=== PATIENT | female | born 1945 | race Caucasian/White ===

== ENCOUNTER → 2018-03-19 10:27 | Outpatient (CLI) | payer MEDICARE, OTHER, SELFPAY ==
[2018-03-19 11:45] LABS: Absolute Lymphocyte Count 1.76 X10^3/ul (0.83-4.51); Absolute Neutrophil Count 4.3 X10^3/uL (2.0-7.7); Basophil# 0.05 X10^3/uL; Basophil% 0.7 % (0-1); Eosinophil# 0.12 X10^3/uL; Eosinophils% 1.8 % (0-5); Hematocrit 46.4 % (37-47); Hemoglobin 14.9 g/dl (12.0-15.0); Lymphocyte # 1.76 X10^3/ul (4.0); Lymphocyte % 26.1 % (19-41); Mean Corp Hgb Conc 32.1 g/gl (32-36); Mean Corpuscular Hgb 29.1 pg (27.0-32.0); Mean Corpuscular Volume 90.6 fL (81-99); Monocyte# 0.52 X10^3/uL; Monocyte% 7.7 % (0-10); Neutrophil # 4.28 X10^3/uL (2.7-7.7); Neutrophil % 63.6 % (47-70); Platelet Count 269 K/mm3 (150-450); RBC Distribution Width CV 13.3 % (11.6-14.6); Red Blood Count 5.12 M/mm3 (4.2-5.4); White Blood Count 6.7 K/mm3 (4.4-11.0)
[2018-03-19 11:46] LABS: POSITIVE COUNT NO; POSITIVE DIFFERENTIAL NO; POSITIVE MORPHOLOGY NO
[2018-03-19 12:50] LABS: ALB/GLOB Ratio 0.9 RATIO (0.9-2.4); AST(SGOT) 24 U/L (15-37); Alanine Aminotransfer ALT/SGPT 26 U/L (13-56); Albumin, Serum 3.7 g/dL (3.2-5.0); Alkaline Phosphatase 68 U/L (45-117); Anion Gap 11 (5-15); BUN 13 mg/dL (7-18); BUN/Creat Ratio 13.7 RATIO (10-20); Calcium,Total 9.2 mg/dL (8.5-10.1); Chloride 103 mmol/L (98-107); Creatinine, Serum 0.95 mg/dL (0.55-1.02); EST Glomerular Filtration Rate 62 mL/min (>60); Est Glom Filt Rate - Afr Amer 75 mL/min (>60); Glucose 98 mg/dL (74-106); Magnesium 1.9 mg/dL (1.6-2.6); Phosphorus 2.4 mg/dL (2.5-4.9); Potassium 3.8 mmol/L (3.5-5.1); Protein, Total 7.7 g/dL (6.4-8.2); Sodium Level 142 mmol/L (136-145); Vitamin B12 1084 pg/mL (211-911); Vitamin D,25 Hydroxy 31.9 ng/mL (29.95-100.01)
== END ==
PROVIDERS: Family Provider Family Medicine; PCP Family Medicine; Referring Provider Nurse Practitioner Acute Care; Visit Provider Nurse Practitioner Acute Care
DX: G25.81 Restless legs syndrome (principal); E55.9 Vitamin D deficiency, unspecified; Z79.899 Other long term (current) drug therapy
CPT/HCPCS: 36415; 80053; 82306; 82607; 83735; 84100; 85025

== ENCOUNTER 2018-06-11 17:41 | Inpatient (IN) | payer MEDICARE, OTHER, SELFPAY ==
[2018-06-11] VITALS (12 sets, daily range): BP systolic 114–146; BP diastolic 57–94; PULSE 86–120; RESP 18–36; TEMP 36.9–38.3; O2SAT 87–94; BMI 51.2; BMI 49.5
--- NOTE | 2018-06-11 18:29 | RAD_ITS ---
STUDY: X-RAY - LEFT KNEE REASON FOR EXAM: Female, 73 years old. Fall. Pain. TECHNIQUE: 4 view(s) of the knee. COMPARISON: None. FINDINGS: Normal visualized distal femur. Normal visualized proximal tibia and fibula. Normal proximal tibiofibular articulation. There is no acute fracture, dislocation or destructive osseous pathology. There is severe degenerative arthrosis of the medial femorotibial compartment with severe joint space narrowing. There is moderate degenerative arthrosis of the lateral femorotibial compartment with moderate joint space narrowing. There is severe degenerative arthrosis of the patellofemoral articulation. There is no demonstrated joint effusion. The soft tissue structures are unremarkable. RAD/Knee 4 or More Views IMPRESSION: Marked degenerative changes of the left knee without fracture or dislocation. Electronically Signed: Con Fletcher DO at 20:11 EST Tel [phone], Service support ,
--- NOTE | 2018-06-11 18:29 | EKG12_ITS ---
Test Reason : SOB Blood Pressure : / mmHG Vent. Rate : 107 BPM Atrial Rate : 107 BPM P-R Int : 186 ms QRS Dur : 106 ms QT Int : 308 ms P-R-T Axes : 041 -40 068 degrees QTc Int : 411 ms Sinus tachycardia Left axis deviation Nonspecific T wave abnormality Abnormal ECG Confirmed by MARCUS MALLORY, ROSENDA ([id number]), editor department DOLORES ARCHIBALD ([id number]) on 06/17/2018 9:55:30 AM Referred By: Pérez Goel Confirmed By:ROSENDA VELAZQUEZ MD
--- NOTE | 2018-06-11 18:29 | RAD_ITS ---
STUDY: X-RAY - LEFT HIP REASON FOR EXAM: Female, 73 years old. Fall. Left hip pain. TECHNIQUE: 3 views of the hip. COMPARISON: None. FINDINGS: There is no fracture or dislocation in the pelvis or left hip. There are mild degenerative changes in the left hip. There are postsurgical changes from a prior right hip arthroplasty with intact hardware in satisfactory alignment. RAD/HIP, UNI W/ Pelvis 2-3 Views IMPRESSION: No fracture or dislocation in the pelvis or left hip. Mild degenerative changes. Electronically Signed: Juan Antonio Denise, at 20:28 EST Tel , Service support ,
[2018-06-11 19:04] LABS: Absolute Lymphocyte Count 0.52 X10^3/ul (0.83-4.51); Absolute Neutrophil Count 13.6 X10^3/uL (2.0-7.7); Differential Indicated SCAN CRITERIA MET; Hematocrit 43.7 % (37-47); Hemoglobin 14.3 g/dl (12.0-15.0); Lymphocyte # 0.52 X10^3/ul (4.0); Lymphocyte % 3.4 % (19-41); Mean Corp Hgb Conc 32.7 g/gl (32-36); Mean Corpuscular Hgb 29.2 pg (27.0-32.0); Mean Corpuscular Volume 89.2 fL (81-99); Mean Platelet Vol. 10.4 fl (6.2-12.0); Monocyte# 1.33 X10^3/uL; Monocyte% 8.6 % (0-10); Neutrophil % 87.8 % (47-70); POSITIVE COUNT NO; POSITIVE DIFFERENTIAL YES; POSITIVE MORPHOLOGY NO; Platelet Count 194 K/mm3 (150-450); RBC Distribution Width CV 13.5 % (11.6-14.6); RBC Distribution Width SD 44.5 fl (35.1-43.9); White Blood Count 15.5 K/mm3 (4.4-11.0)
--- NOTE | 2018-06-11 19:10 | RAD_ITS ---
STUDY: X-RAY CHEST REASON FOR EXAM: Female, 73 years old. Cough. TECHNIQUE: PA and lateral views of the chest. COMPARISON: None. FINDINGS: Telemetry wires overlie the chest. The lungs are hypoexpanded. There is mild elevation of the right hemidiaphragm. There is mild perihilar interstitial prominence. There is no visualized infiltrate or mass. There is no demonstrated pleural abnormality. The heart appears enlarged. Normal mediastinum. There is bilateral hilar prominence. Normal visualized aortic arch and descending thoracic aorta. There are diffuse degenerative changes of the visualized thoracic spine. Normal visualized ribs, clavicles, and shoulders. There is no demonstrated abnormality of the visualized soft tissue structures of the upper abdomen. RAD/Chest PA and Lateral IMPRESSION: Question mild vascular congestion/failure. Electronically Signed: Con Fletcher DO at 20:10 EST Tel [phone], Service support ,
[2018-06-11 19:30] LABS: ALB/GLOB Ratio 0.7 RATIO (0.9-2.4); AST(SGOT) 289 U/L (15-37); Alanine Aminotransfer ALT/SGPT 78 U/L (13-56); Albumin, Serum 3.2 g/dL (3.2-5.0); Alkaline Phosphatase 81 U/L (45-117); Anion Gap 11 (5-15); BUN 41 mg/dL (7-18); Calcium,Total 8.7 mg/dL (8.5-10.1); Chloride 97 mmol/L (98-107); Creatinine, Serum 2.16 mg/dL (0.55-1.02); EST Glomerular Filtration Rate 24 mL/min (>60); Est Glom Filt Rate - Afr Amer 29 mL/min (>60); Estimated Creatinine Clearance 20.33 ml/min; Globulin 4.5 g/dL (2.2-4.2); Glucose 153 mg/dL (74-106); Potassium 3.4 mmol/L (3.5-5.1); Protein, Total 7.7 g/dL (6.4-8.2); Sodium Level 134 mmol/L (136-145)
--- NOTE | 2018-06-11 19:34 | ED.RN ---
and RN aware of elevated troponin.
[2018-06-11 19:38] LABS: Differential Comment SCANNED
--- NOTE | 2018-06-11 19:51 | PCM.HP.STD ---
Problem List (1) Non-STEMI (non-ST elevated myocardial infarction) Status: Acute (2) Severe sepsis Status: Acute (3) Status post total right knee replacement Status: Chronic History of Present Illness Date of Admission: 06/11/18 Chief Complaint: Fall The patient is a 73 year old F with a significant history of hypertension; cardiomegaly; asthma who presented to the emergency department because of a fall. Patient reported that in the morning of of her admission she was sitting on her toilet and she slipped and fell. She reported that the covering of her toilet seat is movable. The covering of her toilet seat moved causing her to fall. She reports mild pain in her left ankle; her left knee and the left hip after the fall. This pain is a sharp pain. It was nonradiating. There was no aggravating or ameliorating factor to this pain. The pain was nonradiating. Also patient reports a 2-day history of nausea vomiting and diarrhea. On the day of admission she was not nauseous and she did not vomit. She reported one episode of loose stools on the morning of admission. She reported that her bowels has been moving once a day but then they are loose. She denies eating out recently. She reported that when she sneezes she has loose bowel movement. At emergency department patient was found to have tachycardia with heart rate as high as 106; tachypnea with respiratory rate as high as 34. She was found to have leukocytosis with a white count of 15.5. Her troponin was 10.10; and her EKG showed unspecified ST abnormalities. Patient denied any chest pain. Nitroglycerin was placed on patient's chest. Cardiology was consulted. Per emergency department doctor Cardiology made a recommendation to start patient on weight-based heparin; metoprolol and Brilinta. Associated with her symptoms is shortness of breath on exertion. Patient reports that since about May 2018 she has moved from a 2 pillow orthopnea to 4 pillow orthopnea. She reports sneezing; and a cough sometimes productive for greenish sputum. At the emergency department chest x-ray showed questionable mild vascular congestion/failure. X-ray of her knee showed marked degenerative changes of the left knee without fracture or dislocation. X-ray of the pelvis and hip showed no fracture or dislocation in the pelvis or left hip. Past Medical History Past Medical History (Chronic Problems): Chronic Problems CAD (coronary artery disease) (Chronic) Asthma (Chronic) Hypertension (Chronic) Osteoarthritis of right knee (Chronic) Restless leg syndrome (Chronic) Hypothyroidism (Chronic) Hyperlipidemia (Chronic) Status post total right knee replacement (Chronic) Allergies codeine Allergy (Verified 06/11/18 17:45) Shortness of breath ITCHING meperidine HCl [From Demerol] Allergy (Verified 06/11/18 17:45) Itching midazolam HCl [From Versed] Allergy (Verified 06/11/18 17:45) Itching Sulfa (Sulfonamide Antibiotics) Allergy (Verified 06/11/18 17:45) Unknown A CHILD Home Medications: Ambulatory Orders Medication Instructions Recorded Albuterol IH (ProAir) [Proair Hfa] 1 - 2 puff INHALATION Q6H PRN PRN 06/23/15 Ascorbic Acid [Vitamin C] 500 mg PO DAILY@0800 06/23/15 Calcium Phosphate Trib/Vit D3 1 tab PO DAILY 06/23/15 [Citracal + D3 Gummies] Cyanocobalamin (Vitamin B-12) 500 mcg SL QHS 06/23/15 [Vitamin B-12] Cyclobenzaprine HCl 5 mg PO TID PRN PRN 06/23/15 Docusate Sodium [Colace] 100 mg PO DAILY PRN PRN 06/23/15 Gabapentin [Neurontin] 1,500 tab PO QHS 06/23/15 Levothyroxine [Synthroid] 50 mcg PO MOWEFRSA 06/23/15 Levothyroxine [Synthroid] 100 mcg PO SUTUTH 06/23/15 Loratadine [Claritin] 10 mg PO DAILY 06/23/15 Losartan Potassium [Cozaar] 50 mg PO DAILY 06/23/15 MSM/Hyd.collagen/Coq10/Bhpu486 1 tab PO DAILY 06/23/15 [Beauty & Skin Therapy Tablet] Meclizine HCl [Antivert] 12.5 mg PO DAILY PRN PRN 06/23/15 Montelukast Sodium [Singulair] 10 mg PO DAILY 06/23/15 Multivit-Min/Iron/Folic/Lutein 1 tab PO DAILY 06/23/15 [Centrum Silver Women Tablet] Potassium Chloride [Klor-Con 10] 10 meq PO DAILY 06/23/15 Sertraline HCl [Zoloft] 50 mg PO DAILY 06/23/15 Aspirin 325 mg PO BID #60 tablet 07/01/15 Hydrocodone Bitart/Apap 5-325 1 - 2 tablet PO Q6H PRN PRN #30 07/19/15 [Como 5/325] tablet Diclofenac Sodium 1 applic TP PRN PRN 06/11/18 Etodolac 400 mg PO DAILY 06/11/18 Ibuprofen/Diphenhydramine Cit 1 tab PO QHS 06/11/18 [Advil Pm Caplet] Mometasone/Formoterol [Dulera 100 2 puff INHALATION BID 06/11/18 Mcg/5 Mcg Inhaler] Nortriptyline HCl 10 mg PO QHS 06/11/18 Gaffney-3 Fatty Acids/Fish Oil [Fish 1 each PO DAILY 06/11/18 Oil 1,000 mg Capsule] Pravastatin Sodium 80 mg PO QHS 06/11/18 Triamterene/Hydrochlorothiazid 1 cap PO DAILY 06/11/18 [Triamterene-Hctz 37.5-25 mg Cp] Vitamin E Acetate [Vitamin E] 400 unit PO DAILY 06/11/18 Surgical History: hysterectomy - 1990, total hip arthroplasty - Right 2007, Dr. Polk., total knee arthroplasty - Right 06/29/2015 Dr. Polk., - - Thyroidectomy 2008 Psychiatric History: No pertinent psych hx APPLICATION ENGINEER History: No pertinent APPLICATION ENGINEER history Lives: With Family Smoking Status: Former smoker - *Family History Maternal History Items: Dementia Paternal History Items: Stroke Review of Systems Constitutional: Denies: Chills, Fever, Weight Change HEENT: Denies: Head Aches, Sinus Congestion, Sinus Drainage Cardiovascular: Reports: Orthopnea. Denies: Chest Pain, Palpitations Respiratory: Reports: Cough, Shortness of breath upon exertion, Sputum production. Denies: Shortness of breath at rest Gastrointestinal: Reports: Diarrhea, Nausea - now resolved, Vomiting - now resolved Genitourinary: Denies: Dysuria Musculoskeletal: Reports: Joint Pain - Left knee, left hip and left ankle.. Denies: Joint Tenderness Skin: Denies: Rash, Wounds Neurological: Denies: Numbness, Tingling, Focal weakness Psychiatric: Denies: Anxiety, Depression, Homicidal Ideations, Suicidal Ideations Hematologic/ Lymphatic: Denies: Easy Bruising, Easy Bleeding VTE Information - Inpt Only VTE Present on Admission: No VTE Mechan Device Prophylaxis: None VTE Pharm Prophylaxis ordered?: No Reason prophylaxis not ordered:: Treatment Not Indicated - Started on a heparin drip for NSTEMI Patient Problems: Active and Suspected Problems Non-STEMI (non-ST elevated myocardial infarction) (Acute) Severe sepsis (Acute) Myocardial infarct (Acute) Renal insufficiency (Acute) Fever (Acute) - Physical Exam General: Alert, Oriented x3, Cooperative HEENT: Atraumatic, PERRLA, EOMI, Normocephalic Neck: Supple, No JVD, Negative Carotid Bruits Lungs: Clear to auscultation, Normal air movement, Tachypneic Cardiovascular: Regular rate, No murmurs, Tachycardic Abdomen: Bowel Sounds Present, Soft, Non Tender Extremities: No edema, Capillary Refill Less than 3 Seconds, Tenderness - Left knee Skin: No rashes, No breakdown Musculoskeletal: No Tenderness to Palpation of Joints or Extremities Neurological: Neuro grossly intact - Except she has slow speech with some forgetfulness. Psych/Mental Status: Anxious Vital Signs Temp Pulse Resp BP Pulse Ox 99.6 F H 106 H 33 H 114/63 94 06/11/18 18:53 06/11/18 18:53 06/11/18 18:53 06/11/18 18:53 06/11/18 18:53 Oxygen Flow Rate (L/min) 2 Oxygen Delivery Method Nasal Cannula Weight: 135.624 kg Body Mass Index (BMI) 51.2 Laboratory Tests Past 24 Hrs 06/11/18 06/11/18 18:43 18:43 WBC 15.5 H RBC 4.90 Hgb 14.3 Hct 43.7 MCV 89.2 MCH 29.2 MCHC 32.7 RDW 13.5 RDW Differential 44.5 H Plt Count 194 MPV 10.4 Immature Gran % (Auto) 0.200 Neut % (Auto) 87.8 H Lymph % (Auto) 3.4 L [place] % (Auto) 8.6 Eos % (Auto) 0.0 Baso % (Auto) 0.0 Absolute Neuts (auto) 13.6 H Absolute Lymphs (auto) 0.52 L Total Counted Not Reportable Differential Comment SCANNED Sodium 134 L Potassium 3.4 L Chloride 97 L Carbon Dioxide 26.0 Anion Gap 11 BUN 41 H Creatinine 2.16 H Estim Creat Clear Calc 20.33 Est GFR (MDRD) Af Amer 29 L Est GFR (MDRD) Non-Af 24 L BUN/Creatinine Ratio 19.0 Glucose 153 H Calcium 8.7 Total Bilirubin 0.90 AST 289 H ALT 78 H Alkaline Phosphatase 81 Troponin I 10.100 H* Total Protein 7.7 Albumin 3.2 Globulin 4.5 H Albumin/Globulin Ratio 0.7 L Assessment/Plan All Active Problems Non-STEMI (non-ST elevated myocardial infarction) (Acute) Severe sepsis (Acute) Myocardial infarct (Acute) Renal insufficiency (Acute) Fever (Acute) The patient is a 73 year old F with a significant history of hypertension; cardiomegaly; asthma who presented to the emergency department because of a fall; and also complains of shortness of breath and found to have severely elevated troponin; FRED; and radiographic evidence of mild vascular congestion; with SIRS criteria as well as abnormal urinalysis.. Non-ST elevation AL Initial troponin was 10.1 Admit to a monitored bed on PCU CXR independently reviewed confirms no acute cardiopulmonary process. EKG independently reviewed confirms left axis deviation with nonspecific T wave abnormalities. Patient received aspirin 324 mg at emergency department. ASA 81 mg p.o. daily Topical nitroglycerin was placed on patient chest at emergency department. We will continue topical nitroglycerin paste. We will check lipid panel. Patient is on home pravastatin 80 mg nightly. Will change pravastatin to Lipitor 80 mg nightly Trend troponin Stat EKG as needed for chest pain Cardiology consult. Probable heart failure Patient with tachypnea and increased work of breathing with use of accessory muscles. BNP ordered retained with a value of 1027.9. Chest x-ray independently reviewed confirms vascular congestion and increase cardiac silhouette. With elevated BNP 40 mg of Lasix IV was given. Continue the plan hydration per severe sepsis protocol was held. We will give another dose of Lasix 40 mg IV. We will replace potassium with 40 mEq now; and continue home daily potassium supplementation. Consider continuing Lasix if clinically indicated. Recommend escalating dose of home potassium supplementation if Lasix is continued. Get influenza and rapid respiratory panel. Probable Acute exacerbation of asthma. With a history of asthma and with shortness of breath and tachycardia and tachypnea, rule out acute exacerbation of asthma at this time DuoNeb scheduled and albuterol as needed ordered. We will start patient on prednisone 40 mg daily. Home inhaled corticosteroid continued Severe Sepsis from UTI Patient with a T-max of 100.9; highest heart rate of 120. Highest respiratory rate of 36. Patient with leukocytosis of white counts of 15.5. Lactic acid is unremarkable. Her urinalysis showed protein of 100; leukocyte esterase of 500; nitrites with -2+ bacteria was seen; and there was no squamous epithelial cells seen. Because of probable heart failure with elevated BNP and pulmonary congestion on chest x-ray IV bolus was not given. Blood cultures ordered Urine cultures are pending. Fall Likely mechanical. Continue home [place] for pain. FRED Her creatinine on admission was 2.16. Review of old records shows that her baseline creatinine is about 0.95. BUN over creatinine is 19. Differential diagnosis includes prerenal from cardiorenal syndrome; or intrinsic renal from sepsis.. Urine osmolality; urine sodium; urine creatinine and urine urea ordered. DVT prophylaxis Receiving IV heparin for non-STEMI. Code Visit Inpatient E&M: 50528 Init Hosp L3
[2018-06-11] MEDS: Aspirin 81 MG TAB.CHEW 324 MG PO (19:52)
[2018-06-11] MEDS: Nitroglycerin Oint 1 INCH PACKET TRANSDERM. ×2 (19:53→23:33)
--- NOTE | 2018-06-11 20:21 | ED.VISSUMM ---
- ER Visit Summary Date of Service: 06/11/18 Chief Complaint: [] History of Present Illness: The patient is a 73 F [] Physical Examination: [] Test Results: [] Emergency Department Course and Treatment: [] Treatment Plan: [] Disposition: [] Impression: [] This note was generated with [employer] dictation software. It may contain incorrect words, spelling, and punctuation that were not noted in review of the chart prior to signing <Pérez Goel - Last Filed: 06/11/18 21:08> - ER Visit Summary Date of Service: 06/11/18 Chief Complaint: Shortness of breath History of Present Illness: The patient is a 73 F who presents with shortness of breath and a fall that occurred today. Patient fell from a seated position and injured her left hip and left knee. Patient states she has been having difficulty breathing since the fall. Patient states her breathing is worse with any exertion. Patient denies any chest pain. Patient denies any fevers or chills. Patient denies any cough. Physical Examination: Vital signs are reviewed. Patient is in no acute distress. Oral mucosa is pink and moist. Neck is supple. Trachea is midline. Heart was regular rate and rhythm. Lungs were diminished bilaterally. There is adequate respiratory effort noted. Abdomen is soft and nontender. Cranial nerves II through XII are intact. There are no focal deficits noted. Musculoskeletal exam reveals tenderness of the left knee and left hip. There is decent range of motion. There is no deformity noted. Cranial nerves II through XII are intact. There are no focal motor or sensory deficits noted. The remaining physical exam is within normal limits. Test Results: EKG showed normal sinus rhythm with nonspecific ST-T wave changes in leads I, aVL, and V3 through V6. Chest x-ray does not show any acute cardiopulmonary process. Troponin was elevated at 10.1. Creatinine was elevated 2.16. These were new compared to previous results. Urinalysis shows evidence of urinary tract infection. Lactate was normal at 1.6. Emergency Department Course and Treatment: Patient was given aspirin and nitroglycerin here. Case was discussed with Dr. Goel. He will admit the patient to his service. He recommended obtaining a lactate for possible sepsis. Case was also discussed with Dr. Shah. He recommended giving the patient Brilinta, metoprolol, and starting the patient on a heparin drip. These were all ordered prior to the patient going to the floor. Disposition: Admit to hospital Impression: 1. Non-STEMI 2. Urinary tract infection This note was generated with [employer] dictation software. It may contain incorrect words, spelling, and punctuation that were not noted in review of the chart prior to signing <Zeus Ritchie - Last Filed: 06/12/18 01:47> ED Disposition <Pérez Goel - Last Filed: 06/11/18 21:08> <Zeus Ritchie - Last Filed: 06/12/18 01:47> - Plan for ED Patient: Disposition: Acute Care Hospital [facility] Chief Complaint: Shortness of Breath Diagnosis: Non-STEMI (non-ST elevated myocardial infarction)
[2018-06-11 20:26] LABS: International Normalized Ratio 1.2; Prothrombin Time (Protime)PT. 15.5 SECONDS (11.7-14.9)
[2018-06-11 20:27] LABS: Partial Thromboplast Time 44.4 Seconds (24.1-36.2)
[2018-06-11] MEDS: TICAGRELOR 90 MG TABLET 180 MG PO (20:56)
[2018-06-11] MEDS: Metoprolol Tartrate 25 MG Tablet PO (20:56)
[2018-06-11] MEDS: Heparin Injection (Vial) 5,000 UNIT/ML VIAL 10500 UNIT IV (20:59)
[2018-06-11] MEDS: HEPARIN/D5w 25,000 UNITS 25,000 UNITS/250 ML IV.SOLN. 17 UNITS IV (21:09)
[2018-06-11 21:14] LABS: Mucous, Urine 0 SEEN /hpf (<or=2+); Red Blood Cells-Urine 0 SEEN /hpf (0-5); Squamous Epithelial Cells - UA 0 SEEN /hpf (5-10)
[2018-06-11 21:20] LABS: Color, Urine Yellow (Yellow); Glucose, Dipstick Normal (Normal); Ketone-Dipstick 5 mg/dl (Negative); Leukocyte Esterase-Dipstick 500 /ul (Negative); Nitrite-Dipstick Negative (Negative); Occult Blood-Urine 250 /ul (Negative); Protein-Dipstick 100 mg/dl (Negative); Specific Gravity, Urine 1.015 (1.002-1.030); Urine Clarity Cloudy (Clear); Urine Urobilinogen 1 mg/dl (Normal)
[2018-06-11 21:24] LABS: Urine Bilirubin Dipstick 3 mg/dL (Negative)
[2018-06-11 21:35] LABS: White Blood Cells 25-50 SEEN /hpf (0-5)
[2018-06-11 21:37] LABS: Bacteria 2+ /hpf (None Seen)
[2018-06-11 21:39] LABS: Fine Granular Cast- Urine 5-10 SEEN /lpf (0-5)
[2018-06-11 21:41] LABS: Lactic Acid 1.6 mmol/L (0.4-2.0)
[2018-06-11 22:02] LABS: BNP,B-Type NATRIURETIC PEPTIDE 1027.9 pg/mL (0-100)
--- NOTE | 2018-06-11 22:23 | PCM.CONS.C ---
Problem List (1) Myocardial infarct Status: Acute Qualifiers: Myocardial infarction type: non-ST elevation myocardial infarction Qualified Code(s): I21.4 - Non-ST elevation (NSTEMI) myocardial infarction (2) CAD (coronary artery disease) Status: Chronic Qualifiers: Coronary Disease-Associated Artery/Lesion type: [place] artery (3) Hyperlipidemia Status: Chronic (4) Hypertension Status: Chronic (5) Renal insufficiency Status: Acute (6) Fever Status: Acute Reason for Consult Date of Consultation: 06/11/18 History of Present Illness: The patient is a 73 year old white female who states she has a past medical history of hyperlipidemia, hypertension, and CAD previously diagnosed by the CC who has been followed from a cardiovascular standpoint by Dr. Elijah coon who presents now for evaluation of a fall but with also concerns of underlying nausea, emesis, diarrhea, shortness of breath, and subsequent findings on laboratory studies of an abnormal troponin I level and an abnormal ECG concerning for acute coronary syndrome as well as an elevated creatinine level. The patient denies having ongoing chest discomfort. She states her main concern over the last approximate 2 days have been nausea, vomiting, diarrhea, and shortness of breath/dyspnea. She is always had a component of lower extremity peripheral pitting edema according to her son who is with her at this time. She denies any chest discomfort and denies any near syncope or syncope. She states her fall, off the commode, was accidental. She had discomfort of her lower extremities which in the emergency department was subsequently evaluated radiologically and found to have no obvious fractures. Based upon the aforementioned neovascular concerns she was started on additional cardiovascular medical management. This is included agents such as aspirin, antiplatelet therapy with Brilinta, anticoagulant therapy, nitrates, and beta blockers. Also because of concern of fever and her associated symptoms and her radiologic findings on chest x-ray suggesting possible increased pulmonary vascularity/CHF although infiltrates cannot be excluded, she was also placed on antibiotic therapy. At the present time she denies ongoing chest discomfort. She does drive symptoms compatible with orthopnea. He has had no report of syncope. Past Medical History Allergies/Adverse Reactions: Allergies codeine Allergy (Verified 06/11/18 17:45) Shortness of breath ITCHING meperidine HCl [From Demerol] Allergy (Verified 06/11/18 17:45) Itching midazolam HCl [From Versed] Allergy (Verified 06/11/18 17:45) Itching Sulfa (Sulfonamide Antibiotics) Allergy (Verified 06/11/18 17:45) Unknown A CHILD Home Medications: Ambulatory Orders Medication Instructions Recorded Albuterol IH (ProAir) [Proair Hfa] 1 - 2 puff INHALATION Q6H PRN PRN 06/23/15 Ascorbic Acid [Vitamin C] 500 mg PO DAILY@0800 06/23/15 Calcium Phosphate Trib/Vit D3 1 tab PO DAILY 06/23/15 [Citracal + D3 Gummies] Cyanocobalamin (Vitamin B-12) 500 mcg SL QHS 06/23/15 [Vitamin B-12] Cyclobenzaprine HCl 5 mg PO TID PRN PRN 06/23/15 Docusate Sodium [Colace] 100 mg PO DAILY PRN PRN 06/23/15 Gabapentin [Neurontin] 1,500 tab PO QHS 06/23/15 Levothyroxine [Synthroid] 50 mcg PO MOWEFRSA 06/23/15 Levothyroxine [Synthroid] 100 mcg PO SUTUTH 06/23/15 Loratadine [Claritin] 10 mg PO DAILY 06/23/15 Losartan Potassium [Cozaar] 50 mg PO DAILY 06/23/15 MSM/Hyd.collagen/Coq10/[id number] 1 tab PO DAILY 06/23/15 [Beauty & Skin Therapy Tablet] Meclizine HCl [Antivert] 12.5 mg PO DAILY PRN PRN 06/23/15 Montelukast Sodium [Singulair] 10 mg PO DAILY 06/23/15 Multivit-Min/Iron/Folic/Lutein 1 tab PO DAILY 06/23/15 [Centrum Silver Women Tablet] Potassium Chloride [Klor-Con 10] 10 meq PO DAILY 06/23/15 Sertraline HCl [Zoloft] 50 mg PO DAILY 06/23/15 Aspirin 325 mg PO BID #60 tablet 07/01/15 Hydrocodone Bitart/Apap 5-325 1 - 2 tablet PO Q6H PRN PRN #30 07/19/15 [[place] 5/325] tablet Diclofenac Sodium 1 applic TP PRN PRN 06/11/18 Etodolac 400 mg PO DAILY 06/11/18 Ibuprofen/Diphenhydramine Cit 1 tab PO QHS 06/11/18 [Advil Pm Caplet] Mometasone/Formoterol [Dulera 100 2 puff INHALATION BID 06/11/18 Mcg/5 Mcg Inhaler] Nortriptyline HCl 10 mg PO QHS 06/11/18 [place]-3 Fatty Acids/Fish Oil [Fish 1 each PO DAILY 06/11/18 Oil 1,000 mg Capsule] Pravastatin Sodium 80 mg PO QHS 06/11/18 Triamterene/Hydrochlorothiazid 1 cap PO DAILY 06/11/18 [Triamterene-Hctz 37.5-25 mg Cp] Vitamin E Acetate [Vitamin E] 400 unit PO DAILY 06/11/18 Past Medical History (Chronic Problems): Chronic Problems CAD (coronary artery disease) (Chronic) Asthma (Chronic) Hypertension (Chronic) Osteoarthritis of right knee (Chronic) Restless leg syndrome (Chronic) Hypothyroidism (Chronic) Hyperlipidemia (Chronic) Surgical History: hysterectomy - 1990, total hip arthroplasty - Right 2007, Dr. Polk., total knee arthroplasty - Right 06/29/2015 Dr. Polk., - - Thyroidectomy 2008 Psychiatric History: No pertinent psych hx [employer] History: No pertinent [employer] history - *Family History Maternal History Items: Dementia Paternal History Items: Stroke Lives: With Family Smoking Status: Former smoker Review of Systems - Review of Systems General: Reports: Fever. Denies: Fatigue, Night Sweats Cardiovascular: Reports: Shortness of Breath, Orthopnea, Peripheral Edema. Denies: Chest Discomfort, PND, Palpitations, Lightheadedness, Dizziness, Near Syncope, Syncope Respiratory: Reports: Shortness of Breath. Denies: Cough, Sputum Production, Hemoptysis Gastrointestinal: Reports: Nausea, Emesis, Diarrhea. Denies: Hematemesis, Hematochezia, Melena Genitourinary: Denies: Dysuria, Hematuria Skin: Denies: Rash Subjectve: Is a 73-year-old obese white female who appears to be resting reasonably comfortably at the moment in no acute distress. Objective: Vital Signs Temp Pulse Resp BP Pulse Ox 100.9 F H 103 H 32 H 117/57 L 93 06/11/18 21:18 06/11/18 21:18 06/11/18 21:18 06/11/18 21:18 06/11/18 21:18 Oxygen Flow Rate (L/min) 2 Oxygen Delivery Method Nasal Cannula Weight: 299 lb Body Mass Index (BMI) 51.2 General: Awake, Alert, Oriented x 3, Cooperative, No Acute Distress HEENT: Atraumatic, Normocephalic, PERRL, EOMI, Sclera Non Icteric Neck: No JVD Lungs: Diminished Pavel Bases Cardiovascular: Regular Rhythm, Normal S1, Normal S2 Vascular: No Carotid Bruits Abdomen: Bowel Sounds Present, Soft, Non Tender Extremities: Mild RLE Edema, Mild LLE Edema Psych/Mental Status: Appropriate 06/11/18 18:43: WBC 15.5 H, RBC 4.90, Hgb 14.3, Hct 43.7, MCV 89.2, MCH 29.2, MCHC 32.7, RDW 13.5, RDW Differential 44.5 H, Plt Count 194, MPV 10.4, Immature Gran % (Auto) 0.200, Neut % (Auto) 87.8 H, Lymph % (Auto) 3.4 L, Sac % (Auto) 8.6, Eos % (Auto) 0.0, Baso % (Auto) 0.0, Absolute Neuts (auto) 13.6 H, Total Counted Not Reportable 06/11/18 18:43: Sodium 134 L, Potassium 3.4 L, Chloride 97 L, Carbon Dioxide 26.0, Anion Gap 11, BUN 41 H, Creatinine 2.16 H, Est GFR (MDRD) Af Amer 29 L, Est GFR (MDRD) Non-Af 24 L, BUN/Creatinine Ratio 19.0, Glucose 153 H, Calcium 8.7, Total Bilirubin 0.90, Troponin I 10.100 H* 06/11/18 18:43: PT 15.5 H, INR 1.2, APTT 44.4 H 06/11/18 18:43: B-Natriuretic Peptide 1027.9 H 06/11/18 20:55: Lactic Acid 1.6 06/11/18 21:06: Urine Color Yellow, Urine Clarity Cloudy, Urine pH 5.0, Ur Specific [place] 1.015, Urine Protein 100 H, Urine Glucose (UA) Normal, Urine Ketones 5 H, Urine Occult Blood 250 H, Urine Nitrite Negative, Urine Bilirubin 3 H, Urine Urobilinogen 1 H, Ur Leukocyte Esterase 500 H, Urine RBC 0 SEEN, Urine WBC 25-50 SEEN Rhythm: Sinus rhythm EKG: Sinus rhythm; left axis deviation; low voltage QRS in the limb leads; poor R wave progression; nonspecific T wave abnormality; subtle (less than 1 mm) ST segment elevation in leads I and aVL. Assessment/Plan 1. Acute coronary syndrome/acute non-ST segment elevation [place] The patient has been felt based upon a combination of her symptoms, abnormal cardiac enzymes, and her abnormal ECG to have evidence of an acute non-ST segment elevation TN. The patient's case/ECG was also reviewed by Dr. Bess of interventional cardiology of [facility]. He noted as the patient had less than [address] segment elevation in leads I and aVL that the patient would be recommended for continued medical management at this time with continued cardiovascular follow-up and not/emergent evaluation in the cardiac catheterization laboratory. Thus she was placed in the PCU for further evaluation and care. She has been started on medical management as described above. Ideally she will need further evaluation and care with a transthoracic echocardiogram to evaluate her left ventricular wall motion and systolic function as well as a diagnostic cardiac catheterization to reassess her coronary anatomy. Of note, there is some concern with respect to proceeding with diagnostic cardiac catheterization at this time based on the patient's elevated creatinine level for concerns of further IV contrast related nephropathy. 2. CAD The patient describes a history of underlying CAD based on previous cardiac catheterization performed at the [facility]. An attempt will be made to localize those records for continuity of care purposes. In the interim she will continue to be followed. She will be monitored. She will initiate medical management as noted above. 3. Congestive heart failure There is concern based on the patient's history as well as her objective findings of an element of CHF. It is unclear at this time whether this may be systolic or diastolic. However the patient will need to continue to be followed. She is going to receive IV diuretic therapy. Her clinical course as well as objective findings including her renal function will need to be monitored. 4. Hyper lipidemia The patient will continue lipid-lowering therapy. 5. Hypertension Patient's blood pressure will be followed. Her medications can be adjusted as deemed appropriate taking into consideration her renal function. 6. Acute renal insufficiency The patient does have acute renal insufficiency. Is unclear whether this is related to her cardiovascular status and diminished cardiac output/poor perfusion or whether this may be related to an element of decreased intravascular volume secondary to her nausea, emesis, diarrhea leading to dehydration. Based upon her symptoms and her radiologic findings there would be concern of possible CHF/pulmonary edema. This could be from her cardiovascular status and could lead to renal insufficiency. She is going to be treated for cardiovascular condition. Her renal function will need to be followed. 7. Fever He does have a fever. It is unclear whether this is related to a viral or bacterial event based upon her symptoms. She is being evaluated by internal medicine. She is being treated with antibiotic therapy. The patient's case was discussed with the patient, her son, and as noted above reviewed by Dr. Bess of interventional cardiology. This note was generated with [employer] dictation software. It may contain incorrect words, spelling, and punctuation that were not noted in checking the note before signing.
--- NOTE | 2018-06-11 22:27 | CON.PCM_ITS ---
Problem List (1) Myocardial infarct Status: Acute Qualifiers: Myocardial infarction type: non-ST elevation myocardial infarction Qualified Code(s): I21.4 - Non-ST elevation (NSTEMI) myocardial infarction (2) CAD (coronary artery disease) Status: Chronic Qualifiers: Coronary Disease-Associated Artery/Lesion type: [place] artery (3) Hyperlipidemia Status: Chronic (4) Hypertension Status: Chronic (5) Renal insufficiency Status: Acute (6) Fever Status: Acute Reason for Consult Date of Consultation: 06/11/18 History of Present Illness: The patient is a 73 year old white female who states she has a past medical history of hyperlipidemia, hypertension, and CAD previously diagnosed by the CC who has been followed from a cardiovascular standpoint by Dr. Elijah coon who presents now for evaluation of a fall but with also concerns of underlying nausea, emesis, diarrhea, shortness of breath, and subsequent findings on laboratory studies of an abnormal troponin I level and an abnormal ECG concerning for acute coronary syndrome as well as an elevated creatinine level. The patient denies having ongoing chest discomfort. She states her main concern over the last approximate 2 days have been nausea, vomiting, diarrhea, and shortness of breath/dyspnea. She is always had a component of lower extremity peripheral pitting edema according to her son who is with her at this time. She denies any chest discomfort and denies any near syncope or syncope. She states her fall, off the commode, was accidental. She had discomfort of her lower extremities which in the emergency department was subsequently evaluated radiologically and found to have no obvious fractures. Based upon the aforementioned neovascular concerns she was started on additional cardiovascular medical management. This is included agents such as aspirin, antiplatelet therapy with Brilinta, anticoagulant therapy, nitrates, and beta blockers. Also because of concern of fever and her associated symptoms and her radiologic findings on chest x-ray suggesting possible increased pulmonary vascularity/CHF although infiltrates cannot be excluded, she was also placed on antibiotic therapy. At the present time she denies ongoing chest discomfort. She does drive symptoms compatible with orthopnea. He has had no report of syncope. Past Medical History Allergies/Adverse Reactions: Allergies codeine Allergy (Verified 06/11/18 17:45) Shortness of breath ITCHING meperidine HCl [From Demerol] Allergy (Verified 06/11/18 17:45) Itching midazolam HCl [From Versed] Allergy (Verified 06/11/18 17:45) Itching Sulfa (Sulfonamide Antibiotics) Allergy (Verified 06/11/18 17:45) Unknown A CHILD Home Medications: Ambulatory Orders Medication Instructions Recorded Albuterol IH (ProAir) [Proair Hfa] 1 - 2 puff INHALATION Q6H PRN PRN 06/23/15 Ascorbic Acid [Vitamin C] 500 mg PO DAILY@0800 06/23/15 Calcium Phosphate Trib/Vit D3 1 tab PO DAILY 06/23/15 [Citracal + D3 Gummies] Cyanocobalamin (Vitamin B-12) 500 mcg SL QHS 06/23/15 [Vitamin B-12] Cyclobenzaprine HCl 5 mg PO TID PRN PRN 06/23/15 Docusate Sodium [Colace] 100 mg PO DAILY PRN PRN 06/23/15 Gabapentin [Neurontin] 1,500 tab PO QHS 06/23/15 Levothyroxine [Synthroid] 50 mcg PO MOWEFRSA 06/23/15 Levothyroxine [Synthroid] 100 mcg PO SUTUTH 06/23/15 Loratadine [Claritin] 10 mg PO DAILY 06/23/15 Losartan Potassium [Cozaar] 50 mg PO DAILY 06/23/15 MSM/Hyd.collagen/Coq10/Ufbq443 1 tab PO DAILY 06/23/15 [Beauty & Skin Therapy Tablet] Meclizine HCl [Antivert] 12.5 mg PO DAILY PRN PRN 06/23/15 Montelukast Sodium [Singulair] 10 mg PO DAILY 06/23/15 Multivit-Min/Iron/Folic/Lutein 1 tab PO DAILY 06/23/15 [Centrum Silver Women Tablet] Potassium Chloride [Klor-Con 10] 10 meq PO DAILY 06/23/15 Sertraline HCl [Zoloft] 50 mg PO DAILY 06/23/15 Aspirin 325 mg PO BID #60 tablet 07/01/15 Hydrocodone Bitart/Apap 5-325 1 - 2 tablet PO Q6H PRN PRN #30 07/19/15 [[place] 5/325] tablet Diclofenac Sodium 1 applic TP PRN PRN 06/11/18 Etodolac 400 mg PO DAILY 06/11/18 Ibuprofen/Diphenhydramine Cit 1 tab PO QHS 06/11/18 [Advil Pm Caplet] Mometasone/Formoterol [Dulera 100 2 puff INHALATION BID 06/11/18 Mcg/5 Mcg Inhaler] Nortriptyline HCl 10 mg PO QHS 06/11/18 [place]-3 Fatty Acids/Fish Oil [Fish 1 each PO DAILY 06/11/18 Oil 1,000 mg Capsule] Pravastatin Sodium 80 mg PO QHS 06/11/18 Triamterene/Hydrochlorothiazid 1 cap PO DAILY 06/11/18 [Triamterene-Hctz 37.5-25 mg Cp] Vitamin E Acetate [Vitamin E] 400 unit PO DAILY 06/11/18 Past Medical History (Chronic Problems): Chronic Problems CAD (coronary artery disease) (Chronic) Asthma (Chronic) Hypertension (Chronic) Osteoarthritis of right knee (Chronic) Restless leg syndrome (Chronic) Hypothyroidism (Chronic) Hyperlipidemia (Chronic) Surgical History: hysterectomy - 1990, total hip arthroplasty - Right 2007, Dr. Polk., total knee arthroplasty - Right 06/29/2015 Dr. 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 Denies: Fatigue, Night Sweats Cardiovascular: Reports: Shortness of Breath, Orthopnea, Peripheral Edema. Denies: Chest Discomfort, PND, Palpitations, Lightheadedness, Dizziness, Near Syncope, Syncope Respiratory: Reports: Shortness of Breath. Denies: Cough, Sputum Production, Hemoptysis Gastrointestinal: Reports: Nausea, Emesis, Diarrhea. Denies: Hematemesis, Hematochezia, Melena Genitourinary: Denies: Dysuria, Hematuria Skin: Denies: Rash Subjectve: Is a 73-year-old obese white female who appears to be resting reasonably comfortably at the moment in no acute distress. Objective: Vital Signs Temp Pulse Resp BP Pulse Ox 100.9 F H 103 H 32 H 117/57 L 93 06/11/18 21:18 06/11/18 21:18 06/11/18 21:18 06/11/18 21:18 06/11/18 21:18 Oxygen Flow Rate (L/min) 2 Oxygen Delivery Method Nasal Cannula Weight: 299 lb Body Mass Index (BMI) 51.2 General: Awake, Alert, Oriented x 3, Cooperative, No Acute Distress HEENT: Atraumatic, Normocephalic, PERRL, EOMI, Sclera Non Icteric Neck: No JVD Lungs: Diminished Pavel Bases Cardiovascular: Regular Rhythm, Normal S1, Normal S2 Vascular: No Carotid Bruits Abdomen: Bowel Sounds Present, Soft, Non Tender Extremities: Mild RLE Edema, Mild LLE Edema Psych/Mental Status: Appropriate 06/11/18 18:43: WBC 15.5 H, RBC 4.90, Hgb 14.3, Hct 43.7, MCV 89.2, MCH 29.2, MCHC 32.7, RDW 13.5, RDW Differential 44.5 H, Plt Count 194, MPV 10.4, Immature Gran % (Auto) 0.200, Neut % (Auto) 87.8 H, Lymph % (Auto) 3.4 L, [place] % (Auto) 8.6, Eos % (Auto) 0.0, Baso % (Auto) 0.0, Absolute Neuts (auto) 13.6 H, Total Counted Not Reportable 06/11/18 18:43: Sodium 134 L, Potassium 3.4 L, Chloride 97 L, Carbon Dioxide 26.0, Anion Gap 11, BUN 41 H, Creatinine 2.16 H, Est GFR (MDRD) Af Amer 29 L, Est GFR (MDRD) Non-Af 24 L, BUN/Creatinine Ratio 19.0, Glucose 153 H, Calcium 8.7, Total Bilirubin 0.90, Troponin I 10.100 H* 06/11/18 18:43: PT 15.5 H, INR 1.2, APTT 44.4 H 06/11/18 18:43: B-Natriuretic Peptide 1027.9 H 06/11/18 20:55: Lactic Acid 1.6 06/11/18 21:06: Urine Color Yellow, Urine Clarity Cloudy, Urine pH 5.0, Ur Specific [place] 1.015, Urine Protein 100 H, Urine Glucose (UA) Normal, Urine Ketones 5 H, Urine Occult Blood 250 H, Urine Nitrite Negative, Urine Bilirubin 3 H, Urine Urobilinogen 1 H, Ur Leukocyte Esterase 500 H, Urine RBC 0 SEEN, Urine WBC 25-50 SEEN Rhythm: Sinus rhythm EKG: Sinus rhythm; left axis deviation; low voltage QRS in the limb leads; poor R wave progression; nonspecific T wave abnormality; subtle (less than 1 mm) ST segment elevation in leads I and aVL. Assessment/Plan 1. Acute coronary syndrome/acute non-ST segment elevation [place] The patient has been felt based upon a combination of her symptoms, abnormal cardiac enzymes, and her abnormal ECG to have evidence of an acute non-ST segment elevation [place]. The patient's case/ECG was also reviewed by Dr. Bess of interventional cardiology of [facility]. He noted as the patient had less than [address] segment elevation in leads I and aVL that the patient would be recommended for continued medical management at this time with continued cardiovascular follow-up and not/emergent evaluation in the cardiac catheterization laboratory. Thus she was placed in the PCU for further evaluation and care. She has been started on medical management as described above. Ideally she will need further evaluation and care with a transthoracic echocardiogram to evaluate her left ventricular wall motion and systolic function as well as a diagnostic cardiac catheterization to reassess her coronary anatomy. Of note, there is some concern with respect to proceeding with diagnostic cardiac catheterization at this time based on the patient's elevated creatinine level for concerns of further IV contrast related nephropathy. 2. CAD The patient describes a history of underlying CAD based on previous cardiac catheterization performed at the [facility]. An attempt will be made to localize those records for continuity of care purposes. In the interim she will continue to be followed. She will be monitored. She will initiate medical management as noted above. 3. Congestive heart failure There is concern based on the patient's history as well as her objective findings of an element of CHF. It is unclear at this time whether this may be systolic or diastolic. However the patient will need to continue to be followed. She is going to receive IV diuretic therapy. Her clinical course as well as objective findings including her renal function will need to be monitored. 4. Hyper lipidemia The patient will continue lipid-lowering therapy. 5. Hypertension Patient's blood pressure will be followed. Her medications can be adjusted as deemed appropriate taking into consideration her renal function. 6. Acute renal insufficiency The patient does have acute renal insufficiency. Is unclear whether this is related to her cardiovascular status and diminished cardiac output/poor perfusion or whether this may be related to an element of decreased intravascular volume secondary to her nausea, emesis, diarrhea leading to dehydration. Based upon her symptoms and her radiologic findings there would be concern of possible CHF/pulmonary edema. This could be from her cardiovascular status and could lead to renal insufficiency. She is going to be treated for cardiovascular condition. Her renal function will need to be followed. 7. Fever He does have a fever. It is unclear whether this is related to a viral or bacterial event based upon her symptoms. She is being evaluated by internal medicine. She is being treated with antibiotic therapy. The patient's case was discussed with the patient, her son, and as noted above reviewed by Dr. Bess of interventional cardiology. This note was generated with [employer] dictation software. It may contain incorrect words, spelling, and punctuation that were not noted in checking the note before signing.
--- NOTE | 2018-06-11 22:42 | EKG12_ITS ---
Test Reason : ADMIT EKG Blood Pressure : / mmHG Vent. Rate : 085 BPM Atrial Rate : 085 BPM P-R Int : 194 ms QRS Dur : 106 ms QT Int : 398 ms P-R-T Axes : 051 -32 022 degrees QTc Int : 473 ms Normal sinus rhythm Left axis deviation Nonspecific T wave abnormality Prolonged QT Abnormal ECG When compared with ECG of 11-JUN-2018 18:39, MANUAL COMPARISON REQUIRED, DATA IS UNCONFIRMED Confirmed by MARCUS MALLORY, ROSENDA ([id number]), industrial editor DOLORES ARCHIBALD ([id number] on 06/17/2018 10:24:47 AM Referred By: Pérez Goel Confirmed By:ROSENDA VELAZQUEZ MD
[2018-06-11] MEDS: Furosemide 40 MG/4 ML Vial IV (23:08)
[2018-06-11] MEDS: HYDROcodone Bitartrate/Apap 5/325 Tablet PO (23:34)
[2018-06-11] MEDS: predniSONE 20 MG Tablet 40 MG PO (23:35)
[2018-06-11] MEDS: Nortriptyline 10 MG Capsule PO (23:35)
[2018-06-11] MEDS: Ceftriaxone 1 GM/50 ML BAG IV (23:35)
[2018-06-11] MEDS: Cyanocobalamin 500 MCG Tablet PO (23:35)
[2018-06-11] MEDS: Atorvastatin Calcium 80 MG Tablet PO (23:35)
[2018-06-12] VITALS (26 sets, daily range): BP systolic 96–123; BP diastolic 59–79; PULSE 73–138; RESP 18–22; TEMP 36.5–37.7; O2SAT 92–95
[2018-06-12 03:45] LABS: Hematocrit 42.3 % (37-47); Mean Corp Hgb Conc 33.1 g/gl (32-36); Mean Corpuscular Hgb 29.2 pg (27.0-32.0); Mean Corpuscular Volume 88.3 fL (81-99); Mean Platelet Vol. 10.8 fl (6.2-12.0); Platelet Count 180 K/mm3 (150-450); RBC Distribution Width CV 13.5 % (11.6-14.6); RBC Distribution Width SD 43.7 fl (35.1-43.9); Red Blood Count 4.79 M/mm3 (4.2-5.4); White Blood Count 15.6 K/mm3 (4.4-11.0)
[2018-06-12 03:46] LABS: Scan Indicated on CBC? Y/N NO
[2018-06-12 03:56] LABS: Anion Gap 14 (5-15); BUN 45 mg/dL (7-18); BUN/Creat Ratio 20.7 RATIO (10-20); Calcium,Total 8.7 mg/dL (8.5-10.1); Chloride 98 mmol/L (98-107); Cholesterol 72 mg/dL (200); Creatinine, Serum 2.17 mg/dL (0.55-1.02); EST Glomerular Filtration Rate 24 mL/min (>60); Est Glom Filt Rate - Afr Amer 29 mL/min (>60); Estimated Creatinine Clearance 20.24 ml/min; Glucose 180 mg/dL (74-106); High Density Lipoprotein 18 mg/dL; Potassium 3.4 mmol/L (3.5-5.1); Sodium Level 135 mmol/L (136-145); Triglycerides 148 mg/dL; Very Low Density Lipoprotein 30 mg/dL (5-40)
[2018-06-12 03:57] LABS: Partial Thromboplast Time 186.7 Seconds (24.1-36.2)
[2018-06-12 04:00] LABS: International Normalized Ratio 1.4
--- NOTE | 2018-06-12 05:55 | EKG12_ITS ---
Test Reason : AM EKG Blood Pressure : / mmHG Vent. Rate : 076 BPM Atrial Rate : 076 BPM P-R Int : 216 ms QRS Dur : 108 ms QT Int : 460 ms P-R-T Axes : 050 -38 037 degrees QTc Int : 517 ms Sinus rhythm with 1st degree A-V block Left axis deviation T wave abnormality, consider anterolateral ischemia Prolonged QT Abnormal ECG When compared with ECG of 11-JUN-2018 22:53, MANUAL COMPARISON REQUIRED, DATA IS UNCONFIRMED Confirmed by MARCUS MALLORY, ROSENDA ([id number]), magazine editor DOLORES ARCHIBALD ([id number]) on 06/17/2018 10:25:35 AM Referred By: Pérez Goel Confirmed By:ROSENDA VELAZQUEZ MD
--- NOTE | 2018-06-12 05:55 | ECHOCS_ITS ---
Reason For Study: CAD Procedure This was a 2D Doppler, Color Flow transthoracic echocardiogram. The study was technically difficult. Contrast injection was performed. Exam performed portable in patient room. Left Ventricle Normal LV size. Moderate segmental systolic dysfunction (see wall motion). The estimated ejection fraction is 35 %. Diastolic function is indeterminate. Mid-Anterior : Hypokinetic. Mid-Lateral : Hypokinetic. Mid-Inferior: Akinetic. Mid-inferoseptal : Hypokinetic. Mid-anteroseptal : Akinetic. Gratz : Akinetic. Right Ventricle Normal RV size. Normal systolic function. Atria The left atrium is mildly enlarged. Normal right atrium. No doppler evidence for ASD. Mitral Valve There is mild mitral annular calcification. Normal mitral valve. Trivial mitral valve insufficiency. Tricuspid Valve Normal tricuspid valve. Trivial tricuspid valve insufficiency. Unable to estimate RV systolic pressure/pulmonary artery pressure due to technically difficult study. Aortic Valve Trisinus/trileaflet aortic valve. Normal aortic valve. Pulmonic Valve The pulmonic valve is not well visualized. Great Vessels Normal sized aortic root. Pericardium/Pleural No pericardial effusion. Medication Diluted definity 4ml given slow IV push to enhance endocardial definition. MMode/2D Measurements & Calculations LVIDd: 4.7 cm IVSd: 1.3 cm Ao root diam: 3.6 cm LVIDs: 2.8 cm LVPWd: 1.1 cm RVDd: 2.6 cm FS: 38.9 % LAV(MOD-bp): 43.1 ml LA A4 area: 17.7 cm2 LA dimension(2D): 3.0 cm LAV(MOD-bp) Indexed: 18.9 ml/m2 LAV(MOD-sp2): 45.6 ml LAV(MOD-sp4): 41.8 ml RA A4 area: 10.6 cm2 Doppler Measurements & Calculations MV E max rock: 66.6 cm/sec Lat Peak E' Rock: 5.6 cm/sec Med Peak E' Rock: 3.4 cm/sec MV A max rock: 106.9 cm/sec E/E' lat: 12.0 E/E' med: 19.8 MV E/A: 0.62 Ao V2 max: 133.8 cm/sec LV V1 max: 101.8 cm/sec PA V2 max: 110.3 cm/sec Ao max P.2 mmHg LV V1 max P.1 mmHg Interpretation Summary The study was technically difficult. Contrast injection was performed. Moderate segmental systolic dysfunction (see wall motion). The estimated ejection fraction is 35 %. The left atrium is mildly enlarged. There is mild mitral annular calcification. Trivial mitral valve insufficiency. Trivial tricuspid valve insufficiency. Unable to estimate RV systolic pressure/pulmonary artery pressure due to technically difficult study. Diastolic function is indeterminate. Ordering Physician: Jalen Shah Referring Physician: Pérez Goel Performed By: Lashanda Walsh RDCS
[2018-06-12] MEDS: Levothyroxine 50 MCG Tablet PO (06:22)
[2018-06-12] MEDS: Furosemide 40 MG/4 ML Vial IV (06:23)
[2018-06-12 06:27] LABS: Lactic Acid 1.2 mmol/L (0.4-2.0)
[2018-06-12] MEDS: 0.9% NaCl Peripheral Flush Adult/Peds IV ×2 (06:28→13:49)
[2018-06-12] MEDS: Nitroglycerin Oint 1 INCH PACKET TRANSDERM. ×2 (06:40→13:47)
[2018-06-12] MEDS: Ipratropium/Albuterol Sulfate 3 ML AMPUL.NEB INHALATION ×4 (07:00→20:06)
[2018-06-12] MEDS: Budesonide Respules 0.5 MG/2 ML AMPUL.NEB. INHALATION ×2 (07:01→20:06)
[2018-06-12 07:15] LABS: Urine Sodium 68 mmol/L (Not Establ.)
[2018-06-12 07:27] LABS: Osmolality, Urine 319 mOsm/KG; Urea Nitrogen, Urine 256 mg/dL (NO RANGE EST.)
[2018-06-12] MEDS: Aspirin E.C. 81 MG Tablet PO (09:51)
[2018-06-12] MEDS: TICAGRELOR 90 MG TABLET PO ×2 (09:52→21:00)
[2018-06-12] MEDS: Multivitamins,Ther W-Minerals Tablet 1 TABLET PO (09:52)
[2018-06-12] MEDS: Ascorbic Acid 500 MG Tablet PO (09:52)
[2018-06-12] MEDS: Calcium Carb/Vitamin D 1 TABLET Tablet PO (09:52)
[2018-06-12] MEDS: predniSONE 20 MG Tablet 40 MG PO (09:52)
[2018-06-12] MEDS: Sertraline 50 MG Tablet PO (09:53)
[2018-06-12] MEDS: Vitamin E 400 UNITS Capsule PO (09:53)
[2018-06-12] MEDS: Loratadine 10 MG Tablet PO (09:53)
[2018-06-12] MEDS: Montelukast 10 MG Tablet PO (09:53)
[2018-06-12] MEDS: Metoprolol Tartrate 25 MG Tablet PO ×2 (09:53→21:00)
[2018-06-12] MEDS: Nystatin Powder 15gm Bottle 1 APPLIC TOPICAL ×2 (09:58→21:01)
--- NOTE | 2018-06-12 09:58 | PCM.PN.HOSP ---
Patient Problems: Active and Suspected Problems Non-STEMI (non-ST elevated myocardial infarction) (Acute) Severe sepsis (Acute) Myocardial infarct (Acute) Renal insufficiency (Acute) Fever (Acute) Subjective: Patient admitted with a complaint of a fall. She slipped and fell off the toilet. Prior to that, she had complained of feeling sick with fever and nausea and vomiting and diarrhea about 3 days prior to admission. She was admitted to a monitored bed and is being managed for sepsis and NSTEMI as her troponin was 10 on admission. Patient seen and examined this morning. Fever, nausea vomiting and diarrhea have resolved. She denies any chest pain or palpitations or shortness of breath even though she is in about 4 L of oxygen. She denies any abdominal pain, diarrhea vomiting. Cardiology is on board. She was started on heparin, metoprolol and Brilinta for non-STEMI. She is also on IV antibiotics for sepsis. Vitals/I&O's: Vital Signs Temp Pulse Resp BP Pulse Ox 98.0 F 89 21 H 121/60 H 94 06/12/18 09:00 06/12/18 09:00 06/12/18 09:00 06/12/18 09:00 06/12/18 09:44 Oxygen Flow Rate (L/min) 1.5 Oxygen Delivery Method Nasal Cannula Weight: 288 lb 2.307 oz Body Mass Index (BMI) 49.5 Intake and Output for Last 24 Hours 06/10/18 06/11/18 06/12/18 23:59 23:59 23:59 Intake Total 240 / 240 Output Total 1000 / 1000 Balance -760 / -760 General: Alert, Oriented x3, Cooperative, Lethargic HEENT: Atraumatic, PERRLA, EOMI, Normocephalic Oral: Moist Mucosa Neck: Supple, No JVD, Negative Carotid Bruits Lungs: - - decreased breath sounds bibasally; no wheezing or crackles. on 4L of oxygen Cardiovascular: Regular rate, Regular Rhythm, Normal S1, Normal S2, No murmurs Abdomen: Bowel Sounds Present, Soft, Non Tender, Non-Distended, No Hepato-splenomegaly, Obese Extremities: No clubbing, No cyanosis, Capillary Refill Less than 3 Seconds, - - mild bipedal pitting edema Skin: No rashes, No breakdown Musculoskeletal: No Tenderness to Palpation of Joints or Extremities Lymphatic: No Cervical, Supraclavicular, or Inguinal Adenopathy Neurological: Cranial nerves II-XII grossly intact Psych/Mental Status: Normal Affect, Appropriate, Alert and oriented to time, place, person, mood and affect Microbiology Past 72 Hours 06/11/18 22:25 Blood Culture (Wb) - Anticubital Left Blood Culture - Preliminary 06/11/18 22:10 Mucosa - Nasopharyngeal Influenza Types A,B Direct FA (KENZIE) - Final Laboratory Results 06/11/18 18:43: WBC 15.5 H, RBC 4.90, Hgb 14.3, Hct 43.7, MCV 89.2, MCH 29.2, MCHC 32.7, RDW 13.5, RDW Differential 44.5 H, Plt Count 194, MPV 10.4, Immature Gran % (Auto) 0.200, Neut % (Auto) 87.8 H, Lymph % (Auto) 3.4 L, [place] % (Auto) 8.6, Eos % (Auto) 0.0, Baso % (Auto) 0.0, Absolute Neuts (auto) 13.6 H, Absolute Lymphs (auto) 0.52 L, Total Counted Not Reportable, Differential Comment SCANNED 06/11/18 18:43: Sodium 134 L, Potassium 3.4 L, Chloride 97 L, Carbon Dioxide 26.0, Anion Gap 11, BUN 41 H, Creatinine 2.16 H, Estim Creat Clear Calc 20.33, Est GFR (MDRD) Af Amer 29 L, Est GFR (MDRD) Non-Af 24 L, BUN/Creatinine Ratio 19.0, Glucose 153 H, Calcium 8.7, Total Bilirubin 0.90, AST 289 H, ALT 78 H, Alkaline Phosphatase 81, Troponin I 10.100 H*, Total Protein 7.7, Albumin 3.2, Globulin 4.5 H, Albumin/Globulin Ratio 0.7 L 06/11/18 18:43: PT 15.5 H, INR 1.2, APTT 44.4 H 06/11/18 18:43: B-Natriuretic Peptide 1027.9 H 06/11/18 20:55: Lactic Acid 1.6 06/11/18 21:06: Urine Color Yellow, Urine Clarity Cloudy, Urine pH 5.0, Ur Specific [place] 1.015, Urine Protein 100 H, Urine Glucose (UA) Normal, Urine Ketones 5 H, Urine Occult Blood 250 H, Urine Nitrite Negative, Urine Bilirubin 3 H, Urine Urobilinogen 1 H, Ur Leukocyte Esterase 500 H, Urine RBC 0 SEEN, Urine WBC 25-50 SEEN, Ur Squamous Epith Cells 0 SEEN, Urine Bacteria 2+, Fine Granular Casts 5-10 SEEN, Urine Mucus 0 SEEN 06/11/18 22:17: Troponin I 9.840 H* 06/12/18 00:57: Troponin I 8.760 H* 06/12/18 03:30: WBC 15.6 H, RBC 4.79, Hgb 14.0, Hct 42.3, MCV 88.3, MCH 29.2, MCHC 33.1, RDW 13.5, RDW Differential 43.7, Plt Count 180, MPV 10.8 06/12/18 03:30: Sodium 135 L, Potassium 3.4 L, Chloride 98, Carbon Dioxide 23.0, Anion Gap 14, BUN 45 H, Creatinine 2.17 H, Estim Creat Clear Calc 20.24, Est GFR (MDRD) Af Amer 29 L, Est GFR (MDRD) Non-Af 24 L, BUN/Creatinine Ratio 20.7 H, Glucose 180 H, Calcium 8.7, Triglycerides 148, Cholesterol 72, LDL Cholesterol 24, VLDL Cholesterol 30, HDL Cholesterol 18 L 06/12/18 03:30: PT 17.0 H, INR 1.4 06/12/18 03:30: APTT 186.7 H* 06/12/18 05:25: Lactic Acid 1.2 06/12/18 06:00: Urine Osmolality 319 06/12/18 06:00: Urine Creatinine 74.80 06/12/18 06:00: Urine Urea Nitrogen 256 06/12/18 06:00: Ur Random Sodium 68 Diagnostic Data Hip/Pelvis X-Ray 06/11/18 18:29 IMPRESSION: No fracture or dislocation in the pelvis or left hip. Mild degenerative changes. Electronically Signed: Juan Antonio Denise, at 20:28 EST Tel , Service support , Knee X-Ray 06/11/18 18:29 IMPRESSION: Marked degenerative changes of the left knee without fracture or dislocation. Electronically Signed: Con Fletcher DO at 20:11 EST Tel [phone], Service support , Chest X-Ray 06/11/18 19:10 IMPRESSION: Question mild vascular congestion/failure. Electronically Signed: Con Fletcher at 20:10 EST Tel [phone], Service support , Current Medications Acetaminophen (Tylenol) 650 mg PO Q6H PRN PRN PRN Reason: temp >100.4 Hydrocodone Bitart/Acetaminophen ([place] 5mg-325mg) 1 - 2 tablet PO Q6H PRN PRN PRN Reason: Mild-Mod Pain (1-510) Last Admin: 06/11/18 23:34 Dose: 1 tablet Albuterol Sulfate (Ventolin Aerosols) 2.5 mg INHALATION Q2H PRN PRN PRN Reason: sob/wheezing Albuterol/Ipratropium (Duoneb) 3 ml INHALATION Q4HWA.RT [facility] Last Admin: 06/12/18 07:00 Dose: 3 ml Ascorbic Acid (Vitamin C) 500 mg PO DAILY@0800 [facility]) [facility] Atorvastatin Calcium (Lipitor) 80 mg PO QHS [facility] Last Admin: 06/11/18 23:35 Dose: 80 mg Budesonide (Pulmicort Aerosol) 0.5 mg INHALATION Q12H.RT [facility] Last Admin: 06/12/18 07:01 Dose: 0.5 mg Calcium/Vitamin D (Os-Esau 500mg + D) [facility] Cyanocobalamin (Vitamin B12) 500 mcg PO QHS [facility] Last Admin: 06/11/18 23:35 Dose: 500 mcg Cyclobenzaprine HCl (Cyclobenzaprine Hcl) 5 mg PO TID PRN PRN PRN Reason: SPASMS Heparin Sodium/Dextrose () 25,000 units in 250 mls @ 17 mls/hr IV .[id number] [facility]; Protocol Last Admin: 06/11/18 21:09 Dose: 17 mls/hr Ceftriaxone Sodium (Rocephin) 1 gm in 50 mls @ 100 mls/hr IV Q24H [facility] Last Admin: 06/11/18 23:35 Dose: 100 mls/hr Levothyroxine Sodium (Synthroid) 50 mcg PO MoWeFrSa@0600 [facility] Last Admin: 06/12/18 06:22 Dose: 50 mcg Levothyroxine Sodium (Synthroid) 100 mcg PO SuTuTh@0600 [facility] Loratadine (Claritin) 10 mg PO DAILY [facility] Meclizine HCl (Antivert) 12.5 mg PO DAILY PRN PRN PRN Reason: DIZZINESS Metoprolol Tartrate (Lopressor (Beta Edvin)) 25 mg PO BID [facility] Montelukast Sodium (Singulair) 10 mg PO DAILY [facility] Multivitamins/Minerals (Multivitamin With Minerals) 1 tablet PO DAILY@0800 [facility] Nitroglycerin (Nitrobid) 1 inch TRANSDERM. Q6 [facility] Last Admin: 06/12/18 06:40 Dose: 1 inch Nortriptyline HCl (Pamelor) 10 mg PO QHS [facility] Last Admin: 06/11/18 23:35 Dose: 10 mg Nystatin (Mycostatin Powder) 1 applic TOPICAL BID [facility]; Protocol Potassium Chloride (K-Dur) 10 meq PO DAILY [facility] Prednisone () 40 mg PO DAILYCM [facility] Last Admin: 06/11/18 23:35 Dose: 40 mg Sertraline HCl (Zoloft) 50 mg PO DAILY [facility] Sodium Chloride () 5 - 15 ml IV UD PRN PRN Reason: SALINE FLUSH Last Admin: 06/12/18 06:28 Dose: 10 ml Ticagrelor (Brilinta) 90 mg PO BID [facility] Vitamin E (Vitamin E) 400 units PO DAILY [facility] Medical Necessity - Tobacco Use Smoking Status: Former smoker Assessment/Plan All Active Problems Non-STEMI (non-ST elevated myocardial infarction) (Acute) Severe sepsis (Acute) Myocardial infarct (Acute) Renal insufficiency (Acute) Fever (Acute) 1. NSTEMI had no chest pain on admission; EKG showed no acute ST changes initial troponin was 10.1->9.840->8.760 on aspirin 81mg daily, high intensity statin, brilinita and metoprolol cardiology on board 2D echo pending 2. Sepsis due to UTI fever has settled, but shes still tachypneic. wbc is 15.6 UA showed 2+ bacteria, 500 LE urine culture pending blood culture showed gram negative rods- on IV ceftriaxone; will continue 3. A cute hypoxic respiratory failure due to Acute heart failure, EF unknown BNP was 1027 on admission CXR showed vascular congestion on IV lasix 40mg bid cardiology on board 2D panel pending on 4L of oxygen; not on oxygen at home on breathing treatments; titrate oxygen to maintain sats>92% 4. FRED: Cr was 2.16 on admisison, is 2.17 today. baseline is <1 couldnt be hydrated o/a of hert failure continue monitoring CR 5. Acute asthma exacerbation Likely shortness of breath was rather due to acute heart failure not acute asthma exacerbation. On breathing treatments and steroids. 6. Mechanical fall: fall precautions. On [place] for pain DVT prophylaxis: on IV heparin drip for NSTEMI Code Visit Inpatient E&M: [id number] [facility] Hosp L3
--- NOTE | 2018-06-12 10:18 | PN_ITS ---
Patient Problems: Active and Suspected Problems Non-STEMI (non-ST elevated myocardial infarction) (Acute) Severe sepsis (Acute) Myocardial infarct (Acute) Renal insufficiency (Acute) Fever (Acute) Subjective: Patient admitted with a complaint of a fall. She slipped and fell off the toilet. Prior to that, she had complained of feeling sick with fever and nausea and vomiting and diarrhea about 3 days prior to admission. She was admitted to a monitored bed and is being managed for sepsis and NSTEMI as her troponin was 10 on admission. Patient seen and examined this morning. Fever, nausea vomiting and diarrhea have resolved. She denies any chest pain or palpitations or shortness of breath even though she is in about 4 L of oxygen. She denies any abdominal pain, diarrhea vomiting. Cardiology is on board. She was started on heparin, metoprolol and Brilinta for non-STEMI. She is also on IV antibiotics for sepsis. Vitals/I&O's: Vital Signs Temp Pulse Resp BP Pulse Ox 98.0 F 89 21 H 121/60 H 94 06/12/18 09:00 06/12/18 09:00 06/12/18 09:00 06/12/18 09:00 06/12/18 09:44 Oxygen Flow Rate (L/min) 1.5 Oxygen Delivery Method Nasal Cannula Weight: 288 lb 2.307 oz Body Mass Index (BMI) 49.5 Intake and Output for Last 24 Hours 06/10/18 06/11/18 06/12/18 23:59 23:59 23:59 Intake Total 240 / 240 Output Total 1000 / 1000 Balance -760 / -760 General: Alert, Oriented x3, Cooperative, Lethargic HEENT: Atraumatic, PERRLA, EOMI, Normocephalic Oral: Moist Mucosa Neck: Supple, No JVD, Negative Carotid Bruits Lungs: - - decreased breath sounds bibasally; no wheezing or crackles. on 4L of oxygen Cardiovascular: Regular rate, Regular Rhythm, Normal S1, Normal S2, No murmurs Abdomen: Bowel Sounds Present, Soft, Non Tender, Non-Distended, No Hepato- splenomegaly, Obese Extremities: No clubbing, No cyanosis, Capillary Refill Less than 3 Seconds, - - mild bipedal pitting edema Skin: No rashes, No breakdown Musculoskeletal: No Tenderness to Palpation of Joints or Extremities Lymphatic: No Cervical, Supraclavicular, or Inguinal Adenopathy Neurological: Cranial nerves II-XII grossly intact Psych/Mental Status: Normal Affect, Appropriate, Alert and oriented to time, place, person, mood and affect Microbiology Past 72 Hours 06/11/18 22:25 Blood Culture (Wb) - Anticubital Left Blood Culture - Preliminary 06/11/18 22:10 Mucosa - Nasopharyngeal Influenza Types A,B Direct FA (KENZIE) - Final Laboratory Results 06/11/18 18:43: WBC 15.5 H, RBC 4.90, Hgb 14.3, Hct 43.7, MCV 89.2, MCH 29.2, MCHC 32.7, RDW 13.5, RDW Differential 44.5 H, Plt Count 194, MPV 10.4, Immature Gran % (Auto) 0.200, Neut % (Auto) 87.8 H, Lymph % (Auto) 3.4 L, [place] % (Auto) 8.6, Eos % (Auto) 0.0, Baso % (Auto) 0.0, Absolute Neuts (auto) 13.6 H, Absolute Lymphs (auto) 0.52 L, Total Counted Not Reportable, Differential Comment SCANNED 06/11/18 18:43: Sodium 134 L, Potassium 3.4 L, Chloride 97 L, Carbon Dioxide 26.0, Anion Gap 11, BUN 41 H, Creatinine 2.16 H, Estim Creat Clear Calc 20.33, Est GFR (MDRD) Af Amer 29 L, Est GFR (MDRD) Non-Af 24 L, BUN/Creatinine Ratio 19.0, Glucose 153 H, Calcium 8.7, Total Bilirubin 0.90, AST 289 H, ALT 78 H, Alkaline Phosphatase 81, Troponin I 10.100 H*, Total Protein 7.7, Albumin 3.2, Globulin 4.5 H, Albumin/Globulin Ratio 0.7 L 06/11/18 18:43: PT 15.5 H, INR 1.2, APTT 44.4 H 06/11/18 18:43: B-Natriuretic Peptide 1027.9 H 06/11/18 20:55: Lactic Acid 1.6 06/11/18 21:06: Urine Color Yellow, Urine Clarity Cloudy, Urine pH 5.0, Ur Specific [place] 1.015, Urine Protein 100 H, Urine Glucose (UA) Normal, Urine Ketones 5 H, Urine Occult Blood 250 H, Urine Nitrite Negative, Urine Bilirubin 3 H, Urine Urobilinogen 1 H, Ur Leukocyte Esterase 500 H, Urine RBC 0 SEEN, Urine WBC 25-50 SEEN, Ur Squamous Epith Cells 0 SEEN, Urine Bacteria 2+, Fine Granular Casts 5-10 SEEN, Urine Mucus 0 SEEN 06/11/18 22:17: Troponin I 9.840 H* 06/12/18 00:57: Troponin I 8.760 H* 06/12/18 03:30: WBC 15.6 H, RBC 4.79, Hgb 14.0, Hct 42.3, MCV 88.3, MCH 29.2, MCHC 33.1, RDW 13.5, RDW Differential 43.7, Plt Count 180, MPV 10.8 06/12/18 03:30: Sodium 135 L, Potassium 3.4 L, Chloride 98, Carbon Dioxide 23.0, Anion Gap 14, BUN 45 H, Creatinine 2.17 H, Estim Creat Clear Calc 20.24, Est GFR (MDRD) Af Amer 29 L, Est GFR (MDRD) Non-Af 24 L, BUN/Creatinine Ratio 20.7 H, Glucose 180 H, Calcium 8.7, Triglycerides 148, Cholesterol 72, LDL Cholesterol 24, VLDL Cholesterol 30, HDL Cholesterol 18 L 06/12/18 03:30: PT 17.0 H, INR 1.4 06/12/18 03:30: APTT 186.7 H* 06/12/18 05:25: Lactic Acid 1.2 06/12/18 06:00: Urine Osmolality 319 06/12/18 06:00: Urine Creatinine 74.80 06/12/18 06:00: Urine Urea Nitrogen 256 06/12/18 06:00: Ur Random Sodium 68 Diagnostic Data Hip/Pelvis X-Ray 06/11/18 18:29 IMPRESSION: No fracture or dislocation in the pelvis or left hip. Mild degenerative changes. Electronically Signed: Juan Antonio Denise, at 20:28 EST Tel , Service support , Knee X-Ray 06/11/18 18:29 IMPRESSION: Marked degenerative changes of the left knee without fracture or dislocation. Electronically Signed: Con Fletcher DO at 20:11 EST Tel [phone], Service support , Chest X-Ray 06/11/18 19:10 IMPRESSION: Question mild vascular congestion/failure. Electronically Signed: Con Fletcher at 20:10 EST Tel [phone], Service support , Current Medications Acetaminophen (Tylenol) 650 mg PO Q6H PRN PRN PRN Reason: temp >100.4 Hydrocodone Bitart/Acetaminophen ([place] 5mg-325mg) 1 - 2 tablet PO Q6H PRN PRN PRN Reason: Mild-Mod Pain (1-510) Last Admin: 06/11/18 23:34 Dose: 1 tablet Albuterol Sulfate (Ventolin Aerosols) 2.5 mg INHALATION Q2H PRN PRN PRN Reason: sob/wheezing Albuterol/Ipratropium (Duoneb) 3 ml INHALATION Q4HWA.RT [facility] Last Admin: 06/12/18 07:00 Dose: 3 ml Ascorbic Acid (Vitamin C) 500 mg PO DAILY@0800 [facility] ([facility]rin) [facility] Atorvastatin Calcium (Lipitor) 80 mg PO QHS [facility] Last Admin: 06/11/18 23:35 Dose: 80 mg Budesonide (Pulmicort Aerosol) 0.5 mg INHALATION Q12H.RT [facility] Last Admin: 06/12/18 07:01 Dose: 0.5 mg Calcium/Vitamin D (Os-Esau 500mg + D) [facility] tablet [facility] Cyanocobalamin (Vitamin B12) 500 mcg PO QHS [facility] Last Admin: 06/11/18 23:35 Dose: 500 mcg Cyclobenzaprine HCl (Cyclobenzaprine Hcl) 5 mg PO TID PRN PRN PRN Reason: SPASMS Heparin Sodium/Dextrose () 25,000 units in 250 mls @ 17 mls/hr IV .[id number] [facility]; Protocol Last Admin: 06/11/18 21:09 Dose: 17 mls/hr Ceftriaxone Sodium (Rocephin) 1 gm in 50 mls @ 100 mls/hr IV Q24H [facility] Last Admin: 06/11/18 23:35 Dose: 100 mls/hr Levothyroxine Sodium (Synthroid) 50 mcg PO MoWeFrSa@0600 [facility] Last Admin: 06/12/18 06:22 Dose: 50 mcg Levothyroxine Sodium (Synthroid) 100 mcg PO SuTuTh@0600 [facility] Loratadine (Claritin) 10 mg PO DAILY [facility] Meclizine HCl (Antivert) 12.5 mg PO DAILY PRN PRN PRN Reason: DIZZINESS Metoprolol Tartrate (Lopressor (Beta Edvin)) 25 mg PO BID [facility] Montelukast Sodium (Singulair) 10 mg PO DAILY [facility] Multivitamins/Minerals (Multivitamin With Minerals) 1 tablet PO DAILY@0800 [facility] Nitroglycerin (Nitrobid) 1 inch TRANSDERM. Q6 [facility] Last Admin: 06/12/18 06:40 Dose: 1 inch Nortriptyline HCl (Pamelor) 10 mg PO QHS [facility] Last Admin: 06/11/18 23:35 Dose: 10 mg Nystatin (Mycostatin Powder) 1 applic TOPICAL BID [facility]; Protocol Potassium Chloride (K-Dur) 10 meq PO DAILY [facility] Prednisone () 40 mg PO DAILYCM [facility] Last Admin: 06/11/18 23:35 Dose: 40 mg Sertraline HCl (Zoloft) 50 mg PO DAILY [facility] Sodium Chloride () 5 - 15 ml IV UD PRN PRN Reason: SALINE FLUSH Last Admin: 06/12/18 06:28 Dose: 10 ml Ticagrelor (Brilinta) 90 mg PO BID [facility] Vitamin E (Vitamin E) 400 units PO DAILY [facility] Medical Necessity - Tobacco Use Smoking Status: Former smoker Assessment/Plan All Active Problems Non-STEMI (non-ST elevated myocardial infarction) (Acute) Severe sepsis (Acute) Myocardial infarct (Acute) Renal insufficiency (Acute) Fever (Acute) 1. NSTEMI * had no chest pain on admission; EKG showed no acute ST changes * initial troponin was 10.1->9.840->8.760 * on aspirin 81mg daily, high intensity statin, brilinita and metoprolol * cardiology on board * 2D echo pending * 2. Sepsis due to UTI * fever has settled, but shes still tachypneic. wbc is 15.6 * UA showed 2+ bacteria, 500 LE * urine culture pending * blood culture showed gram negative rods- * on IV ceftriaxone; will continue * 3. A cute hypoxic respiratory failure due to Acute heart failure, EF unknown * BNP was 1027 on admission * CXR showed vascular congestion * on IV lasix 40mg bid * cardiology on board * 2D panel pending * on 4L of oxygen; not on oxygen at home * on breathing treatments; titrate oxygen to maintain sats>92% * 4. FRED: * Cr was 2.16 on admisison, is 2.17 today. baseline is <1 * couldnt be hydrated o/a of hert failure * continue monitoring CR * 5. Acute asthma exacerbation * Likely shortness of breath was rather due to acute heart failure not acute asthma exacerbation. * On breathing treatments and steroids. * 6. Mechanical fall: fall precautions. On [place] for pain DVT prophylaxis: on IV heparin drip for NSTEMI Code Visit Inpatient E&M: [id number] [facility] Hosp L3
[2018-06-12 10:33] LABS: Partial Thromboplast Time 64.9 Seconds (24.1-36.2)
--- NOTE | 2018-06-12 11:36 | CASEMGMT ---
YURI GREEN assessment: Face to Face with patient for initial transition planning/care coordination assessment. YURI GREEN introduced self and role at [facility], pt voices understanding and consents to assessment at this time. Pt is sitting up in bed in no distress at this time. Pt is A/Ox4 at this time and answers all questions appropriately at this time. Pt's son is at bedside during assessment. Care providers, pharmacy, and demographics verified at this time. PCP: [facility] Specialists: Ildefonso, cardio; Bethany Balderrama, neuro [employer] Preferred Pharmacy: [facility] Insurance: MCR A/B, MMO Prescription Benefit: Levasy Living Will/HPOA: Pt states does not have LW/HPOA and declines info at this time. LNOK: Rodriguez Castellanos, son Living Arrangements: Pt states her son lives with her in a 2 story townhouse and states no concerns at home at this time. Pt states is independent with ADL's. Transportation: Pt states drives self and states no transportation concerns at this time. DME/HHC: Pt states has a shower chair and a walker but does not use the walker. Pt states no need for any further DME at this time. Pt states hx of HHC in the past but she has been to [place]. Pt states no concerns with going home at time of discharge. Pt states is retired. Pt states does not smoke or drink ETOH. Pt states no further questions/concerns/needs at this time. CM to follow PT/OT evals and for any further discharge planning/needs. Advised pt to ask for CM if any further questions/concerns/needs arise, voices understanding. Plan[place] YURI GREEN
[2018-06-12 13:35] LABS: Anion Gap 12 (5-15); BUN 49 mg/dL (7-18); BUN/Creat Ratio 22.4 RATIO (10-20); Calcium,Total 8.6 mg/dL (8.5-10.1); Chloride 98 mmol/L (98-107); Creatinine, Serum 2.19 mg/dL (0.55-1.02); EST Glomerular Filtration Rate 23 mL/min (>60); Est Glom Filt Rate - Afr Amer 28 mL/min (>60); Estimated Creatinine Clearance 20.05 ml/min; Glucose 248 mg/dL (74-106); Potassium 3.6 mmol/L (3.5-5.1); Sodium Level 134 mmol/L (136-145)
[2018-06-12] MEDS: HEPARIN/D5w 25,000 UNITS 25,000 UNITS/250 ML IV.SOLN. 17 UNITS IV (15:36)
--- NOTE | 2018-06-12 15:42 | NURSING ---
Nitropaste removed from chest
[2018-06-12 16:51] LABS: Partial Thromboplast Time 62.1 Seconds (24.1-36.2)
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
[2018-06-12] MEDS: Acetaminophen 325 MG Tablet 650 MG PO (20:48)
[2018-06-12] MEDS: predniSONE 20 MG Tablet 60 MG PO (21:00)
[2018-06-12] MEDS: Nortriptyline 10 MG Capsule PO (21:00)
[2018-06-12] MEDS: Atorvastatin Calcium 80 MG Tablet PO (21:01)
[2018-06-12] MEDS: Cyanocobalamin 500 MCG Tablet PO (21:01)
[2018-06-12] MEDS: DiphenhydrAMINE 25 MG Capsule 50 MG PO (21:14)
[2018-06-12] MEDS: CYCLOBENZAPRINE HCL 5 MG TABLET PO (21:14)
[2018-06-12] MEDS: Famotidine 20 MG Tablet PO (21:14)
[2018-06-12] MEDS: Ceftriaxone 1 GM/50 ML BAG IV (21:14)
[2018-06-12] MEDS: Heparin Injection (Vial) 5,000 UNIT/ML VIAL IV (23:05)
[2018-06-13] VITALS (35 sets, daily range): BP systolic 101–152; BP diastolic 56–93; PULSE 66–81; RESP 15–27; TEMP 36.3–36.8; O2SAT 91–96; BMI 48.6
[2018-06-13 05:36] LABS: BUN 55 mg/dL (7-18); BUN/Creat Ratio 28.1 RATIO (10-20); Creatinine, Serum 1.96 mg/dL (0.55-1.02); EST Glomerular Filtration Rate 27 mL/min (>60); Est Glom Filt Rate - Afr Amer 32 mL/min (>60); Glucose 198 mg/dL (74-106); International Normalized Ratio 1.2; Prothrombin Time (Protime)PT. 14.7 SECONDS (11.7-14.9)
[2018-06-13 05:37] LABS: Anion Gap 13 (5-15); Chloride 100 mmol/L (98-107); Partial Thromboplast Time 29.7 Seconds (24.1-36.2); Potassium 3.5 mmol/L (3.5-5.1); Sodium Level 137 mmol/L (136-145)
[2018-06-13 05:43] LABS: Absolute Lymphocyte Count 0.49 X10^3/ul (0.83-4.51); Absolute Neutrophil Count 13.9 X10^3/uL (2.0-7.7); Basophil# 0.01 X10^3/uL; Basophil% 0.1 % (0-1); Hematocrit 41.8 % (37-47); Hemoglobin 13.7 g/dl (12.0-15.0); Lymphocyte # 0.49 X10^3/ul (4.0); Lymphocyte % 3.2 % (19-41); Mean Corp Hgb Conc 32.8 g/gl (32-36); Mean Corpuscular Volume 88.4 fL (81-99); Monocyte# 0.88 X10^3/uL; Monocyte% 5.7 % (0-10); Neutrophil # 13.94 X10^3/uL (2.7-7.7); Neutrophil % 90.5 % (47-70); Platelet Count 190 K/mm3 (150-450); RBC Distribution Width CV 13.6 % (11.6-14.6); RBC Distribution Width SD 44.3 fl (35.1-43.9); Red Blood Count 4.73 M/mm3 (4.2-5.4); White Blood Count 15.4 K/mm3 (4.4-11.0)
[2018-06-13 05:54] LABS: Differential Indicated SCAN CRITERIA MET; POSITIVE COUNT NO; POSITIVE DIFFERENTIAL YES; POSITIVE MORPHOLOGY NO
--- NOTE | 2018-06-13 05:55 | RAD_ITS ---
STUDY: X-RAY CHEST REASON FOR EXAM: Female, 73 years old. Shortness of breath/dyspnea. TECHNIQUE: Single AP portable view of the chest. COMPARISON: Comparison is made with prior study dated June 11, 2018. FINDINGS: EKG electrodes are seen. Stable elevation of the right hemidiaphragm. Stable mild increased markings in the right infrahilar region most likely secondary to the diaphragmatic elevation. There is no demonstrated pleural abnormality. There is mild cardiac enlargement. Normal mediastinum and juan luis. Normal visualized pulmonary arteries. There is atherosclerotic tortuosity of the aortic arch and descending thoracic aorta. Normal visualized thoracic spine. Normal visualized ribs, clavicles, and shoulders. There is no demonstrated abnormality of the visualized soft tissue structures of the upper abdomen. RAD/Chest 1 View (Portable) IMPRESSION: Stable elevation of the right hemidiaphragm. Findings suggest mild right basilar atelectasis. There has been essentially no change. Electronically Signed: René Sanchez MD at 8:19 EST Tel [phone], Service support ,
--- NOTE | 2018-06-13 05:55 | EKG12_ITS ---
Test Reason : AM EKG Blood Pressure : / mmHG Vent. Rate : 077 BPM Atrial Rate : 077 BPM P-R Int : 210 ms QRS Dur : 110 ms QT Int : 424 ms P-R-T Axes : 052 -29 073 degrees QTc Int : 479 ms Sinus rhythm with 1st degree A-V block Low voltage QRS Cannot rule out Anterior infarct , age undetermined Abnormal ECG When compared with ECG of 12-JUN-2018 04:57, MANUAL COMPARISON REQUIRED, DATA IS UNCONFIRMED Confirmed by MARCUS MALLORY, ROSENDA ([id number]), electronic news gathering editor DOLORES ARCHIBALD ([id number]) on 06/17/2018 10:21:41 AM Referred By: Pérez Goel Confirmed By:ROSENDA VELAZQUEZ MD
[2018-06-13] MEDS: DiphenhydrAMINE 25 MG Capsule 50 MG PO (06:29)
[2018-06-13] MEDS: Famotidine 20 MG Tablet PO (06:29)
[2018-06-13] MEDS: predniSONE 20 MG Tablet 60 MG PO (06:29)
[2018-06-13] MEDS: Levothyroxine 100 MCG Tablet PO (06:30)
[2018-06-13] MEDS: TICAGRELOR 90 MG TABLET PO ×2 (06:30→21:14)
[2018-06-13] MEDS: 0.9% Normal Saline 1,000 ML 15 ML IV (06:30)
[2018-06-13] MEDS: Metoprolol Tartrate 25 MG Tablet PO ×2 (06:30→21:14)
[2018-06-13] MEDS: Aspirin E.C. 81 MG Tablet PO (06:31)
--- NOTE | 2018-06-13 09:31 | CL.I_ITS ---
Patient Name: DON JONES Study Date: 06/13/2018 Performing: Jamison Parada MD Ht: 64.17 inches 163 cm : 1945 Wt: 284.4 lbs 129 kg Age: 73 Gender: female BSA: 2.28 PROCEDURE(S) PERFORMED [id number] W OR WO PTCA, SINGLE CORONARY ARTERY CLINICAL PROFILE AND CO-MORBIDITIES Patient presents with NSTEMI for urgent cardiac cath Indications: Suspected CAD, LV Dysfunction, Suspected CAD, LV Dysfunction Heart Failure: NYHA Class: 3, Newly Diagnosed: Yes, Heart Failure Type: Systolic, NYHA Class: 1, Newly Diagnosed: Yes, Heart Failure Type: Systolic Stress/Imaging Stress/Image Study Performed: No Stress/Image Study Performed: No Angina Classification Anginal Classification w/in 2 Weeks: No symptoms CAD Presentations: Non-STEMI. Non-STEMI. Symptom onset Date/Time: 06/11/2018 Time Not Available Comorbidities/Risk Factors: Hypertension Dyslipidemia CONCLUSIONS Successful PTCA/CRUZ of mid LAD with a 2.5 x 16 Promus Synergy, post dilated throughout with a 2.75 x 8 NC Balloon; 75%-->0%, no dissection. Successful Mynx closure of RFA. RECOMMENDATIONS Highly recommend quitting all tobacco products Follow up with primary knapsack sprayer Risk factor modification ASA Indefinitley Plavix for at least 12 months Routine post interventional care Refer for Outpatient Cardiac Rehab Manual sheath removal per protocol Follow up with Dr. Shah DESCRIPTION OF PROCEDURE The patient arrived to the procedure lab. The risks and benefits of the procedure as well as a full d escription of our services here and current unavailability of surgical backup were fully explained to the patient and/or their significant other prior to the catheterization. The Timeout was completed, verifying the correct patient and procedure. The patient's procedural site was prepped and draped in the usual fashion. Local anesthetic was given subcutaneously to right radial region with Lidocaine 2% . Local anesthetic was given subcutaneously to right groin region with Lidocaine 2% Using a modified Seldinger technique,arterial access was obtained via the right radial artery, a 6Fr sheath was insert ed., arterial access was obtained via the right femoral artery, a 6Fr sheath was inserted. Left Coron malik Artery selective angiography was performed in multiple views using a 5 Fr. 4.0 [place] catheter. [facility] Coronary Artery selective angiography was then performed in multiple views using a 5 Fr. 4.0 [place] catheter. LV to AO pullback pressures were then recorded.The images were reviewed and o ptions discussed. A decision was then made to proceed with an Intervention, IVUS or other adjunct pro cedure. EBU 3.75 Guide catheter was inserted and engaged into the LCA. BMW Guide wire was advanced to the LAD. Emerge 2.00x12 Balloon catheter was inserted. PTCA balloon inflated at 8 atms for 12 secs. syne rgy 2.50x16 Drug Eluting stent was inserted. Angiogram performed post stent deployment. NC Emerge 2.7 5x8 Balloon catheter was inserted. PTCA balloon inflated at 15 atms for 10 secs. PTCA balloon inflate d at 15 atms for 8 secs. PTCA balloon inflated at 16 atms for 13 secs. Angiogram performed post ballo on dilatation. Contrast was injected through the sheath and the Right Iliac and Femoral artery were a ssessed for possible closure device. The arterial sheath was pulled and a Mynx closure device was de ployed for hemostasis. The arterial sheath was pulled and a TR Band was applied for hemostasis w15ml air INTERVENTION INFORMATION LESION SITE: LAD (Mid) Lesion Complexity: Non-High/Non-C, lesion at bifurcation: No, thrombus present: No, lesion length: 16 mm, culprit lesion: Yes Pre Stenosis: 75 % Pre intervention JAS flow: 3 PROCEDURE: Drug Eluting Stent with pre and post dilatation Post Stenosis: 0 % Post intervention JAS flow: 3 COMPLICATIONS No Complications PROCEDURE MEDICATIONS Fentanyl 50 mcg IV Oxygen: 2 L/min via nasal cannula Heparin diluted in 23cc Heparinized saline. Patient given 10cc IA of this solution. 06/13/2018 08:27: 57 Heparin 6000 unit(s) IV 06/13/2018 08:55:29 Nitro 200 mcg IC 06/13/2018 08:57:16 Nitro 200 mcg IC 06/13/2018 08:57:16 Nitro 200 mcg IC 06/13/2018 09:01:43 Solu-medrol 125 mg IV 06/13/2018 08:08:32 Verapamil 2.5mg, Ntg 100mcgs, 2000 units of Heparin diluted in 23cc Heparinized saline. Patient give n 10cc IA of this solution. 06/13/2018 08:27:57 IV Bolus: .9 NaCl 200ml total 06/13/2018 08:55:47 SUMMARY OF HEMODYNAMIC DATA Time AIR REST ECG 08:10:14 AO 108/68 (85) SA 08:32:52 LV 110/9, 27 08:41:44 LV 107/10, 28 08:41:52 LVp 109/6, 28 08:41:58 AOp 114/58 (81) 08:42:04 Signed By Jamison Parada MD On 06/13/2018 09:31:00 Jamison Parada MD
--- NOTE | 2018-06-13 09:51 | EKG12_ITS ---
Test Reason : POST PCI Blood Pressure : / mmHG Vent. Rate : 074 BPM Atrial Rate : 074 BPM P-R Int : 212 ms QRS Dur : 104 ms QT Int : 426 ms P-R-T Axes : 049 -29 062 degrees QTc Int : 472 ms Sinus rhythm with 1st degree A-V block ST & T wave abnormality, consider anterior ischemia Abnormal ECG When compared with ECG of 13-JUN-2018 05:36, MANUAL COMPARISON REQUIRED, DATA IS UNCONFIRMED Confirmed by MARCUS MALLORY, ROSENDA ([id number]), business editor DOLORES ARCHIBALD ([id number]) on 06/18/2018 5:41:46 PM Referred By: Pérez Goel Confirmed By:ROSENDA VELAZQUEZ MD
--- NOTE | 2018-06-13 10:00 | PN.CARD_ITS ---
Subjectve: The patient is status post diagnostic cardiac catheterization and subsequent LAD PCI. She has no new acute complaints or obvious adverse events. Objective: Vital Signs Temp Pulse Resp BP Pulse Ox 98 F 66 20 H 140/76 H 95 06/13/18 06:27 06/13/18 07:07 06/13/18 06:27 06/13/18 06:30 06/13/18 06:27 Oxygen Flow Rate (L/min) 2 Oxygen Delivery Method Nasal Cannula Weight: 283 lb 4.704 oz Body Mass Index (BMI) 49.5 Intake and Output for Last 24 Hours 06/11/18 06/12/18 06/13/18 23:59 23:59 23:59 Intake Total 1586.0 / 1586.0 Output Total 2990 / 2990 725 / 725 Balance -1404.0 / -1404.0 -725 / -725 General: Awake, Alert, Oriented x 3, Cooperative, No Acute Distress, Obese HEENT: Atraumatic, Normocephalic, PERRL, EOMI, Sclera Non Icteric Oral: Moist Mucosa Neck: Supple, Good ROM, No JVD Lungs: Diminished Pavel Bases Cardiovascular: Regular Rhythm, Normal S1, Normal S2 Vascular: Normal Femoral Pulses, Normal Radial Pulses Abdomen: Bowel Sounds Present, Soft, Non Tender Extremities: Trace RLE Edema, Trace LLE Edema Neurological: No Focal Motor or Sensory Deficit Psych/Mental Status: Appropriate 06/12/18 10:10: APTT 64.9 H 06/12/18 12:55: Sodium 134 L, Potassium 3.6, Chloride 98, Carbon Dioxide 24.0, Anion Gap 12, BUN 49 H, Creatinine 2.19 H, Est GFR (MDRD) Af Amer 28 L, Est GFR (MDRD) Non-Af 23 L, BUN/Creatinine Ratio 22.4 H, Glucose 248 H, Calcium 8.6 06/12/18 15:52: APTT 62.1 H 06/12/18 22:03: APTT 52.0 H 06/13/18 05:00: WBC 15.4 H, RBC 4.73, Hgb 13.7, Hct 41.8, MCV 88.4, MCH 29.0, MCHC 32.8, RDW 13.6, RDW Differential 44.3 H, Plt Count 190, MPV 11.0, Immature Gran % (Auto) 0.500, Neut % (Auto) 90.5 H, Lymph % (Auto) 3.2 L, [place] % (Auto) 5.7, Eos % (Auto) 0.0, Baso % (Auto) 0.1, Absolute Neuts (auto) 13.9 H, Total Counted Not Reportable 06/13/18 05:00: Sodium 137, Potassium 3.5, Chloride 100, Carbon Dioxide 24.0, Anion Gap 13, BUN 55 H, Creatinine 1.96 H, Est GFR (MDRD) Af Amer 32 L, Est GFR (MDRD) Non-Af 27 L, BUN/Creatinine Ratio 28.1 H, Glucose 198 H, Calcium 9.0 06/13/18 05:00: PT 14.7, INR 1.2, APTT 29.7 Rhythm: Sinus rhythm; PVCs Cardiac Cath: Please see official report PCI: Please see official report Medical Necessity - Tobacco Use Smoking Status: Former smoker Assessment/Plan 1. Acute coronary syndrome/acute non-ST segment elevation [place] The patient has now undergone evaluation with diagnostic cardiac catheterization. She was found to have an LAD mid lesion. She underwent subsequent LAD PCI. She will need to continue to be monitored. She will need to continue medical management and follow-up. 2. CAD Previous cardiac catheterization from 2007 was reviewed. At that time she had no angiographically significant appearing CAD and overall preserved LV systolic function. Today her cardiac catheterization demonstrates the aforementioned LAD mid lesion. Her echocardiogram has demonstrated diminished LV wall motion and systolic function and diminished LVEF. Thus she underwent LAD PCI. She will need to continue medical management and follow-up. 3. Congestive heart failure The patient has had increased diuresis status post IV diuretics. Her renal function will be followed. Her chest x-ray on preliminary evaluation appears somewhat improved. She will need to continue medical therapy. 4. Hyperlipidemia The patient will continue lipid-lowering therapy. 5. Hypertension The patient's blood pressure will be followed. Her medications can be adjusted as deemed appropriate taking into consideration her renal function. 6. Acute renal insufficiency Her creatinine level was somewhat improved today. This will need to be followed status post a cardiac catheterization. 7. Fever He does have a fever. It is unclear whether this is related to a viral or bacterial event based upon her symptoms. She is being evaluated by internal medicine. She is being treated with antibiotic therapy. Comment: The patient's case was discussed and reviewed with the patient and her son. This note was generated with [employer] dictation software. It may contain incorrect words, spelling, and punctuation that were not noted in checking the note before signing.
[2018-06-13] MEDS: 0.9% Normal Saline 1,000 ML 150 ML IV (10:18)
[2018-06-13 10:31] LABS: ACT Activated Clotting Time 235 sec (74-137)
--- NOTE | 2018-06-13 11:00 | CRPHASE1 ---
Patient Data/Charges Marketing Program Coordinator:: Jamison Parada Refer Phase II:: Yes Phase II Referral:: [facility] Start Phase II:: After follow up visit with Cardiology Phase I Charge:: Level I - Education Risk Factors/Lifestyle Smoking Status: Former smoker Hx Hypertension: Yes Hx Diabetes Mellitus Type 1: No Hx Diabetes Mellitus Type 2: No Hx Metabolic Disorders: Yes - Thyroid Hx Dyslipidemia: Yes Hx Obesity: Yes Height: 5 ft 4 in Weight:: 283 lb 6.4 oz BMI: 48.6 Post-Menopausal: Yes Risk Factor for Sedentary Lifestyle: Highest Risk Family History: Heart Disease, Stroke Laboratory Values: Cardiac Rehab Phase I Labs Triglycerides 148 mg/dL (-199) 06/12/18 03:30 Cholesterol 72 mg/dL (200) 06/12/18 03:30 LDL Cholesterol 24 mg/dL (0-130) 06/12/18 03:30 HDL Cholesterol 18 mg/dL (40-) L 06/12/18 03:30 Issues Affecting Care:: None Knowledge of Condition:: Yes Learning Preferences: Verbal, Written, Audio/Visual, Demonstration Medical/Surgical History SC:: Yes - NSTEMI Angina:: Yes CAD:: Yes Hypertension:: Yes Dyslipidemia:: Yes Renal:: Yes
[2018-06-13] MEDS: Ipratropium/Albuterol Sulfate 3 ML AMPUL.NEB INHALATION ×2 (11:02→15:02)
--- NOTE | 2018-06-13 11:05 | CRPHASE1_ITS ---
Patient Data/Charges Stage Setting Painter Apprentice:: Jamison Parada Refer Phase II:: Yes Phase II Referral:: [facility] Start Phase II:: After follow up visit with Cardiology Phase I Charge:: Level I - Education Risk Factors/Lifestyle Smoking Status: Former smoker Hx Hypertension: Yes Hx Diabetes Mellitus Type 1: No Hx Diabetes Mellitus Type 2: No Hx Metabolic Disorders: Yes - Thyroid Hx Dyslipidemia: Yes Hx Obesity: Yes Height: 5 ft 4 in Weight:: 283 lb 6.4 oz BMI: 48.6 Post-Menopausal: Yes Risk Factor for Sedentary Lifestyle: Highest Risk Family History: Heart Disease, Stroke Laboratory Values: Cardiac Rehab Phase I Labs Triglycerides 148 mg/dL (-199) 06/12/18 03:30 Cholesterol 72 mg/dL (200) 06/12/18 03:30 LDL Cholesterol 24 mg/dL (0-130) 06/12/18 03:30 HDL Cholesterol 18 mg/dL (40-) L 06/12/18 03:30 Issues Affecting Care:: None Knowledge of Condition:: Yes Learning Preferences: Verbal, Written, Audio/Visual, Demonstration Medical/Surgical History [place]:: Yes - NSTEMI Angina:: Yes CAD:: Yes Hypertension:: Yes Dyslipidemia:: Yes Renal:: Yes
--- NOTE | 2018-06-13 11:07 | CRPH1.INSTRU ---
General Education CAD and cardiac anatomy and function:: Patient communicates acknowledgment, Needs reinforcement Explanation of diagnoses and procedures:: Patient communicates acknowledgment, Needs reinforcement Sign/Symptoms of ID:: Patient communicates acknowledgment, Needs reinforcement Antiplatelet therapy: Patient communicates acknowledgment, Needs reinforcement Proper use of NTG-SL: Patient communicates acknowledgment, Needs reinforcement Emergency procedures and activation of EMS: Patient communicates acknowledgment, Needs reinforcement Compliance of all prescribed medications: Patient communicates acknowledgment, Needs reinforcement Smoking Patient Nicotine/Smoking Risk Factors Are:: Non-smoker Recommendations Include:: Previous smoker; encourage continued cessation Nicotine/Smoking Response Code:: Patient communicates acknowledgment Dyslipidemia Patient Dyslipidemia Risk Factors Are:: Total Cholesterol, Triglycerides, HDL, LDL Recommendations Include:: Lipid profile provided, Reviewed NCEP/ATP guidelines, Therapeutic Lifestyle Change dietary guidelines Dyslipidemia Response Code:: Patient communicates acknowledgment, Needs reinforcement Overweight/Obesity Patient Overweight/Obesity Risk Factors Are:: Obesity - > or = 30 Recommendations Include:: Weight loss of 5-10%, Exercise 5-7 times/week Overweight/Obesity:: Patient communicates acknowledgment, Needs reinforcement Hypertension Recommendations Include:: Maintain BP <130/85, DASH dietary guidelines, Decrease/maintain normal body weight, Moderation of ETOH Hypertension:: Patient communicates acknowledgment, Needs reinforcement Heart Disease Patient Heart Disease Risk Factors Are:: Family history of heart disease < 65 years old Recommendations Include:: Educated family members of their risk, Educated family members of importance of prevention of heart disease Heart Disease Response Code:: Patient communicates acknowledgment, Family communicates acknowledgment, Needs reinforcement Diabetes Patient Diabetes Risk Factors Are:: No documented hx of diabetes Recommendations Include:: Decrease/maintain body weight Diabetes:: Patient communicates acknowledgment, Family communicates acknowledgment - \ Metabolic Syndrome Patient Metabolic Syndrome Risk Factors Are [3 of 5]:: Waist circumference > 35 [female] or 40 [male], Hypertension, Low HDL <40 [male] or < 50 [female] Recommendations Include:: Reinforce compliance to risk factor modifications, Encouraged follow-up with Primary Care Physician Metabolic Syndrome Response Code:: Patient communicates acknowledgment, Family communicates acknowledgment, Needs reinforcement Sedentary Patient Sedentary Risk Factors Are:: Lack of regular exercise Recommendations Include:: Aerobic exercise 5-7 times/week for 20-30 minutes continuously, Benefits of regular exercise, Discussed home walking program, Monitored Outpatient Cardiac Rehab Sedentary Response Code:: Patient communicates acknowledgment, Needs reinforcement Stress Patient Stress Risk Factors Are:: Patient denies stress as a risk factor Stress Response Code:: Needs reinforcement
--- NOTE | 2018-06-13 11:12 | CRPH1.INST_ITS ---
General Education CAD and cardiac anatomy and function:: Patient communicates acknowledgment, Needs reinforcement Explanation of diagnoses and procedures:: Patient communicates acknowledgment, Needs reinforcement Sign/Symptoms of MD:: Patient communicates acknowledgment, Needs reinforcement Antiplatelet therapy: Patient communicates acknowledgment, Needs reinforcement Proper use of NTG-SL: Patient communicates acknowledgment, Needs reinforcement Emergency procedures and activation of EMS: Patient communicates acknowledgment, Needs reinforcement Compliance of all prescribed medications: Patient communicates acknowledgment, Needs reinforcement Smoking Patient Nicotine/Smoking Risk Factors Are:: Non-smoker Recommendations Include:: Previous smoker; encourage continued cessation Nicotine/Smoking Response Code:: Patient communicates acknowledgment Dyslipidemia Patient Dyslipidemia Risk Factors Are:: Total Cholesterol, Triglycerides, HDL, LDL Recommendations Include:: Lipid profile provided, Reviewed NCEP/ATP guidelines, Therapeutic Lifestyle Change dietary guidelines Dyslipidemia Response Code:: Patient communicates acknowledgment, Needs reinforcement Overweight/Obesity Patient Overweight/Obesity Risk Factors Are:: Obesity - > or = 30 Recommendations Include:: Weight loss of 5-10%, Exercise 5-7 times/week Overweight/Obesity:: Patient communicates acknowledgment, Needs reinforcement Hypertension Recommendations Include:: Maintain BP <130/85, DASH dietary guidelines, De crease/maintain normal body weight, Moderation of ETOH Hypertension:: Patient communicates acknowledgment, Needs reinforcement Heart Disease Patient Heart Disease Risk Factors Are:: Family history of heart disease < 65 years old Recommendations Include:: Educated family members of their risk, Educated family members of importance of prevention of heart disease Heart Disease Response Code:: Patient communicates acknowledgment, Family communicates acknowledgment, Needs reinforcement Diabetes Patient Diabetes Risk Factors Are:: No documented hx of diabetes Recommendations Include:: Decrease/maintain body weight Diabetes:: Patient communicates acknowledgment, Family communicates acknowledgment - \ Metabolic Syndrome Patient Metabolic Syndrome Risk Factors Are [3 of 5]:: Waist circumference > 35 [female] or 40 [male], Hypertension, Low HDL <40 [male] or < 50 [female] Recommendations Include:: Reinforce compliance to risk factor modifications, Encouraged follow-up with Primary Care Physician Metabolic Syndrome Response Code:: Patient communicates acknowledgment, Family communicates acknowledgment, Needs reinforcement Sedentary Patient Sedentary Risk Factors Are:: Lack of regular exercise Recommendations Include:: Aerobic exercise 5-7 times/week for 20-30 minutes continuously, Benefits of regular exercise, Discussed home walking program, Monitored Outpatient Cardiac Rehab Sedentary Response Code:: Patient communicates acknowledgment, Needs reinforcement Stress Patient Stress Risk Factors Are:: Patient denies stress as a risk factor Stress Response Code:: Needs reinforcement
[2018-06-13] MEDS: Multivitamins,Ther W-Minerals Tablet 1 TABLET PO (11:34)
[2018-06-13] MEDS: Sertraline 50 MG Tablet PO (11:34)
[2018-06-13] MEDS: Vitamin E 400 UNITS Capsule PO (11:34)
[2018-06-13] MEDS: Calcium Carb/Vitamin D 1 TABLET Tablet PO (11:35)
[2018-06-13] MEDS: Montelukast 10 MG Tablet PO (11:36)
[2018-06-13] MEDS: Ascorbic Acid 500 MG Tablet PO (11:37)
[2018-06-13] MEDS: Loratadine 10 MG Tablet PO (11:37)
[2018-06-13] MEDS: Nystatin Powder 15gm Bottle 1 APPLIC TOPICAL ×2 (11:39→21:15)
[2018-06-13] MEDS: predniSONE 20 MG Tablet 40 MG PO (11:42)
--- NOTE | 2018-06-13 11:49 | PCM.PN.HOSP ---
Patient Problems: Active and Suspected Problems Non-STEMI (non-ST elevated myocardial infarction) (Acute) Severe sepsis (Acute) Myocardial infarct (Acute) Renal insufficiency (Acute) Fever (Acute) Subjective: Patient seen and examined. She had a cardiac cath with drug-eluting stent placement to the mid LAD this morning. She was transferred to the ICU for closer monitoring of the calf. She has no complaints and tolerated the procedure well. She denies any fever or chills any cough or chest pain, any palpitations or dizziness, any shortness of breath, abdominal pain, any diarrhea vomiting. Review of systems otherwise negative. Labs and vitals reviewed. Vitals/I&O's: Vital Signs Temp Pulse Resp BP Pulse Ox 98 F 72 20 H 140/76 H 93 06/13/18 06:27 06/13/18 11:02 06/13/18 11:02 06/13/18 06:30 06/13/18 11:02 Oxygen Flow Rate (L/min) 1 Oxygen Delivery Method Nasal Cannula Weight: 283 lb 6.4 oz Body Mass Index (BMI) 49.5 Intake and Output for Last 24 Hours 06/11/18 06/12/18 06/13/18 23:59 23:59 23:59 Intake Total 1586.0 / 1586.0 Output Total 2990 / 2990 725 / 725 Balance -1404.0 / -1404.0 -725 / -725 General: Alert, Oriented x3, Cooperative, No apparent distress HEENT: Atraumatic, PERRLA, EOMI, Normocephalic Oral: Moist Mucosa Neck: Supple, No JVD, Negative Carotid Bruits Lungs: Clear to auscultation, Normal air movement, No rhonchi, No wheeze, No rales Cardiovascular: Regular rate, Regular Rhythm, Normal S1, Normal S2, No murmurs Abdomen: Bowel Sounds Present, Soft, Non Tender, Non-Distended, No Hepato-splenomegaly Extremities: No clubbing, No cyanosis, No edema, Capillary Refill Less than 3 Seconds, - - site of cath at right wrist has tight dressing in place. Skin: No rashes, No breakdown Musculoskeletal: No Tenderness to Palpation of Joints or Extremities Lymphatic: No Cervical, Supraclavicular, or Inguinal Adenopathy Neurological: Cranial nerves II-XII grossly intact, Neuro grossly intact Psych/Mental Status: Normal Affect, Appropriate, Alert and oriented to time, place, person, mood and affect Microbiology Past 72 Hours 06/11/18 22:25 Blood Culture (Wb) - Anticubital Left Blood Culture - Preliminary GNR lactose electronic communications technician 06/11/18 22:17 Blood Culture (Wb) - Right Hand Blood Culture - Preliminary GNR lactose electronic communications technician 06/11/18 22:10 Mucosa - Nasopharyngeal Respiratory Panel (PCR) - Final 06/11/18 22:10 Mucosa - Nasopharyngeal Influenza Types A,B Direct FA (KENZIE) - Final Laboratory Results 06/12/18 12:55: Sodium 134 L, Potassium 3.6, Chloride 98, Carbon Dioxide 24.0, Anion Gap 12, BUN 49 H, Creatinine 2.19 H, Estim Creat Clear Calc 20.05, Est GFR (MDRD) Af Amer 28 L, Est GFR (MDRD) Non-Af 23 L, BUN/Creatinine Ratio 22.4 H, Glucose 248 H, Calcium 8.6 06/12/18 15:52: APTT 62.1 H 06/12/18 22:03: APTT 52.0 H 06/13/18 05:00: WBC 15.4 H, RBC 4.73, Hgb 13.7, Hct 41.8, MCV 88.4, MCH 29.0, MCHC 32.8, RDW 13.6, RDW Differential 44.3 H, Plt Count 190, MPV 11.0, Immature Gran % (Auto) 0.500, Neut % (Auto) 90.5 H, Lymph % (Auto) 3.2 L, [place] % (Auto) 5.7, Eos % (Auto) 0.0, Baso % (Auto) 0.1, Absolute Neuts (auto) 13.9 H, Absolute Lymphs (auto) 0.49 L, Total Counted Not Reportable, Differential Comment 06/13/18 05:00: Sodium 137, Potassium 3.5, Chloride 100, Carbon Dioxide 24.0, Anion Gap 13, BUN 55 H, Creatinine 1.96 H, Estim Creat Clear Calc 22.40, Est GFR (MDRD) Af Amer 32 L, Est GFR (MDRD) Non-Af 27 L, BUN/Creatinine Ratio 28.1 H, Glucose 198 H, Calcium 9.0 06/13/18 05:00: PT 14.7, INR 1.2, APTT 29.7 06/13/18 09:13: Activated Clotting Time 235 H Current Medications Acetaminophen (Tylenol) 650 mg PO Q6H PRN PRN PRN Reason: temp >100.4 Last Admin: 06/12/18 20:48 Dose: 650 mg Hydrocodone Bitart/Acetaminophen ([place] 5mg-325mg) 1 - 2 tablet PO Q6H PRN PRN PRN Reason: Mild-Mod Pain (-10/11) Last Admin: 06/11/18 23:34 Dose: 1 tablet Albuterol Sulfate (Ventolin Aerosols) 2.5 mg INHALATION Q2H PRN PRN PRN Reason: sob/wheezing Albuterol/Ipratropium (Duoneb) 3 ml INHALATION Q4HWA.RT [facility] Last Admin: 06/13/18 11:02 Dose: 3 ml Ascorbic Acid (Vitamin C) 500 mg PO DAILY@0800 [facility] Last Admin: 06/13/18 11:37 Dose: 500 mg [facility]) [facility] Last Admin: 06/13/18 06:31 Dose: 81 mg Atorvastatin Calcium (Lipitor) 80 mg PO QHS [facility] Last Admin: 06/12/18 21:01 Dose: 80 mg Atropine Sulfate () 0.5 mg IV UD PRN PRN Reason: HR <50 bpm Calcium/Vitamin D (Os-[place] 500mg + D) [facility] Last Admin: 06/13/18 11:35 Dose: 1 tablet Cyanocobalamin (Vitamin B12) 500 mcg PO QHS [facility] Last Admin: 06/12/18 21:01 Dose: 500 mcg Cyclobenzaprine HCl (Cyclobenzaprine Hcl) 5 mg PO TID PRN PRN PRN Reason: SPASMS Last Admin: 06/12/18 21:14 Dose: 5 mg Ceftriaxone Sodium (Rocephin) 1 gm in 50 mls @ 100 mls/hr IV Q24H [facility] Last Admin: 06/12/18 21:14 Dose: 100 mls/hr Sodium Chloride () 1,000 mls @ 15 mls/hr IV .Q48H [facility] Last Admin: 06/13/18 06:30 Dose: 15 mls/hr Sodium Chloride () 250 mls @ 15 mls/hr IV .[id number] PRN PRN Reason: SALINE FLUSH Sodium Chloride () 250 mls @ 15 mls/hr IV .[id number] PRN PRN Reason: SALINE FLUSH Sodium Chloride () 1,000 mls @ 150 mls/hr IV .Q6H40M [facility] Stop: 06/13/18 16:30 Last Admin: 06/13/18 10:18 Dose: 150 mls/hr Labetalol HCl (Trandate) 5 mg IV X1 PRN PRN Reason: SBP > 160 when pulling sheath Levothyroxine Sodium (Synthroid) 50 mcg PO MoWeFrSa@0600 [facility] Last Admin: 06/12/18 06:22 Dose: 50 mcg Levothyroxine Sodium (Synthroid) 100 mcg PO SuTuTh@0600 [facility] Last Admin: 06/13/18 06:30 Dose: 100 mcg Loratadine (Claritin) 10 mg PO DAILY [facility] Last Admin: 06/13/18 11:37 Dose: 10 mg Meclizine HCl (Antivert) 12.5 mg PO DAILY PRN PRN PRN Reason: DIZZINESS Metoclopramide HCl (Reglan) 5 mg IV Q6 PRN PRN Reason: NAUSEA/VOMITING Metoprolol Tartrate (Lopressor (Beta Edvin)) 25 mg PO BID [facility] Last Admin: 06/13/18 06:30 Dose: 25 mg Montelukast Sodium (Singulair) 10 mg PO DAILY [facility] Last Admin: 06/13/18 11:36 Dose: 10 mg Multivitamins/Minerals (Multivitamin With Minerals) 1 tablet PO DAILY@0800 [facility] Last Admin: 06/13/18 11:34 Dose: 1 tablet Nortriptyline HCl (Pamelor) 10 mg PO QHS [facility] Last Admin: 06/12/18 21:00 Dose: 10 mg Nystatin (Mycostatin Powder) 1 applic TOPICAL BID [facility]; Protocol Last Admin: 06/13/18 11:39 Dose: 1 applicatio Potassium Chloride (K-Dur) 10 meq PO DAILY [facility] Last Admin: 06/13/18 11:35 Dose: 10 meq Prednisone () [facility] Last Admin: 06/13/18 11:42 Dose: 40 mg Sertraline HCl (Zoloft) 50 mg PO DAILY [facility] Last Admin: 06/13/18 11:34 Dose: 50 mg Sodium Chloride () 5 - 15 ml IV UD PRN PRN Reason: SALINE FLUSH Last Admin: 06/12/18 13:49 Dose: 10 ml Sodium Chloride () 500 ml IV BOLUS PRN PRN Reason: VASO-VAGAL PROTOCOL Ticagrelor (Brilinta) 90 mg PO BID [facility] Last Admin: 06/13/18 06:30 Dose: 90 mg Vitamin E (Vitamin E) 400 units PO DAILY [facility] Last Admin: 06/13/18 11:34 Dose: 400 units Medical Necessity - Tobacco Use Smoking Status: Former smoker Assessment/Plan All Active Problems Non-STEMI (non-ST elevated myocardial infarction) (Acute) Severe sepsis (Acute) Myocardial infarct (Acute) Renal insufficiency (Acute) Fever (Acute) 1. NSTEMI had no chest pain on admission; EKG showed no acute ST changes initial troponin was 10.1->9.840->8.760 on aspirin 81mg daily, high intensity statin, brilinita and metoprolol cardiology on board 2D echo:EF of 35%, with mildly enlarged LA, and diastolic function indeterminate. RVSP unable to estimate. cardiac cath: had 75% blockage of mid LAD and had successful placement of drug eluting stent. to continue on aspirin indefinitely, plavix for 12 months 2. Sepsis due to UTI fever has settled, but shes still tachypneic. 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 A cute hypoxic respiratory failure due to Acute systolic heart failure BNP was 1027 on admission CXR showed vascular congestion on IV lasix 40mg bid; in cumulative negative balance by 2.19L cardiology on board 2D echoa s above now on 1L of xoygen on breathing treatments on 4L of oxygen; not on oxygen at home on breathing treatments; titrate oxygen to maintain sats>92% 4. FRED: Cr was 2.16 on admisison, is 1.96 today. baseline is <1 couldnt be hydrated o/a of hert failure continue monitoring CR 5. Acute asthma exacerbation Likely shortness of breath was rather due to acute heart failure not acute asthma exacerbation. On breathing treatments and steroids. will dc steroids 6. Mechanical fall: fall precautions. On [place] for pain DVT prophylaxis: will start heparin tomorrow. Now off heparin drip after cardiac cath. Code Visit Inpatient E&M: 15231 Subs Hosp L3
--- NOTE | 2018-06-13 11:58 | PN_ITS ---
Patient Problems: Active and Suspected Problems Non-STEMI (non-ST elevated myocardial infarction) (Acute) Severe sepsis (Acute) Myocardial infarct (Acute) Renal insufficiency (Acute) Fever (Acute) Subjective: Patient seen and examined. She had a cardiac cath with drug-eluting stent placement to the mid LAD this morning. She was transferred to the ICU for closer monitoring of the calf. She has no complaints and tolerated the procedure well. She denies any fever or chills any cough or chest pain, any palpitations or dizziness, any shortness of breath, abdominal pain, any diarrhea vomiting. Review of systems otherwise negative. Labs and vitals reviewed. Vitals/I&O's: Vital Signs Temp Pulse Resp BP Pulse Ox 98 F 72 20 H 140/76 H 93 06/13/18 06:27 06/13/18 11:02 06/13/18 11:02 06/13/18 06:30 06/13/18 11:02 Oxygen Flow Rate (L/min) 1 Oxygen Delivery Method Nasal Cannula Weight: 283 lb 6.4 oz Body Mass Index (BMI) 49.5 Intake and Output for Last 24 Hours 06/11/18 06/12/18 06/13/18 23:59 23:59 23:59 Intake Total 1586.0 / 1586.0 Output Total 2990 / 2990 725 / 725 Balance -1404.0 / -1404.0 -725 / -725 General: Alert, Oriented x3, Cooperative, No apparent distress HEENT: Atraumatic, PERRLA, EOMI, Normocephalic Oral: Moist Mucosa Neck: Supple, No JVD, Negative Carotid Bruits Lungs: Clear to auscultation, Normal air movement, No rhonchi, No wheeze, No rales Cardiovascular: Regular rate, Regular Rhythm, Normal S1, Normal S2, No murmurs Abdomen: Bowel Sounds Present, Soft, Non Tender, Non-Distended, No Hepato- splenomegaly Extremities: No clubbing, No cyanosis, No edema, Capillary Refill Less than 3 Seconds, - - site of cath at right wrist has tight dressing in place. Skin: No rashes, No breakdown Musculoskeletal: No Tenderness to Palpation of Joints or Extremities Lymphatic: No Cervical, Supraclavicular, or Inguinal Adenopathy Neurological: Cranial nerves II-XII grossly intact, Neuro grossly intact Psych/Mental Status: Normal Affect, Appropriate, Alert and oriented to time, place, person, mood and affect Microbiology Past 72 Hours 06/11/18 22:25 Blood Culture (Wb) - Anticubital Left Blood Culture - Preliminary GNR lactose cycle manager 06/11/18 22:17 Blood Culture (Wb) - Right Hand Blood Culture - Preliminary GNR lactose cycle manager 06/11/18 22:10 Mucosa - Nasopharyngeal Respiratory Panel (PCR) - Final 06/11/18 22:10 Mucosa - Nasopharyngeal Influenza Types A,B Direct FA (KENZIE) - Final Laboratory Results 06/12/18 12:55: Sodium 134 L, Potassium 3.6, Chloride 98, Carbon Dioxide 24.0, Anion Gap 12, BUN 49 H, Creatinine 2.19 H, Estim Creat Clear Calc 20.05, Est GFR (MDRD) Af Amer 28 L, Est GFR (MDRD) Non-Af 23 L, BUN/Creatinine Ratio 22.4 H, Glucose 248 H, Calcium 8.6 06/12/18 15:52: APTT 62.1 H 06/12/18 22:03: APTT 52.0 H 06/13/18 05:00: WBC 15.4 H, RBC 4.73, Hgb 13.7, Hct 41.8, MCV 88.4, MCH 29.0, MCHC 32.8, RDW 13.6, RDW Differential 44.3 H, Plt Count 190, MPV 11.0, Immature Gran % (Auto) 0.500, Neut % (Auto) 90.5 H, Lymph % (Auto) 3.2 L, [place] % (Auto) 5.7, Eos % (Auto) 0.0, Baso % (Auto) 0.1, Absolute Neuts (auto) 13.9 H, Absolute Lymphs (auto) 0.49 L, Total Counted Not Reportable, Differential Comment 06/13/18 05:00: Sodium 137, Potassium 3.5, Chloride 100, Carbon Dioxide 24.0, Anion Gap 13, BUN 55 H, Creatinine 1.96 H, Estim Creat Clear Calc 22.40, Est GFR (MDRD) Af Amer 32 L, Est GFR (MDRD) Non-Af 27 L, BUN/Creatinine Ratio 28.1 H, Glucose 198 H, Calcium 9.0 06/13/18 05:00: PT 14.7, INR 1.2, APTT 29.7 06/13/18 09:13: Activated Clotting Time 235 H Current Medications Acetaminophen (Tylenol) 650 mg PO Q6H PRN PRN PRN Reason: temp >100.4 Last Admin: 06/12/18 20:48 Dose: 650 mg Hydrocodone Bitart/Acetaminophen ([place] 5mg-325mg) 1 - 2 tablet PO Q6H PRN PRN PRN Reason: Mild-Mod Pain (-10/11) Last Admin: 06/11/18 23:34 Dose: 1 tablet Albuterol Sulfate (Ventolin Aerosols) 2.5 mg INHALATION Q2H PRN PRN PRN Reason: sob/wheezing Albuterol/Ipratropium (Duoneb) 3 ml INHALATION Q4HWA.RT [facility] Last Admin: 06/13/18 11:02 Dose: 3 ml Ascorbic Acid (Vitamin C) 500 mg PO DAILY@0800 [facility] Last Admin: 06/13/18 11:37 Dose: 500 [facility] Last Admin: 06/13/18 06:31 Dose: 81 mg Atorvastatin Calcium (Lipitor) 80 mg PO QHS [facility] Last Admin: 06/12/18 21:01 Dose: 80 mg Atropine Sulfate () 0.5 mg IV UD PRN PRN Reason: HR <50 bpm Calcium/Vitamin D (Os-[place] 500mg + D) [facility] Last Admin: 06/13/18 11:35 Dose: 1 tablet Cyanocobalamin (Vitamin B12) 500 mcg PO QHS [facility] Last Admin: 06/12/18 21:01 Dose: 500 mcg Cyclobenzaprine HCl (Cyclobenzaprine Hcl) 5 mg PO TID PRN PRN PRN Reason: SPASMS Last Admin: 06/12/18 21:14 Dose: 5 mg Ceftriaxone Sodium (Rocephin) 1 gm in 50 mls @ 100 mls/hr IV Q24H [facility] Last Admin: 06/12/18 21:14 Dose: 100 mls/hr Sodium Chloride () 1,000 mls @ 15 mls/hr IV .Q48H [facility] Last Admin: 06/13/18 06:30 Dose: 15 mls/hr Sodium Chloride () 250 mls @ 15 mls/hr IV .[id number] PRN PRN Reason: SALINE FLUSH Sodium Chloride () 250 mls @ 15 mls/hr IV .[id number] PRN PRN Reason: SALINE FLUSH Sodium Chloride () 1,000 mls @ 150 mls/hr IV .Q6H40M [facility] Stop: 06/13/18 16:30 Last Admin: 06/13/18 10:18 Dose: 150 mls/hr Labetalol HCl (Trandate) 5 mg IV X1 PRN PRN Reason: SBP > 160 when pulling sheath Levothyroxine Sodium (Synthroid) 50 mcg PO MoWeFrSa@0600 [facility] Last Admin: 06/12/18 06:22 Dose: 50 mcg Levothyroxine Sodium (Synthroid) 100 mcg PO SuTuTh@0600 [facility] Last Admin: 06/13/18 06:30 Dose: 100 mcg Loratadine (Claritin) 10 mg PO DAILY [facility] Last Admin: 06/13/18 11:37 Dose: 10 mg Meclizine HCl (Antivert) 12.5 mg PO DAILY PRN PRN PRN Reason: DIZZINESS Metoclopramide HCl (Reglan) 5 mg IV Q6 PRN PRN Reason: NAUSEA/VOMITING Metoprolol Tartrate (Lopressor (Beta Edvin)) 25 mg PO BID [facility] Last Admin: 06/13/18 06:30 Dose: 25 mg Montelukast Sodium (Singulair) 10 mg PO DAILY [facility] Last Admin: 06/13/18 11:36 Dose: 10 mg Multivitamins/Minerals (Multivitamin With Minerals) 1 tablet PO DAILY@0800 [facility] Last Admin: 06/13/18 11:34 Dose: 1 tablet Nortriptyline HCl (Pamelor) 10 mg PO QHS [facility] Last Admin: 06/12/18 21:00 Dose: 10 mg Nystatin (Mycostatin Powder) 1 applic TOPICAL BID [facility]; Protocol Last Admin: 06/13/18 11:39 Dose: 1 applicatio Potassium Chloride (K-Dur) 10 meq PO DAILY [facility] Last Admin: 06/13/18 11:35 Dose: 10 meq Prednisone () [facility] Last Admin: 06/13/18 11:42 Dose: 40 mg Sertraline HCl (Zoloft) 50 mg PO DAILY [facility] Last Admin: 06/13/18 11:34 Dose: 50 mg Sodium Chloride () 5 - 15 ml IV UD PRN PRN Reason: SALINE FLUSH Last Admin: 06/12/18 13:49 Dose: 10 ml Sodium Chloride () 500 ml IV BOLUS PRN PRN Reason: VASO-VAGAL PROTOCOL Ticagrelor (Brilinta) 90 mg PO BID [facility] Last Admin: 06/13/18 06:30 Dose: 90 mg Vitamin E (Vitamin E) 400 units PO DAILY [facility] Last Admin: 06/13/18 11:34 Dose: 400 units Medical Necessity - Tobacco Use Smoking Status: Former smoker Assessment/Plan All Active Problems Non-STEMI (non-ST elevated myocardial infarction) (Acute) Severe sepsis (Acute) Myocardial infarct (Acute) Renal insufficiency (Acute) Fever (Acute) 1. NSTEMI * had no chest pain on admission; EKG showed no acute ST changes * initial troponin was 10.1->9.840->8.760 * on aspirin 81mg daily, high intensity statin, brilinita and metoprolol * cardiology on board * 2D echo:EF of 35%, with mildly enlarged LA, and diastolic function indeterminate. RVSP unable to estimate. * cardiac cath: had 75% blockage of mid LAD and had successful placement of drug eluting stent. * to continue on aspirin indefinitely, plavix for 12 months * * 2. Sepsis due to UTI * fever has settled, but shes still tachypneic. 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 A cute hypoxic respiratory failure due to Acute systolic heart failure * BNP was 1027 on admission * CXR showed vascular congestion * on IV lasix 40mg bid; in cumulative negative balance by 2.19L * cardiology on board * 2D echoa s above * now on 1L of xoygen * on breathing treatments * on 4L of oxygen; not on oxygen at home * on breathing treatments; titrate oxygen to maintain sats>92% * 4. FRED: * Cr was 2.16 on admisison, is 1.96 today. baseline is <1 * couldnt be hydrated o/a of hert failure * continue monitoring CR * 5. Acute asthma exacerbation * Likely shortness of breath was rather due to acute heart failure not acute asthma exacerbation. * On breathing treatments and steroids. * will dc steroids * 6. Mechanical fall: fall precautions. On [place] for pain DVT prophylaxis: will start heparin tomorrow. Now off heparin drip after cardiac cath. Code Visit Inpatient E&M: 31472 Subs Hosp L3
--- NOTE | 2018-06-13 18:59 | CL.D_ITS ---
Patient Name: DON JONES Study Date: 06/13/2018 Performing: Jalen Shah MD Ht: 64 inches 163 cm : 1945 Wt: 284.8 lbs 129 kg Age: 73 Gender: female BSA: 2.28 PROCEDURE(S) PERFORMED [id number] W OR WO PTCA, SINGLE CORONARY ARTERY CLINICAL PROFILE AND INDICATIONS Patient presents with NSTEMI for urgent cardiac cath Indications: Suspected CAD, LV Dysfunction, Suspected CAD, LV Dysfunction Heart Failure: NYHA Class: 3, Newly Diagnosed: Yes, Heart Failure Type: Systolic, NYHA Class: 1, Newly Diagnosed: Yes, Heart Failure Type: Systolic Stress/Imaging Stress/Image Study Performed: No Stress/Image Study Performed: No Angina Classification Anginal Classification w/in 2 Weeks: No symptoms CAD Presentations: Non-STEMI. Non-STEMI. 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 The risks and benefits of the procedure as well as a full d escription of our services here and current unavailability of surgical backup were fully explained to the patient and/or their significant other prior to the catheterization. The Timeout was completed, verifying the correct patient and procedure. The patient's procedural site was prepped and draped in the usual fashion. Local anesthetic was given subcutaneously to right radial region with Lidocaine 2% . Local anesthetic was given subcutaneously to right groin region with Lidocaine 2%. Using a modified Seldinger technique, arterial access was obtained via the right radial artery, a 6Fr sheath was inse rted., arterial access was obtained via the right femoral artery, a 6Fr sheath was inserted. Left Co ronary Artery selective angiography was performed in multiple views using a 5 Fr. 4.0 [place] catheter. Right Coronary Artery selective angiography was then performed in multiple views using a 5 Fr. 4.0 [place] catheter. LV to AO pullback pressures were then recorded.Contrast was injected throug h the sheath and the Right Iliac and Femoral artery were assessed for possible closure device.The art erial sheath was pulled and a Mynx closure device was deployed for hemostasis. The arterial sheath wa s pulled and a TR Band was applied for hemostasis w15ml air CORONARY ANGIOGRAPHY DOMINANCE: Right Dominant LEFT HEART ASSESSMENT Left Ventricular Ejection Fraction: Not assessed Elevated Left Ventricular End Diastolic Pressure LVEDP: 28 mmHg LEFT MAIN: Angiographically normal LEFT ANTERIOR DECENDING ARTERY: MID LAD: 75 % Stenosis CIRCUMFLEX ARTERY: Angiographically normal RIGHT CORONARY ARTERY: Mild luminal irregularities COMPLICATIONS No Complications PROCEDURE MEDICATIONS Fentanyl 50 mcg IV Oxygen: 2 L/min via nasal cannula Heparin diluted in 23cc Heparinized saline. Patient given 10cc IA of this solution. 06/13/2018 08:27: 57 Heparin 6000 unit(s) IV 06/13/2018 08:55:29 Nitro 200 mcg IC 06/13/2018 08:57:16 Nitro 200 mcg IC 06/13/2018 08:57:16 Nitro 200 mcg IC 06/13/2018 09:01:43 Solu-medrol 125 mg IV 06/13/2018 08:08:32 Verapamil 2.5mg, Ntg 100mcgs, 2000 units of Heparin diluted in 23cc Heparinized saline. Patient give n 10cc IA of this solution. 06/13/2018 08:27:57 IV Bolus: .9 NaCl 200ml total 06/13/2018 08:55:47 SUMMARY OF HEMODYNAMIC DATA Time AIR REST ECG 08:10:14 AO 108/68 (85) SA 08:32:52 LV 110/9, 27 08:41:44 LV 107/10, 28 08:41:52 LVp 109/6, 28 08:41:58 AOp 114/58 (81) 08:42:04 Signed By Jalen Shah MD On 06/13/2018 18:58:20 Jalen Shah MD
[2018-06-13] MEDS: Acetaminophen 325 MG Tablet 650 MG PO (20:20)
[2018-06-13] MEDS: Ceftriaxone 1 GM/50 ML BAG IV (21:13)
[2018-06-13] MEDS: Atorvastatin Calcium 80 MG Tablet PO (21:14)
[2018-06-13] MEDS: Nortriptyline 10 MG Capsule PO (21:14)
[2018-06-13] MEDS: Cyanocobalamin 500 MCG Tablet PO (21:16)
[2018-06-13] MEDS: Albuterol 2.5 MG/3 ML VIAL.NEB. INHALATION (21:21)
[2018-06-14] VITALS (27 sets, daily range): BP systolic 126–168; BP diastolic 56–105; PULSE 71–99; RESP 15–26; TEMP 36.4–36.9; O2SAT 92–96
[2018-06-14] MEDS: CYCLOBENZAPRINE HCL 5 MG TABLET PO (04:21)
[2018-06-14] MEDS: 0.9% NaCl Peripheral Flush Adult/Peds IV (04:22)
[2018-06-14 04:30] LABS: Absolute Lymphocyte Count 2.09 X10^3/ul (0.83-4.51); Absolute Neutrophil Count 20.3 X10^3/uL (2.0-7.7); Basophil# 0.02 X10^3/uL; Basophil% 0.1 % (0-1); Hematocrit 43.8 % (37-47); Hemoglobin 14.5 g/dl (12.0-15.0); Lymphocyte # 2.09 X10^3/ul (4.0); Mean Corp Hgb Conc 33.1 g/gl (32-36); Mean Corpuscular Hgb 29.5 pg (27.0-32.0); Mean Platelet Vol. 11.5 fl (6.2-12.0); Monocyte# 0.61 X10^3/uL; Monocyte% 2.6 % (0-10); Neutrophil # 20.25 X10^3/uL (2.7-7.7); Neutrophil % 87.4 % (47-70); Platelet Count 256 K/mm3 (150-450); RBC Distribution Width CV 13.8 % (11.6-14.6); RBC Distribution Width SD 45.1 fl (35.1-43.9); Red Blood Count 4.92 M/mm3 (4.2-5.4); White Blood Count 23.2 K/mm3 (4.4-11.0)
[2018-06-14 04:34] LABS: Differential Indicated SCAN CRITERIA MET; POSITIVE COUNT NO; POSITIVE DIFFERENTIAL YES; POSITIVE MORPHOLOGY YES
[2018-06-14 05:11] LABS: Anion Gap 11 (5-15); BUN 53 mg/dL (7-18); BUN/Creat Ratio 28.6 RATIO (10-20); Calcium,Total 9.4 mg/dL (8.5-10.1); Chloride 102 mmol/L (98-107); Creatinine, Serum 1.85 mg/dL (0.55-1.02); EST Glomerular Filtration Rate 29 mL/min (>60); Est Glom Filt Rate - Afr Amer 34 mL/min (>60); Estimated Creatinine Clearance 23.74 ml/min; Glucose 143 mg/dL (74-106); Potassium 3.5 mmol/L (3.5-5.1); Sodium Level 141 mmol/L (136-145)
[2018-06-14] MEDS: Levothyroxine 50 MCG Tablet PO (06:48)
[2018-06-14] MEDS: Ipratropium/Albuterol Sulfate 3 ML AMPUL.NEB INHALATION ×3 (07:15→15:11)
[2018-06-14] MEDS: Ascorbic Acid 500 MG Tablet PO (08:11)
[2018-06-14] MEDS: Aspirin E.C. 81 MG Tablet PO (08:11)
[2018-06-14] MEDS: Multivitamins,Ther W-Minerals Tablet 1 TABLET PO (08:12)
[2018-06-14] MEDS: Calcium Carb/Vitamin D 1 TABLET Tablet PO (08:12)
[2018-06-14 08:14] LABS: Magnesium 2.5 mg/dL (1.6-2.6)
[2018-06-14] MEDS: Metoprolol Tartrate 50 MG Tablet PO ×2 (08:15→22:45)
[2018-06-14] MEDS: predniSONE 20 MG Tablet 40 MG PO (08:15)
--- NOTE | 2018-06-14 09:15 | PCM.PN.HOSP ---
Patient Problems: Active and Suspected Problems Non-STEMI (non-ST elevated myocardial infarction) (Acute) Severe sepsis (Acute) Myocardial infarct (Acute) Renal insufficiency (Acute) Fever (Acute) Subjective: Patient seen and examined. She complains of fever and chills overnight. She denies any chest pain still has a cough productive of scanty greenish sputum. She denies any abdominal pain, diarrhea vomiting. Urine in urine bag and catheter noted to be blood-tinged. She admits to burning with catheter insertion. Labs and vitals reviewed. Vitals/I&O's: Vital Signs Temp Pulse Resp BP Pulse Ox 98.0 F 89 24 H 157/70 H 94 06/14/18 08:00 06/14/18 08:15 06/14/18 08:00 06/14/18 08:00 06/14/18 08:00 Oxygen Flow Rate (L/min) 2 Oxygen Delivery Method Nasal Cannula Weight: 284 lb 9.868 oz Body Mass Index (BMI) 49.5 Intake and Output for Last 24 Hours 06/12/18 06/13/18 06/14/18 23:59 23:59 23:59 Intake Total 1586.0 / 1586.0 2094.3 / 2094.3 240 / 240 Output Total 2990 / 2990 1875 / 1875 400 / 400 Balance -1404.0 / -1404.0 219.3 / 219.3 -160 / -160 General: Alert, Oriented x3, Cooperative, No apparent distress HEENT: Atraumatic, PERRLA, EOMI, Normocephalic Oral: Moist Mucosa Neck: Supple, No JVD, Negative Carotid Bruits Lungs: - - has mildly decreased breath sounds, no wheezing or crackles Cardiovascular: Regular rate, Regular Rhythm, Normal S1, Normal S2, No murmurs Abdomen: Bowel Sounds Present, Soft, Non Tender, Non-Distended, No Hepato-splenomegaly Extremities: No clubbing, No cyanosis, No edema, Capillary Refill Less than 3 Seconds Skin: No rashes, No breakdown Musculoskeletal: No Tenderness to Palpation of Joints or Extremities Lymphatic: No Cervical, Supraclavicular, or Inguinal Adenopathy Neurological: Cranial nerves II-XII grossly intact, Neuro grossly intact, Motor Exam 5/5 strength throughout Psych/Mental Status: Normal Affect, Appropriate, Alert and oriented to time, place, person, mood and affect Microbiology Past 72 Hours 06/11/18 22:25 Blood Culture (Wb) - Anticubital Left Blood Culture - Final GNR lactose endband sizer 06/11/18 22:17 Blood Culture (Wb) - Right Hand Blood Culture - Final Escherichia coli 06/12/18 06:00 Urine, Clean Catch Urine Culture - Preliminary Mixed Gram Pos & Gram Neg Org 06/11/18 22:10 Mucosa - Nasopharyngeal Respiratory Panel (PCR) - Final 06/11/18 22:10 Mucosa - Nasopharyngeal Influenza Types A,B Direct FA (KENZIE) - Final Laboratory Results 06/13/18 09:13: Activated Clotting Time 235 H 06/14/18 04:05: WBC 23.2 H, RBC 4.92, Hgb 14.5, Hct 43.8, MCV 89.0, MCH 29.5, MCHC 33.1, RDW 13.8, RDW Differential 45.1 H, Plt Count 256, MPV 11.5, Immature Gran % (Auto) 0.900, Neut % (Auto) 87.4 H, Lymph % (Auto) 9.0 L, [place] % (Auto) 2.6, Eos % (Auto) 0.0, Baso % (Auto) 0.1, Absolute Neuts (auto) 20.3 H, Absolute Lymphs (auto) 2.09, Total Counted Not Reportable 06/14/18 04:05: Sodium 141, Potassium 3.5, Chloride 102, Carbon Dioxide 28.0, Anion Gap 11, BUN 53 H, Creatinine 1.85 H, Estim Creat Clear Calc 23.74, Est GFR (MDRD) Af Amer 34 L, Est GFR (MDRD) Non-Af 29 L, BUN/Creatinine Ratio 28.6 H, Glucose 143 H, Calcium 9.4 06/14/18 04:05: Magnesium 2.5 Diagnostic Data Hip/Pelvis X-Ray 06/11/18 18:29 IMPRESSION: No fracture or dislocation in the pelvis or left hip. Mild degenerative changes. Electronically Signed: Juan Antonio Denise, at 20:28 EST Tel , Service support , Knee X-Ray 06/11/18 18:29 IMPRESSION: Marked degenerative changes of the left knee without fracture or dislocation. Electronically Signed: Con Fletcher DO at 20:11 EST Tel [phone], Service support , Chest X-Ray 06/13/18 05:55 IMPRESSION: Stable elevation of the right hemidiaphragm. Findings suggest mild right basilar atelectasis. There has been essentially no change. Electronically Signed: René Sanchez MD at 8:19 EST Tel [phone], Service support , Current Medications Acetaminophen (Tylenol) 650 mg PO Q6H PRN PRN PRN Reason: temp >100.4 Last Admin: 06/13/18 20:20 Dose: 650 mg Hydrocodone Bitart/Acetaminophen ([place] 5mg-325mg) 1 - 2 tablet PO Q6H PRN PRN PRN Reason: Mild-Mod Pain (-10/11) Last Admin: 06/11/18 23:34 Dose: 1 tablet Albuterol Sulfate (Ventolin Aerosols) 2.5 mg INHALATION Q2H PRN PRN PRN Reason: sob/wheezing Last Admin: 06/13/18 21:21 Dose: 2.5 mg Albuterol/Ipratropium (Duoneb) 3 ml INHALATION Q4HWA.RT [facility] Last Admin: 06/14/18 07:15 Dose: 3 ml Ascorbic Acid (Vitamin C) 500 mg PO DAILY@0800 [facility] Last Admin: 06/14/18 08:11 Dose: 500 mg [facility] Last Admin: 06/14/18 08:11 Dose: 81 mg Atorvastatin Calcium (Lipitor) 80 mg PO QHS [facility] Last Admin: 06/13/18 21:14 Dose: 80 mg Atropine Sulfate () 0.5 mg IV UD PRN PRN Reason: HR <50 bpm Calcium/Vitamin D (Os-[place] 500mg + D) [facility] Last Admin: 06/14/18 08:12 Dose: 1 tablet Cyanocobalamin (Vitamin B12) 500 mcg PO QHS [facility] Last Admin: 06/13/18 21:16 Dose: 500 mcg Cyclobenzaprine HCl (Cyclobenzaprine Hcl) 5 mg PO TID PRN PRN PRN Reason: SPASMS Last Admin: 06/14/18 04:21 Dose: 5 mg Hydralazine HCl (Apresoline) 25 mg PO TID [facility] Ceftriaxone Sodium (Rocephin) 1 gm in 50 mls @ 100 mls/hr IV Q24H [facility] Last Admin: 06/13/18 21:13 Dose: 100 mls/hr Sodium Chloride () 1,000 mls @ 15 mls/hr IV .Q48H [facility] Last Admin: 06/13/18 06:30 Dose: 15 mls/hr Sodium Chloride () 250 mls @ 15 mls/hr IV .[id number] PRN PRN Reason: SALINE FLUSH Sodium Chloride () 250 mls @ 15 mls/hr IV .[id number] PRN PRN Reason: SALINE FLUSH Isosorbide Mononitrate (Imdur) 30 mg PO DAILY [facility] Labetalol HCl (Trandate) 5 mg IV X1 PRN PRN Reason: SBP > 160 when pulling sheath Levothyroxine Sodium (Synthroid) 50 mcg PO MoWeFrSa@0600 [facility] Last Admin: 06/14/18 06:48 Dose: 50 mcg Levothyroxine Sodium (Synthroid) 100 mcg PO SuTuTh@0600 [facility] Last Admin: 06/13/18 06:30 Dose: 100 mcg Loratadine (Claritin) 10 mg PO DAILY [facility] Last Admin: 06/13/18 11:37 Dose: 10 mg Meclizine HCl (Antivert) 12.5 mg PO DAILY PRN PRN PRN Reason: DIZZINESS Metoclopramide HCl (Reglan) 5 mg IV Q6 PRN PRN Reason: NAUSEA/VOMITING Metoprolol Tartrate (Lopressor (Beta Edvin)) 50 mg PO BID [facility] Last Admin: 06/14/18 08:15 Dose: 50 mg Montelukast Sodium (Singulair) 10 mg PO DAILY [facility] Last Admin: 06/13/18 11:36 Dose: 10 mg Multivitamins/Minerals (Multivitamin With Minerals) 1 tablet PO DAILY@0800 [facility] Last Admin: 06/14/18 08:12 Dose: 1 tablet Nortriptyline HCl (Pamelor) 10 mg PO QHS [facility] Last Admin: 06/13/18 21:14 Dose: 10 mg Nystatin (Mycostatin Powder) 1 applic TOPICAL BID [facility]; Protocol Last Admin: 06/13/18 21:15 Dose: 1 applicatio Potassium Chloride (K-Dur) 10 meq PO DAILY [facility] Last Admin: 06/13/18 11:35 Dose: 10 meq Prednisone () 40 mg PO DAILYCM [facility] Last Admin: 06/14/18 08:15 Dose: 40 mg Sertraline HCl (Zoloft) 50 mg PO DAILY [facility] Last Admin: 06/13/18 11:34 Dose: 50 mg Sodium Chloride () 5 - 15 ml IV UD PRN PRN Reason: SALINE FLUSH Last Admin: 06/14/18 04:22 Dose: 10 ml Sodium Chloride () 500 ml IV BOLUS PRN PRN Reason: VASO-VAGAL PROTOCOL Ticagrelor (Brilinta) 90 mg PO BID [facility] Last Admin: 06/13/18 21:14 Dose: 90 mg Vitamin E (Vitamin E) 400 units PO DAILY [facility] Last Admin: 06/13/18 11:34 Dose: 400 units Medical Necessity - Tobacco Use Smoking Status: Former smoker Assessment/Plan All Active Problems Non-STEMI (non-ST elevated myocardial infarction) (Acute) Severe sepsis (Acute) Myocardial infarct (Acute) Renal insufficiency (Acute) Fever (Acute) 1. NSTEMI s/p cardiac cath with stent placement. on aspirin 81mg daily, high intensity statin, brilinita and metoprolol cardiology on board 2D echo:EF of 35%, with mildly enlarged LA, and diastolic function indeterminate. RVSP unable to estimate. cardiac cath: had 75% blockage of mid LAD and had successful placement of drug eluting stent. to continue on aspirin indefinitely, plavix for 12 months 2. Sepsis due to UTI fever has settled, white cell count up to 24, due to steroids UA showed 2+ bacteria, 500 LE urine culture grew mixed gram positve and gram negative organisms blood cultured E. coli on IV ceftriaxone 3. A cute hypoxic respiratory failure due to Acute systolic heart failure BNP was 1027 on admission CXR showed vascular congestion on IV lasix 40mg bid; in cumulative negative balance by 1.34L cardiology on board 2D echo as above now on21L of xoygen on breathing treatments 4. hematuria: urine in mcbride and urine bag is slightly blood tinged. On aspirin and plavix. platelets are 256. Hb has remained stable at 14.5 unsure if this is traumatic, from patient tugging on catheter. will irrigate catheter and monitor. 5. FRED: improving Cr was 2.16 on admisison, is 1.85 today. baseline is <1 couldnt be hydrated o/a of hert failure continue monitoring Cr 6. Asthma Likely shortness of breath was rather due to acute heart failure not acute asthma exacerbation. On breathing treatments; IV steroids transitioned to PO steroids. 7. Mechanical fall: fall precautions. On [place] for pain DVT prophylaxis: will start heparin today if hematuria clears up. SCDs. Code Visit Inpatient E&M: 65538 Subs Hosp L3
--- NOTE | 2018-06-14 09:16 | PN.CARD_ITS ---
Subjectve: The appears to be awake and alert. She denies any acute chest discomfort or acute shortness of breath/dyspnea. She states she has chronic shortness of breath. She states she does feel like she has been both hot and cold throughout the night. Objective: Vital Signs Temp Pulse Resp BP Pulse Ox 98.0 F 89 24 H 157/70 H 94 06/14/18 08:00 06/14/18 08:15 06/14/18 08:00 06/14/18 08:00 06/14/18 08:00 Oxygen Flow Rate (L/min) 2 Oxygen Delivery Method Nasal Cannula Weight: 284 lb 9.868 oz Body Mass Index (BMI) 49.5 Intake and Output for Last 24 Hours 06/12/18 06/13/18 06/14/18 23:59 23:59 23:59 Intake Total 1586.0 / 1586.0 2094.3 / 2094.3 240 / 240 Output Total 2990 / 2990 1875 / 1875 400 / 400 Balance -1404.0 / -1404.0 219.3 / 219.3 -160 / -160 General: Awake, Alert, Oriented x 3, Cooperative, No Acute Distress, Obese HEENT: Atraumatic, Normocephalic, PERRL, EOMI, Sclera Non Icteric Oral: Moist Mucosa Neck: Supple, Good ROM, No JVD Lungs: - - Diffusely diminished breath sounds Cardiovascular: Regular Rhythm, Premature Ectopic Beats, Normal S1, Normal S2 Vascular: Normal Femoral Pulses, Normal Radial Pulses Abdomen: Bowel Sounds Present, Soft, Non Tender Extremities: Trace RLE Edema, Trace LLE Edema Neurological: No Focal Motor or Sensory Deficit Psych/Mental Status: Appropriate 06/14/18 04:05: WBC 23.2 H, RBC 4.92, Hgb 14.5, Hct 43.8, MCV 89.0, MCH 29.5, MCHC 33.1, RDW 13.8, RDW Differential 45.1 H, Plt Count 256, MPV 11.5, Immature Gran % (Auto) 0.900, Neut % (Auto) 87.4 H, Lymph % (Auto) 9.0 L, [place] % (Auto) 2.6, Eos % (Auto) 0.0, Baso % (Auto) 0.1, Absolute Neuts (auto) 20.3 H, Total Counted Not Reportable 06/14/18 04:05: Sodium 141, Potassium 3.5, Chloride 102, Carbon Dioxide 28.0, Anion Gap 11, BUN 53 H, Creatinine 1.85 H, Est GFR (MDRD) Af Amer 34 L, Est GFR (MDRD) Non-Af 29 L, BUN/Creatinine Ratio 28.6 H, Glucose 143 H, Calcium 9.4 06/14/18 04:05: Magnesium 2.5 Rhythm: Sinus rhythm; PVCs EKG: Sinus rhythm; PVCs; nonspecific T wave abnormality Medical Necessity - Tobacco Use Smoking Status: Former smoker Assessment/Plan 1. Acute coronary syndrome/acute non-ST segment elevation MT The patient has now undergone evaluation with diagnostic cardiac catheterization. She was found to have an LAD mid lesion. She underwent subsequent LAD PCI. She will need to continue to be monitored. She will need to continue medical management and follow-up. 2. CAD Previous cardiac catheterization from 2007 was reviewed. At that time she had no angiographically significant appearing CAD and overall preserved LV systolic function. Her cardiac catheterization yesterday demonstrated the aforementioned LAD mid lesion. Her echocardiogram has demonstrated diminished LV wall motion and systolic function and diminished LVEF. Thus she underwent LAD PCI. She will need to continue medical management and follow-up. 3. Congestive heart failure The patient has had increased diuresis status post IV diuretics. Her renal function will be followed. Her chest x-ray on preliminary evaluation appears somewhat improved. She will need to continue medical therapy. This will include diuretic therapy which may need to be adjusted depending upon her clinical course, renal function, etc. 4. Hyperlipidemia The patient will continue lipid-lowering therapy. 5. Hypertension The patient's blood pressure will be followed. Her medications can be adjusted as deemed appropriate taking into consideration her renal function. 6. Acute renal insufficiency Her creatinine level was somewhat improved today. Her creatinine level has decreased somewhat. 7. Fever He does have a fever. Her urine culture is abnormal. She is on IV antibiotic therapy at this time. Comment: The patient's case was discussed and reviewed with the patient. This note was generated with [employer] software. It may contain incorrect words, spelling, and punctuation that were not noted in checking the note before signing.
--- NOTE | 2018-06-14 09:30 | PN_ITS ---
Patient Problems: Active and Suspected Problems Non-STEMI (non-ST elevated myocardial infarction) (Acute) Severe sepsis (Acute) Myocardial infarct (Acute) Renal insufficiency (Acute) Fever (Acute) Subjective: Patient seen and examined. She complains of fever and chills overnight. She denies any chest pain still has a cough productive of scanty greenish sputum. She denies any abdominal pain, diarrhea vomiting. Urine in urine bag and catheter noted to be blood-tinged. She admits to burning with catheter insertion. Labs and vitals reviewed. Vitals/I&O's: Vital Signs Temp Pulse Resp BP Pulse Ox 98.0 F 89 24 H 157/70 H 94 06/14/18 08:00 06/14/18 08:15 06/14/18 08:00 06/14/18 08:00 06/14/18 08:00 Oxygen Flow Rate (L/min) 2 Oxygen Delivery Method Nasal Cannula Weight: 284 lb 9.868 oz Body Mass Index (BMI) 49.5 Intake and Output for Last 24 Hours 06/12/18 06/13/18 06/14/18 23:59 23:59 23:59 Intake Total 1586.0 / 1586.0 2094.3 / 2094.3 240 / 240 Output Total 2990 / 2990 1875 / 1875 400 / 400 Balance -1404.0 / -1404.0 219.3 / 219.3 -160 / -160 General: Alert, Oriented x3, Cooperative, No apparent distress HEENT: Atraumatic, PERRLA, EOMI, Normocephalic Oral: Moist Mucosa Neck: Supple, No JVD, Negative Carotid Bruits Lungs: - - has mildly decreased breath sounds, no wheezing or crackles Cardiovascular: Regular rate, Regular Rhythm, Normal S1, Normal S2, No murmurs Abdomen: Bowel Sounds Present, Soft, Non Tender, Non-Distended, No Hepato- splenomegaly Extremities: No clubbing, No cyanosis, No edema, Capillary Refill Less than 3 Seconds Skin: No rashes, No breakdown Musculoskeletal: No Tenderness to Palpation of Joints or Extremities Lymphatic: No Cervical, Supraclavicular, or Inguinal Adenopathy Neurological: Cranial nerves II-XII grossly intact, Neuro grossly intact, Motor Exam 5/5 strength throughout Psych/Mental Status: Normal Affect, Appropriate, Alert and oriented to time, place, person, mood and affect Microbiology Past 72 Hours 06/11/18 22:25 Blood Culture (Wb) - Anticubital Left Blood Culture - Final GNR lactose motor electrician 06/11/18 22:17 Blood Culture (Wb) - Right Hand Blood Culture - Final Escherichia coli 06/12/18 06:00 Urine, Clean Catch Urine Culture - Preliminary Mixed Gram Pos & Gram Neg Org 06/11/18 22:10 Mucosa - Nasopharyngeal Respiratory Panel (PCR) - Final 06/11/18 22:10 Mucosa - Nasopharyngeal Influenza Types A,B Direct FA (KENZIE) - Final Laboratory Results 06/13/18 09:13: Activated Clotting Time 235 H 06/14/18 04:05: WBC 23.2 H, RBC 4.92, Hgb 14.5, Hct 43.8, MCV 89.0, MCH 29.5, MCHC 33.1, RDW 13.8, RDW Differential 45.1 H, Plt Count 256, MPV 11.5, Immature Gran % (Auto) 0.900, Neut % (Auto) 87.4 H, Lymph % (Auto) 9.0 L, Dare % (Auto) 2.6, Eos % (Auto) 0.0, Baso % (Auto) 0.1, Absolute Neuts (auto) 20.3 H, Absolute Lymphs (auto) 2.09, Total Counted Not Reportable 06/14/18 04:05: Sodium 141, Potassium 3.5, Chloride 102, Carbon Dioxide 28.0, Anion Gap 11, BUN 53 H, Creatinine 1.85 H, Estim Creat Clear Calc 23.74, Est GFR (MDRD) Af Amer 34 L, Est GFR (MDRD) Non-Af 29 L, BUN/Creatinine Ratio 28.6 H, Glucose 143 H, Calcium 9.4 06/14/18 04:05: Magnesium 2.5 Diagnostic Data Hip/Pelvis X-Ray 06/11/18 18:29 IMPRESSION: No fracture or dislocation in the pelvis or left hip. Mild degenerative changes. Electronically Signed: Juan Antonio Denise, at 20:28 EST Tel , Service support , Knee X-Ray 06/11/18 18:29 IMPRESSION: Marked degenerative changes of the left knee without fracture or dislocation. Electronically Signed: Con Fletcher DO at 20:11 EST Tel [phone], Service support , Chest X-Ray 06/13/18 05:55 IMPRESSION: Stable elevation of the right hemidiaphragm. Findings suggest mild right basilar atelectasis. There has been essentially no change. Electronically Signed: René Sanchez MD at 8:19 EST Tel [phone], Service support , Current Medications Acetaminophen (Tylenol) 650 mg PO Q6H PRN PRN PRN Reason: temp >100.4 Last Admin: 06/13/18 20:20 Dose: 650 mg Hydrocodone Bitart/Acetaminophen ([place] 5mg-325mg) 1 - 2 tablet PO Q6H PRN PRN PRN Reason: Mild-Mod Pain (-10/11) Last Admin: 06/11/18 23:34 Dose: 1 tablet Albuterol Sulfate (Ventolin Aerosols) 2.5 mg INHALATION Q2H PRN PRN PRN Reason: sob/wheezing Last Admin: 06/13/18 21:21 Dose: 2.5 mg Albuterol/Ipratropium (Duoneb) 3 ml INHALATION Q4HWA.RT [facility] Last Admin: 06/14/18 07:15 Dose: 3 ml Ascorbic Acid (Vitamin C) 500 mg PO DAILY@0800 [facility] Last Admin: 06/14/18 08:11 Dose: 500 mg [facility] ([facility]) [facility] Last Admin: 06/14/18 08:11 Dose: 81 mg Atorvastatin Calcium (Lipitor) 80 mg PO QHS [facility] Last Admin: 06/13/18 21:14 Dose: 80 mg Atropine Sulfate () 0.5 mg IV UD PRN PRN Reason: HR <50 bpm Calcium/Vitamin D (Os-[place] 500mg + D) [facility] Last Admin: 06/14/18 08:12 Dose: 1 tablet Cyanocobalamin (Vitamin B12) 500 mcg PO QHS [facility] Last Admin: 06/13/18 21:16 Dose: 500 mcg Cyclobenzaprine HCl (Cyclobenzaprine Hcl) 5 mg PO TID PRN PRN PRN Reason: SPASMS Last Admin: 06/14/18 04:21 Dose: 5 mg Hydralazine HCl (Apresoline) 25 mg PO TID [facility] Ceftriaxone Sodium (Rocephin) 1 gm in 50 mls @ 100 mls/hr IV Q24H [facility] Last Admin: 06/13/18 21:13 Dose: 100 mls/hr Sodium Chloride () 1,000 mls @ 15 mls/hr IV .Q48H [facility] Last Admin: 06/13/18 06:30 Dose: 15 mls/hr Sodium Chloride () 250 mls @ 15 mls/hr IV .[id number] PRN PRN Reason: SALINE FLUSH Sodium Chloride () 250 mls @ 15 mls/hr IV .[id number] PRN PRN Reason: SALINE FLUSH Isosorbide Mononitrate (Imdur) 30 mg PO DAILY [facility] Labetalol HCl (Trandate) 5 mg IV X1 PRN PRN Reason: SBP > 160 when pulling sheath Levothyroxine Sodium (Synthroid) 50 mcg PO MoWeFrSa@0600 [facility] Last Admin: 06/14/18 06:48 Dose: 50 mcg Levothyroxine Sodium (Synthroid) 100 mcg PO SuTuTh@0600 [facility] Last Admin: 06/13/18 06:30 Dose: 100 mcg Loratadine (Claritin) 10 mg PO DAILY [facility] Last Admin: 06/13/18 11:37 Dose: 10 mg Meclizine HCl (Antivert) 12.5 mg PO DAILY PRN PRN PRN Reason: DIZZINESS Metoclopramide HCl (Reglan) 5 mg IV Q6 PRN PRN Reason: NAUSEA/VOMITING Metoprolol Tartrate (Lopressor (Beta Edvin)) 50 mg PO BID [facility] Last Admin: 06/14/18 08:15 Dose: 50 mg Montelukast Sodium (Singulair) 10 mg PO DAILY [facility] Last Admin: 06/13/18 11:36 Dose: 10 mg Multivitamins/Minerals (Multivitamin With Minerals) 1 tablet PO DAILY@0800 [facility] Last Admin: 06/14/18 08:12 Dose: 1 tablet Nortriptyline HCl (Pamelor) 10 mg PO QHS [facility] Last Admin: 06/13/18 21:14 Dose: 10 mg Nystatin (Mycostatin Powder) 1 applic TOPICAL BID [facility]; Protocol Last Admin: 06/13/18 21:15 Dose: 1 applicatio Potassium Chloride (K-Dur) 10 meq PO DAILY [facility] Last Admin: 06/13/18 11:35 Dose: 10 meq Prednisone () 40 mg PO DAILYCM [facility] Last Admin: 06/14/18 08:15 Dose: 40 mg Sertraline HCl (Zoloft) 50 mg PO DAILY [facility] Last Admin: 06/13/18 11:34 Dose: 50 mg Sodium Chloride () 5 - 15 ml IV UD PRN PRN Reason: SALINE FLUSH Last Admin: 06/14/18 04:22 Dose: 10 ml Sodium Chloride () 500 ml IV BOLUS PRN PRN Reason: VASO-VAGAL PROTOCOL Ticagrelor (Brilinta) 90 mg PO BID [facility] Last Admin: 06/13/18 21:14 Dose: 90 mg Vitamin E (Vitamin E) 400 units PO DAILY [facility] Last Admin: 06/13/18 11:34 Dose: 400 units Medical Necessity - Tobacco Use Smoking Status: Former smoker Assessment/Plan All Active Problems Non-STEMI (non-ST elevated myocardial infarction) (Acute) Severe sepsis (Acute) Myocardial infarct (Acute) Renal insufficiency (Acute) Fever (Acute) 1. NSTEMI * s/p cardiac cath with stent placement. * on aspirin 81mg daily, high intensity statin, brilinita and metoprolol * cardiology on board * 2D echo:EF of 35%, with mildly enlarged LA, and diastolic function indeterminate. RVSP unable to estimate. * cardiac cath: had 75% blockage of mid LAD and had successful placement of drug eluting stent. * to continue on aspirin indefinitely, plavix for 12 months * * 2. Sepsis due to UTI * fever has settled, * white cell count up to 24, due to steroids * UA showed 2+ bacteria, 500 LE * urine culture grew mixed gram positve and gram negative organisms * blood cultured E. coli * on IV ceftriaxone * * 3. A cute hypoxic respiratory failure due to Acute systolic heart failure * BNP was 1027 on admission * CXR showed vascular congestion * on IV lasix 40mg bid; in cumulative negative balance by 1.34L * cardiology on board * 2D echo as above * now on21L of xoygen * on breathing treatments * 4. hematuria: * urine in mcbride and urine bag is slightly blood tinged. On aspirin and plavix. * platelets are 256. Hb has remained stable at 14.5 * unsure if this is traumatic, from patient tugging on catheter. * will irrigate catheter and monitor. * 5. FRED: * improving * Cr was 2.16 on admisison, is 1.85 today. baseline is <1 * couldnt be hydrated o/a of hert failure * continue monitoring Cr * 6. Asthma * Likely shortness of breath was rather due to acute heart failure not acute asthma exacerbation. * On breathing treatments; IV steroids transitioned to PO steroids. * 7. Mechanical fall: fall precautions. On [place] for pain DVT prophylaxis: will start heparin today if hematuria clears up. SCDs. Code Visit Inpatient E&M: 20745 Subs Hosp L3
[2018-06-14] MEDS: Nystatin Powder 15gm Bottle 1 APPLIC TOPICAL ×2 (09:49→22:46)
[2018-06-14] MEDS: Montelukast 10 MG Tablet PO (09:50)
[2018-06-14] MEDS: Loratadine 10 MG Tablet PO (09:50)
[2018-06-14] MEDS: TICAGRELOR 90 MG TABLET PO ×2 (09:50→22:45)
[2018-06-14] MEDS: Vitamin E 400 UNITS Capsule PO (09:51)
[2018-06-14] MEDS: Sertraline 50 MG Tablet PO (09:51)
[2018-06-14] MEDS: Isosorbide Mononitrate 30 MG Tablet PO (09:54)
--- NOTE | 2018-06-14 10:00 | EKG12_ITS ---
Test Reason : AM EKG Blood Pressure : / mmHG Vent. Rate : 080 BPM Atrial Rate : 080 BPM P-R Int : 160 ms QRS Dur : 110 ms QT Int : 348 ms P-R-T Axes : 057 -25 120 degrees QTc Int : 401 ms Sinus rhythm with occasional and consecutive Premature ventricular complexes Low voltage QRS Abnormal ECG When compared with ECG of 13-JUN-2018 09:47, MANUAL COMPARISON REQUIRED, DATA IS UNCONFIRMED Confirmed by MARCUS MALLORY, ROSENDA ([id number]), publications editor DOLORES ARCHIBALD ([id number]) on 06/18/2018 5:41:09 PM Referred By: Pérez Goel Confirmed By:ROSENDA VELAZQUEZ MD
[2018-06-14] MEDS: Furosemide 40 MG Tablet PO ×2 (10:11→17:23)
--- NOTE | 2018-06-14 11:23 | CASEMGMT ---
RN PETER Note. RN PETER spoke with pt re: dc plan. Pt plans to return home on discharge but states I need to be a lot better. PT/OT to work with pt today, awaiting notes. Pt states she was able to get OOB with nursing, sat in chair. -Brillinta card explained to pt. Medicare Part D Coverage Determination Request Form on front of chart for physician to complete to request tier exception for copay cost. Will fax once completed. Kuldip SANDERSN RN ACM
[2018-06-14] MEDS: hydrALAZINE 25 MG Tablet PO ×2 (12:59→22:45)
[2018-06-14] MEDS: Acetaminophen 325 MG Tablet 650 MG PO ×2 (13:35→22:55)
[2018-06-14] MEDS: Cyanocobalamin 500 MCG Tablet PO (22:44)
[2018-06-14] MEDS: Nortriptyline 10 MG Capsule PO (22:44)
[2018-06-14] MEDS: Ceftriaxone 1 GM/50 ML BAG IV (22:44)
[2018-06-14] MEDS: Heparin Injection (Vial) 5,000 UNIT/ML VIAL 5000 UNIT SC (22:45)
[2018-06-14] MEDS: Atorvastatin Calcium 80 MG Tablet PO (22:45)
--- NOTE | 2018-06-14 23:50 | NURSING ---
PT FOUND CONFUSED AND AMBULATING IN [facility] JUST OUTSIDE HER ROOM. PT'S IV HAD BEEN REMOVED. SHE WAS RETURNED TO HER ROOM, BATHED AND REORIENTED. PT STATES SHE WAS DREAMING AND WHEN SHE WOKE UP SHE DIDN'T RECALL WHERE SHE WAS. PT RETURNED TO BED. DENIES OTHER NEEDS. BED EXIT ON.
[2018-06-15] VITALS (20 sets, daily range): BP systolic 118–151; BP diastolic 53–78; PULSE 60–89; RESP 16–18; TEMP 36.5–37.2; O2SAT 91–96
[2018-06-15] MEDS: hydrALAZINE 25 MG Tablet PO ×3 (05:38→21:06)
[2018-06-15] MEDS: Levothyroxine 50 MCG Tablet PO (05:38)
[2018-06-15 07:18] LABS: Anion Gap 12 (5-15); BUN 48 mg/dL (7-18); BUN/Creat Ratio 31.8 RATIO (10-20); Calcium,Total 8.8 mg/dL (8.5-10.1); Chloride 105 mmol/L (98-107); Creatinine, Serum 1.51 mg/dL (0.55-1.02); EST Glomerular Filtration Rate 36 mL/min (>60); Est Glom Filt Rate - Afr Amer 44 mL/min (>60); Estimated Creatinine Clearance 29.08 ml/min; Glucose 116 mg/dL (74-106); Potassium 3.2 mmol/L (3.5-5.1); Sodium Level 142 mmol/L (136-145)
[2018-06-15 07:20] LABS: Absolute Lymphocyte Count 1.09 X10^3/ul (0.83-4.51); Absolute Neutrophil Count 9.5 X10^3/uL (2.0-7.7); Basophil# 0.06 X10^3/uL; Basophil% 0.5 % (0-1); Eosinophil# 0.04 X10^3/uL; Eosinophils% 0.3 % (0-5); Hematocrit 42.9 % (37-47); Hemoglobin 13.8 g/dl (12.0-15.0); Lymphocyte # 1.09 X10^3/ul (4.0); Lymphocyte % 8.7 % (19-41); Mean Corp Hgb Conc 32.2 g/gl (32-36); Mean Corpuscular Hgb 28.8 pg (27.0-32.0); Mean Corpuscular Volume 89.6 fL (81-99); Mean Platelet Vol. 11.4 fl (6.2-12.0); Monocyte# 1.55 X10^3/uL; Monocyte% 12.4 % (0-10); Neutrophil # 9.51 X10^3/uL (2.7-7.7); Neutrophil % 76.2 % (47-70); Platelet Count 208 K/mm3 (150-450); RBC Distribution Width CV 13.9 % (11.6-14.6); RBC Distribution Width SD 45.7 fl (35.1-43.9); Red Blood Count 4.79 M/mm3 (4.2-5.4); White Blood Count 12.5 K/mm3 (4.4-11.0)
[2018-06-15 07:21] LABS: Differential Indicated SCAN CRITERIA MET; POSITIVE COUNT NO; POSITIVE DIFFERENTIAL YES; POSITIVE MORPHOLOGY NO
[2018-06-15] MEDS: Aspirin E.C. 81 MG Tablet PO (08:12)
[2018-06-15] MEDS: Multivitamins,Ther W-Minerals Tablet 1 TABLET PO (08:12)
[2018-06-15] MEDS: Calcium Carb/Vitamin D 1 TABLET Tablet PO (08:12)
[2018-06-15] MEDS: Ascorbic Acid 500 MG Tablet PO (08:12)
[2018-06-15] MEDS: predniSONE 20 MG Tablet 40 MG PO (08:13)
[2018-06-15] MEDS: Heparin Injection (Vial) 5,000 UNIT/ML VIAL 5000 UNIT SC ×3 (08:44→21:07)
--- NOTE | 2018-06-15 10:00 | EKG12_ITS ---
Test Reason : AM EKG Blood Pressure : / mmHG Vent. Rate : 071 BPM Atrial Rate : 071 BPM P-R Int : 206 ms QRS Dur : 108 ms QT Int : 352 ms P-R-T Axes : 067 -14 121 degrees QTc Int : 382 ms Sinus rhythm with occasional Premature ventricular complexes Low voltage QRS Cannot rule out Anterior infarct , age undetermined Abnormal ECG When compared with ECG of 14-JUN-2018 05:14, MANUAL COMPARISON REQUIRED, DATA IS UNCONFIRMED Confirmed by MARCUS MALLORY, ROSENDA ([id number]), food editor DOLORES ARCHIBALD ([id number]) on 06/18/2018 5:34:46 PM Referred By: Pérez Goel Confirmed By:ROSENDA VELAZQUEZ MD
[2018-06-15] MEDS: Nystatin Powder 15gm Bottle 1 APPLIC TOPICAL ×2 (10:13→21:06)
[2018-06-15] MEDS: Sertraline 50 MG Tablet PO (10:14)
[2018-06-15] MEDS: Vitamin E 400 UNITS Capsule PO (10:14)
[2018-06-15] MEDS: Metoprolol Tartrate 50 MG Tablet PO ×2 (10:14→21:06)
[2018-06-15] MEDS: Isosorbide Mononitrate 30 MG Tablet PO (10:15)
[2018-06-15] MEDS: Loratadine 10 MG Tablet PO (10:15)
[2018-06-15] MEDS: TICAGRELOR 90 MG TABLET PO ×2 (10:15→21:06)
[2018-06-15] MEDS: Furosemide 40 MG Tablet PO ×2 (10:15→18:24)
[2018-06-15] MEDS: Montelukast 10 MG Tablet PO (10:15)
[2018-06-15] MEDS: Ipratropium/Albuterol Sulfate 3 ML AMPUL.NEB INHALATION ×3 (10:42→19:50)
--- NOTE | 2018-06-15 11:43 | PCM.PN.HOSP ---
Patient Problems: Active and Suspected Problems Non-STEMI (non-ST elevated myocardial infarction) (Acute) Severe sepsis (Acute) Myocardial infarct (Acute) Renal insufficiency (Acute) Fever (Acute) Subjective: Pateint seen and examined. She has no complaints and feels well. She does feel a bit weak. She denies any fever, chills, cough or chest pain, SOB, abdominal pain, diarrhea or vomiting. Hematuria has resolved. Review of systems otherwise negative. Labs and vitals reviewed. Vitals/I&O's: Vital Signs Temp Pulse Resp BP Pulse Ox 97.7 F L 70 18 138/78 H 95 06/15/18 08:40 06/15/18 11:00 06/15/18 10:42 06/15/18 08:40 06/15/18 10:42 Oxygen Flow Rate (L/min) 2 Oxygen Delivery Method Room Air Weight: 282 lb 6.594 oz Body Mass Index (BMI) 49.5 Intake and Output for Last 24 Hours 06/13/18 06/14/18 06/15/18 23:59 23:59 23:59 Intake Total 2094.3 / 2094.3 690 / 690 91 / 91 Output Total 1875 / 1875 1200 / 1200 1150 / 1150 Balance 219.3 / 219.3 -510 / -510 -1059 / -1059 General: Alert, Oriented x3, Cooperative, No apparent distress HEENT: Atraumatic, PERRLA, EOMI, Normocephalic Oral: Moist Mucosa Neck: Supple, No JVD, Negative Carotid Bruits Lungs: - -lungs clear to auscultation. No wheezing or crackles. Cardiovascular: Regular rate, Regular Rhythm, Normal S1, Normal S2, No murmurs Abdomen: Bowel Sounds Present, Soft, Non Tender, Non-Distended, No Hepato-splenomegaly Extremities: No clubbing, No cyanosis, No edema, Capillary Refill Less than 3 Seconds Skin: No rashes, No breakdown Musculoskeletal: No Tenderness to Palpation of Joints or Extremities Lymphatic: No Cervical, Supraclavicular, or Inguinal Adenopathy Neurological: Cranial nerves II-XII grossly intact, Neuro grossly intact, Motor Exam 5/5 strength throughout Psych/Mental Status: Normal Affect, Appropriate, Alert and oriented to time, place, person, mood and affect Microbiology Past 72 Hours 06/12/18 06:00 Urine, Clean Catch Urine Culture - Final Mixed Gram Pos & Gram Neg Org 06/11/18 22:25 Blood Culture (Wb) - Anticubital Left Blood Culture - 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 06/11/18 22:17 Blood Culture (Wb) - Right Hand Blood Culture - Final Escherichia coli 06/11/18 22:10 Mucosa - Nasopharyngeal Respiratory Panel (PCR) - Final Laboratory Results 06/15/18 06:18: WBC 12.5 H, RBC 4.79, Hgb 13.8, Hct 42.9, MCV 89.6, MCH 28.8, MCHC 32.2, RDW 13.9, RDW Differential 45.7 H, Plt Count 208, MPV 11.4, Immature Gran % (Auto) 1.900 H, Neut % (Auto) 76.2 H, Lymph % (Auto) 8.7 L, [place] % (Auto) 12.4 H, Eos % (Auto) 0.3, Baso % (Auto) 0.5, Absolute Neuts (auto) 9.5 H, Absolute Lymphs (auto) 1.09, Total Counted Not Reportable 06/15/18 06:18: Sodium 142, Potassium 3.2 L, Chloride 105, Carbon Dioxide 25.0, Anion Gap 12, BUN 48 H, Creatinine 1.51 H, Estim Creat Clear Calc 29.08, Est GFR (MDRD) Af Amer 44 L, Est GFR (MDRD) Non-Af 36 L, BUN/Creatinine Ratio 31.8 H, Glucose 116 H, Calcium 8.8 Current Medications Acetaminophen (Tylenol) 650 mg PO Q6H PRN PRN PRN Reason: temp >100.4 Last Admin: 06/14/18 22:55 Dose: 650 mg Hydrocodone Bitart/Acetaminophen ([place] 5mg-325mg) 1 - 2 tablet PO Q6H PRN PRN PRN Reason: Mild-Mod Pain (1-5/10) Last Admin: 06/11/18 23:34 Dose: 1 tablet Albuterol Sulfate (Ventolin Aerosols) 2.5 mg INHALATION Q2H PRN PRN PRN Reason: sob/wheezing Last Admin: 06/13/18 21:21 Dose: 2.5 mg Albuterol/Ipratropium (Duoneb) 3 ml INHALATION Q4HWA.RT [facility] Last Admin: 06/15/18 10:42 Dose: 3 ml Ascorbic Acid (Vitamin C) 500 mg PO DAILY@0800 [facility] Last Admin: 06/15/18 08:12 Dose: 500 mg [facility] ([facility]) [facility] Last Admin: 06/15/18 08:12 Dose: 81 mg Atorvastatin Calcium (Lipitor) 80 mg PO QHS [facility] Last Admin: 06/14/18 22:45 Dose: 80 mg Atropine Sulfate () 0.5 mg IV UD PRN PRN Reason: HR <50 bpm Calcium/Vitamin D (Os-[place] 500mg + D) 1 tablet PO DAILYCM [facility] Last Admin: 06/15/18 08:12 Dose: 1 tablet Cyanocobalamin (Vitamin B12) 500 mcg PO QHS [facility] Last Admin: 06/14/18 22:44 Dose: 500 mcg Cyclobenzaprine HCl (Cyclobenzaprine Hcl) 5 mg PO TID PRN PRN PRN Reason: SPASMS Last Admin: 06/14/18 04:21 Dose: 5 mg Furosemide (Lasix) 40 mg PO BID@1000,1800 [facility] Last Admin: 06/15/18 10:15 Dose: 40 mg Heparin Sodium (Porcine) (Heparin Na) 5,000 unit SC Q8 [facility] Last Admin: 06/15/18 08:44 Dose: 5,000 unit Hydralazine HCl (Apresoline) 25 mg PO TID [facility] Last Admin: 06/15/18 05:38 Dose: 25 mg Ceftriaxone Sodium (Rocephin) 1 gm in 50 mls @ 100 mls/hr IV Q24H [facility] Last Admin: 06/14/18 22:44 Dose: 100 mls/hr Sodium Chloride () 250 mls @ 15 mls/hr IV .[id number] PRN PRN Reason: SALINE FLUSH Sodium Chloride () 250 mls @ 15 mls/hr IV .[id number] PRN PRN Reason: SALINE FLUSH Isosorbide Mononitrate (Imdur) 30 mg PO DAILY [facility] Last Admin: 06/15/18 10:15 Dose: 30 mg Labetalol HCl (Trandate) 5 mg IV X1 PRN PRN Reason: SBP > 160 when pulling sheath Levothyroxine Sodium (Synthroid) 50 mcg PO MoWeFrSa@0600 [facility] Last Admin: 06/15/18 05:38 Dose: 50 mcg Levothyroxine Sodium (Synthroid) 100 mcg PO SuTuTh@0600 [facility] Last Admin: 06/13/18 06:30 Dose: 100 mcg Loratadine (Claritin) 10 mg PO DAILY [facility] Last Admin: 06/15/18 10:15 Dose: 10 mg Meclizine HCl (Antivert) 12.5 mg PO DAILY PRN PRN PRN Reason: DIZZINESS Metoclopramide HCl (Reglan) 5 mg IV Q6 PRN PRN Reason: NAUSEA/VOMITING Metoprolol Tartrate (Lopressor (Beta Edvin)) 50 mg PO BID [facility] Last Admin: 06/15/18 10:14 Dose: 50 mg Montelukast Sodium (Singulair) 10 mg PO DAILY [facility] Last Admin: 06/15/18 10:15 Dose: 10 mg Multivitamins/Minerals (Multivitamin With Minerals) 1 tablet PO DAILY@0800 [facility] Last Admin: 06/15/18 08:12 Dose: 1 tablet Nortriptyline HCl (Pamelor) 10 mg PO QHS [facility] Last Admin: 06/14/18 22:44 Dose: 10 mg Nystatin (Mycostatin Powder) 1 applic TOPICAL BID [facility]; Protocol Last Admin: 06/15/18 10:13 Dose: 1 applicatio Potassium Chloride (K-Dur) 10 meq PO DAILY [facility] Last Admin: 06/15/18 10:15 Dose: 10 meq [facility] () [facility] Admin: 06/15/18 08:13 Dose: 40 mg Sertraline HCl (Zoloft) 50 mg PO DAILY [facility] Last Admin: 06/15/18 10:14 Dose: 50 mg Sodium Chloride () 5 - 15 ml IV UD PRN PRN Reason: SALINE FLUSH Last Admin: 06/14/18 04:22 Dose: 10 ml Sodium Chloride () 500 ml IV BOLUS PRN PRN Reason: VASO-VAGAL PROTOCOL Ticagrelor (Brilinta) 90 mg PO BID [facility] Last Admin: 06/15/18 10:15 Dose: 90 mg Vitamin E (Vitamin E) 400 units PO DAILY [facility] Last Admin: 06/15/18 10:14 Dose: 400 units Medical Necessity - Tobacco Use Smoking Status: Former smoker Assessment/Plan All Active Problems Non-STEMI (non-ST elevated myocardial infarction) (Acute) Severe sepsis (Acute) Myocardial infarct (Acute) Renal insufficiency (Acute) Fever (Acute) 1. NSTEMI s/p cardiac cath with stent placement. on aspirin 81mg daily, high intensity statin, brilinita and metoprolol cardiology on board 2D echo:EF of 35%, with mildly enlarged LA, and diastolic function indeterminate. RVSP unable to estimate. cardiac cath: had 75% blockage of mid LAD and had successful placement of drug eluting stent. to continue on aspirin indefinitely, plavix for 12 months 2. Sepsis due to UTI resolving wbc down to 12.5 today UA showed 2+ bacteria, 500 LE urine culture grew mixed gram positive and gram negative organisms blood cultured E. coli on IV ceftriaxone will switch to PO augmentin tomorrow 3. A cute hypoxic respiratory failure due to Acute systolic heart failure resolving. Now off oxygen. BNP was 1027 on admission CXR showed vascular congestion on PO lasix 40mg bid; in cumulative negative balance by 2.73L cardiology on board 2D echo as above on breathing treatments 4. hematuria: resolved. Will monitor 5. FRED: improving Cr down to 1.85 will monitor; no IV hydration o/a of heart failure 6. Asthma stable. 7. Mechanical fall: fall precautions. On [place] for pain DVT prophylaxis: heparin sc q8 Disposition: patient doesnt think she can take care of herself at home. Wants to go to a rehab facility. case management on board Code Visit Inpatient E&M: 85512 Subs Hosp L3
--- NOTE | 2018-06-15 11:50 | PN_ITS ---
Patient Problems: Active and Suspected Problems Non-STEMI (non-ST elevated myocardial infarction) (Acute) Severe sepsis (Acute) Myocardial infarct (Acute) Renal insufficiency (Acute) Fever (Acute) Subjective: Pateint seen and examined. She has no complaints and feels well. She does feel a bit weak. She denies any fever, chills, cough or chest pain, SOB, abdominal pain, diarrhea or vomiting. Hematuria has resolved. Review of systems otherwise negative. Labs and vitals reviewed. Vitals/I&O's: Vital Signs Temp Pulse Resp BP Pulse Ox 97.7 F L 70 18 138/78 H 95 06/15/18 08:40 06/15/18 11:00 06/15/18 10:42 06/15/18 08:40 06/15/18 10:42 Oxygen Flow Rate (L/min) 2 Oxygen Delivery Method Room Air Weight: 282 lb 6.594 oz Body Mass Index (BMI) 49.5 Intake and Output for Last 24 Hours 06/13/18 06/14/18 06/15/18 23:59 23:59 23:59 Intake Total 2094.3 / 2094.3 690 / 690 91 / 91 Output Total 1875 / 1875 1200 / 1200 1150 / 1150 Balance 219.3 / 219.3 -510 / -510 -1059 / -1059 General: Alert, Oriented x3, Cooperative, No apparent distress HEENT: Atraumatic, PERRLA, EOMI, Normocephalic Oral: Moist Mucosa Neck: Supple, No JVD, Negative Carotid Bruits Lungs: - -lungs clear to auscultation. No wheezing or crackles. Cardiovascular: Regular rate, Regular Rhythm, Normal S1, Normal S2, No murmurs Abdomen: Bowel Sounds Present, Soft, Non Tender, Non-Distended, No Hepato- splenomegaly Extremities: No clubbing, No cyanosis, No edema, Capillary Refill Less than 3 Seconds Skin: No rashes, No breakdown Musculoskeletal: No Tenderness to Palpation of Joints or Extremities Lymphatic: No Cervical, Supraclavicular, or Inguinal Adenopathy Neurological: Cranial nerves II-XII grossly intact, Neuro grossly intact, Motor Exam 5/5 strength throughout Psych/Mental Status: Normal Affect, Appropriate, Alert and oriented to time, place, person, mood and affect Microbiology Past 72 Hours 06/12/18 06:00 Urine, Clean Catch Urine Culture - Final Mixed Gram Pos & Gram Neg Org 06/11/18 22:25 Blood Culture (Wb) - Anticubital Left 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 06/11/18 22:17 Blood Culture (Wb) - Right Hand Blood Culture - Final Escherichia coli 06/11/18 22:10 Mucosa - Nasopharyngeal Respiratory Panel (PCR) - Final Laboratory Results 06/15/18 06:18: WBC 12.5 H, RBC 4.79, Hgb 13.8, Hct 42.9, MCV 89.6, MCH 28.8, MCHC 32.2, RDW 13.9, RDW Differential 45.7 H, Plt Count 208, MPV 11.4, Immature Gran % (Auto) 1.900 H, Neut % (Auto) 76.2 H, Lymph % (Auto) 8.7 L, [place] % (Auto) 12.4 H, Eos % (Auto) 0.3, Baso % (Auto) 0.5, Absolute Neuts (auto) 9.5 H, Absolute Lymphs (auto) 1.09, Total Counted Not Reportable 06/15/18 06:18: Sodium 142, Potassium 3.2 L, Chloride 105, Carbon Dioxide 25.0, Anion Gap 12, BUN 48 H, Creatinine 1.51 H, Estim Creat Clear Calc 29.08, Est GFR (MDRD) Af Amer 44 L, Est GFR (MDRD) Non-Af 36 L, BUN/Creatinine Ratio 31.8 H, Glucose 116 H, Calcium 8.8 Current Medications Acetaminophen (Tylenol) 650 mg PO Q6H PRN PRN PRN Reason: temp >100.4 Last Admin: 06/14/18 22:55 Dose: 650 mg Hydrocodone Bitart/Acetaminophen ([place] 5mg-325mg) 1 - 2 tablet PO Q6H PRN PRN PRN Reason: Mild-Mod Pain (1-5/10) Last Admin: 06/11/18 23:34 Dose: 1 tablet Albuterol Sulfate (Ventolin Aerosols) 2.5 mg INHALATION Q2H PRN PRN PRN Reason: sob/wheezing Last Admin: 06/13/18 21:21 Dose: 2.5 mg Albuterol/Ipratropium (Duoneb) 3 ml INHALATION Q4HWA.RT [place] Last Admin: 06/15/18 10:42 Dose: 3 ml Ascorbic Acid (Vitamin C) 500 mg PO DAILY@0800 [facility] Last Admin: 06/15/18 08:12 Dose: 500 mg [facility]) [facility] Last Admin: 06/15/18 08:12 Dose: 81 mg Atorvastatin Calcium (Lipitor) 80 mg PO QHS [facility] Last Admin: 06/14/18 22:45 Dose: 80 mg Atropine Sulfate () 0.5 mg IV UD PRN PRN Reason: HR <50 bpm Calcium/Vitamin D (Os-Esau 500mg + D) 1 tablet PO DAILYCM [facility] Last Admin: 06/15/18 08:12 Dose: 1 tablet Cyanocobalamin (Vitamin B12) 500 mcg PO QHS [facility] Last Admin: 06/14/18 22:44 Dose: 500 mcg Cyclobenzaprine HCl (Cyclobenzaprine Hcl) 5 mg PO TID PRN PRN PRN Reason: SPASMS Last Admin: 06/14/18 04:21 Dose: 5 mg Furosemide (Lasix) 40 mg PO BID@1000,1800 [facility] Last Admin: 06/15/18 10:15 Dose: 40 mg Heparin Sodium (Porcine) (Heparin Na) 5,000 unit SC Q8 [facility] Last Admin: 06/15/18 08:44 Dose: 5,000 unit Hydralazine HCl (Apresoline) 25 mg PO TID [facility] Last Admin: 06/15/18 05:38 Dose: 25 mg Ceftriaxone Sodium (Rocephin) 1 gm in 50 mls @ 100 mls/hr IV Q24H [facility] Last Admin: 06/14/18 22:44 Dose: 100 mls/hr Sodium Chloride () 250 mls @ 15 mls/hr IV .[id number] PRN PRN Reason: SALINE FLUSH Sodium Chloride () 250 mls @ 15 mls/hr IV .[id number] PRN PRN Reason: SALINE FLUSH Isosorbide Mononitrate (Imdur) 30 mg PO DAILY [facility] Last Admin: 06/15/18 10:15 Dose: 30 mg Labetalol HCl (Trandate) 5 mg IV X1 PRN PRN Reason: SBP > 160 when pulling sheath Levothyroxine Sodium (Synthroid) 50 mcg PO MoWeFrSa@0600 [facility] Last Admin: 06/15/18 05:38 Dose: 50 mcg Levothyroxine Sodium (Synthroid) 100 mcg PO SuTuTh@0600 [facility] Last Admin: 06/13/18 06:30 Dose: 100 mcg Loratadine (Claritin) 10 mg PO DAILY [facility] Last Admin: 06/15/18 10:15 Dose: 10 mg Meclizine HCl (Antivert) 12.5 mg PO DAILY PRN PRN PRN Reason: DIZZINESS Metoclopramide HCl (Reglan) 5 mg IV Q6 PRN PRN Reason: NAUSEA/VOMITING Metoprolol Tartrate (Lopressor (Beta Edvin)) 50 mg PO BID [facility] Last Admin: 06/15/18 10:14 Dose: 50 mg Montelukast Sodium (Singulair) 10 mg PO DAILY [facility] Last Admin: 06/15/18 10:15 Dose: 10 mg Multivitamins/Minerals (Multivitamin With Minerals) 1 tablet PO DAILY@0800 [facility] Last Admin: 06/15/18 08:12 Dose: 1 tablet Nortriptyline HCl (Pamelor) 10 mg PO QHS [facility] Last Admin: 06/14/18 22:44 Dose: 10 mg Nystatin (Mycostatin Powder) 1 applic TOPICAL BID [facility]; Protocol Last Admin: 06/15/18 10:13 Dose: 1 applicatio Potassium Chloride (K-Dur) 10 meq PO DAILY [facility] Last Admin: 06/15/18 10:15 Dose: 10 meq [facility] () [facility] Last Admin: 06/15/18 08:13 Dose: 40 mg Sertraline HCl (Zoloft) 50 mg PO DAILY [facility] Last Admin: 06/15/18 10:14 Dose: 50 mg Sodium Chloride () 5 - 15 ml IV UD PRN PRN Reason: SALINE FLUSH Last Admin: 06/14/18 04:22 Dose: 10 ml Sodium Chloride () 500 ml IV BOLUS PRN PRN Reason: VASO-VAGAL PROTOCOL Ticagrelor (Brilinta) 90 mg PO BID [facility] Last Admin: 06/15/18 10:15 Dose: 90 mg Vitamin E (Vitamin E) 400 units PO DAILY [facility] Last Admin: 06/15/18 10:14 Dose: 400 units Medical Necessity - Tobacco Use Smoking Status: Former smoker Assessment/Plan All Active Problems Non-STEMI (non-ST elevated myocardial infarction) (Acute) Severe sepsis (Acute) Myocardial infarct (Acute) Renal insufficiency (Acute) Fever (Acute) 1. NSTEMI * s/p cardiac cath with stent placement. * on aspirin 81mg daily, high intensity statin, brilinita and metoprolol * cardiology on board * 2D echo:EF of 35%, with mildly enlarged LA, and diastolic function indeterminate. RVSP unable to estimate. * cardiac cath: had 75% blockage of mid LAD and had successful placement of drug eluting stent. * to continue on aspirin indefinitely, plavix for 12 months * * 2. Sepsis due to UTI * resolving * wbc down to 12.5 today * UA showed 2+ bacteria, 500 LE * urine culture grew mixed gram positive and gram negative organisms * blood cultured E. coli * on IV ceftriaxone * will switch to PO augmentin tomorrow * * 3. A cute hypoxic respiratory failure due to Acute systolic heart failure * resolving. Now off oxygen. * BNP was 1027 on admission * CXR showed vascular congestion * on PO lasix 40mg bid; in cumulative negative balance by 2.73L * cardiology on board * 2D echo as above * on breathing treatments * 4. hematuria: * resolved. Will monitor * 5. FRED: * improving * Cr down to 1.85 * will monitor; no IV hydration o/a of heart failure * 6. Asthma * stable. * 7. Mechanical fall: fall precautions. On [place] for pain DVT prophylaxis: heparin sc q8 Disposition: patient doesnt think she can take care of herself at home. Wants to go to a rehab facility. case management on board Code Visit Inpatient E&M: [id number] [facility] Hosp L3
--- NOTE | 2018-06-15 14:30 | PN.CARD_ITS ---
Subjectve: The patient appears be resting comfortably with no acute complaints. Objective: Vital Signs Temp Pulse Resp BP Pulse Ox 97.7 F L 70 18 138/78 H 95 06/15/18 08:40 06/15/18 11:00 06/15/18 10:42 06/15/18 08:40 06/15/18 10:42 Oxygen Flow Rate (L/min) 2 Oxygen Delivery Method Room Air Weight: 282 lb 6.594 oz Body Mass Index (BMI) 49.5 Intake and Output for Last 24 Hours 06/13/18 06/14/18 06/15/18 23:59 23:59 23:59 Intake Total 2094.3 / 2094.3 690 / 690 571 / 571 Output Total 1875 / 1875 1200 / 1200 2100 / 2100 Balance 219.3 / 219.3 -510 / -510 -1529 / -1529 General: No Acute Distress, Obese HEENT: Atraumatic, Normocephalic Oral: Moist Mucosa Neck: No JVD Lungs: - - Somewhat diminished inspiratory effort and breath sounds Cardiovascular: Regular Rhythm, Normal S1, Normal S2 Abdomen: Bowel Sounds Present, Soft, Non Tender Extremities: Trace RLE Edema, Trace LLE Edema Psych/Mental Status: Appropriate 06/15/18 06:18: WBC 12.5 H, RBC 4.79, Hgb 13.8, Hct 42.9, MCV 89.6, MCH 28.8, MCHC 32.2, RDW 13.9, RDW Differential 45.7 H, Plt Count 208, MPV 11.4, Immature Gran % (Auto) 1.900 H, Neut % (Auto) 76.2 H, Lymph % (Auto) 8.7 L, [place] % (Auto) 12.4 H, Eos % (Auto) 0.3, Baso % (Auto) 0.5, Absolute Neuts (auto) 9.5 H, Total Counted Not Reportable 06/15/18 06:18: Sodium 142, Potassium 3.2 L, Chloride 105, Carbon Dioxide 25.0, Anion Gap 12, BUN 48 H, Creatinine 1.51 H, Est GFR (MDRD) Af Amer 44 L, Est GFR (MDRD) Non-Af 36 L, BUN/Creatinine Ratio 31.8 H, Glucose 116 H, Calcium 8.8 Rhythm:Sinus rhythm Medical Necessity - Tobacco Use Smoking Status: Former smoker Assessment/Plan 1. Acute coronary syndrome/acute non-ST segment elevation [place] The patient has now undergone evaluation with diagnostic cardiac catheterization. She was found to have an LAD mid lesion. She underwent subsequent LAD PCI. She will need to continue to be monitored. She will need to continue medical management and follow-up. 2. CAD She will need to continue medical management and follow-up. 3. Congestive heart failure She will need to continue medical therapy. This will include diuretic therapy which may need to be adjusted depending upon her clinical course, renal function, etc. 4. Hyperlipidemia The patient will continue lipid-lowering therapy. 5. Hypertension The patient's blood pressure will be followed. Her medications can be adjusted as deemed appropriate taking into consideration her renal function. 6. Acute renal insufficiency Her creatinine level appears to have decreased. She will continue medical management. 7. Fever She is on antibiotic therapy at this time. This note was generated with [employer] dictation software. It may contain incorrect words, spelling, and punctuation that were not noted in checking the note before signing.
[2018-06-15] MEDS: HYDROcodone Bitartrate/Apap 5/325 Tablet PO (20:11)
[2018-06-15] MEDS: Cyanocobalamin 500 MCG Tablet PO (21:05)
[2018-06-15] MEDS: Atorvastatin Calcium 80 MG Tablet PO (21:06)
[2018-06-15] MEDS: Ceftriaxone 1 GM/50 ML BAG IV (21:06)
[2018-06-15] MEDS: Nortriptyline 10 MG Capsule PO (21:06)
[2018-06-15] MEDS: 0.9% NaCl Peripheral Flush Adult/Peds IV (21:07)
[2018-06-16] VITALS (16 sets, daily range): BP systolic 114–143; BP diastolic 68–89; PULSE 69–90; RESP 16–18; TEMP 36.3–36.6; O2SAT 92–95
[2018-06-16] MEDS: Heparin Injection (Vial) 5,000 UNIT/ML VIAL 5000 UNIT SC ×3 (05:19→22:05)
[2018-06-16] MEDS: Levothyroxine 100 MCG Tablet PO (05:19)
[2018-06-16] MEDS: hydrALAZINE 25 MG Tablet PO ×3 (05:19→22:05)
[2018-06-16 07:22] LABS: Anion Gap 13 (5-15); BUN 43 mg/dL (7-18); BUN/Creat Ratio 31.9 RATIO (10-20); Calcium,Total 9.1 mg/dL (8.5-10.1); Chloride 104 mmol/L (98-107); Creatinine, Serum 1.35 mg/dL (0.55-1.02); EST Glomerular Filtration Rate 41 mL/min (>60); Est Glom Filt Rate - Afr Amer 50 mL/min (>60); Estimated Creatinine Clearance 32.53 ml/min; Glucose 116 mg/dL (74-106); Potassium 3.4 mmol/L (3.5-5.1); Sodium Level 141 mmol/L (136-145)
[2018-06-16 07:47] LABS: Hematocrit 45.7 % (37-47); Hemoglobin 14.5 g/dl (12.0-15.0); Mean Corp Hgb Conc 31.7 g/gl (32-36); Mean Corpuscular Hgb 28.8 pg (27.0-32.0); Mean Corpuscular Volume 90.7 fL (81-99); Mean Platelet Vol. 11.3 fl (6.2-12.0); Platelet Count 272 K/mm3 (150-450); RBC Distribution Width CV 14.1 % (11.6-14.6); RBC Distribution Width SD 46.3 fl (35.1-43.9); Red Blood Count 5.04 M/mm3 (4.2-5.4); White Blood Count 16.3 K/mm3 (4.4-11.0)
[2018-06-16 07:51] LABS: Differential Indicated MANUAL DIFF; POSITIVE COUNT YES; POSITIVE DIFFERENTIAL YES; POSITIVE MORPHOLOGY YES
[2018-06-16 07:55] LABS: Lymphocyte 9 % (19-41); Metamyelocyte 2 % (0-1); Monocyte 9 % (0-10); Myelocyte 1 (0-0); Neutrophil-Segmented 76 % (47-70); Plasma Cell 1 %; Promyelocyte 2 (0-0); Total Cells Counted 100 (MANUAL DIFF)
[2018-06-16 07:56] LABS: Platelet Estimate ADEQUATE (ADEQ); Red Cell Morphology NORM C+C NORMAL (NORM C&C)
[2018-06-16 08:00] LABS: Absolute Lymphocyte Count 1.46 X10^3/ul (0.83-4.51); Absolute Neutrophil Count 12.4 X10^3/uL (2.0-7.7)
[2018-06-16] MEDS: Aspirin E.C. 81 MG Tablet PO (08:15)
[2018-06-16] MEDS: Calcium Carb/Vitamin D 1 TABLET Tablet PO (08:15)
[2018-06-16] MEDS: predniSONE 20 MG Tablet 40 MG PO (08:15)
[2018-06-16] MEDS: Multivitamins,Ther W-Minerals Tablet 1 TABLET PO (08:16)
[2018-06-16] MEDS: Ascorbic Acid 500 MG Tablet PO (08:17)
[2018-06-16] MEDS: Montelukast 10 MG Tablet PO (10:10)
[2018-06-16] MEDS: TICAGRELOR 90 MG TABLET PO ×2 (10:10→22:05)
[2018-06-16] MEDS: Isosorbide Mononitrate 30 MG Tablet PO (10:10)
[2018-06-16] MEDS: Metoprolol Tartrate 50 MG Tablet PO ×2 (10:11→22:05)
[2018-06-16] MEDS: Furosemide 40 MG Tablet PO ×2 (10:11→18:04)
[2018-06-16] MEDS: Vitamin E 400 UNITS Capsule PO (10:11)
[2018-06-16] MEDS: Loratadine 10 MG Tablet PO (10:12)
[2018-06-16] MEDS: Sertraline 50 MG Tablet PO (10:12)
[2018-06-16] MEDS: Nystatin Powder 15gm Bottle 1 APPLIC TOPICAL ×2 (10:13→22:05)
[2018-06-16] MEDS: Ipratropium/Albuterol Sulfate 3 ML AMPUL.NEB INHALATION ×2 (10:38→19:31)
[2018-06-16 11:45] LABS: Magnesium 1.8 mg/dL (1.6-2.6)
--- NOTE | 2018-06-16 11:55 | PCM.PN.HOSP ---
Patient Problems: Active and Suspected Problems Non-STEMI (non-ST elevated myocardial infarction) (Acute) Severe sepsis (Acute) Myocardial infarct (Acute) Renal insufficiency (Acute) Fever (Acute) Subjective: Patient seen and examined. She had an uneventful night and has no complaints. She denies any fever, any chills, any palpitations or dizziness, any chest pain, any abdominal pain, any diarrhea vomiting. 12 point review of systems otherwise negative. Labs and vitals reviewed. Vitals/I&O's: Vital Signs Temp Pulse Resp BP Pulse Ox 97.8 F 90 18 128/79 H 95 06/16/18 09:15 06/16/18 10:11 06/16/18 09:15 06/16/18 09:15 06/16/18 09:15 Oxygen Flow Rate (L/min) 2 Oxygen Delivery Method Room Air Weight: 279 lb 15.793 oz Body Mass Index (BMI) 49.5 Intake and Output for Last 24 Hours 06/14/18 06/15/18 06/16/18 23:59 23:59 23:59 Intake Total 690 / 690 1691 / 1691 Output Total 1200 / 1200 3900 / 3900 800 / 800 Balance -510 / -510 -2209 / -2209 -800 / -800 General: Alert, Oriented x3, Cooperative, No apparent distress HEENT: Atraumatic, PERRLA, EOMI, Normocephalic Oral: Moist Mucosa Neck: Supple, No JVD, Negative Carotid Bruits Lungs: - -lungs clear to auscultation. No wheezing or crackles. Cardiovascular: Regular rate, Regular Rhythm, Normal S1, Normal S2, No murmurs Abdomen: Bowel Sounds Present, Soft, Non Tender, Non-Distended, No Hepato-splenomegaly Extremities: No clubbing, No cyanosis, No edema, Capillary Refill Less than 3 Seconds Skin: No rashes, No breakdown Musculoskeletal: No Tenderness to Palpation of Joints or Extremities Lymphatic: No Cervical, Supraclavicular, or Inguinal Adenopathy Neurological: Cranial nerves II-XII grossly intact, Neuro grossly intact, Motor Exam 5/5 strength throughout Psych/Mental Status: Normal Affect, Appropriate, Alert and oriented to time, place, person, mood and affect Microbiology Past 72 Hours 06/12/18 06:00 Urine, Clean Catch Urine Culture - Final Mixed Gram Pos & Gram Neg Org 06/11/18 22:25 Blood Culture (Wb) - Anticubital Left 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 06/11/18 22:17 Blood Culture (Wb) - Right Hand Blood Culture - Final Escherichia coli Laboratory Results 06/16/18 06:26: Sodium 141, Potassium 3.4 L, Chloride 104, Carbon Dioxide 24.0, Anion Gap 13, BUN 43 H, Creatinine 1.35 H, Estim Creat Clear Calc 32.53, Est GFR (MDRD) Af Amer 50 L, Est GFR (MDRD) Non-Af 41 L, BUN/Creatinine Ratio 31.9 H, Glucose 116 H, Calcium 9.1 06/16/18 06:26: WBC 16.3 H, RBC 5.04, Hgb 14.5, Hct 45.7, MCV 90.7, MCH 28.8, MCHC 31.7 L, RDW 14.1, RDW Differential 46.3 H, Plt Count 272, MPV 11.3, Neut % (Auto) Not Reportable, Absolute Neuts (auto) 12.4 H, Absolute Lymphs (auto) 1.46, Total Counted 100, Neutrophils % (Manual) 76 H, Lymphocytes % (Manual) 9 L, Monocytes % (Manual) 9, Metamyelocytes % 2 H, Myelocytes % 1 H, Promyelocytes % 2 H, Plasma Cell % (Manual) 1, Diff Path Review October, Platelet Estimate ADEQUATE, RBC Morphology NORM C+C 06/16/18 06:26: Magnesium 1.8 Current Medications Acetaminophen (Tylenol) 650 mg PO Q6H PRN PRN PRN Reason: temp >100.4 Last Admin: 06/14/18 22:55 Dose: 650 mg Hydrocodone Bitart/Acetaminophen ([place] 5mg-325mg) 1 - 2 tablet PO Q6H PRN PRN PRN Reason: Mild-Mod Pain (1-5/10) Last Admin: 06/15/18 20:11 Dose: 2 tablet Albuterol Sulfate (Ventolin Aerosols) 2.5 mg INHALATION Q2H PRN PRN PRN Reason: sob/wheezing Last Admin: 06/13/18 21:21 Dose: 2.5 mg Albuterol/Ipratropium (Duoneb) 3 ml INHALATION Q4HWA.RT [place] Last Admin: 06/16/18 10:38 Dose: 3 ml Ascorbic Acid (Vitamin C) 500 mg PO DAILY@0800 [facility] Last Admin: 06/16/18 08:17 Dose: 500 mg [facility] ([facility]) [facility] Last Admin: 06/16/18 08:15 Dose: 81 mg Atorvastatin Calcium (Lipitor) 80 mg PO QHS [facility] Last Admin: 06/15/18 21:06 Dose: 80 mg Atropine Sulfate () 0.5 mg IV UD PRN PRN Reason: HR <50 bpm Calcium/Vitamin D (Os-Esau 500mg + D) [facility] Last Admin: 06/16/18 08:15 Dose: 1 tablet Cyanocobalamin (Vitamin B12) 500 mcg PO QHS [facility] Last Admin: 06/15/18 21:05 Dose: 500 mcg Cyclobenzaprine HCl (Cyclobenzaprine Hcl) 5 mg PO TID PRN PRN PRN Reason: SPASMS Last Admin: 06/14/18 04:21 Dose: 5 mg Furosemide (Lasix) 40 mg PO BID@1000,1800 [facility] Last Admin: 06/16/18 10:11 Dose: 40 mg Heparin Sodium (Porcine) (Heparin Na) 5,000 unit SC Q8 [facility] Last Admin: 06/16/18 05:19 Dose: 5,000 unit Hydralazine HCl (Apresoline) 25 mg PO TID [facility] Last Admin: 06/16/18 05:19 Dose: 25 mg Ceftriaxone Sodium (Rocephin) 1 gm in 50 mls @ 100 mls/hr IV Q24H [facility] Last Admin: 06/15/18 21:06 Dose: 100 mls/hr Sodium Chloride () 250 mls @ 15 mls/hr IV .[id number] PRN PRN Reason: SALINE FLUSH Sodium Chloride () 250 mls @ 15 mls/hr IV .[id number] PRN PRN Reason: SALINE FLUSH Isosorbide Mononitrate (Imdur) 30 mg PO DAILY [facility] Last Admin: 06/16/18 10:10 Dose: 30 mg Labetalol HCl (Trandate) 5 mg IV X1 PRN PRN Reason: SBP > 160 when pulling sheath Levothyroxine Sodium (Synthroid) 50 mcg PO MoWeFrSa@0600 [facility] Last Admin: 06/15/18 05:38 Dose: 50 mcg Levothyroxine Sodium (Synthroid) 100 mcg PO SuTuTh@0600 [facility] Last Admin: 06/16/18 05:19 Dose: 100 mcg Loratadine (Claritin) 10 mg PO DAILY [facility] Last Admin: 06/16/18 10:12 Dose: 10 mg Meclizine HCl (Antivert) 12.5 mg PO DAILY PRN PRN PRN Reason: DIZZINESS Metoclopramide HCl (Reglan) 5 mg IV Q6 PRN PRN Reason: NAUSEA/VOMITING Metoprolol Tartrate (Lopressor (Beta Edvin)) 50 mg PO BID [facility] Last Admin: 06/16/18 10:11 Dose: 50 mg Montelukast Sodium (Singulair) 10 mg PO DAILY [facility] Last Admin: 06/16/18 10:10 Dose: 10 mg Multivitamins/Minerals (Multivitamin With Minerals) 1 tablet PO DAILY@0800 [facility] Last Admin: 06/16/18 08:16 Dose: 1 tablet Nortriptyline HCl (Pamelor) 10 mg PO QHS [facility] Last Admin: 06/15/18 21:06 Dose: 10 mg Nystatin (Mycostatin Powder) 1 applic TOPICAL BID [facility]; Protocol Last Admin: 06/16/18 10:13 Dose: 1 applicatio Potassium Chloride (K-Dur) 10 meq PO DAILY [facility] Last Admin: 06/16/18 10:11 Dose: 10 meq Prednisone () [facility] Last Admin: 06/16/18 08:15 Dose: 40 mg Sertraline HCl (Zoloft) 50 mg PO DAILY [facility] Last Admin: 06/16/18 10:12 Dose: 50 mg Sodium Chloride () 5 - 15 ml IV UD PRN PRN Reason: SALINE FLUSH Last Admin: 06/15/18 21:07 Dose: 10 ml Sodium Chloride () 500 ml IV BOLUS PRN PRN Reason: VASO-VAGAL PROTOCOL Ticagrelor (Brilinta) 90 mg PO BID [facility] Last Admin: 06/16/18 10:10 Dose: 90 mg Vitamin E (Vitamin E) 400 units PO DAILY [facility] Last Admin: 06/16/18 10:11 Dose: 400 units Medical Necessity - Tobacco Use Smoking Status: Former smoker Assessment/Plan All Active Problems Non-STEMI (non-ST elevated myocardial infarction) (Acute) Severe sepsis (Acute) Myocardial infarct (Acute) Renal insufficiency (Acute) Fever (Acute) 1. NSTEMI s/p cardiac cath with stent placement. on aspirin 81mg daily, high intensity statin, brilinita and metoprolol cardiology on board 2D echo:EF of 35%, with mildly enlarged LA, and diastolic function indeterminate. RVSP unable to estimate. cardiac cath: had 75% blockage of mid LAD and had successful placement of drug eluting stent. to continue on aspirin indefinitely, plavix for 12 months 2. Sepsis due to UTI resolved wbc down to 12.5 today UA showed 2+ bacteria, 500 LE urine culture grew mixed gram positive and gram negative organisms blood cultured E. coli on IV ceftriaxone; has had 6 days of Iv antibiotics. Will dc ceftriaxone today 3. A cute hypoxic respiratory failure due to Acute systolic heart failure resolving. Now off oxygen. BNP was 1027 on admission CXR showed vascular congestion on PO lasix 40mg bid; in cumulative negative balance by 4.7L cardiology on board 2D echo as above on breathing treatments 4. hematuria: resolved. Will monitor 5. FRED: improving Cr down to 1.35 will monitor; no IV hydration o/a of heart failure 6. Asthma stable. 7. Mechanical fall: fall precautions. On [place] for pain DVT prophylaxis: heparin sc q8 Disposition: awaiting placement Code Visit Inpatient E&M: [id number] [facility] Hosp L3
[2018-06-16] MEDS: Acetaminophen 325 MG Tablet 650 MG PO (12:17)
--- NOTE | 2018-06-16 13:00 | PN.CARD_ITS ---
Subjectve: The patient appears without acute cardiovascular complaints at this time. Objective: Vital Signs Temp Pulse Resp BP Pulse Ox 97.8 F 71 18 128/79 H 95 06/16/18 09:15 06/16/18 11:22 06/16/18 09:15 06/16/18 09:15 06/16/18 09:15 Oxygen Flow Rate (L/min) 2 Oxygen Delivery Method Room Air Weight: 279 lb 15.793 oz Body Mass Index (BMI) 49.5 Intake and Output for Last 24 Hours 06/14/18 06/15/18 06/16/18 23:59 23:59 23:59 Intake Total 690 / 690 1691 / 1691 400 / 400 Output Total 1200 / 1200 3900 / 3900 800 / 800 Balance -510 / -510 -2209 / -2209 -400 / -400 General: Awake, Alert, Oriented x 3, Cooperative, No Acute Distress, Obese HEENT: Atraumatic, Normocephalic, PERRL, EOMI Oral: Moist Mucosa Neck: No JVD Lungs: - - Diminished inspiratory effort/breath sounds Cardiovascular: Regular Rhythm, Normal S1, Normal S2 Abdomen: Bowel Sounds Present, Soft, Obese Extremities: Trace RLE Edema, Trace LLE Edema Psych/Mental Status: Appropriate 06/16/18 06:26: Sodium 141, Potassium 3.4 L, Chloride 104, Carbon Dioxide 24.0, Anion Gap 13, BUN 43 H, Creatinine 1.35 H, Est GFR (MDRD) Af Amer 50 L, Est GFR (MDRD) Non-Af 41 L, BUN/Creatinine Ratio 31.9 H, Glucose 116 H, Calcium 9.1 06/16/18 06:26: WBC 16.3 H, RBC 5.04, Hgb 14.5, Hct 45.7, MCV 90.7, MCH 28.8, MCHC 31.7 L, RDW 14.1, RDW Differential 46.3 H, Plt Count 272, MPV 11.3, Neut % (Auto) Not Reportable, Absolute Neuts (auto) 12.4 H, Total Counted 100, Neutrophils % (Manual) 76 H, Lymphocytes % (Manual) 9 L, Monocytes % (Manual) 9, Metamyelocytes % 2 H, Myelocytes % 1 H, Promyelocytes % 2 H, Plasma Cell % (Manual) 1 06/16/18 06:26: Magnesium 1.8 Rhythm: Sinus rhythm Medical Necessity - Tobacco Use Smoking Status: Former smoker Assessment/Plan 1. Acute coronary syndrome/acute non-ST segment elevation [place] The patient has now undergone evaluation with diagnostic cardiac catheterization. She was found to have an LAD mid lesion. She underwent subsequent LAD PCI. She will need to continue to be monitored. She will need to continue medical management and follow-up. 2. CAD She will need to continue medical management and follow-up. 3. Congestive heart failure She will need to continue medical therapy. She is on oral diuretics. She appears to have increased urinary output based upon the patient's I's and O's. 4. Hyperlipidemia The patient will continue lipid-lowering therapy. 5. Hypertension The patient's blood pressure will be followed. Her medications can be adjusted as deemed appropriate taking into consideration her renal function. 6. Acute renal insufficiency Her creatinine level appears to have decreased. She will continue medical management. 7. Fever She is on antibiotic therapy at this time. She continues evaluation care per internal medicine. This note was generated with [employer] dictation software. It may contain incorrect words, spelling, and punctuation that were not noted in checking the note before signing.
[2018-06-16] MEDS: Cyanocobalamin 500 MCG Tablet PO (22:04)
[2018-06-16] MEDS: Nortriptyline 10 MG Capsule PO (22:04)
[2018-06-16] MEDS: Atorvastatin Calcium 80 MG Tablet PO (22:04)
[2018-06-17] VITALS (11 sets, daily range): BP systolic 135–149; BP diastolic 52–69; PULSE 52–90; RESP 16–20; TEMP 36.4–36.6; O2SAT 94–97
[2018-06-17] MEDS: Levothyroxine 50 MCG Tablet PO (05:24)
[2018-06-17] MEDS: hydrALAZINE 25 MG Tablet PO ×2 (05:24→16:07)
[2018-06-17] MEDS: Heparin Injection (Vial) 5,000 UNIT/ML VIAL 5000 UNIT SC (05:26)
[2018-06-17 06:36] LABS: Anion Gap 11 (5-15); BUN 23 mg/dL (7-18); BUN/Creat Ratio 20.7 RATIO (10-20); Calcium,Total 8.4 mg/dL (8.5-10.1); Chloride 110 mmol/L (98-107); Creatinine, Serum 1.11 mg/dL (0.55-1.02); EST Glomerular Filtration Rate 51 mL/min (>60); Est Glom Filt Rate - Afr Amer 62 mL/min (>60); Estimated Creatinine Clearance 39.56 ml/min; Glucose 125 mg/dL (74-106); Potassium 2.9 mmol/L (3.5-5.1); Sodium Level 142 mmol/L (136-145)
[2018-06-17] MEDS: Ipratropium/Albuterol Sulfate 3 ML AMPUL.NEB INHALATION ×3 (06:50→14:52)
[2018-06-17 07:03] LABS: Absolute Lymphocyte Count 0.97 X10^3/ul (0.83-4.51); Absolute Neutrophil Count 8.6 X10^3/uL (2.0-7.7); Basophil# 0.03 X10^3/uL; Basophil% 0.3 % (0-1); Eosinophil# 0.08 X10^3/uL; Eosinophils% 0.7 % (0-5); Hematocrit 36.9 % (37-47); Hemoglobin 11.4 g/dl (12.0-15.0); Lymphocyte # 0.97 X10^3/ul (4.0); Mean Corp Hgb Conc 30.9 g/gl (32-36); Mean Corpuscular Hgb 27.7 pg (27.0-32.0); Mean Corpuscular Volume 89.6 fL (81-99); Monocyte% 9.3 % (0-10); Platelet Count 320 K/mm3 (150-450); RBC Distribution Width CV 15.8 % (11.6-14.6); RBC Distribution Width SD 51.4 fl (35.1-43.9); Red Blood Count 4.12 M/mm3 (4.2-5.4); White Blood Count 10.8 K/mm3 (4.4-11.0)
[2018-06-17 07:13] LABS: POSITIVE COUNT NO; POSITIVE DIFFERENTIAL NO; POSITIVE MORPHOLOGY NO
[2018-06-17] MEDS: Calcium Carb/Vitamin D 1 TABLET Tablet PO (07:58)
[2018-06-17] MEDS: Multivitamins,Ther W-Minerals Tablet 1 TABLET PO (07:58)
[2018-06-17] MEDS: Aspirin E.C. 81 MG Tablet PO (07:58)
[2018-06-17] MEDS: predniSONE 20 MG Tablet 40 MG PO (07:58)
[2018-06-17] MEDS: Ascorbic Acid 500 MG Tablet PO (07:59)
--- NOTE | 2018-06-17 10:12 | CASEMGMT ---
SW spoke with patient as per physician note she does not feel she can care for herself at home and wants SNF. SW spoke with patient, introduced self and role at [facility]. She said physician told her she needed SNF. SW asked her if she feels she needs SNF and she said yes. [facility] wanted [facility], but they are full. She then chose [facility]. SW called [facility] and left message with Ana regarding referral and also faxed information. Await response. Brittany RAE PHYSIOLOGY TEACHER
[2018-06-17] MEDS: TICAGRELOR 90 MG TABLET PO (10:41)
[2018-06-17] MEDS: Isosorbide Mononitrate 30 MG Tablet PO (10:42)
[2018-06-17] MEDS: Sertraline 50 MG Tablet PO (10:42)
[2018-06-17] MEDS: Metoprolol Tartrate 50 MG Tablet PO (10:42)
[2018-06-17] MEDS: Montelukast 10 MG Tablet PO (10:42)
[2018-06-17] MEDS: Furosemide 40 MG Tablet PO ×2 (10:42→16:09)
[2018-06-17] MEDS: Vitamin E 400 UNITS Capsule PO (10:42)
[2018-06-17] MEDS: Loratadine 10 MG Tablet PO (10:42)
[2018-06-17] MEDS: Nystatin Powder 15gm Bottle 1 APPLIC TOPICAL (10:44)
[2018-06-17] MEDS: 0.9% NaCl IVPB Med Flush (250 mL) 15 ML IV (11:05)
--- NOTE | 2018-06-17 11:14 | DCINST_ITS ---
- Discharge Diagnoses Current Active Problems: Current Active and Chronic Problems S/P angioplasty with stent (Chronic ~06/13/18) PTCA/CRUZ of the mid LAD 06/13/18 Atherosclerotic heart disease of [place] coronary artery without angina pectoris (Chronic) Non-STEMI (non-ST elevated myocardial infarction) (Acute) Severe sepsis (Acute) Myocardial infarct (Acute) CAD (coronary artery disease) (Chronic) Renal insufficiency (Acute) Fever (Acute) You will use the following diet at home:: Cardiac Allergies/Adverse Reactions: Allergies codeine Allergy (Verified 06/11/18 17:45) Shortness of breath ITCHING egg Allergy (Verified 06/12/18 01:55) Nausea meperidine HCl [From Demerol] Allergy (Verified 06/11/18 17:45) Itching midazolam HCl [From Versed] Allergy (Verified 06/11/18 17:45) Itching Sulfa (Sulfonamide Antibiotics) Allergy (Verified 06/11/18 17:45) Unknown A CHILD Medications to take at Discharge Albuterol IH (ProAir) [Proair Hfa] 1 - 2 puff INHALATION Q6H PRN PRN 06/23/15 Ascorbic Acid [Vitamin C] 500 mg PO DAILY@0800 06/23/15 Calcium Phosphate Trib/Vit D3 [Citracal + D3 Gummies] 1 tab PO DAILY 06/23/15 Cyanocobalamin (Vitamin B-12) [Vitamin B-12] 500 mcg SL QHS 06/23/15 Cyclobenzaprine HCl 5 mg PO TID PRN PRN 06/23/15 Docusate Sodium [Colace] 100 mg PO DAILY PRN PRN 06/23/15 Gabapentin [Neurontin] 1,500 tab PO QHS 06/23/15 Levothyroxine [Synthroid] 50 mcg PO MOWEFRSA 06/23/15 Levothyroxine [Synthroid] 100 mcg PO SUTUTH 06/23/15 Loratadine [Claritin] 10 mg PO DAILY 06/23/15 Losartan Potassium [Cozaar] 50 mg PO DAILY 06/23/15 MSM/Hyd.collagen/Coq10/[id number] [Beauty & Skin Therapy Tablet] 1 tab PO DAILY 06/23/15 Meclizine HCl [Antivert] 12.5 mg PO DAILY PRN PRN 06/23/15 Montelukast Sodium [Singulair] 10 mg PO DAILY 06/23/15 Multivit-Min/Iron/Folic/Lutein [Centrum Silver Women Tablet] 1 tab PO DAILY 06/23/15 Sertraline HCl [Zoloft] 50 mg PO DAILY 06/23/15 Mometasone/Formoterol [Dulera 100 Mcg/5 Mcg Inhaler] 2 puff INHALATION BID 06/11/18 Nortriptyline HCl 10 mg PO QHS 06/11/18 [place]-3 Fatty Acids/Fish Oil [Fish Oil 1,000 mg Capsule] 1 each PO DAILY 06/11/18 Vitamin E Acetate [Vitamin E] 400 unit PO DAILY 06/11/18 Acetaminophen [Tylenol Tablet] 650 mg PO Q6H PRN PRN tablet 06/17/18 Aspirin E.C. [Ecotrin] 81 mg PO DAILYCM tablet 06/17/18 Atorvastatin Calcium [Lipitor] 80 mg PO QHS #60 tablet 06/17/18 Furosemide [Lasix] 40 mg PO BID@1000,1800 tablet 06/17/18 Hydrocodone Bitart/Apap 5-325 [[place] 5/325] 1 - 2 tab PO Q6H PRN PRN 5 Days #20 tab 06/17/18 Ipratropium/Albuterol Sulfate [Duoneb] 3 ml INHALATION Q4HWA.RT ampul.neb 06/17/18 Isosorbide Mononitrate [Imdur] 30 mg PO DAILY tablet 06/17/18 Metoprolol Tartrate [Lopressor (beta zach)] 50 mg PO BID #120 tablet 06/17/18 Potassium Chloride [K-Dur] 40 meq PO DAILY #30 tablet 06/17/18 Ticagrelor [Brilinta] 90 mg PO BID #120 tablet 06/17/18 hydrALAZINE [Apresoline] 25 mg PO TID tablet 06/17/18 The following prescriptions were given: Atorvastatin Calcium [Lipitor] 80 mg PO QHS #60 tablet Hydrocodone Bitart/Apap 5-325 [[place] 5/325] 1 - 2 tab PO Q6H PRN PRN 5 Days #20 tab PRN Reason: Mild-Mod Pain () Metoprolol Tartrate [Lopressor (beta zach)] 50 mg PO BID #120 tablet Potassium Chloride [K-Dur] 40 meq PO DAILY #30 tablet Ticagrelor [Brilinta] 90 mg PO BID #120 tablet Orders to be completed after discharge: Phase II, Outpatient Cardiac Rehab Location: None Selected Primary Care Physician: Dangelo Beckford MD [Primary Care Provider] - Please follow up with your Primary Care Physician in: in 1-2 weeks Test Results: Test results from this visit will be discussed in further detail at your follow- up appointment, if applicable. Please Follow Up With: Arely Ross PA Proposed Discharge Date: 06/17/18
--- NOTE | 2018-06-17 11:14 | DS.PCM_ITS ---
Discharge Date and Diagnosis - Problem List Patient Problems: Active and Suspected Problems Non-STEMI (non-ST elevated myocardial infarction) (Acute) Severe sepsis (Acute) Myocardial infarct (Acute) Renal insufficiency (Acute) Fever (Acute) Date of Admission: 06/11/18 Date of Discharge: 06/17/18 - Primary Discharge Diagnosis Active and Suspected Problems Non-STEMI (non-ST elevated myocardial infarction) (Acute) Severe sepsis (Acute) Myocardial infarct (Acute) Renal insufficiency (Acute) Fever (Acute) - Secondary Discharge Diagnosis Chronic Problems (Last Updated 06/14/18 @ 08:17 by Arely Davis) S/P angioplasty with stent (Chronic ~06/13/18) PTCA/CRUZ of the mid LAD 06/13/18 Atherosclerotic heart disease of [place] coronary artery without angina pectoris (Chronic) CAD (coronary artery disease) (Chronic) Asthma (Chronic) Hypertension (Chronic) Osteoarthritis of right knee (Chronic) Restless leg syndrome (Chronic) Hypothyroidism (Chronic) Hyperlipidemia (Chronic) Status post total right knee replacement (Chronic) Hospital Course and Treatment Operations: None Summary of Care Provided: The patient is a 73 year old F admitted following a fall. Patient was found to have sepsis secondary to UTI on admission in addition she was diagnosed with acute non-STEMI admitted to monitored bed for further management 1. Acute non-STEMI patient admitted to a monitored bed managed per protocol underwent left heart catheterization, 75% mid LAD lesion for which she underwent successful PCI/CRUZ. Patient was discharged on recommended medication including high-dose statin therapy, dual antiplatelet therapy with Brilinta and aspirin, metoprolol as well as losartan 2. Sepsis secondary to UTI with E. coli managed with Rocephin 3. Acute hypoxic respiratory failure secondary to acute systolic congestive heart failure 4. Acute systolic congestive heart failure with EF of 35% patient managed with Lasix 5. Hypokalemia secondary to patient being on Lasix 6. Mild intermittent asthma 7. Acute kidney injury resolved 8. Physical deconditioning with mechanical fall requested for PT OT and social media sr strategy manager to assist with discharge planning patient was discharged to a senior living facility 9. Morbid obesity with BMI of 47.9 10. Hypertension-blood pressure controlled, home medications continued with dose adjustment as needed 11. DVT prophylaxis: heparin sc q8 Patient Problems: Active and Suspected Problems Non-STEMI (non-ST elevated myocardial infarction) (Acute) Severe sepsis (Acute) Myocardial infarct (Acute) Renal insufficiency (Acute) Fever (Acute) - Physical Exam General: Oriented x3, No apparent distress HEENT: Atraumatic Neck: Supple Lungs: Diminished Cardiovascular: Regular rate, Regular Rhythm Neurological: Neuro grossly intact Psych/Mental Status: Normal Affect Vital Signs Temp Pulse Resp BP Pulse Ox 97.9 F 86 17 140/63 H 95 06/17/18 10:35 06/17/18 10:42 06/17/18 10:35 06/17/18 10:42 06/17/18 10:35 Oxygen Flow Rate (L/min) 2 Oxygen Delivery Method Room Air Weight: 126.5 kg Body Mass Index (BMI) 49.5 Intake and Output for Last 24 Hours 06/15/18 06/16/18 06/17/18 23:59 23:59 23:59 Intake Total 1691 / 1691 1000 / 1000 600 / 600 Output Total 3900 / 3900 800 / 800 Balance -2209 / -2209 200 / 200 600 / 600 Microbiology Past 72 Hours 06/12/18 06:00 Urine Culture - Final Urine, Clean Catch Mixed Gram Pos & Gram Neg Org 06/11/18 22:25 Blood Culture - Final Blood Culture (Wb) - Anticubital Left GNR lactose show host 06/11/18 22:17 Blood Culture - Final Blood Culture (Wb) - Right Hand Escherichia coli Laboratory Tests Past 24 Hrs 06/16/18 06/17/18 06/17/18 06:26 05:55 05:55 WBC 10.8 RBC 4.12 L Hgb 11.4 L Hct 36.9 L MCV 89.6 MCH 27.7 MCHC 30.9 L RDW 15.8 H RDW Differential 51.4 H Plt Count 320 MPV 9.0 Immature Gran % (Auto) 0.700 Neut % (Auto) 80.0 H Lymph % (Auto) 9.0 L [place] % (Auto) 9.3 Eos % (Auto) 0.7 Baso % (Auto) 0.3 Absolute Neuts (auto) 8.6 H Absolute Lymphs (auto) 0.97 Total Counted Not Reportable Sodium 142 Potassium 2.9 L Chloride 110 H Carbon Dioxide 21.0 Anion Gap 11 BUN 23 H Creatinine 1.11 H Estim Creat Clear Calc 39.56 Est GFR (MDRD) Af Amer 62 Est GFR (MDRD) Non-Af 51 L BUN/Creatinine Ratio 20.7 H Glucose 125 H Calcium 8.4 L Magnesium 1.8 Discharge Diet: Low fat/ Low Cholesterol Home Medications: Medications to take at Discharge Albuterol IH (ProAir) [Proair Hfa] 1 - 2 puff INHALATION Q6H PRN PRN 06/23/15 Ascorbic Acid [Vitamin C] 500 mg PO DAILY@0800 06/23/15 Calcium Phosphate Trib/Vit D3 [Citracal + D3 Gummies] 1 tab PO DAILY 06/23/15 Cyanocobalamin (Vitamin B-12) [Vitamin B-12] 500 mcg SL QHS 06/23/15 Cyclobenzaprine HCl 5 mg PO TID PRN PRN 06/23/15 Docusate Sodium [Colace] 100 mg PO DAILY PRN PRN 06/23/15 Gabapentin [Neurontin] 1,500 tab PO QHS 06/23/15 Levothyroxine [Synthroid] 50 mcg PO MOWEFRSA 06/23/15 Levothyroxine [Synthroid] 100 mcg PO SUTUTH 06/23/15 Loratadine [Claritin] 10 mg PO DAILY 06/23/15 Losartan Potassium [Cozaar] 50 mg PO DAILY 06/23/15 MSM/Hyd.collagen/Coq10/[id number] [Beauty & Skin Therapy Tablet] 1 tab PO DAILY 06/23/15 Meclizine HCl [Antivert] 12.5 mg PO DAILY PRN PRN 06/23/15 Montelukast Sodium [Singulair] 10 mg PO DAILY 06/23/15 Multivit-Min/Iron/Folic/Lutein [Centrum Silver Women Tablet] 1 tab PO DAILY 06/23/15 Sertraline HCl [Zoloft] 50 mg PO DAILY 06/23/15 Mometasone/Formoterol [Dulera 100 Mcg/5 Mcg Inhaler] 2 puff INHALATION BID 06/11/18 Nortriptyline HCl 10 mg PO QHS 06/11/18 [place]-3 Fatty Acids/Fish Oil [Fish Oil 1,000 mg Capsule] 1 each PO DAILY 01/20 Vitamin E Acetate [Vitamin E] 400 unit PO DAILY 06/11/18 Acetaminophen [Tylenol Tablet] 650 mg PO Q6H PRN PRN tablet 06/17/18 Aspirin E.C. [Ecotrin] 81 mg PO DAILYCM tablet 06/17/18 Atorvastatin Calcium [Lipitor] 80 mg PO QHS #60 tablet 06/17/18 Furosemide [Lasix] 40 mg PO BID@1000,1800 tablet 06/17/18 Hydrocodone Bitart/Apap 5-325 [[place] 5/325] 1 - 2 tab PO Q6H PRN PRN 5 Days #20 tab 06/17/18 Ipratropium/Albuterol Sulfate [Duoneb] 3 ml INHALATION Q4HWA.RT ampul.neb 06/17/18 Isosorbide Mononitrate [Imdur] 30 mg PO DAILY tablet 06/17/18 Metoprolol Tartrate [Lopressor (beta edvin)] 50 mg PO BID #120 tablet 06/17/18 Potassium Chloride [K-Dur] 40 meq PO DAILY #30 tablet 06/17/18 Ticagrelor [Brilinta] 90 mg PO BID #120 tablet 06/17/18 hydrALAZINE [Apresoline] 25 mg PO TID tablet 06/17/18 Following Prescrptions Were Given to Patient: Atorvastatin Calcium [Lipitor] 80 mg PO QHS #60 tablet Hydrocodone Bitart/Apap 5-325 [[place] 5/325] 1 - 2 tab PO Q6H PRN PRN 5 Days #20 tab PRN Reason: Mild-Mod Pain () Metoprolol Tartrate [Lopressor (beta edvin)] 50 mg PO BID #120 tablet Potassium Chloride [K-Dur] 40 meq PO DAILY #30 tablet Ticagrelor [Brilinta] 90 mg PO BID #120 tablet Other Amb Orders: Phase II, Outpatient Cardiac Rehab Location: None Selected Primary Care Physician: Dangelo Beckford MD [Primary Care Provider] - Please follow up with your Primary Care Physician in: in 1-2 weeks Please Follow Up With: Arely Ross PA Disposition: [facility] facility Minutes spent on discharge:: 45 Patient Condition:: Stable Medical Necessity - Tobacco Use Smoking Status: Former smoker Meaningful Use Info Meaningful Use Diagnoses (Choose all that apply): AMI - AMI Aspirin given w/in 24hrs of arrival?: Yes ASA at discharge?: Yes Statins at discharge?: Yes [place]/ARB at discharge?: Yes Beta Edvin at discharge?: Yes Done w/ Acute GA measure.: Yes Code Visit Inpatient E&M: [id number] Disch Hosp
--- NOTE | 2018-06-17 11:19 | PCM.TXEXTCAR ---
- Diet 06/13/18 10:46 Diet: Cardiac/Low Cholesterol Is pt able to select menu?: Yes - Routine Orders/Code Status Code Status: Full Code - Wound(s) R groin Wound Type: Surgical Incision R wrist Wound Type: Surgical Incision - Therapies Physical Therapy: Eval and Treat Occupational Therapy: Eval and Treat - Allergies/Procedures Done in Hospital Allergies/Adverse Reactions: Allergies codeine Allergy (Verified 06/11/18 17:45) Shortness of breath ITCHING egg Allergy (Verified 06/12/18 01:55) Nausea meperidine HCl [From Demerol] Allergy (Verified 06/11/18 17:45) Itching midazolam HCl [From Versed] Allergy (Verified 06/11/18 17:45) Itching Sulfa (Sulfonamide Antibiotics) Allergy (Verified 06/11/18 17:45) Unknown A CHILD - Type of Care/Length of Stay Estimated LOS: Convalescent Care Less Than 30 days Type of Care Needed: Skilled Rehab Potential: Good Prognosis: Good - Additional Orders/Day of Discharge Day of Discharge: 06/17/18 - Dietary and Speech Recommendations Dietitian Recommendations/Changes: Rec diet change to 1800 rogers Cardiac/ low sodium w/ fluid restriction prn d/t pmhx / BMI - Follow Up Care Primary Care Physician: Dangelo Beckford MD [Primary Care Provider] - Please follow up with your Primary Care Physician in: in 1-2 weeks Please Follow Up With: Arely Ross PA
--- NOTE | 2018-06-17 11:57 | CASEMGMT ---
[facility] can take patient. RAIMUNDO notified patient. Orders faxed to [facility]. Convalescent completed on HENS. RAIMUNDO called [facility] and arranged for patient to get picked up at via [facility] van. RAIMUNDO notified patient, charge entry clerk who notified RN, traveling secretary, and left message for Ana at [facility]. RAIMUNDO also let patient know [facility] van is not covered by insurance and it will be approximately $50 base fee and then $4.50 per mile. Plan: [facility] under skilled level of care on a convalescent stay. [facility] transported via [employer] van. Brittany RAE POSTING CLERK
[2018-06-17] MEDS: HYDROcodone Bitartrate/Apap 5/325 Tablet PO (12:37)
[2018-06-17 14:47] LABS: Pathologist Review Reviewed
[2018-06-17 15:25] LABS: Potassium 4.5 mmol/L (3.5-5.1)
--- NOTE | 2018-06-17 16:22 | NURSING ---
report called to luis alberto chakraborty at [facility] [phone]
--- NOTE | 2018-06-17 17:06 | PCM.PN.CARD ---
Subjectve: The patient was evaluated earlier this day. She appears to be doing well from a cardiac standpoint without any acute complaints or concerns. She was up in her chair appearing more interactive. Objective: Vital Signs Temp Pulse Resp BP Pulse Ox 97.9 F 52 L 16 135/52 H 97 06/17/18 15:35 06/17/18 16:07 06/17/18 15:35 06/17/18 16:07 06/17/18 15:35 Oxygen Flow Rate (L/min) 2 Oxygen Delivery Method Room Air Weight: 278 lb 14.156 oz Body Mass Index (BMI) 49.5 Intake and Output for Last 24 Hours 06/15/18 06/16/18 06/17/18 23:59 23:59 23:59 Intake Total 1691 / 1691 1000 / 1000 1160 / 1160 Output Total 3900 / 3900 800 / 800 Balance -2209 / -2209 200 / 200 1160 / 1160 General: Awake, Alert, Oriented x 3, Cooperative, No Acute Distress HEENT: Atraumatic, Normocephalic, PERRL, EOMI, Sclera Non Icteric Oral: Moist Mucosa Neck: Supple, Good ROM, No JVD Lungs: Clear to auscultation Cardiovascular: Regular Rhythm, Normal S1, Normal S2 Abdomen: Bowel Sounds Present, Soft Extremities: Trace RLE Edema, Trace LLE Edema Psych/Mental Status: Appropriate 06/17/18 05:55: WBC 10.8, RBC 4.12 L, Hgb 11.4 L, Hct 36.9 L, MCV 89.6, MCH 27.7, MCHC 30.9 L, RDW 15.8 H, RDW Differential 51.4 H, Plt Count 320, MPV 9.0, Immature Gran % (Auto) 0.700, Neut % (Auto) 80.0 H, Lymph % (Auto) 9.0 L, [place] % (Auto) 9.3, Eos % (Auto) 0.7, Baso % (Auto) 0.3, Absolute Neuts (auto) 8.6 H, Total Counted Not Reportable 06/17/18 05:55: Sodium 142, Potassium 2.9 L, Chloride 110 H, Carbon Dioxide 21.0, Anion Gap 11, BUN 23 H, Creatinine 1.11 H, Est GFR (MDRD) Af Amer 62, Est GFR (MDRD) Non-Af 51 L, BUN/Creatinine Ratio 20.7 H, Glucose 125 H, Calcium 8.4 L 06/17/18 15:05: Potassium 4.5 Rhythm:Sinus rhythm Medical Necessity - Tobacco Use Smoking Status: Former smoker Assessment/Plan 1. Acute coronary syndrome/acute non-ST segment elevation SC The patient has now undergone evaluation with diagnostic cardiac catheterization. She was found to have an LAD mid lesion. She underwent subsequent LAD PCI. She will need to continue to be monitored. She will need to continue medical management and follow-up. 2. CAD She will need to continue medical management and follow-up. 3. Congestive heart failure She will need to continue medical therapy. She is on oral diuretics. She appears to be relatively stable at this time from her volume standpoint. 4. Hyperlipidemia The patient will continue lipid-lowering therapy. 5. Hypertension The patient's blood pressure will be followed. Her medications can be adjusted as deemed appropriate taking into consideration her renal function. 6. Acute renal insufficiency Her creatinine level appears to have decreased. She will continue medical management. 7. Fever She is on antibiotic therapy at this time. She continues evaluation care per internal medicine. This note was generated with [employer] dictation software. It may contain incorrect words, spelling, and punctuation that were not noted in checking the note before signing.
== END 2018-06-17 17:55 | disposition skilled nursing facility (03) | DRG 246 ==
LOC: ED 20:29 → PCU 20:30 → ICU 06-13 09:20 → PCU 06-14 12:39
PROVIDERS: Internal Medicine Cardiovascular Disease; Student in an Organized Health Care Education/Training Program; Admitting Provider Hospitalist; Emergency Provider Emergency Medicine; Family Provider Family Medicine; PCP Family Medicine; Referring Provider Hospitalist; Visit Provider Internal Medicine
DX: I21.4 Non-ST elevation (NSTEMI) myocardial infarction (principal); A41.51 Sepsis due to Escherichia coli [E. coli]; J96.01 Acute respiratory failure with hypoxia; I50.21 Acute systolic (congestive) heart failure; R65.20 Severe sepsis without septic shock; N17.9 Acute kidney failure, unspecified; N39.0 Urinary tract infection, site not specified; Z68.42 Body mass index [BMI] 45.0-49.9, adult; I11.0 Hypertensive heart disease with heart failure; E66.01 Morbid (severe) obesity due to excess calories; I25.10 Atherosclerotic heart disease of native coronary artery without angina pectoris; E89.0 Postprocedural hypothyroidism; G25.81 Restless legs syndrome; E78.5 Hyperlipidemia, unspecified; E87.6 Hypokalemia; J45.20 Mild intermittent asthma, uncomplicated; Z96.651 Presence of right artificial knee joint; Z87.891 Personal history of nicotine dependence; Z79.899 Other long term (current) drug therapy; W18.11XA Fall from or off toilet without subsequent striking against object, initial encounter; Y92.091 Bathroom in other non-institutional residence as the place of occurrence of the external cause
CPT/HCPCS: 36415; 71045; 71046; 73502; 73564; 80048; 80053; 80061; 81001; 82570; 83605; 83735; 83880; 83935; 84132; 84300; 84484; 84540; 85025; 85027; 85347; 85610; 85730; 87040; 87077; 87086; 87088; 87186; 87633; 87804; 92928; 93005; 93306; 93454; 94640; 97110; 97116; 97162; 97165; 97530; 97535; 97802; 99152; 99153; 99251; 99284; C1760; J7030; J7040; J7050; Q9957; Q9967; A4216; C1725; C1769; C1874; C1887; C1894; C8929; C9600; G0463; J1940

== ENCOUNTER → 2018-08-20 08:51 | Outpatient (CLI) | payer MEDICARE, OTHER, SELFPAY ==
[2018-07-26 11:17] VITALS: BMI 47.5
--- NOTE | 2018-08-20 09:03 | CR.HP_ITS ---
CR - History & Physical - General Arrival date:: 08/20/18 Arrival time:: 09:00 Date of Referral:: 06/14/18 Date of CR Evaluation:: 08/20/18 Referring Physician: Dr. Jalen Shah Primary Diagnosis: PCI w/stenting - History of Present Cardiac Event Onset Date: Enter Onset Date of cardiac illnesses in Comment field below Acute Myocardial Infarction within 12 months:: Yes - NSTEMI 06/13/2018 PTCA or coronary stenting:: Yes - 06/13/2018 Type of Symptoms:: Sepsis w/UTI, during hospitalization NSTEMI and underwent PCI intervention. She does have worsening symptoms of shortness of breath. She does not complain of any lightheadedness, dizziness or pain. Were there any complications?: No complications; assisted for 3-weeks post care - Medications Home Medications: Ambulatory Orders Medication Instructions Recorded Ascorbic Acid [Vitamin C] 500 mg PO DAILY@0800 06/23/15 Calcium Phosphate Trib/Vit D3 1 tab PO DAILY 06/23/15 [Citracal + D3 Gummies] Cyanocobalamin (Vitamin B-12) 500 mcg SL QHS 06/23/15 [Vitamin B-12] Cyclobenzaprine HCl 5 mg PO TID PRN PRN 06/23/15 Gabapentin [Neurontin] 1,500 tab PO QHS 06/23/15 Levothyroxine [Synthroid] 50 mcg PO MOWEFRSA 06/23/15 Levothyroxine [Synthroid] 100 mcg PO SUTUTH 06/23/15 Losartan Potassium [Cozaar] 50 mg PO DAILY 06/23/15 Meclizine HCl [Antivert] 12.5 mg PO DAILY PRN PRN 06/23/15 Montelukast Sodium [Singulair] 10 mg PO DAILY 06/23/15 Multivit-Min/Iron/Folic/Lutein 1 tab PO DAILY 06/23/15 [Centrum Silver Women Tablet] Sertraline HCl [Zoloft] 50 mg PO DAILY 06/23/15 Mometasone/Formoterol [Dulera 100 2 puff INHALATION BID 06/11/18 Mcg/5 Mcg Inhaler] Nortriptyline HCl 10 mg PO QHS 06/11/18 [place]-3 Fatty Acids/Fish Oil [Fish 1 ea PO DAILY 06/11/18 Oil 1,000 mg Capsule] Vitamin E Acetate [Vitamin E] 400 unit PO DAILY 06/11/18 Acetaminophen [Tylenol Tablet] 650 mg PO Q6H PRN PRN tab 06/17/18 Aspirin E.C. [Ecotrin] 81 mg PO DAILYCM tab 06/17/18 albuterol sulfate HFA 90 INHALATION 15 Days #8 g 07/26/18 mcg/actuation aerosol inhaler diclofenac 1 % topical gel TOPICAL 12 Days #100 g 07/26/18 furosemide 40 mg tablet 40 mg PO BID #180 tab 07/26/18 hydralazine 25 mg tablet 25 mg PO TID #270 tab 07/26/18 isosorbide mononitrate ER 30 mg 30 mg PO DAILY #90 tab 07/26/18 tablet,extended release 24 hr metoprolol tartrate 50 mg tablet 50 mg PO BID #180 tab 07/26/18 potassium chloride ER 20 mEq 40 meq PO DAILY #180 tab 07/26/18 tablet,extended release(part/cryst) pravastatin 80 mg tablet PO 90 Days #90 tab 07/26/18 clopidogrel 75 mg tablet 75 mg PO DAILY #90 tab 08/05/18 - Allergies Allergies/Adverse Reactions: Allergies codeine Allergy (Verified 07/26/18 11:21) Shortness of breath ITCHING egg Allergy (Verified 07/26/18 11:21) Nausea meperidine HCl [From Demerol] Allergy (Verified 07/26/18 11:21) Itching midazolam HCl [From Versed] Allergy (Verified 07/26/18 11:21) Itching Sulfa (Sulfonamide Antibiotics) Allergy (Verified 07/26/18 11:21) Unknown A CHILD - Sleep Disorder Evaluation Hx of Sleep Apnea: No Do you snore loudly (louder than talking or can be heard through closed doors)?: Yes Do you often feel tired/ fatigued/ sleepy during daytime?: No Has anyone observed you stop breathing during sleep?: No History of Hypertension (for STOP score): Yes - Had a sleep study no SHANNON identified just diagnosed with RLS. STOP Results: Positive Advanced Directives - Advanced Directives Power of Computer Systems Consultant: No Living Will: No Advance Directives Information Provided: Yes Advance Directives on File: No DNR Order?:: No - MOLST See MOLST form: No Past Medical History - Past Medical Illness Medical History: Past Medical History (Last Updated 08/20/18 @ 09:30 by Petr Bullard, INSIDE SALES ACCOUNT REPRESENTATIVE, MECHANICAL MAINTENANCE ENGINEER, BS) Atherosclerotic heart disease of [place] coronary artery without angina pectoris (Chronic) I25.10 Successful PTCA/CRUZ of mid LAD with a 2.5 x 16 Promus Synergy, post dilated throughout with a 2.75 x 8 NC Balloon; 75%-->0%, no dissection. CAD (coronary artery disease) (Chronic) I25.10 Asthma (Chronic) J45.909 Hypertension (Chronic) I10 Osteoarthritis of right knee (Chronic) M17.9 Hypothyroidism (Chronic) E03.9 Hyperlipidemia (Chronic) E78.5 Former smoker, stopped smoking many years ago Z87.891 Chronic lower back pain M54.5, G89.29 - Past Surgical History Surgical History: Past Surgical History (Last Updated 06/14/18 @ 08:17 by Arely Davis) S/P angioplasty with stent (Chronic) Onset Date: ~06/13/18 Z95.820 PTCA/CRUZ of the mid LAD 06/13/18 Status post total right knee replacement (Chronic) Z96.651 Surgical History: hysterectomy - 1990, total hip arthroplasty - Right 2007, Dr. Polk., total knee arthroplasty - Right 06/29/2015 Dr. Polk., - - Thyroidectomy 2008 Social History - Smoking History Smoking Status: Former smoker Years Smokin Packs Smoked per Day: 1 Hx Smoking Cessation Date: 40 years ago. Hx Tobacco Use: Yes Hx Smoking Exposure: No - Alcohol Use Alcohol Usage: No - Substance Abuse Hx Substance Use: No - Occupation Occupation (List type of work in comments):: Retired - Hobbies, Recreation, Social Activities Hobbies: Watch TV, None, Other - computer games etc Recreational Activities: I am able to engage in most, but not all activities Social Environment - Status Marital Status: - Current Living Arrangements Living Environment:: Family - son lives with her. - Children How many children do you have?: 1 Do any of your children live nearby?: Yes - Safety Do you feel safe in your surroundings?: Yes - Assistance Do you need any assistance at home?: none Review of Systems - Review of Systems Hints: Right click = Denies ([place]). Left click = Reports ([place]) Review of Present Symptoms: Reports: Shortness of Breath with Exertion - walking gets me really out of breath, Operative Discomfort, Fatigue, Appetite - Normal, Sleep - Normal - goes to be 11-12 and sleep about 7 hours sleep.. Denies: Shortness of Breath at Rest, Angina, Dizziness/Lightheadedness, Heart Arrhythmia/Irregularities, Appetite - Special Diet - Pain Is Patient Pain Free?: No Pain Location: back, lower extremity - knees Pain Level: 5/10 - pretty normal to have pain level. Risk Factor Assessment - Chief Complaint Chief Complaint: Mrs. Castellanos presents to cardiac rehab today following recent hospitalization and post acute care rehab/penitentiary care following a recent NSTEMI and PCI intervention. She does have issues with her back, this limits her ability to walk. She aslo has a hiostory of hip and knee replacement which requires her to stop frequently when ambulating to rest. - Vital Signs Temperature: 98.7 F Respiratory Rate: 20 Pulse Ox: 93 Blood Pressure: 120/70 Nailbeds:: normal in color - Pulse Pulse Rhythm: Regular - Hypertension Blood Pressure Sitting - Right Arm: 120/70 - Blood Cholesterol/Lipids Total Cholesterol (mg/dL) Goal = less than 200 mg/dL: 72 HDL Cholesterol (mg/dL) Goal = less than 40 mg/dL: 18 LDL Cholesterol (mg/dL) Goal = less than 70 mg/dL: 24 Triglycerides (mg/dL) Goal = less than 150 mg/dL: 148 - Diabetes Nutrition Referral for Diabetes: No - Obesity Height: 5 ft 4 in Weight:: 277 lb Weight in Pounds: 277.0 lbs Weight Source: Stated by Patient Body Mass Index (BMI): 47.5 Nutritional Referral for Obesity: Yes - Stuctured Weight Loss and cardiac diet needs. - Physical Inactivity Physical Inactivity: None - Risk Stratification Risk Guidelines: Lowest Risk: Risk Factor for Smoking, Risk Factor for Dyslipidemia, Risk Factor for Diabetes, Risk Factor for Hypertension, Risk Factor for Depression, Highest Risk: Risk Factor for Obesity, Risk Factor for Sedentary Lifestyle - For Smoking Smoking Risk Guidelines: Smoking Low Risk: None or quit greater than 6 months ago. Smoking Moderate Risk: Smoker or quit 6 months or less ago. Smoking High Risk: Smoker - For Dyslipidemia Dyslipidemia Risk Guidelines: Low Risk: Moderate Risk: High Risk: 15-25% fat 25.1-29% fat >/= 30% fat. <7% sat fat 7-9% sat fat >9% sat fat. <150 mg chol 150-299 mg chol >/= 300 mg chol. LDL <100 LDL 100-129 LDL >/= 130. Chol/HDL ratio <5.0 Chol/HDL ratio 5.0-6.0 Chol/HDL ratio >6.0. Triglycerides <100 Triglycerides 100-149 Triglycerides >/= 150 - For Diabetes Mellitus Diabetes Risk Guidelines: Diabetes Low Risk: HgA1c <6.5% and/or FBG <120. Diabetes Moderate Risk: HgA1c 6.6-7.9% and/or FBG 120-180. Diabetes High Risk: HgA1c >/= 8% and/or FBG >180 - For Obesity/Overweight Obesity/Overweight Risk Guidelines: Obesity Low Risk: BMI <25.0. Obesity Moderate Risk: BMI 25-29.9. Obesity High Risk: BMI >/= 30.0 - For Hypertension Hypertension Risk Guidelines: Hypertension Low Risk: Systolic <120 and Diastolic <80. Hypertension Moderate Risk: Systolic 120-139 and Diastolic 80-89. Hypertension High Risk: Systolic >/= 140 and Diastolic >/= 90 - For Sedentary Lifestyle Sedentary Lifestyle Risk Guidelines: Sedentary Lifestyle Low Risk: >/= 1,500 kcal/week. Sedentary Lifestyle Moderate Risk: 700-1,499 kcal/week. Sedentary Lifestyle High Risk: < 700 kcal/week - For Depression Depression Risk Guidelines: Depression Low Risk: Not clinically depressed. Depression Moderate Risk: Mildly depressed. Depression High Risk: Clinically depressed Motivation - Motivation to Participate On a scale of 1 to 10, how prepared are you to commit to attending program?: 10 What do you see as barriers to successfully being able to complete the program?: no What do you see as the benefits of succesfully completing the program? In other words, what do you hope to get out of participating in the program?: feel better, be able to function easier. Are there issues you are dealing with that will interfere with completing the program?: low back and knee pain. Really need to have the left knee replaced. Do you have a spouse or signficant other, family or friends who will help support you to complete the program?: yes
--- NOTE | 2018-08-20 09:03 | CR.ITP_ITS ---
General Information - General Information Admitting Diagnosis: NSTEMI, PCI w/coronary stent placement Special Needs: Chronic Low back issues, cane/walker. Also hip issue and knee replacements. - Education/Goals Barriers to Learning: None Individual Counseling: Initial Assessment: Abnormal Cholesterol Levels, Overweight/Obesity, B. Waist Circumference >35/Females >40/Males, Low HDL <40/Males or <50/Females, Sedentary Lifestyle Cardiac Rehabilitation Goals: 1. Maintain the individual as the primary focus of care. 2. To improve the patient's quality of life. 3. Identification of cardiac risk factors and provide cardiac risk factor management. 4. Enhance the psychosocial status of the patient. 5. Reconditioning enough to allow the patient to resume customary activities. 6. Control symptoms of cardiac disease Scale for measuring improvement of personal goals: Enter appropriate number in Comments. 2 = Unchanged. 3 = Slightly Better. 4 = Moderate Improvement. 5 = Met my Goal Personal Goals: Initial Assessment: Improve energy level, Improve knowledge of cardiac disease, Improve muscle strength and endurance, Improve diet and eating habits (eat healthier), Control risk factors (learn risk factor modification) Exercise - Initial Assessment - Visit Date of Eval: 08/20/18 Session #:: 0 - Patient will start CR on - Stages of Change Stages of Change:: Action - Physician Prescribed Exercise Modalities: NuStep, SciFit Frequency (days/week): 3x/week for 12 weeks [36 sessions] Intensity: 60-80% age predicted maximum heart rate reserve METs - Progression: 0.5-1.0 MET, RPE 11-14 WEEK: 2.5 Target Heart Rate:: 103-126 - Hypertension Do any of the following apply?: Yes, Medication Resting Blood Pressure:: 120/70 - Intervention Home Exercise/Activity Goal:: Sitting Time <3 hrs/day - Education Goals:: Warm-up, RPE MEHRAN Scale, S/S, Safe Exercise, Self-Monitoring - Exercise Program Goals Exercise Program Goals: Aerobic Activity >30 min Nutrition - Initial Assessment - Program Goals Nutrition Program Goals: LDL <70. Total Cholesterol <200. HDL >45. Triglycerides <150. HgbA1C <7%. BMI <25 - Visit Date of Assessment:: 08/20/18 - Stages of Change Stages of Change:: Action - Lipids Total Cholesterol (mg/dL) Goal = less than 200 mg/dL: 72 HDL Cholesterol (mg/dL) Goal = less than 45 mg/dL: 18 LDL Cholesterol (mg/dL) Goal = less than 70 mg/dL: 24 Triglycerides (mg/dL) Goal = less than 150 mg/dL: 148 - Diabetes Diabetes:: No - Weight Management Height: 5 ft 4 in Weight:: 277 lb Body Fat %:: 47.5 - Intervention Referral to dietitian:: Yes - Structured weight loss and cardiac diet Referral to Diabetic Clinic:: No Will attend diet classes:: Yes - Education Gave educational materials for:: Healthy eating Tobacco - Initial Assessment - Program Goals Tobacco Program Goals: Complete smoking cessation. Attend education classes. Improve Knowledge Test score - Stage of Change Stages of Change:: Action - Learning Barriers Learning Barriers: Ready to Learn - Tobacco Use Tobacco Use: Non-smoker How long ago did you quit using tobacco products?: Greater than or equal to 6 months ago - Intervention Smoking Cessation Referral:: No Individual Education/Counseling:: No Education Schedule Given:: Yes - Education Gave educational material for:: Coronary artery disease, Risk factors, Sexuality, Medical compliance, Cardiac A&P, Angina signs & symptoms Psychosocial - Initial Assess - Target Goals Target Goals: Assess presence or absence of depression. Using a valid screening tool, maximizes coping skills. Positive support system - Stages of Change Stages of Change:: Action - Psychosocial Test Tool Used:: HANDS Depression Questionnaire - Intervention PS - Interventions: Yes Attend Stress Management Classes, No Referral to Mental Health, No Referral to [facility] Case Management, No Referral to Physician, No Uses Stress Management Skills - Education Gave educational materials for:: Coping techniques, Signs & symptoms of depression, Stress management, Relaxation techniques - Patient/Program Goal Preventative Medication(s):: Aspirin, Clopidogrel, Beta zach, Statin/lipid - Assistive Devices Assistive Devices:: Cane, Walker Fall Risk Assessed:: Yes Patient Health Questionnaire Initial Assessment 1. Little interest or pleasure in doing things: Several days 2. Feeling down, depressed, or hopeless: Not at all 3. Trouble falling or staying asleep, or sleeping too much: Not at all 4. Feeling tired or having little energy: Several days 5. Poor appetite or overeating: Not at all 6. Feeling bad about yourself -- or that you are a failure or have let yourself or your family down: Not at all 7. Trouble concentrating on things, such as reading the newspaper or watching television: Not at all 8. Moving or speaking so slowly that other people could have noticed. Or the opposite - being so fidgety or restless that you have been moving around a lot more than usual: Not at all 9. Thoughts that you would be better off , or of hurting yourself in some way: Not at all How difficult have these problems made it for you to do your work, take care of things at home, or get along with other people?: Not difficult at all Total Score: 2 NACHO-Q SV Test - Statements CAD is a disease of the arteries in the heart: True Examples of risk factors for heart disease: True Angina is chest pain or discomfort: True The benefits of resistance training include: True Eating more meat and dairy products: False Anti-platelet medications such as aspirin are important: True The only effective way to manage stress: False An exercise warm-up slowly increases heart rate: I Don't Know Prepared, processed foods usually have high sodium: True Depression is common after a heart attack: True The statin medications lower cholesterol: True To control blood pressure, lower the amount of sodium: True If someone gets chest discomfort during walking: I Don't Know Transfats are partially hydrogenated vegetable oils: True Sleep apnea that is not treated increases the risk: I Don't Know To control cholesterol, one should become a vegetarian: False Someone knows if he/she is exercising at the right level: I Don't Know Diabetes cannot be prevented with exercise & health eating: False Stress is a large risk for heart attack: I Don't Know A diet that can help lower blood pressure is rich in: I Don't Know - Total Score Total Correct Responses: 13 Self-Efficacy Initial Assessment We would like to know how confident you are in doing certain activities. Please select your confidence level for:: Select your confidence level for the following using the scale 1-10 where 1 is not at all confident and 10 is totally confident. Your score is the average of all 6 responses. Fatigue: How confident are you that you can keep the fatigue caused by your d isease from interfering with the things you want to do? Select Number: 10 Physical Discomfort or Pain: How confident are you that you can keep the phy sical discomfort or pain of your disease from interfering with the things you want to do? Select Number: 6 Emotional Distress: How confident are you that you can keep the emotional distress caused by your disease from interfering with the things you want to do? Select Number: 10 Other Symptoms or Health Problems: How confident are you that you can keep other symptoms or health problems from interfering with the things you want to do? Select Number: 10 Different Tasks and Activities: How confident are you that you can do the different tasks and activities needed to manage your health condition so as to reduce your need to see a doctor? Select Number: 6 Medication: How confident are you that you can do things other than just taking medication to reduce how much your illness affects your everyday life? Select Number: 10 Total Score:: 8 Nutrition Survey - Nutrition Survey Instructions Scoring Instructions: Scoring is as follows: Yes = 1 points. No = 0 point. Patient score that is >/=12 is considered to be at potential nutritional risk and could benefit from a referral to a registered dietitian. - Nutrition Survey Initial Have you lost >10 lbs over the past 2 months without trying?: Yes Are you following a special diet at home for diabetes, low fat, or low salt?: No Are you interested in meeting with a dietitian for help understanding your diet?: Yes Do you eat less than 3 meals a day?: Yes Do you eat fatty meats (fajardo, sausage, ribs, etc), fried foods, desserts, large amounts of salad dressings, margarine, butter, or cheese most days?: Yes Do you have food allergies? [Enter types in comment field]: Yes Do you eat in restaurants more than 3 times a week?: No Do you season food with salt, seasoning salt, or garlic salt?: Yes Do you used canned, boxed, frozen meals, or soups, seasoning packets?: No - Referred for Cardiac Diet and Structured Weight Loss Total Score:: 6
[2018-08-20 09:31] VITALS: BP 120/70; RESP 20; TEMP 37.1; O2SAT 93; BMI 47.5
[2018-08-20 10:17] VITALS: BP 120/70
== END ==
PROVIDERS: Family Provider Family Medicine; PCP Family Medicine; Referring Provider Internal Medicine Cardiovascular Disease; Visit Provider Internal Medicine Cardiovascular Disease
DX: I25.10 Atherosclerotic heart disease of native coronary artery without angina pectoris (principal); I10 Essential (primary) hypertension; E78.5 Hyperlipidemia, unspecified; N28.9 Disorder of kidney and ureter, unspecified; I25.2 Old myocardial infarction

== ENCOUNTER 2018-08-30 15:15 | Outpatient (RCR) | payer MEDICARE, OTHER, SELFPAY ==
[2018-08-20 09:31] VITALS: BMI 47.5
== END 2018-09-01 23:59 ==
LOC: CR 15:15
PROVIDERS: Family Provider Family Medicine; PCP Family Medicine; Referring Provider Internal Medicine Cardiovascular Disease; Visit Provider Internal Medicine Cardiovascular Disease
DX: I25.10 Atherosclerotic heart disease of native coronary artery without angina pectoris (principal); I21.4 Non-ST elevation (NSTEMI) myocardial infarction; Z95.820 Peripheral vascular angioplasty status with implants and grafts
CPT/HCPCS: 93798

== ENCOUNTER 2018-09-30 15:15 | Outpatient (RCR) | payer MEDICARE, OTHER, SELFPAY ==
[2018-08-20 09:31] VITALS: BMI 47.5
--- NOTE | 2018-09-18 07:19 | PCM.CR.ITP ---
General Information - General Information Admitting Diagnosis: NSTEMI, PCI with coronary stent placement - Education/Goals Cardiac Rehabilitation Goals: 1. Maintain the individual as the primary focus of care. 2. To improve the patient's quality of life. 3. Identification of cardiac risk factors and provide cardiac risk factor management. 4. Enhance the psychosocial status of the patient. 5. Reconditioning enough to allow the patient to resume customary activities. 6. Control symptoms of cardiac disease Scale for measuring improvement of personal goals: Enter appropriate number in Comments. 2 = Unchanged. 3 = Slightly Better. 4 = Moderate Improvement. 5 = Met my Goal Exercise - 30-day Assessment - Visit Date of Eval: 09/18/18 Session #:: 11 - Stages of Change Stages of Change:: Action - Physician Prescribed Exercise Modalities: NuStep, SciFit Frequency (days/week): 3 Duration (Minutes):: 30-45 Intensity: 60-80% age predicted maximum heart rate reserve METs - Progression: 0.5-1.0 MET, RPE 11-14 WEEK: 3 Target Heart Rate:: 103-126 Max HR 109 - Hypertension Resting Blood Pressure:: 108/62 Peak Exercise Blood Pressure:: 154/72 - Intervention Home Exercise/Activity Goal:: Moderate Exercise 30 min/day x 5 days/wk - Education Goals:: Warm-up, RPE MEHRAN Scale, S/S, Safe Exercise, Self-Monitoring - Exercise Program Goals Exercise Program Goals: Aerobic Activity >30 min, B/P <130/80 Nutrition - 30-Day Assessment - Program Goals Nutrition Program Goals: LDL <70. Total Cholesterol <200. HDL >45. Triglycerides <150. HgbA1C <7%. BMI <25 - Visit Date of Eval: 09/18/18 - Stages of Change Stages of Change:: Action - Weight Management Weight:: 125.191 kg - Intervention Referral to dietitian:: Yes Referral to Diabetic Clinic:: No Will attend diet classes:: Yes - Education Attended class for:: Signs & symptoms of hypoglycemia, Signs & symptoms of hyperglycemia, Relate diabetes to coronary artery disease, Healthy eating Tobacco - Initial Assessment - Program Goals Tobacco Program Goals: Complete smoking cessation. Attend education classes. Improve Knowledge Test score - Learning Barriers Learning Barriers: Ready to Learn Tobacco - 30-Day Assessment - Program Goals Tobacco Program Goals: Complete smoking cessation. Attend education classes. Improve Knowledge Test score - Stage of Change Stages of Change:: Action - Learning Barriers Learning Barriers: Participates in education - Family Support Do you have family support?: Yes - Tobacco Use Tobacco Use: Non-smoker Do you use smokeless tobacco?: No - Intervention Smoking Cessation Referral:: No Individual Education/Counseling:: No Education Schedule Given:: Yes - Education Attended class for:: Tobacco triggers, Coronary artery disease, Risk factors, Sexuality, Medical compliance, Cardiac A&P, Angina signs & symptoms Psychosocial - Initial Assess - Target Goals Target Goals: Assess presence or absence of depression. Using a valid screening tool, maximizes coping skills. Positive support system - Psychosocial Test Tool Used:: HANDS Depression Questionnaire - Assistive Devices Fall Risk Assessed:: Yes Psychosocial - 30-Day Assess - Target Goals Target Goals: Assess presence or absence of depression. Using a valid screening tool, maximizes coping skills. Positive support system - Stages of Change Stages of Change:: Action - Psychosocial Test Tool Used:: HANDS Depression Questionnaire - Intervention PS - Interventions: Yes Attend Stress Management Classes, Yes Uses Stress Management Skills, No Referral to Mental Health, No Referral to [facility] Case Management, No Referral to Physician - Education Attended classes for:: Coping techniques, Signs & symptoms of depression, Stress management, Relaxation techniques - Assistive Devices Assistive Devices:: None Fall Risk Assessed:: Yes Patient Health Questionnaire 30-Day Re-eval Assessment 1. Little interest or pleasure in doing things: Several days 2. Feeling down, depressed, or hopeless: Not at all 3. Trouble falling or staying asleep, or sleeping too much: Not at all 4. Feeling tired or having little energy: Several days 5. Poor appetite or overeating: Not at all 6. Feeling bad about yourself -- or that you are a failure or have let yourself or your family down: Not at all 7. Trouble concentrating on things, such as reading the newspaper or watching television: Not at all 8. Moving or speaking so slowly that other people could have noticed. Or the opposite - being so fidgety or restless that you have been moving around a lot more than usual: Not at all 9. Thoughts that you would be better off , or of hurting yourself in some way: Not at all How difficult have these problems made it for you to do your work, take care of things at home, or get along with other people?: Not difficult at all Total Score: 2 Self-Efficacy 30-Day Re-eval Assessment We would like to know how confident you are in doing certain activities. Please select your confidence level for:: Select your confidence level for the following using the scale 1-10 where 1 is not at all confident and 10 is totally confident. Your score is the average of all 6 responses. Fatigue: How confident are you that you can keep the fatigue caused by your disease from interfering with the things you want to do? Select Number: 10 Physical Discomfort or Pain: How confident are you that you can keep the physical discomfort or pain of your disease from interfering with the things you want to do? Select Number: 6 Emotional Distress: How confident are you that you can keep the emotional distress caused by your disease from interfering with the things you want to do? Select Number: 10 Other Symptoms or Health Problems: How confident are you that you can keep other symptoms or health problems from interfering with the things you want to do? Select Number: 10 Different Tasks and Activities: How confident are you that you can do the different tasks and activities needed to manage your health condition so as to reduce your need to see a doctor? Select Number: 6 Medication: How confident are you that you can do things other than just taking medication to reduce how much your illness affects your everyday life? Select Number: 10 Total Score:: 8
[2018-09-18 07:25] VITALS: BP 108/62; BP 154/72
== END 2018-10-01 23:59 ==
LOC: CR 15:15
PROVIDERS: Family Provider Family Medicine; PCP Family Medicine; Referring Provider Internal Medicine Cardiovascular Disease; Visit Provider Internal Medicine Cardiovascular Disease
DX: I25.10 Atherosclerotic heart disease of native coronary artery without angina pectoris (principal); I21.4 Non-ST elevation (NSTEMI) myocardial infarction; Z95.820 Peripheral vascular angioplasty status with implants and grafts
CPT/HCPCS: 93798

== ENCOUNTER 2018-10-10 17:31 | Inpatient (IN) | payer MEDICARE, OTHER, SELFPAY ==
[2018-08-20 09:31] VITALS: BMI 47.5
[2018-10-10] VITALS (8 sets, daily range): BP systolic 128–156; BP diastolic 58–85; PULSE 87–97; RESP 14–26; TEMP 36.6–38.6; O2SAT 89–98; BMI 46.3; BMI 45.2
--- NOTE | 2018-10-10 18:16 | EKG12_ITS ---
Test Reason : Blood Pressure : / mmHG Vent. Rate : 093 BPM Atrial Rate : 093 BPM P-R Int : 148 ms QRS Dur : 094 ms QT Int : 372 ms P-R-T Axes : 010 -25 -02 degrees QTc Int : 462 ms Normal sinus rhythm Low voltage QRS Cannot rule out Anterior infarct (cited on or before 15-JUN-2018), age undetermined Abnormal ECG Confirmed by MICHELLE RICARDO ([id number]), purchase request editor GORAN ACEVES ([id number]) on 10/14/2018 2:06:30 PM Referred By: Jalen Shah Confirmed By:MICHELLE RICARDO
--- NOTE | 2018-10-10 18:17 | RAD_ITS ---
STUDY: X-RAY CHEST REASON FOR EXAM: Female, 73 years old. Shortness of breath. History of VA and hypertension. TECHNIQUE: Single AP portable view of the chest. COMPARISON: June 13, 2018. FINDINGS: Telemetry wires overlie the chest. There is persistent hypoexpansion of lungs with mild elevation right hemidiaphragm. There is no acute infiltrate or mass. There is no demonstrated pleural abnormality. Normal size heart. Normal mediastinum.. There is mild stable prominence of the juan luis. Normal visualized aortic arch and descending thoracic aorta. There is levoscoliosis of the thoracic spine. There is degenerative osteoarthritis of the bilateral shoulders. There is no demonstrated abnormality of the visualized soft tissue structures of the upper abdomen. RAD/Chest 1 View (Portable) IMPRESSION: No acute cardiopulmonary disease or interval change. Electronically Signed: Con Fletcher DO at 18:35 EDT Tel [phone], Service support ,
[2018-10-10] MEDS: 0.9% Normal Saline 1,000 ML 150 ML IV (18:25)
[2018-10-10] MEDS: Acetaminophen 325 MG Tablet 650 MG PO (18:26)
[2018-10-10] MEDS: Ipratropium/Albuterol Sulfate 3 ML AMPUL.NEB INHALATION (18:26)
[2018-10-10 18:29] LABS: Absolute Lymphocyte Count 1.45 X10^3/ul (0.83-4.51); Absolute Neutrophil Count 20.5 X10^3/uL (2.0-7.7); Basophil# 0.03 X10^3/uL; Basophil% 0.1 % (0-1); Hematocrit 38.7 % (37-47); Hemoglobin 12.6 g/dl (12.0-15.0); Lymphocyte # 1.45 X10^3/ul (4.0); Lymphocyte % 6.1 % (19-41); Mean Corp Hgb Conc 32.6 g/gl (32-36); Mean Corpuscular Hgb 28.4 pg (27.0-32.0); Mean Corpuscular Volume 87.2 fL (81-99); Mean Platelet Vol. 10.5 fl (6.2-12.0); Monocyte# 1.66 X10^3/uL; Neutrophil # 20.48 X10^3/uL (2.7-7.7); Neutrophil % 86.4 % (47-70); Platelet Count 240 K/mm3 (150-450); RBC Distribution Width CV 14.1 % (11.6-14.6); RBC Distribution Width SD 44.7 fl (35.1-43.9); Red Blood Count 4.44 M/mm3 (4.2-5.4); White Blood Count 23.7 K/mm3 (4.4-11.0)
[2018-10-10 18:34] LABS: Differential Indicated SCAN CRITERIA MET; POSITIVE COUNT NO; POSITIVE DIFFERENTIAL YES; POSITIVE MORPHOLOGY NO
[2018-10-10] MEDS: Ceftriaxone 1 GM/50 ML BAG IV (18:40)
[2018-10-10 18:41] LABS: Anion Gap 8 (5-15); BUN 16 mg/dL (7-18); BUN/Creat Ratio 12.4 RATIO (10-20); Calcium,Total 9.2 mg/dL (8.5-10.1); Chloride 101 mmol/L (98-107); Creatinine, Serum 1.29 mg/dL (0.55-1.02); EST Glomerular Filtration Rate 43 mL/min (>60); Est Glom Filt Rate - Afr Amer 52 mL/min (>60); Estimated Creatinine Clearance 34.04 ml/min; Glucose 135 mg/dL (74-106); Lactic Acid 1.2 mmol/L (0.4-2.0); Potassium 3.4 mmol/L (3.5-5.1); Sodium Level 137 mmol/L (136-145)
[2018-10-10 18:51] LABS: Differential Comment SEE COMMENTS; Platelet Estimate ADEQUATE (ADEQ)
[2018-10-10 18:52] LABS: Anisocytosis RARE
--- NOTE | 2018-10-10 19:01 | ED.VISSUMM ---
- ER Visit Summary Date of Service: 10/10/18 Chief Complaint: [Shortness of breath] History of Present Illness: The patient is a 73 F [presents to the emergency department complaint of shortness of breath*week ago. Patient complains of a cough and at times some sputum. Patient did cough up some red-tinged sputum one time today. Patient went to urgent care and was referred to the ER for evaluation for concern of pneumonia. Patient said subjective fever and chills at home. She feels short of breath with activity. Patient does have a history of coronary artery disease, asthma, hypertension, high cholesterol, and hypothyroidism.] Physical Examination: [HEENT-PERRLA, EOMI. Cranial nerves II through XII grossly intact. TMs clear. Mucous membranes moist. No adenopathy. Cardiovascular-regular rate and rhythm without murmur or ectopy Lungs-patient is tachypneic. Patient has some decreased breath sounds in the bases with some rales noted. Patient has pain expiratory wheezes. No accessory muscle use or retractions noted. Abdomen-normoactive bowel sounds, soft, nontender, no rebound or rigidity, no peritoneal signs. Extremities-intact ?4, normal range of motion, normal pulses, atraumatic] Test Results: [EKG obtained arrival shows sinus rhythm with a ventricular rate of 93 bpm. CBC with additional white count 23.7, hemoglobin 12.6, hematocrit 39, placed 240. Chemistries unremarkable. BUN was 16 and creatinine 1.29. Troponin was less than 0.015. Chest x-ray showed nothing acute.] Emergency Department Course and Treatment: [Patient was started on Rocephin and Zithromax. Patient was placed on 2 L nasal cannula O2 given that her pulse ox was 89% on room air. Patient was given a DuoNeb aerosol. Blood cultures ordered.] Treatment Plan: [Admit] Disposition: [Admit for IV antibiotics and fluids. Admit for oxygen.] Impression: [Clinical pneumonia Hypoxemia Dyspnea Sepsis] This note was generated with [employer] dictation software. It may contain incorrect words, spelling, and punctuation that were not noted in review of the chart prior to signing ED Disposition - Plan for ED Patient: Referrals: Dangelo Beckford MD [Primary Care Provider] -
--- NOTE | 2018-10-10 19:07 | PCM.HP.STD ---
Problem List (1) Sepsis Status: Acute Qualifiers: Sepsis type: sepsis due to unspecified organism Qualified Code(s): A41.9 - Sepsis, unspecified organism (2) Pneumonia Status: Acute Qualifiers: Pneumonia type: due to unspecified organism Laterality: unspecified laterality Lung location: unspecified part of lung Qualified Code(s): J18.9 - Pneumonia, unspecified organism (3) Restless leg syndrome Status: Chronic (4) Non-STEMI (non-ST elevated myocardial infarction) Status: Chronic (5) S/P angioplasty with stent Status: Chronic Comment: PTCA/CRUZ of the mid LAD 06/13/18 (6) CAD (coronary artery disease) Status: Chronic Qualifiers: Coronary Disease-Associated Artery/Lesion type: [place] artery [place] vs. transplanted heart: unspecified whether [place] or transplanted heart Associated angina: angina presence unspecified Qualified Code(s): I25.10 - Atherosclerotic heart disease of [place] coronary artery without angina pectoris (7) Asthma Status: Chronic Qualifiers: Asthma severity: unspecified severity Asthma persistence: unspecified Asthma complication type: unspecified Qualified Code(s): J45.909 - Unspecified asthma, uncomplicated (8) Hypertension Status: Chronic Qualifiers: Hypertension type: essential hypertension Qualified Code(s): I10 - Essential (primary) hypertension (9) Hypothyroidism Status: Chronic Qualifiers: Hypothyroidism type: postoperative Qualified Code(s): E89.0 - Postprocedural hypothyroidism (10) Hyperlipidemia Status: Chronic Qualifiers: Hyperlipidemia type: pure hypercholesterolemia Qualified Code(s): E78.00 - Pure hypercholesterolemia, unspecified; E78.0 - Pure hypercholesterolemia History of Present Illness Date of Admission: 10/10/18 Chief Complaint: Dyspnea The patient is a 73 y/o F w/ PMHx: CAD s/p PCI mid LAD, Chronic back pain, HTN, HLD, CKD stage III, Anxiety and Depression, Hypothyroidism, Morbid Obesity, Asthma who presents to the [facility] ED on 10/10/18 with history of approximately ~ 1 week of ongoing cough, not markedly productive but occasional very scant blood-tinged sputum secondary severity of coughing, ongoing dyspnea with subjective fevers and chills prompting urgent care evaluation on day of ED presentation with referral to ED secondary to suspected pneumonia. Work-up in the ED included T101.4, heart rate 97, BP 156/70, respiratory rate 26, 89% on room air with improvement to 98% on 2 L nasal cannula, CBC with WBC 23.7, hemoglobin 12.6, platelet 240 with left shift, BMP with potassium 3.4, BUN/creatinine 16/1.29 (baseline creatinine 0.9-1.1), glucose 135, lactic acid 1.2, troponin less than 0.015, but culture x2 obtained per ED and pending, chest x-ray with no acute cardiopulmonary findings although noted persistent hyperexpansion of the lungs and mild elevation right hemidiaphragm. In the ED patient ministered Rocephin, azithromycin, DuoNeb, Tylenol, normal saline. Past Medical History Past Medical History (Chronic Problems): Chronic Problems (Last Updated 06/14/18 @ 08:17 by Arely Davis) Restless leg syndrome (Chronic) Non-STEMI (non-ST elevated myocardial infarction) (Chronic) S/P angioplasty with stent (Chronic ~06/13/18) PTCA/CRUZ of the mid LAD 06/13/18 Atherosclerotic heart disease of [place] coronary artery without angina pectoris (Chronic) Successful PTCA/CRUZ of mid LAD with a 2.5 x 16 Promus Synergy, post dilated throughout with a 2.75 x 8 NC Balloon; 75%-->0%, no dissection. CAD (coronary artery disease) (Chronic) Asthma (Chronic) Hypertension (Chronic) Osteoarthritis of right knee (Chronic) Hypothyroidism (Chronic) Hyperlipidemia (Chronic) Status post total right knee replacement (Chronic) Medical History: Medical History (Last Updated 08/20/18 @ 09:30 by Petr Bullard, SKIDDER LEVER OPERATOR, SHANK SKINNER, BS) Atherosclerotic heart disease of [place] coronary artery without angina pectoris (Chronic) I25.10 Successful PTCA/CRUZ of mid LAD with a 2.5 x 16 Promus Synergy, post dilated throughout with a 2.75 x 8 NC Balloon; 75%-->0%, no dissection. CAD (coronary artery disease) (Chronic) I25.10 Asthma (Chronic) J45.909 Hypertension (Chronic) I10 Osteoarthritis of right knee (Chronic) M17.9 Hypothyroidism (Chronic) E03.9 Hyperlipidemia (Chronic) E78.5 Former smoker, stopped smoking many years ago Z87.891 Chronic lower back pain M54.5, G89.29 Allergies codeine Allergy (Verified 10/10/18 17:38) Shortness of breath ITCHING egg Allergy (Verified 10/10/18 17:38) Nausea meperidine HCl [From Demerol] Allergy (Verified 10/10/18 17:38) Itching midazolam HCl [From Versed] Allergy (Verified 10/10/18 17:38) Itching Sulfa (Sulfonamide Antibiotics) Allergy (Verified 10/10/18 17:38) Unknown A CHILD Home Medications: Ambulatory Orders Medication Instructions Recorded Ascorbic Acid [Vitamin C] 500 mg PO DAILY@0800 06/23/15 Cyanocobalamin (Vitamin B-12) 500 mcg SL DAILY 06/23/15 [Vitamin B-12] Cyclobenzaprine HCl 5 mg PO TID PRN PRN 06/23/15 Gabapentin [Neurontin] 1,500 tab PO QHS 06/23/15 Levothyroxine [Synthroid] 50 mcg PO MOWEFRSA 06/23/15 Levothyroxine [Synthroid] 100 mcg PO SUTUTH 06/23/15 Meclizine HCl [Antivert] 12.5 mg PO DAILY PRN PRN 06/23/15 Montelukast Sodium [Singulair] 10 mg PO DAILY 06/23/15 Multivit-Min/Iron/Folic/Lutein 1 tab PO DAILY 06/23/15 [Centrum Silver Women Tablet] Sertraline HCl [Zoloft] 50 mg PO DAILY 06/23/15 Mometasone/Formoterol [Dulera 100 2 puff INHALATION BID 06/11/18 Mcg/5 Mcg Inhaler] Nortriptyline HCl 10 mg PO QHS 06/11/18 [place]-3 Fatty Acids/Fish Oil [Fish 1 ea PO DAILY 06/11/18 Oil 1,000 mg Capsule] Vitamin E Acetate [Vitamin E] 400 unit PO DAILY 06/11/18 Aspirin E.C. [Ecotrin] 81 mg PO DAILYCM 10/10/18 Calcium Citrate/Vitamin D3 1 tab PO DAILY 10/10/18 [Citracal + D Maximum Caplet] Clopidogrel Bisulfate [Clopidogrel] 75 mg PO DAILY 10/10/18 Etodolac 400 mg PO DAILY 10/10/18 Furosemide [Lasix] 40 mg PO BID 10/10/18 Isosorbide Mononitrate [Imdur] 30 mg PO DAILY 10/10/18 Losartan Potassium [Cozaar] 50 mg PO DAILY 10/10/18 Metoprolol Tartrate [Lopressor 50 mg PO BID 10/10/18 (beta zach)] Potassium Chloride [K-Dur] 20 meq PO BID 10/10/18 Pravastatin Sodium 80 mg PO QHS 10/10/18 hydrALAZINE [Apresoline] 25 mg PO TID 10/10/18 Surgical History: Surgical History (Last Updated 06/14/18 @ 08:17 by Arely Davis) S/P angioplasty with stent (Chronic) Onset Date: ~06/13/18 Z95.820 PTCA/CRUZ of the mid LAD 06/13/18 Status post total right knee replacement (Chronic) Z96.651 Surgical History: hysterectomy - 1990, total hip arthroplasty - Right 2007, Dr. Polk., total knee arthroplasty - Right 06/29/2015 Dr. Polk., - - Thyroidectomy, right total hip replacement, right total knee replacement, PCI x1, tonsillectomy, hysterectomy. Psychiatric History: Anxiety, Depression FISCAL TECHNICIAN History: No pertinent FISCAL TECHNICIAN history Lives: With Family - Patient notes that her son lives with her. Smoking Status: Former smoker - Quit cigarette tobacco usage 30 years prior with prior to this 1 pack/day. Tobacco Use: Non-smoker Alcohol: None Drugs: None - *Family History Maternal History Items: Cancer - Patient with maternal family history of breast cancer as well as dementia., Dementia Paternal History Items: Stroke Review of Systems Constitutional: Reports: Anorexia, Chills, Fever, Malaise, Weakness, Fatigue. Denies: Weight Change HEENT: Reports: Sore Throat. Denies: Head Aches, Sinus Congestion, Sinus Drainage Cardiovascular: Denies: Chest Pain, Palpitations Respiratory: Reports: Cough, Shortness of Breath, Shortness of breath at rest, Shortness of breath upon exertion, Sputum production. Denies: Wheezing Gastrointestinal: Denies: Abdominal Pain, Nausea, Vomiting Genitourinary: Denies: Dysuria Musculoskeletal: Reports: Back Pain, Joint Pain. Denies: Joint Tenderness Skin: Denies: Rash, Wounds Neurological: Denies: Numbness, Tingling, Focal weakness Psychiatric: Reports: Anxiety, Depression. Denies: Homicidal Ideations, Suicidal Ideations Hematologic/ Lymphatic: Reports: Easy Bruising, Easy Bleeding VTE Information - Inpt Only VTE Present on Admission: No VTE Mechan Device Prophylaxis: SCD's VTE Pharm Prophylaxis ordered?: Yes Patient Problems: Active and Suspected Problems (Last Updated 08/20/18 @ 09:30 by Petr Bullard, SKIDDER LEVER OPERATOR, SHANK SKINNER, BS) Sepsis (Acute) Pneumonia (Acute) Subjective: Seated upright in the ED bed, fatigued appearance, no acute distress. Objective: Physical Examination: General: awake, alert, oriented x 3 and cooperative, seated upright in the ED bed in no apparent distress, fatigued appearance. Skin: normal color, turgor, no icterus, cyanosis. HEENT: AT/NC, EOMI, PERRLA, dry MM, no carotid bruits or JVD noted. Lungs: Diminished breath sounds bilateral bases, right mid to base greater, moderate effort, no rales, ronchi or wheezing, some coughing elicited with increased respiratory effort. Heart: Regular rate and rhythm; no gallop, rub audible. Abdomen: soft, morbidly obese, NTTP, ND, normal BS, no HSM; however, habitus makes examination difficult. Extremities: no cyanosis, clubbing, bilateral lower extremity pedal to distal gutierrez nonpitting edema, chronic. Neurological: patient awake, alert, oriented x 3; cognitive function intact; pupils equally reactive to light and accomodation; cranial nerves II-XII grossly normal, moving all 4 extremities, no focal deficits, strength moderately to severely global degree secondary to acute presentation. Psychiatric: affect appears fatigued, no acute evidence of depressive or anxiety feelings. - Physical Exam Vital Signs Temp Pulse Resp BP Pulse Ox 101.4 F H 95 24 H 143/58 H 98 10/10/18 17:50 10/10/18 17:50 10/10/18 17:50 10/10/18 17:50 10/10/18 17:50 Oxygen Flow Rate (L/min) 2 Oxygen Delivery Method Nasal Cannula Weight: 269 lb 13.533 oz Body Mass Index (BMI) 46.3 Laboratory Tests Past 24 Hrs 10/10/18 10/10/18 10/10/18 18:07 18:07 18:07 WBC 23.7 H RBC 4.44 Hgb 12.6 Hct 38.7 MCV 87.2 MCH 28.4 MCHC 32.6 RDW 14.1 RDW Differential 44.7 H Plt Count 240 MPV 10.5 Immature Gran % (Auto) 0.400 Neut % (Auto) 86.4 H Lymph % (Auto) 6.1 L [place] % (Auto) 7.0 Eos % (Auto) 0.0 Baso % (Auto) 0.1 Absolute Neuts (auto) 20.5 H Absolute Lymphs (auto) 1.45 Total Counted Not Reportable Differential Comment SEE COMMENTS Diff Path Review May foll Platelet Estimate ADEQUATE Anisocytosis RARE Sodium 137 Potassium 3.4 L Chloride 101 Carbon Dioxide 28.0 Anion Gap 8 BUN 16 Creatinine 1.29 H Estim Creat Clear Calc 34.04 Est GFR (MDRD) Af Amer 52 L Est GFR (MDRD) Non-Af 43 L BUN/Creatinine Ratio 12.4 Glucose 135 H Lactic Acid 1.2 Calcium 9.2 Troponin I < 0.015 Assessment/Plan All Active Problems (Last Updated 08/20/18 @ 09:30 by Petr Bullard, SKIDDER LEVER OPERATOR, SHANK SKINNER, BS) Severe sepsis (Acute) Myocardial infarct (Acute) Renal insufficiency (Acute) Fever (Acute) Sepsis (Acute) Pneumonia (Acute) The patient is a 73 y/o F w/ PMHx: CAD s/p PCI mid LAD, Chronic back pain, HTN, HLD, CKD stage III, Anxiety and Depression, Hypothyroidism, Morbid Obesity, Asthma who presents to the [facility] ED on 10/10/18 with history of approximately 1 week of ongoing cough, not markedly productive but occasional very scant blood-tinged sputum secondary severity of coughing, ongoing dyspnea with subjective fevers and chills prompting urgent care evaluation on day of ED presentation with referral to ED secondary to suspected pneumonia. (1) Acute sepsis secondary to Community Acquired Pneumonia w/ Hypoxia: Work-up in the ED included T101.4, heart rate 97, BP 156/70, respiratory rate 26, 89% on room air with improvement to 98% on 2 L nasal cannula, CBC with WBC 23.7, hemoglobin 12.6, platelet 240 with left shift, BMP with potassium 3.4, BUN/creatinine 16/1.29 (baseline creatinine 0.9-1.1), glucose 135, lactic acid 1.2, troponin less than 0.015, but culture x2 obtained per ED and pending, chest x-ray with no acute cardiopulmonary findings although noted persistent hyperexpansion of the lungs and mild elevation right hemidiaphragm. Will admit to [facility], maintain on oxygen with wean as tolerated to room air, continue ATC duonebs, PRN albuterol, maintained on IV Rocephin and Azithromycin, repeat CXR PA and lateral in AM following hydration overnight, HOB, IS parameters w/ pending sputum cultures, respiratory viral panel and urine antigens. Bld cx x 2 obtained in the ED. Will obtain AM oxygenation trial for discharge planning daily. (2) Hypokalemia: Admission K+ 3.4, supplementation given, repeat level in AM. (3) Hyperglycemia: Admission glucose 135, likely stress response, repeat BMP in a.m. and address if further elevated. (4) Chronic Asthma: Will maintain on oxygen with wean as tolerated to room air, continue ATC duonebs, PRN albuterol, HOB, IS parameters. (5) CAD: s/p PCI, continue home regimen asa, plavix, statin, BB, ARB. (6) Hypertension: Continue home regimen including Lasix, hydralazine, isosorbide, losartan, metoprolol with hold parameters, PRN hydralazine. (7) Hyperlipidemia: Continue home statin regimen. (8) Hypothyroidism: Continue home synthroid regimen. (9) CKD stage III: Admission BUN/Cr 16/1.29, baseline creatinine 0.9-1.1, repeat BMP in AM. (10) Morbid Obesity: Weight loss and lifestyle changes encouraged, nutrition consulted. (11) Anxiety and Depression: Continue home Zoloft regimen. (12) DVT prophylaxis: SCDs, renally dose Lovenox. Code Visit Inpatient E&M: 79927 Init Hosp L3
--- NOTE | 2018-10-10 19:13 | HP.PCM_ITS ---
Problem List (1) Sepsis Status: Acute Qualifiers: Sepsis type: sepsis due to unspecified organism Qualified Code(s): A41.9 - Sepsis, unspecified organism (2) Pneumonia Status: Acute Qualifiers: Pneumonia type: due to unspecified organism Laterality: unspecified laterality Lung location: unspecified part of lung Qualified Code(s): J18.9 - Pneumonia, unspecified organism (3) Restless leg syndrome Status: Chronic (4) Non-STEMI (non-ST elevated myocardial infarction) Status: Chronic (5) S/P angioplasty with stent Status: Chronic Comment: PTCA/CRUZ of the mid LAD 06/13/18 (6) CAD (coronary artery disease) Status: Chronic Qualifiers: Coronary Disease-Associated Artery/Lesion type: [place] artery [place] vs. transplanted heart: unspecified whether [place] or transplanted heart Associated angina: angina presence unspecified Qualified Code(s): I25.10 - Atherosclerotic heart disease of [place] coronary artery without angina pectoris (7) Asthma Status: Chronic Qualifiers: Asthma severity: unspecified severity Asthma persistence: unspecified Asthma complication type: unspecified Qualified Code(s): J45.909 - Unspecified asthma, uncomplicated (8) Hypertension Status: Chronic Qualifiers: Hypertension type: essential hypertension Qualified Code(s): I10 - Essential (primary) hypertension (9) Hypothyroidism Status: Chronic Qualifiers: Hypothyroidism type: postoperative Qualified Code(s): E89.0 - Postprocedural hypothyroidism (10) Hyperlipidemia Status: Chronic Qualifiers: Hyperlipidemia type: pure hypercholesterolemia Qualified Code(s): E78.00 - Pure hypercholesterolemia, unspecified; E78.0 - Pure hypercholesterolemia History of Present Illness Date of Admission: 10/10/18 Chief Complaint: Dyspnea The patient is a 73 y/o F w/ PMHx: CAD s/p PCI mid LAD, Chronic back pain, HTN, HLD, CKD stage III, Anxiety and Depression, Hypothyroidism, Morbid Obesity, Asthma who presents to the [facility] ED on 10/10/18 with history of approximately ~ 1 week of ongoing cough, not markedly productive but occasional very scant blood- tinged sputum secondary severity of coughing, ongoing dyspnea with subjective fevers and chills prompting urgent care evaluation on day of ED presentation with referral to ED secondary to suspected pneumonia. Work-up in the ED included T101.4, heart rate 97, BP 156/70, respiratory rate 26, 89% on room air with improvement to 98% on 2 L nasal cannula, CBC with WBC 23.7, hemoglobin 12.6, platelet 240 with left shift, BMP with potassium 3.4, BUN/creatinine 16/1.29 (ba seline creatinine 0.9-1.1), glucose 135, lactic acid 1.2, troponin less than 0.015, but culture x2 obtained per ED and pending, chest x-ray with no acute cardiopulmonary findings although noted persistent hyperexpansion of the lungs and mild elevation right hemidiaphragm. In the ED patient ministered Rocephin, azithromycin, DuoNeb, Tylenol, normal saline. Past Medical History Past Medical History (Chronic Problems): Chronic Problems (Last Updated 06/14/18 @ 08:17 by Arely Davis) Restless leg syndrome (Chronic) Non-STEMI (non-ST elevated myocardial infarction) (Chronic) S/P angioplasty with stent (Chronic ~06/13/18) PTCA/CRUZ of the mid LAD 06/13/18 Atherosclerotic heart disease of [place] coronary artery without angina pectoris (Chronic) Successful PTCA/CRUZ of mid LAD with a 2.5 x 16 Promus Synergy, post dilated throughout with a 2.75 x 8 NC Balloon; 75%-->0%, no dissection. CAD (coronary artery disease) (Chronic) Asthma (Chronic) Hypertension (Chronic) Osteoarthritis of right knee (Chronic) Hypothyroidism (Chronic) Hyperlipidemia (Chronic) Status post total right knee replacement (Chronic) Medical History: Medical History (Last Updated 08/20/18 @ 09:30 by Petr Bullard, RENTAL COORDINATOR, SAMPLE TESTER GRINDER, BS) Atherosclerotic heart disease of [place] coronary artery without angina pectoris (Chronic) I25.10 Successful PTCA/CRUZ of mid LAD with a 2.5 x 16 Promus Synergy, post dilated throughout with a 2.75 x 8 NC Balloon; 75%-->0%, no dissection. CAD (coronary artery disease) (Chronic) I25.10 Asthma (Chronic) J45.909 Hypertension (Chronic) I10 Osteoarthritis of right knee (Chronic) M17.9 Hypothyroidism (Chronic) E03.9 Hyperlipidemia (Chronic) E78.5 Former smoker, stopped smoking many years ago Z87.891 Chronic lower back pain M54.5, G89.29 Allergies codeine Allergy (Verified 10/10/18 17:38) Shortness of breath ITCHING egg Allergy (Verified 10/10/18 17:38) Nausea meperidine HCl [From Demerol] Allergy (Verified 10/10/18 17:38) Itching midazolam HCl [From Versed] Allergy (Verified 10/10/18 17:38) Itching Sulfa (Sulfonamide Antibiotics) Allergy (Verified 10/10/18 17:38) Unknown A CHILD Home Medications: Ambulatory Orders Medication Instructions Recorded Ascorbic Acid [Vitamin C] 500 mg PO DAILY@0800 06/23/15 Cyanocobalamin (Vitamin B-12) 500 mcg SL DAILY 06/23/15 [Vitamin B-12] Cyclobenzaprine HCl 5 mg PO TID PRN PRN 06/23/15 Gabapentin [Neurontin] 1,500 tab PO QHS 06/23/15 Levothyroxine [Synthroid] 50 mcg PO MOWEFRSA 06/23/15 Levothyroxine [Synthroid] 100 mcg PO SUTUTH 06/23/15 Meclizine HCl [Antivert] 12.5 mg PO DAILY PRN PRN 06/23/15 Montelukast Sodium [Singulair] 10 mg PO DAILY 06/23/15 Multivit-Min/Iron/Folic/Lutein 1 tab PO DAILY 06/23/15 [Centrum Silver Women Tablet] Sertraline HCl [Zoloft] 50 mg PO DAILY 06/23/15 Mometasone/Formoterol [Dulera 100 2 puff INHALATION BID 06/11/18 Mcg/5 Mcg Inhaler] Nortriptyline HCl 10 mg PO QHS 06/11/18 [place]-3 Fatty Acids/Fish Oil [Fish 1 ea PO DAILY 06/11/18 Oil 1,000 mg Capsule] Vitamin E Acetate [Vitamin E] 400 unit PO DAILY 06/11/18 Aspirin E.C. [Ecotrin] 81 mg PO DAILYCM 10/10/18 Calcium Citrate/Vitamin D3 1 tab PO DAILY 10/10/18 [Citracal + D Maximum Caplet] Clopidogrel Bisulfate [Clopidogrel] 75 mg PO DAILY 10/10/18 Etodolac 400 mg PO DAILY 10/10/18 Furosemide [Lasix] 40 mg PO BID 10/10/18 Isosorbide Mononitrate [Imdur] 30 mg PO DAILY 10/10/18 Losartan Potassium [Cozaar] 50 mg PO DAILY 10/10/18 Metoprolol Tartrate [Lopressor 50 mg PO BID 10/10/18 (beta zach)] Potassium Chloride [K-Dur] 20 meq PO BID 10/10/18 Pravastatin Sodium 80 mg PO QHS 10/10/18 hydrALAZINE [Apresoline] 25 mg PO TID 10/10/18 Surgical History: Surgical History (Last Updated 06/14/18 @ 08:17 by Arely Davis) S/P angioplasty with stent (Chronic) Onset Date: ~06/13/18 Z95.820 PTCA/CRUZ of the mid LAD 06/13/18 Status post total right knee replacement (Chronic) Z96.651 Surgical History: hysterectomy - 1990, total hip arthroplasty - Right 2007, Dr. Polk., total knee arthroplasty - Right 06/29/2015 Dr. Polk., - - Thyroidectomy, right total hip replacement, right total knee replacement, PCI x1, tonsillectomy, hysterectomy. Psychiatric History: Anxiety, Depression METAL MINER BLASTING History: No pertinent METAL MINER BLASTING history Lives: With Family - Patient notes that her son lives with her. Smoking Status: Former smoker - Quit cigarette tobacco usage 30 years prior with prior to this 1 pack/day. Tobacco Use: Non-smoker Alcohol: None Drugs: None - *Family History Maternal History Items: Cancer - Patient with maternal family history of breast cancer as well as dementia., Dementia Paternal History Items: Stroke Review of Systems Constitutional: Reports: Anorexia, Chills, Fever, Malaise, Weakness, Fatigue. Denies: Weight Change HEENT: Reports: Sore Throat. Denies: Head Aches, Sinus Congestion, Sinus Drainage Cardiovascular: Denies: Chest Pain, Palpitations Respiratory: Reports: Cough, Shortness of Breath, Shortness of breath at rest, Shortness of breath upon exertion, Sputum production. Denies: Wheezing Gastrointestinal: Denies: Abdominal Pain, Nausea, Vomiting Genitourinary: Denies: Dysuria Musculoskeletal: Reports: Back Pain, Joint Pain. Denies: Joint Tenderness Skin: Denies: Rash, Wounds Neurological: Denies: Numbness, Tingling, Focal weakness Psychiatric: Reports: Anxiety, Depression. Denies: Homicidal Ideations, Suicidal Ideations Hematologic/ Lymphatic: Reports: Easy Bruising, Easy Bleeding VTE Information - Inpt Only VTE Present on Admission: No VTE Mechan Device Prophylaxis: SCD's VTE Pharm Prophylaxis ordered?: Yes Patient Problems: Active and Suspected Problems (Last Updated 08/20/18 @ 09:30 by Petr Bullard, RENTAL COORDINATOR, SAMPLE TESTER GRINDER, BS) Sepsis (Acute) Pneumonia (Acute) Subjective: Seated upright in the ED bed, fatigued appearance, no acute distress. Objective: Physical Examination: General: awake, alert, oriented x 3 and cooperative, seated upright in the ED bed in no apparent distress, fatigued appearance. Skin: normal color, turgor, no icterus, cyanosis. HEENT: AT/NC, EOMI, PERRLA, dry MM, no carotid bruits or JVD noted. Lungs: Diminished breath sounds bilateral bases, right mid to base greater, moderate effort, no rales, ronchi or wheezing, some coughing elicited with increased respiratory effort. Heart: Regular rate and rhythm; no gallop, rub audible. Abdomen: soft, morbidly obese, NTTP, ND, normal BS, no HSM; however, habitus makes examination difficult. Extremities: no cyanosis, clubbing, bilateral lower extremity pedal to distal gutierrez nonpitting edema, chronic. Neurological: patient awake, alert, oriented x 3; cognitive function intact; pupils equally reactive to light and accomodation; cranial nerves II-XII grossly normal, moving all 4 extremities, no focal deficits, strength moderately to severely global degree secondary to acute presentation. Psychiatric: affect appears fatigued, no acute evidence of depressive or anxiety feelings. - Physical Exam Vital Signs Temp Pulse Resp BP Pulse Ox 101.4 F H 95 24 H 143/58 H 98 10/10/18 17:50 10/10/18 17:50 10/10/18 17:50 10/10/18 17:50 10/10/18 17:50 Oxygen Flow Rate (L/min) 2 Oxygen Delivery Method Nasal Cannula Weight: 269 lb 13.533 oz Body Mass Index (BMI) 46.3 Laboratory Tests Past 24 Hrs 10/10/18 10/10/18 10/10/18 18:07 18:07 18:07 WBC 23.7 H RBC 4.44 Hgb 12.6 Hct 38.7 MCV 87.2 MCH 28.4 MCHC 32.6 RDW 14.1 RDW Differential 44.7 H Plt Count 240 MPV 10.5 Immature Gran % (Auto) 0.400 Neut % (Auto) 86.4 H Lymph % (Auto) 6.1 L [place] % (Auto) 7.0 Eos % (Auto) 0.0 Baso % (Auto) 0.1 Absolute Neuts (auto) 20.5 H Absolute Lymphs (auto) 1.45 Total Counted Not Reportable Differential Comment SEE COMMENTS Diff Path Review May foll Platelet Estimate ADEQUATE Anisocytosis RARE Sodium 137 Potassium 3.4 L Chloride 101 Carbon Dioxide 28.0 Anion Gap 8 BUN 16 Creatinine 1.29 H Estim Creat Clear Calc 34.04 Est GFR (MDRD) Af Amer 52 L Est GFR (MDRD) Non-Af 43 L BUN/Creatinine Ratio 12.4 Glucose 135 H Lactic Acid 1.2 Calcium 9.2 Troponin I < 0.015 Assessment/Plan All Active Problems (Last Updated 08/20/18 @ 09:30 by Petr Bullard, RENTAL COORDINATOR, SAMPLE TESTER GRINDER, BS) Severe sepsis (Acute) Myocardial infarct (Acute) Renal insufficiency (Acute) Fever (Acute) Sepsis (Acute) Pneumonia (Acute) The patient is a 73 y/o F w/ PMHx: CAD s/p PCI mid LAD, Chronic back pain, HTN, HLD, CKD stage III, Anxiety and Depression, Hypothyroidism, Morbid Obesity, Asthma who presents to the [facility] ED on 10/10/18 with history of approximately 1 week of ongoing cough, not markedly productive but occasional very scant blood- tinged sputum secondary severity of coughing, ongoing dyspnea with subjective fevers and chills prompting urgent care evaluation on day of ED presentation with referral to ED secondary to suspected pneumonia. (1) Acute sepsis secondary to Community Acquired Pneumonia w/ Hypoxia: Work-up in the ED included T101.4, heart rate 97, BP 156/70, respiratory rate 26, 89% on room air with improvement to 98% on 2 L nasal cannula, CBC with WBC 23.7, hemoglobin 12.6, platelet 240 with left shift, BMP with potassium 3.4, BUN/creatinine 16/1.29 (baseline creatinine 0.9-1.1), glucose 135, lactic acid 1.2, troponin less than 0.015, but culture x2 obtained per ED and pending, chest x-ray with no acute cardiopulmonary findings although noted persistent hyperexpansion of the lungs and mild elevation right hemidiaphragm. Will admit to [place], maintain on oxygen with wean as tolerated to room air, continue ATC duonebs, PRN albuterol, maintained on IV Rocephin and Azithromycin, repeat CXR PA and lateral in AM following hydration overnight, HOB, IS parameters w/ pending sputum cultures, respiratory viral panel and urine antigens. Bld cx x 2 obtained in the ED. Will obtain AM oxygenation trial for discharge planning daily. (2) Hypokalemia: Admission K+ 3.4, supplementation given, repeat level in AM. (3) Hyperglycemia: Admission glucose 135, likely stress response, repeat BMP in a.m. and address if further elevated. (4) Chronic Asthma: Will maintain on oxygen with wean as tolerated to room air, continue ATC duonebs, PRN albuterol, HOB, IS parameters. (5) CAD: s/p PCI, continue home regimen asa, plavix, statin, BB, ARB. (6) Hypertension: Continue home regimen including Lasix, hydralazine, isosorbide, losartan, metoprolol with hold parameters, PRN hydralazine. (7) Hyperlipidemia: Continue home statin regimen. (8) Hypothyroidism: Continue home synthroid regimen. (9) CKD stage III: Admission BUN/Cr 16/1.29, baseline creatinine 0.9-1.1, repeat BMP in AM. (10) Morbid Obesity: Weight loss and lifestyle changes encouraged, nutrition consulted. (11) Anxiety and Depression: Continue home Zoloft regimen. (12) DVT prophylaxis: SCDs, renally dose Lovenox. Code Visit Inpatient E&M: 86621 Init Hosp L3
[2018-10-10] MEDS: BENZOCAINE/MENTHOL 1 LOZENGE MUCOUS MEM (21:21)
[2018-10-10] MEDS: 0.9% Normal Saline 1,000 ML 100 ML IV (21:21)
[2018-10-10] MEDS: guaiFENesin 10 ML UDC (200MG/10ML) 20 ML PO (21:21)
[2018-10-10] MEDS: Magnesium Sulfate 4gm/100mL 4 GM/100 ML IV.SOLN. IV (22:18)
[2018-10-10] MEDS: hydrALAZINE 25 MG Tablet PO (22:19)
[2018-10-10] MEDS: Nortriptyline 10 MG Capsule PO (22:21)
[2018-10-10] MEDS: Pravastatin 80 MG Tablet PO (22:21)
[2018-10-10] MEDS: Metoprolol Tartrate 50 MG Tablet PO (22:23)
[2018-10-11] VITALS (15 sets, daily range): BP systolic 108–152; BP diastolic 56–72; PULSE 56–87; RESP 16–20; TEMP 36.7–37.7; O2SAT 92–96
[2018-10-11] MEDS: Acetaminophen 325 MG Tablet 650 MG PO ×2 (02:16→22:44)
[2018-10-11] MEDS: Ipratropium/Albuterol Sulfate 3 ML AMPUL.NEB INHALATION ×5 (02:42→19:05)
[2018-10-11] MEDS: Levothyroxine 50 MCG Tablet PO (05:07)
[2018-10-11] MEDS: hydrALAZINE 25 MG Tablet PO ×3 (05:07→21:29)
[2018-10-11] MEDS: 0.9% NaCl Peripheral Flush Adult/Peds IV (05:08)
[2018-10-11] MEDS: 0.9% Normal Saline 1,000 ML 100 ML IV ×2 (05:09→17:11)
--- NOTE | 2018-10-11 06:35 | RAD_ITS ---
STUDY: X-RAY CHEST REASON FOR EXAM: Female, 73 years old. Shortness of breath/dyspnea. TECHNIQUE: PA and lateral views of the chest. COMPARISON: Comparison is made with prior study dated October 11, 2015. FINDINGS: Stable elevation of the right hemidiaphragm. Increased markings at the right lung base suggestive of right basilar atelectasis. Minimal increased markings at the left lung base. Blunting of the right costophrenic angle. There is borderline cardiomegaly. Normal mediastinum and juan luis. Normal visualized pulmonary arteries. There is atherosclerotic tortuosity of the aortic arch and descending thoracic aorta. There are diffuse degenerative changes of the visualized thoracic spine. There is degenerative osteoarthritis of the bilateral shoulders. There is no demonstrated abnormality of the visualized soft tissue structures of the upper abdomen. RAD/Chest PA and Lateral IMPRESSION: Elevation of the right hemidiaphragm with bibasilar atelectasis slightly more prominent on the right side. Electronically Signed: René Sanchez, at 8:37 EDT , Service support ,
[2018-10-11 06:43] LABS: Absolute Neutrophil Count 15.2 X10^3/uL (2.0-7.7); Basophil# 0.03 X10^3/uL; Basophil% 0.2 % (0-1); Eosinophil# 0.03 X10^3/uL; Eosinophils% 0.2 % (0-5); Hematocrit 37.2 % (37-47); Hemoglobin 11.9 g/dl (12.0-15.0); Lymphocyte % 6.8 % (19-41); Mean Corpuscular Volume 87.5 fL (81-99); Mean Platelet Vol. 10.5 fl (6.2-12.0); Monocyte# 1.03 X10^3/uL; Monocyte% 5.9 % (0-10); Neutrophil # 15.23 X10^3/uL (2.7-7.7); Neutrophil % 86.6 % (47-70); POSITIVE COUNT NO; POSITIVE DIFFERENTIAL NO; POSITIVE MORPHOLOGY NO; Platelet Count 236 K/mm3 (150-450); RBC Distribution Width SD 43.9 fl (35.1-43.9); Red Blood Count 4.25 M/mm3 (4.2-5.4); White Blood Count 17.6 K/mm3 (4.4-11.0)
[2018-10-11 06:47] LABS: Anion Gap 9 (5-15); BUN 15 mg/dL (7-18); BUN/Creat Ratio 13.9 RATIO (10-20); Calcium,Total 8.9 mg/dL (8.5-10.1); Chloride 107 mmol/L (98-107); Creatinine, Serum 1.08 mg/dL (0.55-1.02); EST Glomerular Filtration Rate 53 mL/min (>60); Est Glom Filt Rate - Afr Amer 64 mL/min (>60); Estimated Creatinine Clearance 40.66 ml/min; Glucose 115 mg/dL (74-106); Magnesium 2.8 mg/dL (1.6-2.6); Potassium 3.2 mmol/L (3.5-5.1); Sodium Level 142 mmol/L (136-145)
[2018-10-11] MEDS: Isosorbide Mononitrate 30 MG Tablet PO (10:14)
[2018-10-11] MEDS: Furosemide 40 MG Tablet PO ×2 (10:14→17:11)
[2018-10-11] MEDS: Sertraline 50 MG Tablet PO (10:14)
[2018-10-11] MEDS: Losartan Potassium 50 MG Tablet PO (10:14)
[2018-10-11] MEDS: Montelukast 10 MG Tablet PO (10:14)
[2018-10-11] MEDS: Metoprolol Tartrate 50 MG Tablet PO ×2 (10:14→21:29)
[2018-10-11] MEDS: Clopidogrel Bisulfate 75 MG Tablet PO (10:14)
[2018-10-11] MEDS: Ascorbic Acid 500 MG Tablet PO (10:14)
[2018-10-11] MEDS: Aspirin E.C. 81 MG Tablet PO (10:15)
[2018-10-11] MEDS: Etodolac 200 MG Capsule 400 MG PO (10:15)
[2018-10-11] MEDS: guaiFENesin 10 ML UDC (200MG/10ML) 20 ML PO ×2 (10:16→21:17)
[2018-10-11] MEDS: Enoxaparin 30 MG/0.3 ML Syringe SC (10:16)
--- NOTE | 2018-10-11 10:25 | CASEMGMT ---
RN CM Face to Face with patient for initial transition planning/care coordination assessment. RN CM introduced self and role at [facility]. Patient sitting in bed, alert and oriented. Patient willing to participate in assessment and is able to answer all questions appropriately. Care providers, pharmacy, and demographics verified. Patient wishes to discharge home, denies need for home health at this time. Patient states he has no further needs or concerns at this time. CM to follow for discharge planning needs that may arise. PCP: [facility] Specialists: [facility] solutions executive security Preferred Pharmacy: [facility] Insurance: [facility], MMO Prescription Benefit: yes Living Will/HPOA: none LNOK: son Living Arrangements: Patient lives with son in 2 story [facility], patient is able to ambulate stairs. Transportation: self/son DME/HHC: Patient states she has walker, cane, shower chair, grab bar, and nebulizer at home. If patient requires oxygen at discharge is agreeable to [employer] Disposition Plan: Patient to discharge home with family support and follow-up plans in place. Ly LE, RN, CM
--- NOTE | 2018-10-11 14:02 | PCM.PN.HOSP ---
Patient Problems: Active and Suspected Problems (Last Updated 08/20/18 @ 09:30 by Petr Bullard, SHOP ESTIMATOR, AUTO HEADLIGHT MECHANIC, BS) Sepsis (Acute) Pneumonia (Acute) Subjective: Feeling better. Still short of breath. Vitals/I&O's: Vital Signs Temp Pulse Resp BP Pulse Ox 36.7 C 86 20 H 116/63 92 10/11/18 10:08 10/11/18 11:05 10/11/18 11:05 10/11/18 10:08 10/11/18 10:08 Oxygen Flow Rate (L/min) 2 Oxygen Delivery Method Nasal Cannula Weight: 119.5 kg Body Mass Index (BMI) 45.2 Intake and Output for Last 24 Hours 10/09/18 10/10/18 10/11/18 23:59 23:59 23:59 Intake Total 1264 / 1264 Output Total 500 / 500 Balance 764 / 764 General: Alert, No apparent distress HEENT: Atraumatic, Normocephalic Oral: Moist Mucosa, No Gingival or Mucosal Lesions/ Ulcerations Neck: No Nodes, Thyroid Normal Size and Texture Lungs: Diminished, - - coarse breath sounds bilaterally Cardiovascular: Regular rate, Regular Rhythm, Normal S1, Normal S2, No murmurs Abdomen: Bowel Sounds Present, Soft, Non Tender, Non-Distended, No Hepato-splenomegaly Extremities: No edema, No Calf Tenderness Skin: No rashes, No breakdown Psych/Mental Status: Normal Affect, Appropriate Microbiology Past 72 Hours 10/11/18 02:50 Mucosa - Nasopharyngeal Respiratory Panel (PCR) - Final Laboratory Results 10/10/18 18:07: WBC 23.7 H, RBC 4.44, Hgb 12.6, Hct 38.7, MCV 87.2, MCH 28.4, MCHC 32.6, RDW 14.1, RDW Differential 44.7 H, Plt Count 240, MPV 10.5, Immature Gran % (Auto) 0.400, Neut % (Auto) 86.4 H, Lymph % (Auto) 6.1 L, [place] % (Auto) 7.0, Eos % (Auto) 0.0, Baso % (Auto) 0.1, Absolute Neuts (auto) 20.5 H, Absolute Lymphs (auto) 1.45, Total Counted Not Reportable, Differential Comment SEE COMMENTS, Diff Path Review May foll, Platelet Estimate ADEQUATE, Anisocytosis RARE 10/10/18 18:07: Sodium 137, Potassium 3.4 L, Chloride 101, Carbon Dioxide 28.0, Anion Gap 8, BUN 16, Creatinine 1.29 H, Estim Creat Clear Calc 34.04, Est GFR (MDRD) Af Amer 52 L, Est GFR (MDRD) Non-Af 43 L, BUN/Creatinine Ratio 12.4, Glucose 135 H, Calcium 9.2, Troponin I < 0.015 10/10/18 18:07: Lactic Acid 1.2 10/10/18 18:07: Magnesium 1.0 L 10/11/18 06:10: WBC 17.6 H, RBC 4.25, Hgb 11.9 L, Hct 37.2, MCV 87.5, MCH 28.0, MCHC 32.0, RDW 14.0, RDW Differential 43.9, Plt Count 236, MPV 10.5, Immature Gran % (Auto) 0.300, Neut % (Auto) 86.6 H, Lymph % (Auto) 6.8 L, [place] % (Auto) 5.9, Eos % (Auto) 0.2, Baso % (Auto) 0.2, Absolute Neuts (auto) 15.2 H, Absolute Lymphs (auto) 1.20, Total Counted Not Reportable 10/11/18 06:10: Sodium 142, Potassium 3.2 L, Chloride 107, Carbon Dioxide 26.0, Anion Gap 9, BUN 15, Creatinine 1.08 H, Estim Creat Clear Calc 40.66, Est GFR (MDRD) Af Amer 64, Est GFR (MDRD) Non-Af 53 L, BUN/Creatinine Ratio 13.9, Glucose 115 H, Calcium 8.9, Magnesium 2.8 H Current Medications Acetaminophen (Tylenol) 650 mg PO Q6H PRN PRN PRN Reason: Non-cardiac pain (mod-severe) Last Admin: 10/11/18 02:16 Dose: 650 mg Al Hydroxide/Mg Hydroxide (Mylanta Ii) 15 - 30 ml PO Q4H PRN PRN PRN Reason: INDIGESTION Albuterol Sulfate (Ventolin Aerosols) 2.5 mg INHALATION Q2H PRN PRN PRN Reason: dyspnea, wheezing Albuterol/Ipratropium (Duoneb) 3 ml INHALATION Q4HWA.RT CHAYITO Last Admin: 10/11/18 11:05 Dose: 3 ml Ascorbic Acid (Vitamin C) 500 mg PO DAILY@0800 ON LICENSE OF [facility] Last Admin: 10/11/18 10:14 Dose: 500 mg Aspirin (Ecotrin) 81 mg PO DAILYCM ON LICENSE OF [facility] Last Admin: 10/11/18 10:15 Dose: 81 mg Clopidogrel Bisulfate (Plavix) 75 mg PO DAILY ON LICENSE OF [facility] Last Admin: 10/11/18 10:14 Dose: 75 mg Cyclobenzaprine HCl (Cyclobenzaprine Hcl) 5 mg PO TID PRN PRN PRN Reason: SPASMS Dextrose (D50w Syringe) 0 gm IV X1 PRN; Protocol PRN Reason: Hypoglycemia Enoxaparin Sodium (Lovenox) 30 mg SC DAILY@1000 ON LICENSE OF [facility] Last Admin: 10/11/18 10:16 Dose: 30 mg [facility]odolac (Lodine) [facility] Last Admin: 10/11/18 10:15 Dose: 400 mg Furosemide (Lasix) 40 mg PO BIDLX ON LICENSE OF [facility] Last Admin: 10/11/18 10:14 Dose: 40 mg Gabapentin (Neurontin) 1,500 mg PO QHS ON LICENSE OF [facility] Last Admin: 10/11/18 00:13 Dose: Not Given Glucagon () 1 mg IM .X1 PRN PRN Reason: Hypoglycemia Guaifenesin (Robitussin) 20 ml PO Q4H PRN PRN PRN Reason: COUGH Last Admin: 10/11/18 10:16 Dose: 20 ml Hydralazine HCl (Apresoline Iv) 10 mg IV Q4H PRN PRN PRN Reason: SBP > 160 Hydralazine HCl (Apresoline) 25 mg PO TID ON LICENSE OF [facility] Last Admin: 10/11/18 05:07 Dose: 25 mg Sodium Chloride () 1,000 mls @ 100 mls/hr IV .Q10H ON LICENSE OF [facility] Last Admin: 10/11/18 05:09 Dose: 100 mls/hr Azithromycin 500 mg/ Dextrose 255 mls @ 250 mls/hr IV Q24H ON LICENSE OF [facility] Stop: 10/12/18 23:02 Ceftriaxone Sodium (Rocephin) 1 gm in 50 mls @ 100 mls/hr IV Q24H ON LICENSE OF [facility] Sodium Chloride () 250 mls @ 15 mls/hr IV .[id number] PRN PRN Reason: SALINE FLUSH Isosorbide Mononitrate (Imdur) 30 mg PO DAILY ON LICENSE OF [facility] Last Admin: 10/11/18 10:14 Dose: 30 mg Levothyroxine Sodium (Synthroid) 50 mcg PO MoWeFrSa@0600 ON LICENSE OF [facility] Last Admin: 10/11/18 05:07 Dose: 50 mcg Levothyroxine Sodium (Synthroid) 100 mcg PO SuTuTh@0600 ON LICENSE OF [facility] Losartan Potassium (Cozaar) 50 mg PO DAILY ON LICENSE OF [facility] Last Admin: 10/11/18 10:14 Dose: 50 mg Melatonin (Melatonin) 3 mg PO QHS PRN PRN PRN Reason: INSOMNIA Metoprolol Tartrate (Lopressor (Beta Edvin)) 50 mg PO BID ON LICENSE OF [facility] Last Admin: 10/11/18 10:14 Dose: 50 mg Montelukast Sodium (Singulair) 10 mg PO DAILY ON LICENSE OF [facility] Last Admin: 10/11/18 10:14 Dose: 10 mg Nortriptyline HCl (Pamelor) 10 mg PO QHS ON LICENSE OF [facility] Last Admin: 10/10/18 22:21 Dose: 10 mg Nutritional Formula (Lactose Free) (Ensure Enlive) 120 ml PO 4X/DAY ON LICENSE OF [facility] Last Admin: 10/11/18 10:16 Dose: Not Given Ondansetron HCl (Zofran) 4 mg IV Q8H PRN PRN PRN Reason: NAUSEA/VOMITING Potassium Chloride (K-Dur) 20 meq PO BID ON LICENSE OF [facility] Last Admin: 10/11/18 10:14 Dose: 20 meq Pravastatin Sodium (Pravachol) 80 mg PO QHS ON LICENSE OF [facility] Last Admin: 10/10/18 22:21 Dose: 80 mg Sertraline HCl (Zoloft) 50 mg PO DAILY ON LICENSE OF [facility] Last Admin: 10/11/18 10:14 Dose: 50 mg Sodium Chloride () 5 - 15 ml IV UD PRN PRN Reason: SALINE FLUSH Last Admin: 10/11/18 05:08 Dose: 10 ml Throat Lozenges (Cepacol Sore Throat Lozenge) 1 lozenge MUCOUS MEM Q2H PRN PRN PRN Reason: Sore throat or cough Last Admin: 10/10/18 21:21 Dose: 1 lozenge Medical Necessity - Tobacco Use Smoking Status: Former smoker - Quit cigarette tobacco usage 30 years prior with prior to this 1 pack/day. Tobacco Use: Non-smoker Assessment/Plan All Active Problems (Last Updated 08/20/18 @ 09:30 by Petr Bullard, SHOP ESTIMATOR, AUTO HEADLIGHT MECHANIC, BS) Severe sepsis (Acute) Myocardial infarct (Acute) Renal insufficiency (Acute) Fever (Acute) Sepsis (Acute) Pneumonia (Acute) 1. Sepsis: sepsis present on admission 2/2 pneumonia 2. Pneumonia, presumed pneumococcal on CTX and Azithromycin respiratory panel negative BCx pending. Check strep and legionella antigen 3. hypokalemia ongoing continue to replace 4. hypomagnesemia improved 5. VTE prophylaxis: LMWH Code Visit Inpatient E&M: 08014 Subs Hosp L2
--- NOTE | 2018-10-11 14:09 | PN_ITS ---
Patient Problems: Active and Suspected Problems (Last Updated 08/20/18 @ 09:30 by Petr Bullard, TELEPHONE CLAIMS REPRESENTATIVE, HANDBAG STITCHER, BS) Sepsis (Acute) Pneumonia (Acute) Subjective: Feeling better. Still short of breath. Vitals/I&O's: Vital Signs Temp Pulse Resp BP Pulse Ox 36.7 C 86 20 H 116/63 92 10/11/18 10:08 10/11/18 11:05 10/11/18 11:05 10/11/18 10:08 10/11/18 10:08 Oxygen Flow Rate (L/min) 2 Oxygen Delivery Method Nasal Cannula Weight: 119.5 kg Body Mass Index (BMI) 45.2 Intake and Output for Last 24 Hours 10/09/18 10/10/18 10/11/18 23:59 23:59 23:59 Intake Total 1264 / 1264 Output Total 500 / 500 Balance 764 / 764 General: Alert, No apparent distress HEENT: Atraumatic, Normocephalic Oral: Moist Mucosa, No Gingival or Mucosal Lesions/ Ulcerations Neck: No Nodes, Thyroid Normal Size and Texture Lungs: Diminished, - - coarse breath sounds bilaterally Cardiovascular: Regular rate, Regular Rhythm, Normal S1, Normal S2, No murmurs Abdomen: Bowel Sounds Present, Soft, Non Tender, Non-Distended, No Hepato- splenomegaly Extremities: No edema, No Calf Tenderness Skin: No rashes, No breakdown Psych/Mental Status: Normal Affect, Appropriate Microbiology Past 72 Hours 10/11/18 02:50 Mucosa - Nasopharyngeal Respiratory Panel (PCR) - Final Laboratory Results 10/10/18 18:07: WBC 23.7 H, RBC 4.44, Hgb 12.6, Hct 38.7, MCV 87.2, MCH 28.4, MCHC 32.6, RDW 14.1, RDW Differential 44.7 H, Plt Count 240, MPV 10.5, Immature Gran % (Auto) 0.400, Neut % (Auto) 86.4 H, Lymph % (Auto) 6.1 L, [place] % (Auto) 7.0, Eos % (Auto) 0.0, Baso % (Auto) 0.1, Absolute Neuts (auto) 20.5 H, Absolute Lymphs (auto) 1.45, Total Counted Not Reportable, Differential Comment SEE COMMENTS, Diff Path Review May foll, Platelet Estimate ADEQUATE, Anisocytosis RARE 10/10/18 18:07: Sodium 137, Potassium 3.4 L, Chloride 101, Carbon Dioxide 28.0, Anion Gap 8, BUN 16, Creatinine 1.29 H, Estim Creat Clear Calc 34.04, Est GFR (MDRD) Af Amer 52 L, Est GFR (MDRD) Non-Af 43 L, BUN/Creatinine Ratio 12.4, Glucose 135 H, Calcium 9.2, Troponin I < 0.015 10/10/18 18:07: Lactic Acid 1.2 10/10/18 18:07: Magnesium 1.0 L 10/11/18 06:10: WBC 17.6 H, RBC 4.25, Hgb 11.9 L, Hct 37.2, MCV 87.5, MCH 28.0, MCHC 32.0, RDW 14.0, RDW Differential 43.9, Plt Count 236, MPV 10.5, Immature Gran % (Auto) 0.300, Neut % (Auto) 86.6 H, Lymph % (Auto) 6.8 L, [place] % (Auto) 5.9, Eos % (Auto) 0.2, Baso % (Auto) 0.2, Absolute Neuts (auto) 15.2 H, Absolute Lymphs (auto) 1.20, Total Counted Not Reportable 10/11/18 06:10: Sodium 142, Potassium 3.2 L, Chloride 107, Carbon Dioxide 26.0, Anion Gap 9, BUN 15, Creatinine 1.08 H, Estim Creat Clear Calc 40.66, Est GFR (MDRD) Af Amer 64, Est GFR (MDRD) Non-Af 53 L, BUN/Creatinine Ratio 13.9, Glucose 115 H, Calcium 8.9, Magnesium 2.8 H Current Medications Acetaminophen (Tylenol) 650 mg PO Q6H PRN PRN PRN Reason: Non-cardiac pain (mod-severe) Last Admin: 10/11/18 02:16 Dose: 650 mg Al Hydroxide/Mg Hydroxide (Mylanta Ii) 15 - 30 ml PO Q4H PRN PRN PRN Reason: INDIGESTION Albuterol Sulfate (Ventolin Aerosols) 2.5 mg INHALATION Q2H PRN PRN PRN Reason: dyspnea, wheezing Albuterol/Ipratropium (Duoneb) 3 ml INHALATION Q4HWA.RT CHAYITO Last Admin: 10/11/18 11:05 Dose: 3 ml Ascorbic Acid (Vitamin C) 500 mg PO DAILY@0800 PENDING SALE TO [facility] Last Admin: 10/11/18 10:14 Dose: 500 mg Aspirin (Ecotrin) 81 mg PO DAILYCM PENDING SALE TO [facility] Last Admin: 10/11/18 10:15 Dose: 81 mg Clopidogrel Bisulfate (Plavix) 75 mg PO DAILY PENDING SALE TO [facility] Last Admin: 10/11/18 10:14 Dose: 75 mg Cyclobenzaprine HCl (Cyclobenzaprine Hcl) 5 mg PO TID PRN PRN PRN Reason: SPASMS Dextrose (D50w Syringe) 0 gm IV X1 PRN; Protocol PRN Reason: Hypoglycemia Enoxaparin Sodium (Lovenox) 30 mg SC DAILY@1000 PENDING SALE TO [facility] Last Admin: 10/11/18 10:16 Dose: 30 mg [facility]od[facility]) [facility] Last Admin: 10/11/18 10:15 Dose: 400 mg Furosemide (Lasix) 40 mg PO BIDLX PENDING SALE TO [facility] Last Admin: 10/11/18 10:14 Dose: 40 mg Gabapentin (Neurontin) 1,500 mg PO QHS PENDING SALE TO [facility] Last Admin: 10/11/18 00:13 Dose: Not Given Glucagon () 1 mg IM .X1 PRN PRN Reason: Hypoglycemia Guaifenesin (Robitussin) 20 ml PO Q4H PRN PRN PRN Reason: COUGH Last Admin: 10/11/18 10:16 Dose: 20 ml Hydralazine HCl (Apresoline Iv) 10 mg IV Q4H PRN PRN PRN Reason: SBP > 160 Hydralazine HCl (Apresoline) 25 mg PO TID PENDING SALE TO [facility] Last Admin: 10/11/18 05:07 Dose: 25 mg Sodium Chloride () 1,000 mls @ 100 mls/hr IV .Q10H PENDING SALE TO [facility] Last Admin: 10/11/18 05:09 Dose: 100 mls/hr Azithromycin 500 mg/ Dextrose 255 mls @ 250 mls/hr IV Q24H PENDING SALE TO [facility] Stop: 10/12/18 23:02 Ceftriaxone Sodium (Rocephin) 1 gm in 50 mls @ 100 mls/hr IV Q24H PENDING SALE TO [facility] Sodium Chloride () 250 mls @ 15 mls/hr IV .[id number] PRN PRN Reason: SALINE FLUSH Isosorbide Mononitrate (Imdur) 30 mg PO DAILY PENDING SALE TO [facility] Last Admin: 10/11/18 10:14 Dose: 30 mg Levothyroxine Sodium (Synthroid) 50 mcg PO MoWeFrSa@0600 PENDING SALE TO [facility] Last Admin: 10/11/18 05:07 Dose: 50 mcg Levothyroxine Sodium (Synthroid) 100 mcg PO SuTuTh@0600 PENDING SALE TO [facility] Losartan Potassium (Cozaar) 50 mg PO DAILY PENDING SALE TO [facility] Last Admin: 10/11/18 10:14 Dose: 50 mg Melatonin (Melatonin) 3 mg PO QHS PRN PRN PRN Reason: INSOMNIA Metoprolol Tartrate (Lopressor (Beta Edvin)) 50 mg PO BID PENDING SALE TO [facility] Last Admin: 10/11/18 10:14 Dose: 50 mg Montelukast Sodium (Singulair) 10 mg PO DAILY PENDING SALE TO [facility] Last Admin: 10/11/18 10:14 Dose: 10 mg Nortriptyline HCl (Pamelor) 10 mg PO QHS PENDING SALE TO [facility] Last Admin: 10/10/18 22:21 Dose: 10 mg Nutritional Formula (Lactose Free) (Ensure Enlive) 120 ml PO 4X/DAY PENDING SALE TO [facility] Last Admin: 10/11/18 10:16 Dose: Not Given Ondansetron HCl (Zofran) 4 mg IV Q8H PRN PRN PRN Reason: NAUSEA/VOMITING Potassium Chloride (K-Dur) 20 meq PO BID PENDING SALE TO [facility] Last Admin: 10/11/18 10:14 Dose: 20 meq Pravastatin Sodium (Pravachol) 80 mg PO QHS PENDING SALE TO [facility] Last Admin: 10/10/18 22:21 Dose: 80 mg Sertraline HCl (Zoloft) 50 mg PO DAILY PENDING SALE TO [facility] Last Admin: 10/11/18 10:14 Dose: 50 mg Sodium Chloride () 5 - 15 ml IV UD PRN PRN Reason: SALINE FLUSH Last Admin: 10/11/18 05:08 Dose: 10 ml Throat Lozenges (Cepacol Sore Throat Lozenge) 1 lozenge MUCOUS MEM Q2H PRN PRN PRN Reason: Sore throat or cough Last Admin: 10/10/18 21:21 Dose: 1 lozenge Medical Necessity - Tobacco Use Smoking Status: Former smoker - Quit cigarette tobacco usage 30 years prior with prior to this 1 pack/day. Tobacco Use: Non-smoker Assessment/Plan All Active Problems (Last Updated 08/20/18 @ 09:30 by Petr Bullard, TELEPHONE CLAIMS REPRESENTATIVE, HANDBAG STITCHER, BS) Severe sepsis (Acute) Myocardial infarct (Acute) Renal insufficiency (Acute) Fever (Acute) Sepsis (Acute) Pneumonia (Acute) 1. Sepsis: * sepsis present on admission * 2/2 pneumonia 2. Pneumonia, presumed pneumococcal * on CTX and Azithromycin * respiratory panel negative * BCx pending. * Check strep and legionella antigen 3. hypokalemia * ongoing * continue to replace 4. hypomagnesemia * improved 5. VTE prophylaxis: LMWH Code Visit Inpatient E&M: 65485 Subs Hosp L2
[2018-10-11] MEDS: CYCLOBENZAPRINE HCL 5 MG TABLET PO (20:31)
[2018-10-11] MEDS: Ceftriaxone 1 GM/50 ML BAG IV (21:17)
[2018-10-11] MEDS: MELATONIN 3 MG TABLET PO (21:18)
[2018-10-11] MEDS: Gabapentin 600 MG Tablet 1500 MG PO (21:29)
[2018-10-11] MEDS: Pravastatin 80 MG Tablet PO (21:30)
[2018-10-11] MEDS: Nortriptyline 10 MG Capsule PO (21:31)
[2018-10-12] VITALS (9 sets, daily range): BP systolic 129–156; BP diastolic 69–96; PULSE 68–93; RESP 16–22; TEMP 36.6–37.3; O2SAT 85–95
[2018-10-12 06:33] LABS: Absolute Lymphocyte Count 1.21 X10^3/ul (0.83-4.51); Absolute Neutrophil Count 12.7 X10^3/uL (2.0-7.7); Basophil# 0.02 X10^3/uL; Basophil% 0.1 % (0-1); Eosinophils% 0.7 % (0-5); Hematocrit 35.4 % (37-47); Hemoglobin 11.4 g/dl (12.0-15.0); Lymphocyte # 1.21 X10^3/ul (4.0); Lymphocyte % 8.1 % (19-41); Mean Corp Hgb Conc 32.2 g/gl (32-36); Mean Corpuscular Hgb 28.1 pg (27.0-32.0); Mean Corpuscular Volume 87.2 fL (81-99); Mean Platelet Vol. 10.2 fl (6.2-12.0); Monocyte# 0.94 X10^3/uL; Monocyte% 6.3 % (0-10); Neutrophil # 12.73 X10^3/uL (2.7-7.7); Neutrophil % 84.6 % (47-70); Platelet Count 245 K/mm3 (150-450); RBC Distribution Width CV 14.1 % (11.6-14.6); RBC Distribution Width SD 44.9 fl (35.1-43.9); Red Blood Count 4.06 M/mm3 (4.2-5.4)
[2018-10-12 06:35] LABS: POSITIVE COUNT NO; POSITIVE DIFFERENTIAL NO; POSITIVE MORPHOLOGY NO
[2018-10-12] MEDS: Levothyroxine 50 MCG Tablet PO (06:45)
[2018-10-12] MEDS: hydrALAZINE 25 MG Tablet PO ×2 (06:46→14:23)
[2018-10-12] MEDS: Ipratropium/Albuterol Sulfate 3 ML AMPUL.NEB INHALATION ×2 (06:52→11:23)
[2018-10-12 06:57] LABS: Anion Gap 7 (5-15); BUN 13 mg/dL (7-18); BUN/Creat Ratio 13.7 RATIO (10-20); Calcium,Total 8.6 mg/dL (8.5-10.1); Chloride 106 mmol/L (98-107); Creatinine, Serum 0.95 mg/dL (0.55-1.02); EST Glomerular Filtration Rate 62 mL/min (>60); Est Glom Filt Rate - Afr Amer 75 mL/min (>60); Estimated Creatinine Clearance 46.22 ml/min; Glucose 113 mg/dL (74-106); Potassium 3.5 mmol/L (3.5-5.1); Sodium Level 139 mmol/L (136-145)
[2018-10-12] MEDS: Aspirin E.C. 81 MG Tablet PO (08:43)
[2018-10-12] MEDS: Montelukast 10 MG Tablet PO (08:43)
[2018-10-12] MEDS: Sertraline 50 MG Tablet PO (08:44)
[2018-10-12] MEDS: Etodolac 200 MG Capsule 400 MG PO (08:45)
[2018-10-12] MEDS: Metoprolol Tartrate 50 MG Tablet PO (08:45)
[2018-10-12] MEDS: Clopidogrel Bisulfate 75 MG Tablet PO (08:45)
[2018-10-12] MEDS: Isosorbide Mononitrate 30 MG Tablet PO (08:46)
[2018-10-12] MEDS: Ascorbic Acid 500 MG Tablet PO (08:46)
[2018-10-12] MEDS: Furosemide 40 MG Tablet PO (08:46)
[2018-10-12] MEDS: Losartan Potassium 50 MG Tablet PO (08:46)
[2018-10-12] MEDS: Enoxaparin 30 MG/0.3 ML Syringe SC (08:47)
[2018-10-12] MEDS: 0.9% NaCl Peripheral Flush Adult/Peds IV (08:54)
--- NOTE | 2018-10-12 10:35 | PCM.DC ---
- Discharge Diagnoses Current Active Problems: Current Active and Chronic Problems (Last Updated 08/20/18 @ 09:30 by Petr Bullard, PCU RN, RAY[employer]D MILL OPERATOR, BS) Sepsis (Acute) Pneumonia (Acute) You will use the following diet at home:: Cardiac Your food should be the consistency of: Regular Your liquids should be the consistency of: Regular/Thin Discharge Activity: Return to Normal Activity Call your doctor if you observe: Fever of 101 or Higher, Shortness of breath Allergies/Adverse Reactions: Allergies codeine Allergy (Verified 10/10/18 17:38) Shortness of breath ITCHING egg Allergy (Verified 10/10/18 17:38) Nausea meperidine HCl [From Demerol] Allergy (Verified 10/10/18 17:38) Itching midazolam HCl [From Versed] Allergy (Verified 10/10/18 17:38) Itching Sulfa (Sulfonamide Antibiotics) Allergy (Verified 10/10/18 17:38) Unknown A CHILD Medications to take at Discharge Ascorbic Acid [Vitamin C] 500 mg PO DAILY@0800 06/23/15 Cyanocobalamin (Vitamin B-12) [Vitamin B-12] 500 mcg SL DAILY 06/23/15 Cyclobenzaprine HCl 5 mg PO TID PRN PRN 06/23/15 Gabapentin [Neurontin] 1,500 tab PO QHS 06/23/15 Levothyroxine [Synthroid] 50 mcg PO MOWEFRSA 06/23/15 Levothyroxine [Synthroid] 100 mcg PO SUTUTH 06/23/15 Meclizine HCl [Antivert] 12.5 mg PO DAILY PRN PRN 06/23/15 Montelukast Sodium [Singulair] 10 mg PO DAILY 06/23/15 Multivit-Min/Iron/Folic/Lutein [Centrum Silver Women Tablet] 1 tab PO DAILY 06/23/15 Sertraline HCl [Zoloft] 50 mg PO DAILY 06/23/15 Mometasone/Formoterol [Dulera 100 Mcg/5 Mcg Inhaler] 2 puff INHALATION BID 06/11/18 Nortriptyline HCl 10 mg PO QHS 06/11/18 [place]-3 Fatty Acids/Fish Oil [Fish Oil 1,000 mg Capsule] 1 ea PO DAILY 06/11/18 Vitamin E Acetate [Vitamin E] 400 unit PO DAILY 06/11/18 Aspirin E.C. [Ecotrin] 81 mg PO DAILYCM 10/10/18 Calcium Citrate/Vitamin D3 [Citracal + D Maximum Caplet] 1 tab PO DAILY 10/10/18 Clopidogrel Bisulfate [Clopidogrel] 75 mg PO DAILY 10/10/18 Etodolac 400 mg PO DAILY 10/10/18 Furosemide [Lasix] 40 mg PO BID 10/10/18 Isosorbide Mononitrate [Imdur] 30 mg PO DAILY 10/10/18 Losartan Potassium [Cozaar] 50 mg PO DAILY 10/10/18 Metoprolol Tartrate [Lopressor (beta zach)] 50 mg PO BID 10/10/18 Potassium Chloride [K-Dur] 20 meq PO BID 10/10/18 Pravastatin Sodium 80 mg PO QHS 10/10/18 hydrALAZINE [Apresoline] 25 mg PO TID 10/10/18 Albuterol Inhaler [Ventolin Hfa] 1 - 2 puff INHALATION Q4H PRN PRN #1 inhaler 10/12/18 Guaifenesin [Mucinex] 600 mg PO BID #10 tab.er.12h 10/12/18 levoFLOXacin tablet [Levaquin tablet] 500 mg PO DAILY #5 tablet 10/12/18 The following prescriptions were given: Albuterol Inhaler [Ventolin Hfa] 1 - 2 puff INHALATION Q4H PRN PRN #1 inhaler PRN Reason: Shortness Of Breath levoFLOXacin tablet [Levaquin tablet] 500 mg PO DAILY #5 tablet Guaifenesin [Mucinex] 600 mg PO BID #10 tab.er.12h Primary Care Physician: Dangelo Beckford MD [Primary Care Provider] - Within 2 Weeks Test Results: Test results from this visit will be discussed in further detail at your follow-up appointment, if applicable. Proposed Discharge Date: 10/12/18
--- NOTE | 2018-10-12 10:36 | PCM.DC.SUM ---
Discharge Date and Diagnosis - Problem List Patient Problems: Active and Suspected Problems (Last Updated 08/20/18 @ 09:30 by Petr Bullard CRT, BENEFITS COORDINATOR, BS) Sepsis (Acute) Pneumonia (Acute) Date of Admission: 10/10/18 Date of Discharge: 10/12/18 - Primary Discharge Diagnosis Active and Suspected Problems (Last Updated 08/20/18 @ 09:30 by Petr Bullard CRT, BENEFITS COORDINATOR, BS) Sepsis (Acute) Pneumonia (Acute) 1. Sepsis: sepsis present on admission 2/2 pneumonia 2. Pneumonia, presumed pneumococcal change to levofloxacin 500 daily for 5 more days respiratory panel negative BCx pending. Strep and legionella antigen, respiratory panel negative 3. hypokalemia ongoing continue to replace 4. hypomagnesemia improved - Secondary Discharge Diagnosis Chronic Problems (Last Updated 06/14/18 @ 08:17 by Arely Davis) Restless leg syndrome (Chronic) Non-STEMI (non-ST elevated myocardial infarction) (Chronic) S/P angioplasty with stent (Chronic ~06/13/18) PTCA/CRUZ of the mid LAD 06/13/18 Atherosclerotic heart disease of [place] coronary artery without angina pectoris (Chronic) Successful PTCA/CRUZ of mid LAD with a 2.5 x 16 Promus Synergy, post dilated throughout with a 2.75 x 8 NC Balloon; 75%-->0%, no dissection. CAD (coronary artery disease) (Chronic) Asthma (Chronic) Hypertension (Chronic) Osteoarthritis of right knee (Chronic) Hypothyroidism (Chronic) Hyperlipidemia (Chronic) Status post total right knee replacement (Chronic) Hospital Course and Treatment Imaging Results: Clinical Impression(s) from Imaging Studies Chest X-Ray 10/10/18 18:17 IMPRESSION: No acute cardiopulmonary disease or interval change. Electronically Signed: Con Fletcher DO at 18:35 EDT Tel [phone], Service support , Chest X-Ray 10/11/18 06:35 IMPRESSION: Elevation of the right hemidiaphragm with bibasilar atelectasis slightly more prominent on the right side. Electronically Signed: René Sanchez, at 8:37 EDT , Service support , NA Operations: None Procedures: None Summary of Care Provided: The patient is a 73 year old F presents with shortness of breath. Patient had been having a ongoing cough for about a week. Patient in the emergency room had a temperature of 101.4 Fahrenheit. Patient was clinically septic upon arrival. Initial x-ray was negative subsequent x-ray showed possible right lower lobe atelectasis versus infiltrate. Patient was started on ceftriaxone and azithromycin. Urinary antigens for Streptococcus and Legionella were negative, respiratory viral panel was also negative. Blood cultures were drawn and with no growth at the time of discharge. Overall, the patient is feeling better. Patient will have an amatory pulse ox prior to discharge but the plan is for patient be discharged and to complete Levaquin, she will also have albuterol. [] Patient Problems: Active and Suspected Problems (Last Updated 08/20/18 @ 09:30 by Petr Bullard, MARINE CHRONOMETER ASSEMBLER, BENEFITS COORDINATOR, BS) Sepsis (Acute) Pneumonia (Acute) - Physical Exam General: Alert, No apparent distress HEENT: Atraumatic, Normocephalic Neck: No Nodes, Thyroid Normal Size and Texture Lungs: Clear to auscultation, Normal air movement, No rhonchi, No wheeze Cardiovascular: Regular rate, Regular Rhythm, Normal S1, Normal S2, No murmurs Abdomen: Bowel Sounds Present, Soft, Non Tender, Non-Distended, No Hepato-splenomegaly Extremities: No edema, No Calf Tenderness Skin: No rashes, No breakdown Psych/Mental Status: Normal Affect, Appropriate Vital Signs Temp Pulse Resp BP Pulse Ox 36.6 C 93 20 H 156/73 H 94 10/12/18 08:40 10/12/18 08:45 10/12/18 08:40 10/12/18 08:40 10/12/18 08:40 Oxygen Flow Rate (L/min) 2 Oxygen Delivery Method Nasal Cannula Weight: 119.5 kg Body Mass Index (BMI) 45.2 Intake and Output for Last 24 Hours 10/10/18 10/11/18 10/12/18 23:59 23:59 23:59 Intake Total 2953 / 2953 1249 / 1249 Output Total 1050 / 1050 200 / 200 Balance 1903 / 1903 1049 / 1049 Microbiology Past 72 Hours 10/11/18 18:10 Streptococcus pneumoniae Antigen (M - Final Urine, Clean Catch 10/11/18 18:10 Legionella Antigen - Final Urine, Clean Catch 10/11/18 02:50 Respiratory Panel (PCR) - Final Mucosa - Nasopharyngeal Laboratory Tests Past 24 Hrs 10/12/18 10/12/18 05:58 05:58 WBC 15.0 H RBC 4.06 L Hgb 11.4 L Hct 35.4 L MCV 87.2 MCH 28.1 MCHC 32.2 RDW 14.1 RDW Differential 44.9 H Plt Count 245 MPV 10.2 Immature Gran % (Auto) 0.200 Neut % (Auto) 84.6 H Lymph % (Auto) 8.1 L [place] % (Auto) 6.3 Eos % (Auto) 0.7 Baso % (Auto) 0.1 Absolute Neuts (auto) 12.7 H Absolute Lymphs (auto) 1.21 Total Counted Not Reportable Sodium 139 Potassium 3.5 Chloride 106 Carbon Dioxide 26.0 Anion Gap 7 BUN 13 Creatinine 0.95 Estim Creat Clear Calc 46.22 Est GFR (MDRD) Af Amer 75 Est GFR (MDRD) Non-Af 62 BUN/Creatinine Ratio 13.7 Glucose 113 H Calcium 8.6 Discharge Diet: Low fat/ Low Cholesterol Discharge Activity: Return to Normal Activity Call your doctor if you observe: Fever of 101 or Higher, Shortness of breath Home Medications: Medications to take at Discharge Ascorbic Acid [Vitamin C] 500 mg PO DAILY@0800 06/23/15 Cyanocobalamin (Vitamin B-12) [Vitamin B-12] 500 mcg SL DAILY 06/23/15 Cyclobenzaprine HCl 5 mg PO TID PRN PRN 06/23/15 Gabapentin [Neurontin] 1,500 tab PO QHS 06/23/15 Levothyroxine [Synthroid] 50 mcg PO MOWEFRSA 06/23/15 Levothyroxine [Synthroid] 100 mcg PO SUTUTH 06/23/15 Meclizine HCl [Antivert] 12.5 mg PO DAILY PRN PRN 06/23/15 Montelukast Sodium [Singulair] 10 mg PO DAILY 06/23/15 Multivit-Min/Iron/Folic/Lutein [Centrum Silver Women Tablet] 1 tab PO DAILY 06/23/15 Sertraline HCl [Zoloft] 50 mg PO DAILY 06/23/15 Mometasone/Formoterol [Dulera 100 Mcg/5 Mcg Inhaler] 2 puff INHALATION BID 06/11/18 Nortriptyline HCl 10 mg PO QHS 06/11/18 [place]-3 Fatty Acids/Fish Oil [Fish Oil 1,000 mg Capsule] 1 ea PO DAILY 06/11/18 Vitamin E Acetate [Vitamin E] 400 unit PO DAILY 06/11/18 Aspirin E.C. [Ecotrin] 81 mg PO DAILYCM 10/10/18 Calcium Citrate/Vitamin D3 [Citracal + D Maximum Caplet] 1 tab PO DAILY 10/10/18 Clopidogrel Bisulfate [Clopidogrel] 75 mg PO DAILY 10/10/18 Etodolac 400 mg PO DAILY 10/10/18 Furosemide [Lasix] 40 mg PO BID 10/10/18 Isosorbide Mononitrate [Imdur] 30 mg PO DAILY 10/10/18 Losartan Potassium [Cozaar] 50 mg PO DAILY 10/10/18 Metoprolol Tartrate [Lopressor (beta zach)] 50 mg PO BID 10/10/18 Potassium Chloride [K-Dur] 20 meq PO BID 10/10/18 Pravastatin Sodium 80 mg PO QHS 10/10/18 hydrALAZINE [Apresoline] 25 mg PO TID 10/10/18 Albuterol Inhaler [Ventolin Hfa] 1 - 2 puff INHALATION Q4H PRN PRN #1 inhaler 10/12/18 Guaifenesin [Mucinex] 600 mg PO BID #10 tab.er.12h 10/12/18 levoFLOXacin tablet [Levaquin tablet] 500 mg PO DAILY #5 tablet 10/12/18 Following Prescrptions Were Given to Patient: Albuterol Inhaler [Ventolin Hfa] 1 - 2 puff INHALATION Q4H PRN PRN #1 inhaler PRN Reason: Shortness Of Breath levoFLOXacin tablet [Levaquin tablet] 500 mg PO DAILY #5 tablet Guaifenesin [Mucinex] 600 mg PO BID #10 tab.er.12h Primary Care Physician: Dangelo Beckford MD [Primary Care Provider] - Within 2 Weeks Disposition: Home Minutes spent on discharge:: 32 Patient Condition:: Good Medical Necessity - Tobacco Use Smoking Status: Former smoker - Quit cigarette tobacco usage 30 years prior with prior to this 1 pack/day. Tobacco Use: Non-smoker Meaningful Use Info Meaningful Use Diagnoses (Choose all that apply): None applicable Code Visit Inpatient E&M: 02534 Disch Hosp
--- NOTE | 2018-10-12 10:39 | DS.PCM_ITS ---
Discharge Date and Diagnosis - Problem List Patient Problems: Active and Suspected Problems (Last Updated 08/20/18 @ 09:30 by Petr Bullard CRT, PRERNA, BS) Sepsis (Acute) Pneumonia (Acute) Date of Admission: 10/10/18 Date of Discharge: 10/12/18 - Primary Discharge Diagnosis Active and Suspected Problems (Last Updated 08/20/18 @ 09:30 by Petr Bullard CRT, CAGE CLERK, BS) Sepsis (Acute) Pneumonia (Acute) 1. Sepsis: * sepsis present on admission * 2/2 pneumonia 2. Pneumonia, presumed pneumococcal * change to levofloxacin 500 daily for 5 more days * respiratory panel negative * BCx pending. * Strep and legionella antigen, respiratory panel negative 3. hypokalemia * ongoing * continue to replace 4. 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 CAD (coronary artery disease) (Chronic) Asthma (Chronic) Hypertension (Chronic) Osteoarthritis of right knee (Chronic) Hypothyroidism (Chronic) Hyperlipidemia (Chronic) Status post total right knee replacement (Chronic) Hospital Course and Treatment Imaging Results: Clinical Impression(s) from Imaging Studies Chest X-Ray 10/10/18 18:17 IMPRESSION: No acute cardiopulmonary disease or interval change. Electronically Signed: Con Fletcher DO at 18:35 EDT Tel [phone], Service support , Chest X-Ray 10/11/18 06:35 IMPRESSION: Elevation of the right hemidiaphragm with bibasilar atelectasis slightly more prominent on the right side. Electronically Signed: René Sanchez, at 8:37 EDT , Service support , NA Operations: None Procedures: None Summary of Care Provided: The patient is a 73 year old F presents with shortness of breath. Patient had been having a ongoing cough for about a week. Patient in the emergency room had a temperature of 101.4 Fahrenheit. Patient was clinically septic upon arrival. Initial x-ray was negative subsequent x-ray showed possible right lower lobe atelectasis versus infiltrate. Patient was started on ceftriaxone and azithromycin. Urinary antigens for Streptococcus and Legionella were negative, respiratory viral panel was also negative. Blood cultures were drawn and with no growth at the time of discharge. Overall, the patient is feeling better. Patient will have an amatory pulse ox prior to discharge but the plan is for mita green be discharged and to complete Levaquin, she will also have albuterol. [] Patient Problems: Active and Suspected Problems (Last Updated 08/20/18 @ 09:30 by Petr Bullard, HEAD ANIMAL TRAINER, CAGE CLERK, BS) Sepsis (Acute) Pneumonia (Acute) - Physical Exam General: Alert, No apparent distress HEENT: Atraumatic, Normocephalic Neck: No Nodes, Thyroid Normal Size and Texture Lungs: Clear to auscultation, Normal air movement, No rhonchi, No wheeze Cardiovascular: Regular rate, Regular Rhythm, Normal S1, Normal S2, No murmurs Abdomen: Bowel Sounds Present, Soft, Non Tender, Non-Distended, No Hepato- splenomegaly Extremities: No edema, No Calf Tenderness Skin: No rashes, No breakdown Psych/Mental Status: Normal Affect, Appropriate Vital Signs Temp Pulse Resp BP Pulse Ox 36.6 C 93 20 H 156/73 H 94 10/12/18 08:40 10/12/18 08:45 10/12/18 08:40 10/12/18 08:40 10/12/18 08:40 Oxygen Flow Rate (L/min) 2 Oxygen Delivery Method Nasal Cannula Weight: 119.5 kg Body Mass Index (BMI) 45.2 Intake and Output for Last 24 Hours 10/10/18 10/11/18 10/12/18 23:59 23:59 23:59 Intake Total 2953 / 2953 1249 / 1249 Output Total 1050 / 1050 200 / 200 Balance 1903 / 1903 1049 / 1049 Microbiology Past 72 Hours 10/11/18 18:10 Streptococcus pneumoniae Antigen (M - Final Urine, Clean Catch 10/11/18 18:10 Legionella Antigen - Final Urine, Clean Catch 10/11/18 02:50 Respiratory Panel (PCR) - Final Mucosa - Nasopharyngeal Laboratory Tests Past 24 Hrs 10/12/18 10/12/18 05:58 05:58 WBC 15.0 H RBC 4.06 L Hgb 11.4 L Hct 35.4 L MCV 87.2 MCH 28.1 MCHC 32.2 RDW 14.1 RDW Differential 44.9 H Plt Count 245 MPV 10.2 Immature Gran % (Auto) 0.200 Neut % (Auto) 84.6 H Lymph % (Auto) 8.1 L [place] % (Auto) 6.3 Eos % (Auto) 0.7 Baso % (Auto) 0.1 Absolute Neuts (auto) 12.7 H Absolute Lymphs (auto) 1.21 Total Counted Not Reportable Sodium 139 Potassium 3.5 Chloride 106 Carbon Dioxide 26.0 Anion Gap 7 BUN 13 Creatinine 0.95 Estim Creat Clear Calc 46.22 Est GFR (MDRD) Af Amer 75 Est GFR (MDRD) Non-Af 62 BUN/Creatinine Ratio 13.7 Glucose 113 H Calcium 8.6 Discharge Diet: Low fat/ Low Cholesterol Discharge Activity: Return to Normal Activity Call your doctor if you observe: Fever of 101 or Higher, Shortness of breath Home Medications: Medications to take at Discharge Ascorbic Acid [Vitamin C] 500 mg PO DAILY@0800 06/23/15 Cyanocobalamin (Vitamin B-12) [Vitamin B-12] 500 mcg SL DAILY 06/23/15 Cyclobenzaprine HCl 5 mg PO TID PRN PRN 06/23/15 Gabapentin [Neurontin] 1,500 tab PO QHS 06/23/15 Levothyroxine [Synthroid] 50 mcg PO MOWEFRSA 06/23/15 Levothyroxine [Synthroid] 100 mcg PO SUTUTH 06/23/15 Meclizine HCl [Antivert] 12.5 mg PO DAILY PRN PRN 06/23/15 Montelukast Sodium [Singulair] 10 mg PO DAILY 06/23/15 Multivit-Min/Iron/Folic/Lutein [Centrum Silver Women Tablet] 1 tab PO DAILY 06/23/15 Sertraline HCl [Zoloft] 50 mg PO DAILY 06/23/15 Mometasone/Formoterol [Dulera 100 Mcg/5 Mcg Inhaler] 2 puff INHALATION BID 06/11/18 Nortriptyline HCl 10 mg PO QHS 06/11/18 [place]-3 Fatty Acids/Fish Oil [Fish Oil 1,000 mg Capsule] 1 ea PO DAILY 06/11/18 Vitamin E Acetate [Vitamin E] 400 unit PO DAILY 06/11/18 Aspirin E.C. [Ecotrin] 81 mg PO DAILYCM 10/10/18 Calcium Citrate/Vitamin D3 [Citracal + D Maximum Caplet] 1 tab PO DAILY 10/10/18 Clopidogrel Bisulfate [Clopidogrel] 75 mg PO DAILY 10/10/18 Etodolac 400 mg PO DAILY 10/10/18 Furosemide [Lasix] 40 mg PO BID 10/10/18 Isosorbide Mononitrate [Imdur] 30 mg PO DAILY 10/10/18 Losartan Potassium [Cozaar] 50 mg PO DAILY 10/10/18 Metoprolol Tartrate [Lopressor (beta zach)] 50 mg PO BID 10/10/18 Potassium Chloride [K-Dur] 20 meq PO BID 10/10/18 Pravastatin Sodium 80 mg PO QHS 10/10/18 hydrALAZINE [Apresoline] 25 mg PO TID 10/10/18 Albuterol Inhaler [Ventolin Hfa] 1 - 2 puff INHALATION Q4H PRN PRN #1 inhaler 10/12/18 Guaifenesin [Mucinex] 600 mg PO BID #10 tab.er.12h 10/12/18 levoFLOXacin tablet [Levaquin tablet] 500 mg PO DAILY #5 tablet 10/12/18 Following Prescrptions Were Given to Patient: Albuterol Inhaler [Ventolin Hfa] 1 - 2 puff INHALATION Q4H PRN PRN #1 inhaler PRN Reason: Shortness Of Breath levoFLOXacin tablet [Levaquin tablet] 500 mg PO DAILY #5 tablet Guaifenesin [Mucinex] 600 mg PO BID #10 tab.er.12h Primary Care Physician: Dangelo Beckford MD [Primary Care Provider] - Within 2 Weeks Disposition: Home Minutes spent on discharge:: 32 Patient Condition:: Good Medical Necessity - Tobacco Use Smoking Status: Former smoker - Quit cigarette tobacco usage 30 years prior with prior to this 1 pack/day. Tobacco Use: Non-smoker Meaningful Use Info Meaningful Use Diagnoses (Choose all that apply): None applicable Code Visit Inpatient E&M: 67057 Disch Hosp
--- NOTE | 2018-10-14 13:17 | CASEMGMT ---
YURI GREEN received call from Sabina at [facility] [place], stating that the patient was setup with home oxygen at discharge. [facility] [place] [facility] accredited pharmacy technician delivered portable tank to hospital prior to discharge and instructed patient to call when she arrived home to deliver concentrator. Patient never called accredited pharmacy technician, son accredited pharmacy technician did stopped at the home and no one answered the door. Sabina followed up with patient via phone call. Patient stated that she has a pulse oximeter and her oxygen is 90% and she doesn't need oxygen anymore. Sabina stated that she also updated Dr. Beckford.
[2018-10-14 14:38] LABS: Pathologist Review Reviewed
--- NOTE | 2018-10-14 15:02 | CASEMGMT ---
RN PETER DC PHONE CALL DC DATE: 10/12/18 DC Disposition: Home LACE/STRATA:04/06 Intro role of CM to patient via phone. Pt states she does not have questions re: instructions, prescriptions or f/u. Pt has f/u appointments made and is taking her antibiotic as ordered. No care improvement suggestions given. Kuldip SANDERSN RN ACM
== END 2018-10-12 15:05 | disposition home or self-care (01) | DRG 871 ==
LOC: ED 18:37 → PCU 19:47 → MS3 19:58
PROVIDERS: Admitting Provider Family Medicine; Emergency Provider Emergency Medicine; Family Provider Family Medicine; PCP Family Medicine
DX: A41.9 Sepsis, unspecified organism (principal); J13 Pneumonia due to Streptococcus pneumoniae; Z68.42 Body mass index [BMI] 45.0-49.9, adult; E87.6 Hypokalemia; J45.909 Unspecified asthma, uncomplicated; E78.5 Hyperlipidemia, unspecified; E03.9 Hypothyroidism, unspecified; I25.10 Atherosclerotic heart disease of native coronary artery without angina pectoris; E66.01 Morbid (severe) obesity due to excess calories; I12.9 Hypertensive chronic kidney disease with stage 1 through stage 4 chronic kidney disease, or unspecified chronic kidney disease; N18.3 Chronic kidney disease, stage 3 (moderate); E83.42 Hypomagnesemia; G25.81 Restless legs syndrome; Z95.5 Presence of coronary angioplasty implant and graft; Z96.651 Presence of right artificial knee joint; I25.2 Old myocardial infarction; Z87.891 Personal history of nicotine dependence
CPT/HCPCS: 36415; 71045; 71046; 80048; 83605; 83735; 84484; 85025; 87040; 87449; 87633; 93005; 93798; 94640; 94667; 94668; 97110; 97163; 97166; 97530; 97802; 99285; J7030; A4216

== ENCOUNTER 2018-11-01 15:15 | Outpatient (RCR) | payer MEDICARE, OTHER, SELFPAY ==
[2018-08-20 09:31] VITALS: BMI 47.5
[2018-10-02 01:38] VITALS: BP 108/62; BP 154/72
--- NOTE | 2018-10-18 08:13 | PCM.CR.ITP ---
Exercise - 60-Day Assessment - Visit Date of Eval: 10/18/18 Session #:: 23 - Stages of Change Stages of Change:: Action - Physician Prescribed Exercise Modalities: Treadmill, NuStep, SciFit Frequency (days/week): 3 Duration (Minutes):: 30-45 Intensity: 60-80% age predicted maximum heart rate reserve METs - Progression: 0.5-1.0 MET, RPE 11-14 WEEK: 3 Target Heart Rate:: 103-126 - Hypertension Resting Blood Pressure:: 138/54 Peak Exercise Blood Pressure:: 140/60 Medication Changes:: No - Intervention Home Exercise/Activity Goal:: Moderate Exercise 30 min/day x 5 days/wk - Education Goals:: Warm-up, RPE MEHRAN Scale, S/S, Safe Exercise, Self-Monitoring - Exercise Program Goals Exercise Program Goals: Aerobic Activity >30 min Nutrition - 60-Day Assessment - Program Goals Nutrition Program Goals: LDL <70. Total Cholesterol <200. HDL >45. Triglycerides <150. HgbA1C <7%. BMI <25 - Visit Date of Eval: 10/18/18 - Stages of Change Stages of Change:: Action - Lipids Has the patient seen the dietitian?: No - Diabetes Diabetes:: No Insulin: No Non-Insulin Dependent?: No - Weight Management Weight:: 274 lb - Intervention Referral to dietitian:: No Referral to Diabetic Clinic:: No Will attend diet classes:: Yes - Education Attended class for:: Healthy eating Tobacco - Initial Assessment - Program Goals Tobacco Program Goals: Complete smoking cessation. Attend education classes. Improve Knowledge Test score - Learning Barriers Learning Barriers: Ready to Learn Tobacco - 60-Day Assessment - Program Goals Tobacco Program Goals: Complete smoking cessation. Attend education classes. Improve Knowledge Test score - Stage of Change Stages of Change:: Action - Learning Barriers Learning Barriers: Participates in education - Family Support Do you have family support?: Yes - Tobacco Use Tobacco Use: Non-smoker Do you use smokeless tobacco?: No - Intervention Smoking Cessation Referral:: No Individual Education/Counseling:: No Education Schedule Given:: Yes - Education Attended class for:: Coronary artery disease, Risk factors, Sexuality, Medical compliance, Cardiac A&P, Angina signs & symptoms Psychosocial - Initial Assess - Target Goals Target Goals: Assess presence or absence of depression. Using a valid screening tool, maximizes coping skills. Positive support system - Psychosocial Test Tool Used:: HANDS Depression Questionnaire - Assistive Devices Fall Risk Assessed:: Yes Psychosocial - 60-Day Assess - Target Goals Target Goals: Assess presence or absence of depression. Using a valid screening tool, maximizes coping skills. Positive support system - Stages of Change Stages of Change:: Action - Psychosocial Test Tool Used:: HANDS Depression Questionnaire - Intervention PS - Interventions: Yes Attend Stress Management Classes, Yes Uses Stress Management Skills, No Referral to Mental Health, No Referral to [facility] Case Management, No Referral to Physician - Education Attended classes for:: Coping techniques, Signs & symptoms of depression, Stress management, Relaxation techniques - Patient/Program Goal Preventative Medication(s):: Aspirin, Clopidogrel, Beta zach, Statin/lipid - Assistive Devices Assistive Devices:: None Fall Risk Assessed:: Yes Patient Health Questionnaire 60-Day Re-eval Assessment 1. Little interest or pleasure in doing things: Not at all 2. Feeling down, depressed, or hopeless: Not at all 3. Trouble falling or staying asleep, or sleeping too much: Not at all 4. Feeling tired or having little energy: Several days 5. Poor appetite or overeating: Not at all 6. Feeling bad about yourself -- or that you are a failure or have let yourself or your family down: Not at all 7. Trouble concentrating on things, such as reading the newspaper or watching television: Not at all 8. Moving or speaking so slowly that other people could have noticed. Or the opposite - being so fidgety or restless that you have been moving around a lot more than usual: Not at all 9. Thoughts that you would be better off , or of hurting yourself in some way: Not at all How difficult have these problems made it for you to do your work, take care of things at home, or get along with other people?: Not difficult at all Total Score: 1 Self-Efficacy 60-Day Re-eval Assessment We would like to know how confident you are in doing certain activities. Please select your confidence level for:: Select your confidence level for the following using the scale 1-10 where 1 is not at all confident and 10 is totally confident. Your score is the average of all 6 responses. Fatigue: How confident are you that you can keep the fatigue caused by your disease from interfering with the things you want to do? Select Number: 10 Physical Discomfort or Pain: How confident are you that you can keep the physical discomfort or pain of your disease from interfering with the things you want to do? Select Number: 8 Emotional Distress: How confident are you that you can keep the emotional distress caused by your disease from interfering with the things you want to do? Select Number: 10 Other Symptoms or Health Problems: How confident are you that you can keep other symptoms or health problems from interfering with the things you want to do? Select Number: 10 Different Tasks and Activities: How confident are you that you can do the different tasks and activities needed to manage your health condition so as to reduce your need to see a doctor? Select Number: 8 Medication: How confident are you that you can do things other than just taking medication to reduce how much your illness affects your everyday life? Select Number: 10 Total Score:: 9
[2018-10-18 08:18] VITALS: BP 138/54; BP 140/60
== END 2018-11-01 23:59 ==
LOC: CR 15:15
PROVIDERS: Family Provider Family Medicine; PCP Family Medicine; Referring Provider Internal Medicine Cardiovascular Disease; Visit Provider Internal Medicine Cardiovascular Disease
DX: I25.10 Atherosclerotic heart disease of native coronary artery without angina pectoris (principal); I21.4 Non-ST elevation (NSTEMI) myocardial infarction; Z95.820 Peripheral vascular angioplasty status with implants and grafts
CPT/HCPCS: 93798

== ENCOUNTER 2018-11-29 15:15 | Outpatient (RCR) | payer MEDICARE, OTHER, SELFPAY ==
[2018-11-02 01:02] VITALS: BP 138/54; BP 140/60; BMI 47.5
--- NOTE | 2018-11-18 09:26 | PCM.CR.ITP ---
Exercise - 90-Day Assessment - Visit Date of Eval: 11/18/18 Session #:: 30 - Stages of Change Stages of Change:: Maintenance, Action - Physician Prescribed Exercise Modalities: Treadmill, NuStep, SciFit Frequency (days/week): 3 Duration (Minutes):: 30-45 Intensity: 60-80% age predicted maximum heart rate reserve METs - Progression: 0.5-1.0 MET, RPE 11-14 WEEK: 3.5 Target Heart Rate:: 103-126 - Hypertension Resting Blood Pressure:: 112/60 Peak Exercise Blood Pressure:: 154/62 Medication Changes:: No - Intervention Home Exercise/Activity Goal:: Moderate Exercise 30 min/day x 5 days/wk - Education Goals:: Warm-up, RPE MEHRAN Scale, S/S, Safe Exercise, Self-Monitoring - Exercise Program Goals Exercise Program Goals: Aerobic Activity >30 min Nutrition - 90-Day Assessment - Program Goals Nutrition Program Goals: LDL <70. Total Cholesterol <200. HDL >45. Triglycerides <150. HgbA1C <7%. BMI <25 - Visit Date of Eval: 11/18/18 - Stages of Change Stages of Change:: Action - Lipids Has the patient seen the dietitian?: No - Diabetes Diabetes:: No Insulin: No Non-Insulin Dependent?: No - Weight Management Weight:: 269 lb - Intervention Referral to dietitian:: No Referral to Diabetic Clinic:: No Will attend diet classes:: Yes - Education Attended class for:: Healthy eating Tobacco - Initial Assessment - Program Goals Tobacco Program Goals: Complete smoking cessation. Attend education classes. Improve Knowledge Test score - Learning Barriers Learning Barriers: Ready to Learn Tobacco - 90-Day Assessment - Program Goals Tobacco Program Goals: Complete smoking cessation. Attend education classes. Improve Knowledge Test score - Stage of Change Stages of Change:: Action - Learning Barriers Learning Barriers: Participates in education - Family Support Do you have family support?: Yes - Tobacco Use Tobacco Use: Non-smoker Do you use smokeless tobacco?: No - Intervention Smoking Cessation Referral:: No Individual Education/Counseling:: No Education Schedule Given:: Yes - Education Attended class for:: Coronary artery disease, Risk factors, Sexuality, Medical compliance, Cardiac A&P, Angina signs & symptoms Psychosocial - Initial Assess - Target Goals Target Goals: Assess presence or absence of depression. Using a valid screening tool, maximizes coping skills. Positive support system - Psychosocial Test Tool Used:: HANDS Depression Questionnaire - Assistive Devices Fall Risk Assessed:: Yes Psychosocial - 90-Day Assess - Target Goals Target Goals: Assess presence or absence of depression. Using a valid screening tool, maximizes coping skills. Positive support system - Stages of Change Stages of Change:: Action - Psychosocial Test Tool Used:: HANDS Depression Questionnaire - Intervention PS - Interventions: Yes Attend Stress Management Classes, Yes Uses Stress Management Skills, No Referral to Mental Health, No Referral to [facility] Case Management, No Referral to Physician - Education Attended classes for:: Coping techniques, Signs & symptoms of depression, Stress management, Relaxation techniques - Patient/Program Goal Preventative Medication(s):: Aspirin, Clopidogrel, Beta zach, Statin/lipid - Assistive Devices Assistive Devices:: None, Cane Fall Risk Assessed:: No Patient Health Questionnaire 90-Day Re-eval Assessment 1. Little interest or pleasure in doing things: Several days 2. Feeling down, depressed, or hopeless: Not at all 3. Trouble falling or staying asleep, or sleeping too much: Not at all 4. Feeling tired or having little energy: Not at all 5. Poor appetite or overeating: Not at all 6. Feeling bad about yourself -- or that you are a failure or have let yourself or your family down: Not at all 7. Trouble concentrating on things, such as reading the newspaper or watching television: Not at all 8. Moving or speaking so slowly that other people could have noticed. Or the opposite - being so fidgety or restless that you have been moving around a lot more than usual: Not at all 9. Thoughts that you would be better off , or of hurting yourself in some way: Not at all How difficult have these problems made it for you to do your work, take care of things at home, or get along with other people?: Not difficult at all Total Score: 1 Self-Efficacy 90-Day Re-eval Assessment We would like to know how confident you are in doing certain activities. Please select your confidence level for:: Select your confidence level for the following using the scale 1-10 where 1 is not at all confident and 10 is totally confident. Your score is the average of all 6 responses. Fatigue: How confident are you that you can keep the fatigue caused by your disease from interfering with the things you want to do? Select Number: 10 Physical Discomfort or Pain: How confident are you that you can keep the physical discomfort or pain of your disease from interfering with the things you want to do? Select Number: 6 Emotional Distress: How confident are you that you can keep the emotional distress caused by your disease from interfering with the things you want to do? Select Number: 10 Other Symptoms or Health Problems: How confident are you that you can keep other symptoms or health problems from interfering with the things you want to do? Select Number: 10 Different Tasks and Activities: How confident are you that you can do the different tasks and activities needed to manage your health condition so as to reduce your need to see a doctor? Select Number: 8 Medication: How confident are you that you can do things other than just taking medication to reduce how much your illness affects your everyday life? Select Number: 10 Total Score:: 9
[2018-11-18 09:32] VITALS: BP 112/60; BP 154/62
== END 2018-12-01 23:59 ==
LOC: CR 15:15
PROVIDERS: Family Provider Family Medicine; PCP Family Medicine; Referring Provider Internal Medicine Cardiovascular Disease; Visit Provider Internal Medicine Cardiovascular Disease
DX: I25.10 Atherosclerotic heart disease of native coronary artery without angina pectoris (principal); I21.4 Non-ST elevation (NSTEMI) myocardial infarction; Z95.820 Peripheral vascular angioplasty status with implants and grafts
CPT/HCPCS: 93798

== ENCOUNTER → 2019-06-03 14:55 | Outpatient (CLI) | payer MEDICARE, OTHER, SELFPAY ==
[2019-05-14 11:06] VITALS: BMI 48.6
--- NOTE | 2019-06-03 14:55 | ECHOCS_ITS ---
Reason For Study: CAD Procedure This was a 2D Doppler, Color Flow transthoracic echocardiogram. The study was technically difficult. Contrast injection was performed. Exam performed in department. Left Ventricle Normal LV size. Mild segmental systolic dysfunction (see wall motion). The estimated ejection fraction is 45 %. No evidence for diastolic dysfunction. Infero-Basal: Hypokinetic. Basal inferoseptal: Hypokinetic. Mid-Inferior: Hypokinetic. Mid-inferoseptal : Hypokinetic. Inferior Foreman : Hypokinetic. Right Ventricle Normal RV size. Normal systolic function. Atria Normal left atrium. Normal right atrium. No doppler evidence for ASD. Mitral Valve There is mild mitral annular calcification. Normal mitral valve. Mild (1+) mitral valve insufficiency. Tricuspid Valve Normal tricuspid valve. Trivial tricuspid valve insufficiency. Right ventricular systolic pressure estimated to be 20 mmHg. Aortic Valve Trisinus/trileaflet aortic valve. Normal aortic valve. Pulmonic Valve The pulmonic valve is not well visualized. Great Vessels Mildly dilated aortic root. Pericardium/Pleural No pericardial effusion. Medication 22 gauge I.V. with prn adaptor inserted into left arm. Diluted definity 5.0ml given slow IV push to enhance endocardial definition. MMode/2D Measurements & Calculations LVIDd: 5.3 cm IVSd: 0.60 cm Ao root diam: 4.0 cm LVIDs: 4.2 cm LVPWd: 0.73 cm RVDd: 3.0 cm FS: 20.2 % LAV(MOD-bp): 55.4 ml LVAd ap4: 31.6 cm2 SV(MOD-sp4): 35.0 ml LAV(MOD-bp) Indexed: 24.5 ml/m2 EDV(MOD-sp4): 95.8 ml LAV(MOD-sp2): 70.3 ml EDV(sp4-el): 102.2 ml LAV(MOD-sp4): 43.9 ml LVAs ap4: 22.8 cm2 ESV(MOD-sp4): 60.8 ml ESV(sp4-el): 62.0 ml EF(MOD-sp4): 36.5 % EF(sp4-el): 39.3 % SV(sp4-el): 40.2 ml LA A4 area: 17.9 cm2 LA dimension(2D): 3.5 cm RA A4 area: 12.5 cm2 Time Measurements MV dec time: 0.29 sec Doppler Measurements & Calculations MV E max rock: 60.5 cm/sec Lat Peak E' Rock: 6.8 cm/sec Med Peak E' Rock: 6.5 cm/sec MV A max rock: 95.2 cm/sec E/E' lat: 8.9 E/E' med: 9.4 MV E/A: 0.64 Ao V2 max: 126.7 cm/sec LV V1 max: 85.8 cm/sec TR max rock: 208.8 cm/sec Ao max P.4 mmHg LV V1 max P.9 mmHg TR max P.4 mmHg Interpretation Summary The study was technically difficult. Contrast injection was performed. Mild segmental systolic dysfunction (see wall motion). The estimated ejection fraction is 45 %. There is mild mitral annular calcification. Mild (1+) mitral valve insufficiency. Trivial tricuspid valve insufficiency. Mildly dilated aortic root. Right ventricular systolic pressure estimated to be 20 mmHg. No evidence for diastolic dysfunction. Ordering Physician: Jalen Shah Referring Physician: ABDIRASHID LONGORIA Performed By: Judy Guadalupe, ONELCS, RVT
== END ==
PROVIDERS: Family Provider Family Medicine; PCP Family Medicine; Referring Provider Internal Medicine Cardiovascular Disease; Visit Provider Internal Medicine Cardiovascular Disease
DX: I25.10 Atherosclerotic heart disease of native coronary artery without angina pectoris (principal)
CPT/HCPCS: 93306; Q9957; A4216; C8929

== ENCOUNTER → 2019-12-08 08:50 | Outpatient (CLI) | payer MEDICARE, OTHER, SELFPAY ==
[2019-11-17 09:27] VITALS: BMI 48.0
--- NOTE | 2019-12-08 08:54 | CDU_ITS ---
Reason For Study: Vertigo Rt. Velocities/BP Lt. Velocities/BP Prox CCA 72.8/10.2 cm/sec. Prox CCA 87.6/16.3 cm/sec. Mid CCA 56.9/11.4 cm/sec. Mid CCA 63/11.4 cm/sec. Dist CCA 47/12.6 cm/sec. Dist CCA 65.5/22.5 cm/sec. Prox ICA 38.6/9 cm/sec. Prox ICA 56.9/9 cm/sec. Mid ICA 49.1/15.1 cm/sec. Mid ICA 99.2/27.9 cm/sec. Dist ICA 75.3/22.9 cm/sec. Dist ICA 75.4/20.6 cm/sec. Rt. ICA/CCA = 1.32. Lt. ICA/CCA = 1.51. Prox ECA 56.9 cm/sec. Prox ECA 50.7/5.3 cm/sec. Rt. Vert. 53.5/10.7 cm/sec. Lt. Vert. 23 cm/sec. Right Extracranial There is heterogeneous, irregular atherosclerotic plaque noted in the right common carotid artery. There is heterogeneous, irregular atherosclerotic plaque noted in the right internal carotid artery. The right internal carotid artery is very tortuous. There is intimal thickening but no significant atherosclerotic plaque noted in the right external carotid artery. Antegrade flow is noted in the right vertebral artery. Left Extracranial There is heterogeneous, irregular atherosclerotic plaque noted in the left common carotid artery. There is heterogeneous, irregular atherosclerotic plaque noted in the left internal carotid artery. There is intimal thickening but no significant atherosclerotic plaque noted in the left external carotid artery. Antegrade flow is noted in the left vertebral artery. Abnormal waveforms noted in the left vertebral. Procedure Carotid Duplex 09243. Exam performed in department. Interpretation Summary Minimal irregular heterogenous plaque right proximal internal carotid artery with a tortuous internal carotid artery and less than 50% stenosis. <50% stenosis right external carotid Minimal irregular heterogenous plaque proximal left internal carotid artery with less than 50% stenosis <50% stenosis left external carotid Patent and antegrade flow bilateral vertebral arteries with diminished velocity on the left Ordering Physician: Arely Ross Referring Physician: MD Shakeel Dangelo Performed By: Ly Beltran RVT
== END ==
PROVIDERS: PCP Family Medicine; Referring Provider Physician Assistant Medical; Visit Provider Physician Assistant Medical
DX: R42 Dizziness and giddiness (principal)
CPT/HCPCS: 93880

== ENCOUNTER → 2021-04-26 | Outpatient (CLI) | payer MEDICARE, OTHER, SELFPAY ==
--- NOTE | 2021-04-26 | FLU_PTH ---
PATIENT: DON JONES LOC: [place] U#:[id number] AGE/SX: 76/F ROOM: RE04/26/[address]: Dr. Don Morales MD : 1945 BED: DIS: 04/26/2021 SPEC #: [id number] RECD: 04/26/21 12:06 STATUS: LAI REErvin #: [id number] TONI: 04/26/21 00:[address]: Don Morales DEPT: CYTOLOGY RECD BY: Flower Paz ENTERED: 04/26/21 12:59 SP TYPE: Fluid OTHR DR: Dr. Dangelo Beckford MD Tissues: A - Thyroid gland, NOS B - Thyroid gland, NOS Procedures: Special Stain Group II Surgery Specimen Level IV Cytospin Fluid Cytology Other HEADER OPERATION: Left thyroid fine needle aspiration PRE-OP DIAGNOSIS: Abnormal thyroid ultrasound TISSUE SUBMITTED: A ? FNA left thyroid fluid, B ? FNA left thyroid x6 slides DIAGNOSIS CYTOLOGY A. Fine needle aspiration (cytospins & cell block): Rare benign follicular cells. B. Fine needle aspiration (smears): Atypia of undetermined clinical significance. See Comment. AM:lisa 04/27/21 COMMENT The specimen is paucicellular. Clinical correlation is suggested. CYTOLOGY STUDY Slides are reviewed. CYTOLOGY GROSS A - Received is 30 ml of brown cloudy fluid labeled with the patient's name and and designated per the requisition as left thyroid. Submitted for cytology preparation including cell block. B - Received are six smears labeled with the patient's name and designated per the requisition as left thyroid. Submitted for staining. / shari 04/26/2021 TC:? CPT: 04909, 28828, 83150
== END | disposition home or self-care (01) ==
LOC: LABSPEC 12:17
PROVIDERS: PCP Family Medicine; Referring Provider Surgery; Visit Provider Surgery
DX: R93.89 Abnormal findings on diagnostic imaging of other specified body structures (principal)
CPT/HCPCS: 88108; 88161; 88305; 88313

== ENCOUNTER → 2021-05-16 | Outpatient (CLI) | payer MEDICARE, OTHER, SELFPAY ==
--- NOTE | 2009-05-17 | CONV_PTH ---
PATIENT: DON JONES LOC: [facility] U#:[id number] AGE/SX: 76/F ROOM: RE05/16/[address]: Dr. Don Morales MD : [id number] BED: DIS: 05/16/2021 SPEC #: [id number] RECD: 05/19/09 14:38 STATUS: LAI REQ #: [id number] TONI: 05/17/09 00:[address]: Jamison Welch DEPT: IMMUNOHISTOCHEMISTRY RECD BY: Amy Wilcox Tissues: 1 - Thyroid gland, NOS Procedures: CYCLIN (initial) P63 (initial) CK19 (initial) HBME (initial) CD56 (initial) Comments: @ Originally on account #[id number] Req #[id number]
--- NOTE | 2021-05-16 | FLU_PTH ---
PATIENT: DON JONES LOC: [place] U#:[id number] AGE/SX: 76/F ROOM: RE05/16/[address]: Dr. Don Morales MD : 1945 BED: DIS: 05/16/2021 SPEC #: [id number] RECD: 05/16/21 13:59 STATUS: SOUT REQ #: [id number] TONI: 05/16/21 00:[address]: Don Morales DEPT: CYTOLOGY RECD BY: David Reddy ENTERED: 05/16/21 14:00 SP TYPE: Fluid OTHR DR: Dr. Jamison Welch MD Tissues: A - Thyroid gland, NOS B - Thyroid gland, NOS Procedures: Special Stain Group II Surgery Specimen Level IV Cytospin Fluid Comments: @ Ordering doctor for SSII edited from to @ by IRENE at 05/31/21 0828 @ Ordering doctor for SUIV edited from to DR.LWANG Troncoso by IRENE at 05/31/21 0828 @ Ordering doctor for CYSPIN edited from to DR.LWANG Troncoso by IRENE at 05/31/21 0828 @ Submitting doctor edited from to DR.LWANG Troncoso by IRENE at 05/31/21 0828 @ Originally on account #[id number] Req #[id number] HEADER OPERATION: Ultrasound-guided fine needle aspiration of left thyroid PRE-OP DIAGNOSIS: Left thyroid nodule TISSUE SUBMITTED: A ? Left thyroid nodule fluid, B ? Left thyroid nodule x8 slides DIAGNOSIS CYTOLOGY A. Fine needle aspiration, left thyroid nodule fluid (cytospin and cell block): Negative for malignant cells. B. Fine needle aspiration, left thyroid nodule (smears): Adequate for evaluation. Negative, consistent with benign follicular nodule. See comment. AM:shari 05/17/2021 COMMENT B. The follicles occasionally have a microfollicular architecture. Clinical correlation is suggested. CYTOLOGY STUDY Slides are reviewed. CYTOLOGY GROSS A - Received is 30 ml of red cloudy fluid labeled with the patient's name and and designated per the requisition as left thyroid. Submitted for cytology preparation including cell block. B - Received are eight smears labeled with the patient's name and designated per the requisition as left thyroid nodule. Submitted for staining. / shari 05/16/2021 TC:5 CPT: 72608, 69095, 37302
== END | disposition home or self-care (01) ==
LOC: LABSPEC 12:56
PROVIDERS: PCP Family Medicine; Referring Provider Surgery; Visit Provider Surgery
DX: E04.1 Nontoxic single thyroid nodule (principal)
CPT/HCPCS: 88108; 88305; 88313

== ENCOUNTER → 2022-03-15 | Outpatient (CLI) | payer MEDICARE, OTHER, SELFPAY ==
--- NOTE | 2022-03-15 13:52 | ECHOCS_ITS ---
Reason For Study: Ao Root Dilation Procedure This was a 2D Doppler, Color Flow transthoracic echocardiogram. The study was technically difficult. Contrast injection was performed. Exam performed in department. Left Ventricle Normal LV size. Segmental dysfunction with preserved ejection fraction (see wall motion). The estimated ejection fraction is 55 %. No evidence for diastolic dysfunction. Infero-Basal: Hypokinetic. Basal inferoseptal: Hypokinetic. Mid-Inferior: Hypokinetic. Mid-inferoseptal : Hypokinetic. Right Ventricle Normal RV size. Normal systolic function. Atria Normal left atrium. Normal right atrium. No doppler evidence for ASD. Mitral Valve There is no mitral annular calcification. Normal mitral valve. Trivial mitral valve insufficiency. Tricuspid Valve Normal tricuspid valve. Aortic Valve Trisinus/trileaflet aortic valve. Normal aortic valve. Pulmonic Valve The pulmonic valve is not well visualized. Great Vessels Borderline enlarged aortic root. Pericardium/Pleural No pericardial effusion. Medication Diluted definity 2ml given slow IV push to enhance endocardial definition. MMode/2D Measurements & Calculations LVIDd: 4.7 cm IVSd: 0.97 cm Ao root diam: 3.8 cm LVIDs: 2.7 cm LVPWd: 1.1 cm RVDd: 2.5 cm FS: 42.9 % LAV(MOD-bp): 28.5 ml LA A4 area: 14.9 cm2 LA dimension(2D): 4.1 cm LAV(MOD-bp) Indexed: 12.8 ml/m2 LAV(MOD-sp2): 26.6 ml LAV(MOD-sp4): 29.0 ml RA A4 area: 8.2 cm2 Doppler Measurements & Calculations MV E max rock: 60.8 cm/sec Lat Peak E' Rock: 7.4 cm/sec Med Peak E' Rock: 5.0 cm/sec MV A max rock: 88.0 cm/sec E/E' lat: 8.2 E/E' med: 12.3 MV E/A: 0.69 Ao V2 max: 130.1 cm/sec LV V1 max: 102.2 cm/sec PA V2 max: 104.1 cm/sec Ao max P.8 mmHg LV V1 max P.2 mmHg Ao V2 mean: 91.6 cm/sec Ao mean P.6 mmHg Ao V2 VTI: 25.4 cm ECHO/Echo Complete W/ Contrast Interpretation Summary The study was technically difficult. Contrast injection was performed. Segmental dysfunction with preserved ejection fraction (see wall motion). The estimated ejection fraction is 55 %. Trivial mitral valve insufficiency. Borderline enlarged aortic root. No evidence for diastolic dysfunction. Ordering Physician: Jalen Shah Referring Physician: Dangelo Beckford Performed By: Lizeth Barber, ONELCS, RVT
== END | disposition home or self-care (01) ==
PROVIDERS: PCP Family Medicine; Referring Provider Internal Medicine Cardiovascular Disease; Visit Provider Internal Medicine Cardiovascular Disease
DX: I25.10 Atherosclerotic heart disease of native coronary artery without angina pectoris (principal); I77.810 Thoracic aortic ectasia; Z95.5 Presence of coronary angioplasty implant and graft; E78.00 Pure hypercholesterolemia, unspecified; I10 Essential (primary) hypertension
CPT/HCPCS: 93306; Q9957; A4216; C8929

== ENCOUNTER → 2023-04-12 | Outpatient (CLI) | payer MEDICARE, OTHER, SELFPAY ==
--- NOTE | 2023-04-12 06:39 | CDU_ITS ---
Reason For Study: bruit Rt. Velocities/BP Lt. Velocities/BP Prox CCA 59.8/7.8 cm/sec. Prox CCA 89.4/14.6 cm/sec. Mid CCA 55.1/10.7 cm/sec. Mid CCA 72.9/15.7 cm/sec. Dist CCA 55.1/8.8 cm/sec. Dist CCA 59.7/12.4 cm/sec. Prox ICA 33.3/12.6 cm/sec. Prox ICA 57.5/11.3 cm/sec. Mid ICA 53.2/12.6 cm/sec. Mid ICA 141.2/31.6 cm/sec. Dist ICA 64.1/20.5 cm/sec. Dist ICA 130.2/29.8 cm/sec. Rt. ICA/CCA = 1.2. Lt. ICA/CCA = 1.9. Prox ECA 42.8/6.0 cm/sec. Prox ECA 47.6 cm/sec. Rt. Vert. 56.4/12.4 cm/sec. Lt. Vert. 44.3/5.9 cm/sec. Right Extracranial There is heterogeneous, irregular atherosclerotic plaque noted in the right common carotid artery. There is heterogeneous, irregular atherosclerotic plaque noted in the right internal carotid artery. There is intimal thickening but no significant atherosclerotic plaque noted in the right external carotid artery. Antegrade flow is noted in the right vertebral artery. Left Extracranial There is heterogeneous, irregular atherosclerotic plaque noted in the left common carotid artery. There is heterogeneous, irregular atherosclerotic plaque noted in the left internal carotid artery. There is intimal thickening but no significant atherosclerotic plaque noted in the left external carotid artery. Antegrade flow is noted in the left vertebral artery. Procedure Carotid Duplex 60744. This is a Carotid Duplex examination using B-mode, color flow and specral Doppler. The exam was diagnostic. Exam performed in department. VL/Carotid Duplex Ultrasound Interpretation Summary Mild (<50%) stenosis right extracranial internal carotid. Mild (<50%) stenosis left extracranial internal carotid. Patent and antegrade vertebrals bilaterally. Ordering Physician: Arely Ross Performed By: Roman Mcclain RVT
--- NOTE | 2023-04-12 06:39 | ECHOD_ITS ---
Reason For Study: CHEST PAIN Procedure This was a 2D Doppler, Color Flow transthoracic echocardiogram. Exam performed in department. Left Ventricle Normal LV size. The estimated ejection fraction is 60 %. No evidence for diastolic dysfunction. No regional wall motion abnormalities noted. Right Ventricle Normal RV size. Normal systolic function. Atria The left and right atria are normal. No doppler evidence for ASD. Mitral Valve There is mild to moderate mitral annular calcification. There is no mitral valve stenosis. No mitral valve insufficiency. Tricuspid Valve There is no tricuspid stenosis. Unable to estimate RV systolic pressure due to inadequate jet, pulmonary artery pressure probably normal. Aortic Valve Trisinus/trileaflet aortic valve. There is no aortic stenosis. No aortic valve insufficiency. Pulmonic Valve There is no pulmonic valvular stenosis. No pulmonic valve insufficiency. Great Vessels Normal aortic root. Pericardium/Pleural No pericardial effusion. MMode/2D Measurements & Calculations LVIDd: 4.6 cm IVSd: 1.5 cm Ao root diam: 3.7 cm LVIDs: 2.5 cm LVPWd: 1.4 cm FS: 44.5 % LAV(MOD-sp4): 35.3 ml LVAd ap4: 27.6 cm2 SV(MOD-sp4): 54.2 ml LVLd ap4: 8.2 cm EDV(MOD-sp4): 77.3 ml EDV(sp4-el): 79.2 ml LVAs ap4: 13.4 cm2 LVLs ap4: 6.7 cm ESV(MOD-sp4): 23.1 ml ESV(sp4-el): 22.7 ml EF(MOD-sp4): 70.1 % EF(sp4-el): 71.3 % SV(sp4-el): 56.5 ml LA A4 area: 14.8 cm2 LA dimension(2D): 3.8 cm RA A4 area: 11.6 cm2 TAPSE: 2.3 cm Time Measurements MV dec time: 0.38 sec Doppler Measurements & Calculations MV E max rock: 68.4 cm/sec Lat Peak E' Rock: 7.6 cm/sec Med Peak E' Rock: 7.1 cm/sec MV A max rock: 90.8 cm/sec E/E' lat: 9.1 E/E' med: 9.6 MV E/A: 0.75 MV V2 max: 101.2 cm/sec Ao V2 max: 139.1 cm/sec MV max P.1 mmHg MV dec slope: 179.5 cm/sec2 Ao max P.8 mmHg MV V2 mean: 55.9 cm/sec Ao V2 mean: 93.3 cm/sec MV mean P.4 mmHg Ao mean P.0 mmHg MV V2 VTI: 36.5 cm Ao V2 VTI: 33.4 cm AV (velocity ratio): 0.77 LV V1 max: 108.5 cm/sec TR max rock: 245.0 cm/sec LV V1 max P.7 mmHg TR max P.0 mmHg LV V1 mean P.6 mmHg LV V1 mean: 75.1 cm/sec LV V1 VTI: 25.8 cm ECHO/Echo Complete Interpretation Summary The estimated ejection fraction is 60 %. No evidence for diastolic dysfunction. Ordering Physician: Arely Ross Referring Physician: Arely Ross Performed By: Catie Cifuentes RCS
== END | disposition home or self-care (01) ==
LOC: CVS 06:38
PROVIDERS: PCP Family Medicine; Referring Provider Physician Assistant Medical; Visit Provider Physician Assistant Medical
DX: I25.10 Atherosclerotic heart disease of native coronary artery without angina pectoris (principal); I77.810 Thoracic aortic ectasia; R09.89 Other specified symptoms and signs involving the circulatory and respiratory systems; Z95.5 Presence of coronary angioplasty implant and graft
CPT/HCPCS: 78452; 93017; 93306; 93880; A9500; A4216; J2785

== ENCOUNTER 2023-09-18 09:48 | Emergency (ER) | payer MEDICARE, SELFPAY ==
[2023-09-18 09:48] VITALS: BP 159/99; PULSE 62; RESP 18; TEMP 36.6; O2SAT 98
--- NOTE | 2023-09-18 10:33 | ED.VIS.GI ---
HPI HPI - GI History of Present Illness Chief Complaint: Nausea/Vomiting Informant: patient and family Nausea/Vomiting/Emesis GI Symptom: Positive for Nausea and Vomiting Onset: Days Severity: Mild Diarrhea/Melena/Hematochezia GI Symptom: Negative for Diarrhea, Melena or Hematochezia Associated Symptoms Associated Symptoms: Negative for Dysuria, Frequency, Hematuria or Urgency Narrative Narrative: 78-year-old female history of CAD, CT with cardiac stent. Complaining of nausea and dry heaves for the last 3 days. No fever. No dysuria. No diarrhea or melena. No hematemesis. Decreased oral intake over that time. Prior similar symptoms: Yes Recent Illness/Hospitalization: No PFSH PFSH Medical History (Updated 09/18/23 @ 12:[address] Filipe Drummond MD) Asthma Atherosclerotic heart disease of cahto coronary artery without angina pectoris CAD (coronary artery disease) Chronic lower back pain Essential hypertension Former smoker, stopped smoking many years ago Hypothyroidism Myocardial infarct Non-STEMI (non-ST elevated myocardial infarction) Old myocardial infarction Osteoarthritis of right knee Presence of stent in coronary artery (~06/13/18) Pure hypercholesterolemia Restless leg syndrome Home Medications cyanocobalamin (vitamin B-12) 500 mcg sublingual tablet 500 mcg sublingual DAILY SUPPLEMENT 06/23/15 [History Last Taken 10/10/18] meclizine 12.5 mg tablet 12.5 mg PO DAILY PRN PRN Dizziness 06/23/15 [History Last Taken Unknown] montelukast 10 mg tablet 10 mg PO DAILY ALLERGIES 06/23/15 [History Last Taken 10/09/18] [id number] 8 mg-folic 400 mcg-K 50 mcg-lutein 300 mcg tablet 1 tab PO DAILY SUPPLEMENT 06/23/15 [History Last Taken 10/10/18] sertraline 50 mg tablet 50 mg PO DAILY DEPRESSION 06/23/15 [History Last Taken 10/10/18] nortriptyline 10 mg capsule 10 mg PO QHS DEPRESSION 06/11/18 [History Last Taken 10/09/18] omega-3 fatty acids-fish oil 340 mg-1,000 mg capsule 1 ea PO DAILY supplement 06/11/18 [History Last Taken 10/10/18] vitamin E 268 mg (400 unit) capsule 400 unit PO DAILY supplement 06/11/18 [History Last Taken 10/10/18] aspirin 81 mg tablet,delayed release [facility] 10/10/18 [History Last Taken 10/10/18] calcium citrate 315 mg calcium-vitamin D3 6.25 mcg (250 unit) tablet 1 tab PO DAILY SUPPLEMENT 10/10/18 [History Last Taken 10/10/18] etodolac 400 mg tablet 400 mg PO DAILY MUSCLES 10/10/18 [History Last Taken 10/10/18] albuterol sulfate 90 mcg/actuation aerosol inhaler 1 - 2 puff inhalation Q4H PRN PRN Shortness Of Breath ##1 10/12/18 [Rx Last Taken Unknown] potassium chloride 20 mEq tablet,extended release(part/cryst) 20 meq PO BID POTASSIUM #180 tabs 10/24/18 [Rx Last Taken Unknown] loratadine 10 mg tablet 10 mg PO DAILY PRN 90 days #90 tabs 05/14/19 [History Last Taken Unknown] pravastatin 80 mg tablet 80 mg PO QHS CHOLESTEROL #90 tabs 10/21/19 [Rx Last Taken Unknown] furosemide 40 mg tablet 40 mg PO DAILY FLUID #90 tabs 11/17/19 [Rx Last Taken Unknown] isosorbide mononitrate 30 mg tablet,extended release 24 hr 30 mg PO DAILY HEART #90 tabs 11/17/19 [Rx Last Taken Unknown] metoprolol tartrate 50 mg tablet 50 mg PO BID HEART #180 tabs 11/17/19 [Rx Last Taken Unknown] ciclopirox 0.77 % topical cream 1 applic topical DAILY PRN 08/05/20 [History Last Taken Unknown] cyclobenzaprine 5 mg tablet 5 mg PO QHS 08/05/20 [History Last Taken Unknown] fluticasone propionate 50 mcg/actuation nasal spray,suspension (Allergy Relief (fluticasone)) 1 spray intranasal DAILY 08/05/20 [History Last Taken Unknown] ipratropium 0.5 mg-albuterol 3 mg (2.5 mg base)/3 mL nebulization soln 3 ml inhalation Q6H PRN 08/05/20 [History Last Taken Unknown] clopidogrel 75 mg tablet 75 mg PO DAILY BLOOD THINNER #90 tabs 08/17/20 [Rx Last Taken Unknown] fluticasone furoate 100 mcg-vilanterol 25 mcg/dose inhalation powder 1 inh inhalation DAILY 08/25/21 [History Last Taken Unknown] gabapentin 600 mg tablet 1,500 mg PO QHS 08/25/21 [History Last Taken Unknown] levothyroxine 88 mcg tablet 88 mcg PO DAILY 08/25/21 [History Last Taken Unknown] losartan 50 mg tablet 50 mg PO BID HEART #180 tabs 09/04/23 [Rx Last Taken Unknown] ondansetron 4 mg disintegrating tablet 4 mg PO Q8H PRN nausea and vomiting #7 tabs 09/18/23 [Rx Last Taken Unknown] Allergy/AdvReac Type Severity Reaction Status Date / Time codeine Allergy Shortness Verified 09/18/23 09:51 of breath egg Allergy Nausea Verified 09/18/23 09:51 meperidine HCl [From Demerol] Allergy Itching Verified 09/18/23 09:51 midazolam HCl [From Versed] Allergy Itching Verified 09/18/23 09:51 Sulfa (Sulfonamide Allergy Unknown Verified 09/18/23 09:51 Antibiotics) Family History Mother CAD (coronary artery disease) Father CAD (coronary artery disease) Chronic rheumatic arthritis Sister CAD (coronary artery disease) Surgical History Presence of coronary angioplasty implant and graft (~06/13/18) Status post total right knee replacement Social History Smoking Status: Former smoker how long ago did patient quit smokin-40 years ago alcohol intake: never substance use type: does not use caffeine: Yes Type: coffee Number of servings: 1 ROS ROS ED ROS Narrative Nausea and dry heaves. Review of Systems ROS Unobtainable: Denies due to encephalopathy Constitutional Constitutional ED: Denies chills or fever(s) ENT ENT ED: Denies ear pain Cardiovascular Cardiovascular: Denies chest pain Respiratory/Chest Respiratory/Chest: Denies cough or dyspnea Gastrointestinal Gastrointestinal: Reports nausea and vomiting; Denies abdominal pain, constipation, diarrhea or melena Genitourinary Genitourinary ED: Denies dysuria or hematuria Musculoskeletal Musculoskeletal: Denies arthralgias, back pain, myalgias or neck pain Integumentary Denies abscess, Abrasions or rash Neurologic Neurologic: Denies headache(s) Psychiatric Psychiatric: Denies anxiety or depression Endocrine Endocrinology: Denies polydipsia or polyphagia Hematologic/Lymphatic Hematologic/Lymphatic: Denies easy bleeding, easy bruising or lymphadenopathy Allergic/Immunologic Allergic/Immunologic ED: Denies mouth swelling, tongue swelling or urticaria EXAM Physical Exam Narrative Exam Narrative: Well-appearing 78-year-old female. Vital signs are stable. Afebrile. Pulse ox 98% on room air no signs hypoxia. H EENT exam pupils round reactive light. No signs of trauma. No scalp tenderness. Mildly dry mucous membranes. Neck nontender no JVD. No lymphadenopathy. Lungs clear to auscultation bilaterally. Heart regular rhythm rate about 60 no murmur. Chest wall and ribs nontender. Abdomen soft nontender. Normal bowel sounds no peritoneal signs. No obstruction. No hernia or mass. Both the right upper and right lower quadrant completely nontender. Moving all 4 extremities. 5 out of 5 sql analyst strength. Dorsi plantarflexion intact. Nontender no edema. Back nontender. Neurologically patient is awake alert no focal motor deficits. Const Vital Signs: 09/18/23 09:48 09/18/23 10:54 09/18/23 12:05 Temperature 98 F 98.4 F Temperature Source Temporal Oral Pulse Rate 62 56 L 54 L Respiratory Rate 18 18 18 Blood Pressure 159/99 H 171/73 H 167/83 H Blood Pressure Mean 119 105 111 Pulse Ox 98 95 95 Oxygen Delivery Method Room Air Room Air Room Air Positive well nourished and well developed; Negative for cachectic, contractures or unkempt General Appearance ED: well developed and NAD; Negative for unkempt, cachectic, contractures or pallor Nutritional Appearance: Negative for cachectic HEENT Reports dry mucous membranes; Denies moist mucous membranes normocephalic and atraumatic; Negative for trauma or tenderness Mouth ED: Yes dry mucous membranes Mouth: dry mucous membranes Eyes PERRL and EOMs intact bilaterally General Eye ED: Negative for pale conjunctiva or scleral icterus Neck no lymphadenopathy, supple and no JVD General: Negative for tenderness Resp normal respiratory effort Effort and Inspection: Negative for respiratory distress Auscultation: Negative for rales, rhonchi, wheezes or diminished lung sounds Cardio regular rhythm, S1 normal heart sound and no murmurs Rate: Negative for bradycardia or tachycardic Rhythm: Negative for abnormal rhythm GI non-tender, non-distended and no masses Inspection: Negative for abdominal distention Auscultation: normoactive bowel sounds Palpation: soft; Negative for tender, guarding, rigid, hernia, mass, pulsatile mass or rebound tenderness present Back/Spine no CVA tenderness General Back: Negative for CVA tenderness Cervical Spine: Negative for cervical spine tenderness Thoracic Spine / Upper Back: Negative for thoracic spinal tenderness Lumbar Spine / Lower Back: Negative for lumbar spinal tenderness Coccyx: Negative for other Extremity full ROM General Extremety ED: Negative for edema or tenderness General Extremity: Negative for edema Neuro CN's II-XII intact bilaterally and moves all extremities Sensorium / Orientation: alert, oriented to person, oriented to place and oriented to time; Negative for orientation impaired, confused, lethargic or stuporous Motor Exam: strength 5/5 throughout; Negative for general weakness Psych mental status grossly normal and thought process normal Appearance: Negative for unkempt Attitude: No agitated Mood & Affect: Negative for depressed, anxious or tearful Skin no wounds General Skin Exam: Negative for jaundice or pallor Lesions: no lesions Rashes: no rashes Trauma: Negative for abrasion Nails: Negative for discolored MDM MDM MDM Narrative Medical decision making narrative: 78-year-old female with nausea and vomiting. Clinical looks mildly dehydrated. Will be treated with IV fluids and Zofran. Screening labs to be obtained. Her abdomen is completely benign and nontender. She is having no urinary symptoms. Check a CBC and a CMP. Repeat exam patient is doing well at 12 noon. Abdominal exam is benign and nontender. I went over her labs with her which are basically unremarkable. She is comfortable being discharged home with Zofran. Suspect nausea and vomiting secondary to a viral syndrome. Follow-up with her primary care provider. Return if worse. Plenty of fluids and rest. History & Record Review Discussion w/independent historian: Patient and Family Additional record(s) reviewed:: Prior inpatient record, Prior outpatient record, Prior ED visit and Prior labs Lab Data Attestation: I reviewed the patient's lab results. Lab results narrative: CBC shows a white count of 6.4. H&H of 15 and 46. Platelets 273. Electrolytes show gap 6. Normal BUN 9 creatinine 0.89. Glucose 135. Liver enzymes are normal. Labs: Laboratory Results - last 24 hr 09/18/23 10:43 WBC 6.4 RBC 5.26 Hgb 15.1 H Hct 46.5 MCV 88.4 MCH 28.7 MCHC 32.5 RDW Std Deviation 41.7 RDW Coeff of Jaleesa 12.9 Plt Count 273 MPV 10.4 Immature Gran % (Auto) 0.300 Neut % (Auto) 76.9 H Lymph % (Auto) 15.5 L [place] % (Auto) 6.1 Eos % (Auto) 0.6 Baso % (Auto) 0.6 Absolute Neuts (auto) 4.9 Absolute Lymphs (auto) 0.99 Nucleated RBC % 0 Sodium 143 Potassium 3.6 Chloride 110 H Carbon Dioxide 27.0 Anion Gap 6 BUN 9 Creatinine 0.89 Estim Creat Clear Calc 61.77 Est GFR (MDRD) Af Amer 79 Est GFR (MDRD) Non-Af 65 BUN/Creatinine Ratio 10.1 Glucose 135 H Calcium 9.7 Total Bilirubin 0.50 AST 22 ALT 19 Alkaline Phosphatase 63 Total Protein 7.3 Albumin 3.7 Globulin 3.6 Albumin/Globulin Ratio 1.0 Discharge Plan Triage Chief Complaint: Nausea/Vomiting ED Provider: Filipe Drummond Dx/Rx/DC Orders Clinical Impression: Viral syndrome, History of coronary artery disease, Nausea & vomiting Instructions: ED Viral Syndrome (Adult), ED Vomiting (Adult) Prescriptions: New ondansetron 4 mg tablet,disintegrating 4 mg PO Q8H PRN (Reason: nausea and vomiting) Qty: 7 0RF No Action potassium chloride 20 mEq tablet,ER particles/crystals 20 meq PO BID Qty: 180 3RF loratadine 10 mg tablet 10 mg PO DAILY PRN90 Days Qty: 90 Patient Comments: TAKE 1 TABLET BY MOUTH ONCE DAILY NEEDED FOR COLD/ALLERGY SYMPTOMS. furosemide 40 mg tablet 40 mg PO DAILY Qty: 90 3RF isosorbide mononitrate 30 mg tablet extended release 24 hr 30 mg PO DAILY Qty: 90 3RF metoprolol tartrate 50 mg tablet 50 mg PO BID Qty: 180 3RF cyclobenzaprine 5 mg tablet 5 mg PO QHS ipratropium-albuterol 0.5 mg-3 mg(2.5 mg base)/3 mL solution for nebulization 3 ml INHALATION Q6H PRN ciclopirox 0.77 % cream 1 applic TOPICAL DAILY PRN fluticasone propionate [Allergy Relief (fluticasone)] 50 mcg/actuation spray,suspension 1 spray INTRANASAL DAILY Rx Instructions: administer into each nostril gabapentin 600 mg tablet 1,500 mg PO QHS levothyroxine 88 mcg tablet 88 mcg PO DAILY Patient Comments: TAKE 1 TABLET BY MOUTH ONCE DAILY. TAKE ON EMPTY STOMACH. FOR THYROID. Breo Ellipta 100-25 mcg/dose blister with device 1 inh inhalation DAILY meclizine 12.5 MG tablet 12.5 mg PO DAILY PRN PRN (Reason: Dizziness) Patient Comments: NEEDED FOR DIZZINESS. montelukast 10 MG tablet 10 mg PO DAILY Patient Comments: BREATHING sertraline 50 MG tablet 50 mg PO DAILY Patient Comments: MOOD [id number] K-lut 1 EACH tablet 1 tab PO DAILY Patient Comments: MULTIVITAMIN cyanocobalamin (vitamin B-12) 500 MCG tablet, sublingual 500 mcg sublingual DAILY Patient Comments: b12 supplement nortriptyline 10 MG capsule 10 mg PO QHS vitamin E 400 UNIT capsule 400 unit PO DAILY omega-3 fatty acids-fish oil 1 EACH capsule 1 ea PO DAILY etodolac 400 MG tablet 400 mg PO DAILY calcium citrate-vitamin D3 1 EACH tablet 1 tab PO DAILY aspirin 81 MG tablet 81 mg PO DAILYCM albuterol sulfate 1 INHALER inhaler 1 - 2 puff inhalation Q4H PRN PRN (Reason: Shortness Of Breath) Qty: 1 0RF pravastatin 80 mg tablet 80 mg PO QHS Qty: 90 3RF clopidogrel 75 mg tablet 75 mg PO DAILY Qty: 90 3RF losartan 50 mg tablet 50 mg PO BID Qty: 180 3RF Primary Care Provider: Dangelo Beckford Referrals: Dangelo Beckford MD [Primary Care Provider] - 3-5 Days Activity Restrictions/Additional Instructions: Plenty of fluids and rest. Start with water, 7-Up and Gatorade and increase your diet slowly as tolerated. Follow-up with your doctor if not improving or not feeling back to your normal. Zofran as needed for nausea and vomiting. Return if feeling worse or unable to keep fluids down. Disposition Disposition: Home, Self Care
[2023-09-18 10:51] LABS: Absolute Lymphocyte Count 0.99 X10^3/uL (0.83-4.51); Absolute Neutrophil Count 4.9 X10^3/uL (2.0-7.7); Basophil# 0.04 X10^3/uL; Basophil% 0.6 % (0-1); Eosinophil# 0.04 X10^3/uL; Eosinophils% 0.6 % (0-5); Hematocrit 46.5 % (37-47); Hemoglobin 15.1 g/dL (12.0-15.0); Lymphocyte # 0.99 X10^3/ul (0.83-4.51); Lymphocyte % 15.5 % (19-41); Mean Corp Hgb Conc 32.5 g/dL (32-36); Mean Corpuscular Hgb 28.7 pg (27.0-32.0); Mean Corpuscular Volume 88.4 fL (81-99); Mean Platelet Vol. 10.4 fl (6.2-12.0); Monocyte# 0.39 X10^3/uL; Monocyte% 6.1 % (0-10); NRBC Flagged by Analyzer 0 % (0-5); Neutrophil # 4.89 X10^3/uL (2.7-7.7); Neutrophil % 76.9 % (47-70); Platelet Count 273 K/mm3 (150-450); RBC Distribution Width CV 12.9 % (11.6-14.6); RBC Distribution Width SD 41.7 fl (35.1-43.9); Red Blood Count 5.26 M/mm3 (4.2-5.4); White Blood Count 6.4 K/mm3 (4.4-11.0)
[2023-09-18] MEDS: 0.9% Normal Saline (1000mL) 1,000 ML 1000 ML IV (10:51)
[2023-09-18] MEDS: Ondansetron 4 MG/2 ML Vial IV (10:51)
[2023-09-18 10:53] VITALS: BMI 36.4
[2023-09-18 10:54] VITALS: BP 171/73; PULSE 56; RESP 18; TEMP 36.9; O2SAT 95
[2023-09-18 11:06] LABS: AST(SGOT) 22 U/L (15-37); Alanine Aminotransfer ALT/SGPT 19 U/L (13-56); Albumin, Serum 3.7 g/dL (3.2-5.0); Alkaline Phosphatase 63 U/L (45-117); Anion Gap 6 (5-15); BUN 9 mg/dL (7-18); BUN/Creat Ratio 10.1 RATIO (10-20); Calcium,Total 9.7 mg/dL (8.5-10.1); Chloride 110 mmol/L (98-107); Creatinine, Serum 0.89 mg/dL (0.55-1.02); EST Glomerular Filtration Rate 65 mL/min (>60); Est Glom Filt Rate - Afr Amer 79 mL/min (>60); Estimated Creatinine Clearance 61.77 ml/min; Globulin 3.6 g/dL (2.2-4.2); Glucose 135 mg/dL (74-106); Potassium 3.6 mmol/L (3.5-5.1); Protein, Total 7.3 g/dL (6.4-8.2); Sodium Level 143 mmol/L (136-145)
[2023-09-18 12:05] VITALS: BP 167/83; PULSE 54; RESP 18; O2SAT 95
[2023-09-18 12:24] VITALS: BP 172/91; PULSE 56; RESP 18; TEMP 36.9; O2SAT 97
== END 2023-09-18 12:25 | disposition home or self-care (01) ==
PROVIDERS: Emergency Provider Emergency Medicine; PCP Family Medicine; Visit Provider Emergency Medicine
DX: B34.9 Viral infection, unspecified (principal); R11.2 Nausea with vomiting, unspecified; I25.10 Atherosclerotic heart disease of native coronary artery without angina pectoris; Z87.891 Personal history of nicotine dependence; I10 Essential (primary) hypertension; E78.00 Pure hypercholesterolemia, unspecified; E03.9 Hypothyroidism, unspecified; Z79.82 Long term (current) use of aspirin; Z79.02 Long term (current) use of antithrombotics/antiplatelets; Z79.890 Hormone replacement therapy; Z79.899 Other long term (current) drug therapy; I25.2 Old myocardial infarction; Z95.5 Presence of coronary angioplasty implant and graft
CPT/HCPCS: 80053; 85025; 96361; 96374; 99283; J7030; J2405

== ENCOUNTER 2023-11-16 18:46 | Emergency (ER) | payer MEDICARE, SELFPAY ==
[2023-11-16 18:47] VITALS: BP 154/123; PULSE 129; RESP 18; TEMP 36.4; O2SAT 98
--- NOTE | 2023-11-16 19:06 | EDS_ITS ---
HPI <CHELO Rodas - Last Filed: 11/16/23 20:22> History of Present Illness Chief Complaint: General Illness Narrative Narrative: 78-year-old female with past medical history of HTN, HLD, CAD presents with 3 days of nausea and dry heaving. She is keeping down water and Sprite and does not help actual emesis. She has no abdominal pain. She has a normal daily bowel movement and denies melena or hematochezia. She has had slight burning with urination. She reports having similar symptoms a week ago but it went away. She does not drink or smoke alcohol. Surgical history includes hysterectomy. [facility] <CHELO Rodas - Last Filed: 11/16/23 20:22> [facility] Medical History (Updated 11/16/23 @ 20:22 by CHELO Rodas) Presence of stent in coronary artery (~06/13/18) Pure hypercholesterolemia Essential hypertension Old myocardial infarction Chronic lower back pain Former smoker, stopped smoking many years ago Atherosclerotic heart disease of [place] coronary artery without angina pectoris CAD (coronary artery disease) Myocardial infarct Non-STEMI (non-ST elevated myocardial infarction) Asthma Osteoarthritis of right knee Restless leg syndrome Hypothyroidism Home Medications ?Medication ?Instructions ?Recorded ?Last Taken ?Type cyanocobalamin (vitamin B-12) 500 500 mcg sublingual DAILY SUPPLEMENT 06/23/15 10/10/18 History mcg sublingual tablet meclizine 12.5 mg tablet 12.5 mg PO DAILY PRN PRN Dizziness 06/23/15 Unknown History montelukast 10 mg tablet 10 mg PO DAILY ALLERGIES 06/23/15 10/09/18 History panijuth-bcic-vgbn 8 mg-folic 400 1 tab PO DAILY SUPPLEMENT 06/23/15 10/10/18 History mcg-K 50 mcg-lutein 300 mcg tablet sertraline 50 mg tablet 50 mg PO DAILY DEPRESSION 06/23/15 10/10/18 History nortriptyline 10 mg capsule 10 mg PO QHS DEPRESSION 06/11/18 10/09/18 History omega-3 fatty acids-fish oil 340 1 ea PO DAILY supplement 06/11/18 10/10/18 Hi story mg-1,000 mg capsule vitamin E 268 mg (400 unit) capsule 400 unit PO DAILY supplement 06/11/18 10/10/18 History aspirin 81 mg tablet,[facility] 10/10/18 History release calcium citrate 315 mg 1 tab PO DAILY SUPPLEMENT 10/10/18 10/10/18 History calcium-vitamin D3 6.25 mcg (250 unit) tablet etodolac 400 mg tablet 400 mg PO DAILY MUSCLES 10/10/18 10/10/18 History albuterol sulfate 90 mcg/actuation 1 - 2 puff inhalation Q4H PRN PRN 10/12/18 Unknown Rx aerosol inhaler Shortness Of Breath ##1 potassium chloride 20 mEq 20 meq PO BID POTASSIUM #180 tabs 10/24/18 Unknown Rx tablet,extended release(part/cryst) loratadine 10 mg tablet 10 mg PO DAILY PRN 90 days #90 tabs 05/14/19 Unknown History pravastatin 80 mg tablet 80 mg PO QHS CHOLESTEROL #90 tabs 10/21/19 Unknown Rx furosemide 40 mg tablet 40 mg PO DAILY FLUID #90 tabs 11/17/19 Unknown Rx isosorbide mononitrate 30 mg 30 mg PO DAILY HEART #90 tabs 11/17/19 Unknown Rx tablet,extended release 24 hr metoprolol tartrate 50 mg tablet 50 mg PO BID HEART #180 tabs 11/17/19 Unknown Rx ciclopirox 0.77 % topical cream 1 applic topical DAILY PRN 08/05/20 Unknown History cyclobenzaprine 5 mg tablet 5 mg PO QHS 08/05/20 Unknown History fluticasone propionate 50 1 spray intranasal DAILY 08/05/20 Unknown History mcg/actuation nasal spray,suspension (Allergy Relief (fluticasone)) ipratropium 0.5 mg-albuterol 3 mg 3 ml inhalation Q6H PRN 08/05/20 Unknown History (2.5 mg base)/3 mL nebulization soln clopidogrel 75 mg tablet 75 mg PO DAILY BLOOD THINNER #90 08/17/20 Unknown Rx tabs fluticasone furoate 100 1 inh inhalation DAILY 08/25/21 Unknown History mcg-vilanterol 25 mcg/dose inhalation powder gabapentin 600 mg tablet 1,500 mg PO QHS 08/25/21 Unknown History levothyroxine 88 mcg tablet 88 mcg PO DAILY 08/25/21 Unknown History losartan 50 mg tablet 50 mg PO BID HEART #180 tabs 09/04/23 Unknown Rx ondansetron 4 mg disintegrating 4 mg PO Q8H PRN nausea and 09/18/23 Unknown Rx tablet vomiting #7 tabs cephalexin 500 mg capsule 500 mg PO Q12 #14 CAPSULES 11/16/23 Unknown Rx ondansetron 4 mg disintegrating 4 mg PO Q8H PRN PRN Nausea #10 tabs 11/16/23 Unknown Rx tablet Allergy/AdvReac Type Severity Reaction Status Date / Time codeine Allergy Shortness Verified 11/16/23 18:47 of breath egg Allergy Nausea Verified 11/16/23 18:47 meperidine HCl (From Demerol) Allergy Itching Verified 11/16/23 18:47 midazolam HCl (From Versed) Allergy Itching Verified 11/16/23 18:47 Sulfa (Sulfonamide Allergy Unknown Verified 11/16/23 18:47 Antibiotics) Family History Mother CAD (coronary artery disease) Father CAD (coronary artery disease) Chronic rheumatic arthritis Sister CAD (coronary artery disease) Surgical History Presence of coronary angioplasty implant and graft (~06/13/18) Status post total right knee replacement Social History Smoking Status: Former smoker how long ago did patient quit smokin-40 years ago alcohol intake: never substance use type: does not use caffeine: Yes Type: coffee Number of servings: 1 ROS <CHELO Rodas - Last Filed: 11/16/23 20:22> ROS ED ROS Narrative Constitutional: Negative for fever, chills, malaise. CVS: Negative for palpitations, chest pain, syncope. Respiratory: Negative for shortness of breath, cough. GI: Positive for nausea. Negative for abdominal pain, vomiting, diarrhea, constipation, melena, hematochezia. : Positive for dysuria. EXAM <CHELO Rodas - Last Filed: 11/16/23 20:22> Physical Exam Narrative Exam Narrative: CONST: Patient sitting in no acute distress. EYES: Normal inspection. ENT: Normal inspection, slightly dry mucous membranes. NECK: Normal inspection. RESP: No respiratory distress, CTAB. CVS: Regular rate and rhythm, no murmur, no gallop. ABD: Soft and nontender, no guarding or rebound, nondistended. Back: Normal inspection, no CVA tenderness. SKIN: Color normal, no rash, warm, dry, intact. EXTREMITIES: Normal appearance, no pedal edema. NEURO: Alert and answering questions appropriately. PSYCH: Normal affect. Const Vital Signs: 11/16/23 18:47 11/16/23 20:02 Temperature 97.5 F L Temperature Source Temporal Pulse Rate 129 H 79 Respiratory Rate 18 16 Blood Pressure 154/123 H 185/90 H Blood Pressure Mean 133 121 Pulse Ox 98 98 Oxygen Delivery Method Room Air Room Air <Dr. Zeus Ritchie DO - Last Filed: 11/16/23 20:27> Physical Exam Const Vital Signs: 11/16/23 18:47 11/16/23 20:02 Temperature 97.5 F L Temperature Source Temporal Pulse Rate 129 H 79 Respiratory Rate 18 16 Blood Pressure 154/123 H 185/90 H Blood Pressure Mean 133 121 Pulse Ox 98 98 Oxygen Delivery Method Room Air Room Air MDM <CHELO Rodas - Last Filed: 11/16/23 20:22> [facility] Narrative Medical decision making narrative: History gathered from: Patient, friend Differential: ? UTI ? Electrolyte abnormality ? FRED ? ACS ? Unlikely other intra-abdominal process with no pain or tenderness Patient has had 3 days of nausea and dry heaving and also reports burning with urination. She appears well and nontoxic. She was hypertensive and tachycardic in the 120s with otherwise normal vital signs. She appears mildly dehydrated. Abdomen soft and nontender. Labs show normal white count of 6.7, mild hemoconcentration at 15.6, normal electrolytes and renal function. LFTs and lipase WNL. EKG is nonischemic and troponin negative. UA is consistent with UTI. She was treated with IV fluids and Zofran. She has not had vomiting but still complained of nausea and tolerated p.o. Phenergan and first dose of Keflex for UTI. I prescribed antiemetics and Keflex for home with return precautions. I do not think she needs admitted as there is no signs of urosepsis and she is tolerating p.o. intake and after fluids heart rate has improved to 79. She was discharged in stable condition. Lab Data Attestation: I reviewed the patient's lab results. Labs: Laboratory Results - last 24 hr 11/16/23 11/16/23 11/16/23 19:10 19:20 19:29 WBC 6.7 RBC 5.41 H Hgb 15.6 H Hct 47.8 H MCV 88.4 MCH 28.8 MCHC 32.6 RDW Std Deviation 41.8 RDW Coeff of J[place] 13.0 Plt Count 339 MPV 10.2 Immature Gran % (Auto) 0.300 Neut % (Auto) 71.0 H Lymph % (Auto) 20.2 [place] % (Auto) 7.2 Eos % (Auto) 0.6 Baso % (Auto) 0.7 Absolute Neuts (auto) 4.7 Absolute Lymphs (auto) 1.35 Nucleated RBC % 0 Sodium 141 Potassium 3.7 Chloride 105 Carbon Dioxide 27.0 Anion Gap 9 BUN 11 Creatinine 0.86 Est GFR (MDRD) Af Amer 83 Est GFR (MDRD) Non-Af 68 BUN/Creatinine Ratio 12.9 Glucose 130 H Calcium 10.1 Total Bilirubin 0.50 AST 27 ALT 18 Alkaline Phosphatase 70 Troponin I High Sens 14 Total Protein 7.7 Albumin 4.0 Globulin 3.7 Albumin/Globulin Ratio 1.1 Lipase 17 Urine Color YELLOW Urine Clarity Sl Cldy Urine pH 7.0 Ur Specific [place] 1.005 Urine Protein Negative Urine Glucose (UA) Normal Urine Ketones Negative Urine Occult Blood 10 H Urine Nitrite Negative Urine Bilirubin Negative Urine Urobilinogen Normal Ur Leukocyte Esterase 500 H Urine RBC 0 SEEN Urine WBC 5-10 SEEN Ur Squamous Epith Cells 0-5 SEEN Urine Bacteria 1+ Urine Mucus 0 SEEN EKG Initial EKG: Attestation: I personally reviewed and interpreted this EKG as follows: Interpretation: No Acute Injury Pattern and Sinus Tachycardia Comments: Sinus tachycardia at 112 bpm with first-degree AV block Left anterior fascicular block No acute ST changes <Dr. Zeus Ritchie, DO - Last Filed: 11/16/23 20:27> [facility] Lab Data Labs: Laboratory Results - last 24 hr 11/16/23 11/16/23 11/16/23 19:10 19:20 19:29 WBC 6.7 RBC 5.41 H Hgb 15.6 H Hct 47.8 H MCV 88.4 MCH 28.8 MCHC 32.6 RDW Std Deviation 41.8 RDW Coeff of [place] 13.0 Plt Count 339 MPV 10.2 Immature Gran % (Auto) 0.300 Neut % (Auto) 71.0 H Lymph % (Auto) 20.2 [place] % (Auto) 7.2 Eos % (Auto) 0.6 Baso % (Auto) 0.7 Absolute Neuts (auto) 4.7 Absolute Lymphs (auto) 1.35 Nucleated RBC % 0 Sodium 141 Potassium 3.7 Chloride 105 Carbon Dioxide 27.0 Anion Gap 9 BUN 11 Creatinine 0.86 Est GFR (MDRD) Af Amer 83 Est GFR (MDRD) Non-Af 68 BUN/Creatinine Ratio 12.9 Glucose 130 H Calcium 10.1 Total Bilirubin 0.50 AST 27 ALT 18 Alkaline Phosphatase 70 Troponin I High Sens 14 Total Protein 7.7 Albumin 4.0 Globulin 3.7 Albumin/Globulin Ratio 1.1 Lipase 17 Urine Color YELLOW Urine Clarity Sl Cldy Urine pH 7.0 Ur Specific [place] 1.005 Urine Protein Negative Urine Glucose (UA) Normal Urine Ketones Negative Urine Occult Blood 10 H Urine Nitrite Negative Urine Bilirubin Negative Urine Urobilinogen Normal Ur Leukocyte Esterase 500 H Urine RBC 0 SEEN Urine WBC 5-10 SEEN Ur Squamous Epith Cells 0-5 SEEN Urine Bacteria 1+ Urine Mucus 0 SEEN Treatment and Re-Evaluation :: I have personally performed a face to face assessment of the patient and have reviewed the JOSE DANIEL Note. I performed a substantive portion of the visit including all aspects of the following. My delgado findings include: History: Patient presents with nausea, dry heaves, and some mild dysuria that has been getting worse over the past 3 days. Patient states she has been drink ing some fluids but has had decreased oral intake. Patient went to urgent care and was referred to the emergency department for possible dehydration. Patient denies any fevers or chills. Patient denies any chest pain or shortness of breath. Exam: Vital signs are stable except for tachycardia of 129. Patient is afebrile. Patient is in no acute distress. Oral mucosa is pink and slightly dry. Neck is supple. Trachea is midline. There is no JVD. Heart was regular and tachycardic. Lungs are clear and equal bilaterally. Abdomen is soft. Bowel sounds are normal. There is no tenderness. Cranial nerves II through XII are intact. There are no focal motor or sensory deficits noted. Medical Decision Making: Differential diagnosis includes gastroenteritis, dehydration, urinary tract infection, pyelonephritis, pancreatitis, cholecystitis, cholelithiasis, cardiac dysrhythmia, cardiac ischemia, and electrolyte abnormality. EKG will be obtained to assess for cardiac dysrhythmia and cardiac ischemia. CBC will be obtained to assess for leukocytosis and anemia. Comprehensive metabolic profile will be obtained to assess for hepatic function, renal function, and electrolyte abnormality. High-sensitivity troponin will be obtained to assess for cardiac ischemia. Lipase will be obtained to assess for pancreatitis. Urinalysis will be obtained to assess for urinary tract infection. Patient was given IV fluids. Patient was given a dose of Zofran. EKG was obtained. On my independent interpretation, it shows sinus tachycardia with first-degree AV block with a rate of 112. There is a left anterior fascicular block. There are no acute ST or T wave changes noted. CBC was reviewed. Hemoglobin was slightly elevated at 15.6 and hematocrit was 47.8. The remainder is within normal limits. Comprehensive metabolic profile was reviewed and was essentially within normal limits. Lipase was reviewed and was normal at 17. High-sensitivity troponin was reviewed and was normal at 14. Urinalysis was reviewed. There is a leukocyte esterase of 500 with 5-10 white blood cells and 1+ bacteria. Patient was feeling better on reevaluation. Patient's heart rate improved to 79. Patient was advised of her findings. Patient was given a dose of Keflex here. Patient was given a prescription for Keflex. Patient was instructed to follow-up with her primary care physician in 5 to 7 days. Patient was instructed to return if worse in any way. Patient understood and was agreeable with the plan. All questions were answered. Discharge Plan Triage Chief Complaint: General Illness ED Midlevel Provider: Ana Maria Ch ED Provider: Zeus Ritchie Dx/Rx/DC Orders Clinical Impression: Acute UTI, Nausea and vomiting Instructions: Urinary Tract Infections in Women, ED Vomiting (Adult) Prescriptions: New ondansetron 4 mg tablet,disintegrating 4 mg PO Q8H PRN PRN (Reason: Nausea) Qty: 10 0RF cephalexin 500 mg capsule 500 mg PO Q12 Qty: 14 0RF No Action potassium chloride 20 mEq tablet,ER particles/crystals 20 meq PO BID Qty: 180 3RF loratadine 10 mg tablet 10 mg PO DAILY PRN90 Days Qty: 90 Patient Comments: TAKE 1 TABLET BY MOUTH ONCE DAILY NEEDED FOR COLD/ALLERGY SYMPTOMS. furosemide 40 mg tablet 40 mg PO DAILY Qty: 90 3RF isosorbide mononitrate 30 mg tablet extended release 24 hr 30 mg PO DAILY Qty: 90 3RF metoprolol tartrate 50 mg tablet 50 mg PO BID Qty: 180 3RF cyclobenzaprine 5 mg tablet 5 mg PO QHS ipratropium-albuterol 0.5 mg-3 mg(2.5 mg base)/3 mL solution for nebulization 3 ml INHALATION Q6H PRN ciclopirox 0.77 % cream 1 applic TOPICAL DAILY PRN fluticasone propionate [Allergy Relief (fluticasone)] 50 mcg/actuation spray,suspension 1 spray INTRANASAL DAILY Rx Instructions: administer into each nostril gabapentin 600 mg tablet 1,500 mg PO QHS levothyroxine 88 mcg tablet 88 mcg PO DAILY Patient Comments: TAKE 1 TABLET BY MOUTH ONCE DAILY. TAKE ON EMPTY STOMACH. FOR THYROID. Breo Ellipta 100-25 mcg/dose blister with device 1 inh inhalation DAILY meclizine 12.5 MG tablet 12.5 mg PO DAILY PRN PRN (Reason: Dizziness) Patient Comments: NEEDED FOR DIZZINESS. montelukast 10 MG tablet 10 mg PO DAILY Patient Comments: BREATHING sertraline 50 MG tablet 50 mg PO DAILY Patient Comments: MOOD [id number]-FA-vit K-lut 1 EACH tablet 1 tab PO DAILY Patient Comments: MULTIVITAMIN cyanocobalamin (vitamin B-12) 500 MCG tablet, sublingual 500 mcg sublingual DAILY Patient Comments: b12 supplement nortriptyline 10 MG capsule 10 mg PO QHS vitamin E 400 UNIT capsule 400 unit PO DAILY omega-3 fatty acids-fish oil 1 EACH capsule 1 ea PO DAILY etodolac 400 MG tablet 400 mg PO DAILY calcium citrate-vitamin D3 1 EACH tablet 1 tab PO DAILY aspirin 81 MG tablet 81 mg PO DAILYCM albuterol sulfate 1 INHALER inhaler 1 - 2 puff inhalation Q4H PRN PRN (Reason: Shortness Of Breath) Qty: 1 0RF ondansetron 4 mg tablet,disintegrating 4 mg PO Q8H PRN (Reason: nausea and vomiting) Qty: 7 0RF pravastatin 80 mg tablet 80 mg PO QHS Qty: 90 3RF clopidogrel 75 mg tablet 75 mg PO DAILY Qty: 90 3RF losartan 50 mg tablet 50 mg PO BID Qty: 180 3RF Primary Care Provider: Dangelo Beckford Referrals: Dangelo Beckford MD [Primary Care Provider] - Print Language: Bangladeshi
--- NOTE | 2023-11-16 19:20 | EKG12_ITS ---
Test Reason : GENERALIZED WEAKNESS Blood Pressure : / mmHG Vent. Rate : 112 BPM Atrial Rate : 112 BPM P-R Int : 216 ms QRS Dur : 092 ms QT Int : 322 ms P-R-T Axes : 026 -61 061 degrees QTc Int : 439 ms Sinus tachycardia with 1st degree A-V block Left anterior fascicular block Minimal voltage criteria for LVH, may be normal variant ( [place] product ) Septal infarct , age undetermined Possible Lateral infarct , age undetermined Abnormal ECG Confirmed by DIANNE MALLORY, BALA ([id number]), electronic news gathering editor GORAN ACEVES ([id number]) on 11/19/2023 9:47:24 AM Referred By: Confirmed By:ELA DEAN MD
[2023-11-16 19:21] LABS: Absolute Lymphocyte Count 1.35 X10^3/uL (0.83-4.51); Absolute Neutrophil Count 4.7 X10^3/uL (2.0-7.7); Basophil# 0.05 X10^3/uL; Basophil% 0.7 % (0-1); Eosinophil# 0.04 X10^3/uL; Eosinophils% 0.6 % (0-5); Hematocrit 47.8 % (37-47); Hemoglobin 15.6 g/dL (12.0-15.0); Lymphocyte # 1.35 X10^3/ul (0.83-4.51); Lymphocyte % 20.2 % (19-41); Mean Corp Hgb Conc 32.6 g/dL (32-36); Mean Corpuscular Hgb 28.8 pg (27.0-32.0); Mean Corpuscular Volume 88.4 fL (81-99); Mean Platelet Vol. 10.2 fl (6.2-12.0); Monocyte# 0.48 X10^3/uL; Monocyte% 7.2 % (0-10); NRBC Flagged by Analyzer 0 % (0-5); Neutrophil # 4.74 X10^3/uL (2.7-7.7); Platelet Count 339 K/mm3 (150-450); RBC Distribution Width SD 41.8 fl (35.1-43.9); Red Blood Count 5.41 M/mm3 (4.2-5.4); White Blood Count 6.7 K/mm3 (4.4-11.0)
[2023-11-16 19:33] LABS: Glucose, Dipstick Normal (Normal); Ketone-Dipstick Negative (Negative); Leukocyte Esterase-Dipstick 500 /ul (Negative); Mucous, Urine 0 SEEN /hpf (<or=2+); Nitrite-Dipstick Negative (Negative); Occult Blood-Urine 10 /ul (Negative); Protein-Dipstick Negative (Negative); Red Blood Cells-Urine 0 SEEN /hpf (0-5); Specific Gravity, Urine 1.005 (1.002-1.030); Urine Bilirubin Dipstick Negative (Negative); Urine Urobilinogen Normal (Normal)
[2023-11-16] MEDS: 0.9% Normal Saline (1000mL) 1,000 ML 1000 ML IV (19:35)
[2023-11-16] MEDS: Ondansetron 4 MG/2 ML Vial IV (19:35)
[2023-11-16 19:36] LABS: Color, Urine YELLOW (Yellow); Urine Clarity Sl Cldy (Clear)
[2023-11-16 19:58] LABS: ALB/GLOB Ratio 1.1 RATIO (0.9-2.4); AST(SGOT) 27 U/L (15-37); Alanine Aminotransfer ALT/SGPT 18 U/L (13-56); Alkaline Phosphatase 70 U/L (45-117); Anion Gap 9 (5-15); BUN 11 mg/dL (7-18); BUN/Creat Ratio 12.9 RATIO (10-20); Calcium,Total 10.1 mg/dL (8.5-10.1); Chloride 105 mmol/L (98-107); Creatinine, Serum 0.86 mg/dL (0.55-1.02); EST Glomerular Filtration Rate 68 mL/min (>60); Est Glom Filt Rate - Afr Amer 83 mL/min (>60); Globulin 3.7 g/dL (2.2-4.2); Glucose 130 mg/dL (74-106); Lipase 17 U/L (13-75); Potassium 3.7 mmol/L (3.5-5.1); Protein, Total 7.7 g/dL (6.4-8.2); Sodium Level 141 mmol/L (136-145)
[2023-11-16 20:00] LABS: Bacteria 1+ /hpf (None Seen); Squamous Epithelial Cells - UA 0-5 SEEN /hpf (5-10); White Blood Cells 5-10 SEEN /hpf (0-5)
[2023-11-16 20:01] LABS: Troponin-I HS 14 pg/mL (3.0-54.0)
[2023-11-16 20:02] VITALS: BP 185/90; PULSE 79; RESP 16; O2SAT 98
[2023-11-16] MEDS: proMETHazine 25 MG Tablet 6.25 MG PO (20:15)
[2023-11-16] MEDS: Cephalexin 250 MG Capsule 500 MG PO (20:16)
[2023-11-16 20:26] VITALS: BP 185/90; PULSE 79; RESP 19; TEMP 36.8; O2SAT 97
== END 2023-11-16 20:29 | disposition home or self-care (01) ==
LOC: ED 20:04
PROVIDERS: Physician Assistant; Emergency Provider Emergency Medicine; PCP Family Medicine; Visit Provider Emergency Medicine
DX: N39.0 Urinary tract infection, site not specified (principal); R11.2 Nausea with vomiting, unspecified; I10 Essential (primary) hypertension; I25.10 Atherosclerotic heart disease of native coronary artery without angina pectoris; E78.00 Pure hypercholesterolemia, unspecified; E03.9 Hypothyroidism, unspecified; Z79.82 Long term (current) use of aspirin; Z79.02 Long term (current) use of antithrombotics/antiplatelets; Z79.890 Hormone replacement therapy; Z79.899 Other long term (current) drug therapy; Z87.891 Personal history of nicotine dependence
CPT/HCPCS: 80053; 81001; 83690; 84484; 85025; 93005; 96361; 96374; 99283; J7030; A4216; J2405

== ENCOUNTER 2023-12-15 16:07 | Emergency (ER) | payer MEDICARE, SELFPAY ==
[2023-12-15 16:08] VITALS: BP 203/102; PULSE 92; RESP 18; TEMP 35.9; O2SAT 96; BMI 33.1
--- NOTE | 2023-12-15 16:25 | EKG12_ITS ---
Test Reason : GENERAL Blood Pressure : / mmHG Vent. Rate : 082 BPM Atrial Rate : 082 BPM P-R Int : 160 ms QRS Dur : 106 ms QT Int : 404 ms P-R-T Axes : 025 -38 022 degrees QTc Int : 472 ms Normal sinus rhythm Left axis deviation Minimal voltage criteria for LVH, may be normal variant ( [place] product ) Septal infarct (cited on or before 15-JUN-2018) Abnormal ECG Confirmed by DIANNE MALLORY, BALA ([id number]), editorial director DARON HU ([id number]) on 12/19/2023 9:42:53 AM Referred By: Confirmed By:ELA DEAN MD
--- NOTE | 2023-12-15 16:30 | EDS_ITS ---
HPI History of Present Illness Chief Complaint: Nausea/Vomiting Informant: patient and family Narrative Narrative: Patient present secondary to nausea and vomiting. She has had intermittent symptoms for the past couple of months but seems to be worse today. She went to urgent care earlier today with a scheduled an appointment for her to see a doctor on Sunday. She denies abdominal pain. Denies fever or chills. She has no diarrhea. Patient does report having a UTI a couple months ago. She did not have a test of cure after receiving treatment. [facility] Medical History (Updated 12/15/23 @ 19:[address] Keisha Lu MD) Presence of stent in coronary artery (~06/13/18) Pure hypercholesterolemia Essential hypertension Old myocardial infarction Chronic lower back pain Former smoker, stopped smoking many years ago Atherosclerotic heart disease of [place] coronary artery without angina pectoris CAD (coronary artery disease) Myocardial infarct Non-STEMI (non-ST elevated myocardial infarction) Asthma Osteoarthritis of right knee Restless leg syndrome Hypothyroidism Home Medications ?Medication ?Instructions ?Recorded ?Last Taken ?Type cyanocobalamin (vitamin B-12) 500 500 mcg sublingual DAILY SUPPLEMENT 06/23/15 10/10/18 History mcg sublingual tablet meclizine 12.5 mg tablet 12.5 mg PO DAILY PRN PRN Dizziness 06/23/15 Unknown History montelukast 10 mg tablet 10 mg PO DAILY ALLERGIES 06/23/15 10/09/18 History [id number] 8 mg-folic 400 1 tab PO DAILY SUPPLEMENT 06/23/15 10/10/18 History mcg-K 50 mcg-lutein 300 mcg tablet sertraline 50 mg tablet 50 mg PO DAILY DEPRESSION 06/23/15 10/10/18 History nortriptyline 10 mg capsule 10 mg PO QHS DEPRESSION 06/11/18 10/09/18 History omega-3 fatty acids-fish oil 340 1 ea PO DAILY supplement 06/11/18 10/10/18 History mg-1,000 mg capsule vitamin E 268 mg (400 unit) capsule 400 unit PO DAILY supplement 06/11/18 10/10/18 History [facility] 10/10/18 History release calcium citrate 315 mg 1 tab PO DAILY SUPPLEMENT 10/10/18 10/10/18 History calcium-vitamin D3 6.25 mcg (250 unit) tablet etodolac 400 mg tablet 400 mg PO DAILY MUSCLES 10/10/18 10/10/18 History albuterol sulfate 90 mcg/actuation 1 - 2 puff inhalation Q4H PRN PRN 10/12/18 Unknown Rx aerosol inhaler Shortness Of Breath ##1 potassium chloride 20 mEq 20 meq PO BID POTASSIUM #180 tabs 10/24/18 Unknown Rx tablet,extended release(part/cryst) loratadine 10 mg tablet 10 mg PO DAILY PRN 90 days #90 tabs 05/14/19 Unknown History pravastatin 80 mg tablet 80 mg PO QHS CHOLESTEROL #90 tabs 10/21/19 Unknown Rx furosemide 40 mg tablet 40 mg PO DAILY FLUID #90 tabs 11/17/19 Unknown Rx isosorbide mononitrate 30 mg 30 mg PO DAILY HEART #90 tabs 11/17/19 Unknown Rx tablet,extended release 24 hr metoprolol tartrate 50 mg tablet 50 mg PO BID HEART #180 tabs 11/17/19 Unknown Rx ciclopirox 0.77 % topical cream 1 applic topical DAILY PRN 08/05/20 Unknown History cyclobenzaprine 5 mg tablet 5 mg PO QHS 08/05/20 Unknown History fluticasone propionate 50 1 spray intranasal DAILY 08/05/20 Unknown History mcg/actuation nasal spray,suspension (Allergy Relief (fluticasone)) ipratropium 0.5 mg-albuterol 3 mg 3 ml inhalation Q6H PRN 08/05/20 Unknown History (2.5 mg base)/3 mL nebulization soln clopidogrel 75 mg tablet 75 mg PO DAILY BLOOD THINNER #90 08/17/20 Unknown Rx tabs fluticasone furoate 100 1 inh inhalation DAILY 08/25/21 Unknown History mcg-vilanterol 25 mcg/dose inhalation powder gabapentin 600 mg tablet 1,500 mg PO QHS 08/25/21 Unknown History levothyroxine 88 mcg tablet 88 mcg PO DAILY 08/25/21 Unknown History losartan 50 mg tablet 50 mg PO BID HEART #180 tabs 09/04/23 Unknown Rx ondansetron 4 mg disintegrating 4 mg PO Q8H PRN nausea and 09/18/23 Unknown Rx tablet vomiting #7 tabs cephalexin 500 mg capsule 500 mg PO Q12 #14 CAPSULES 11/16/23 Unknown Rx ondansetron 4 mg disintegrating 4 mg PO Q8H PRN PRN Nausea #10 tabs 11/16/23 Unknown Rx tablet ondansetron 4 mg disintegrating 4 mg PO Q8H PRN PRN Nausea #10 tabs 12/15/23 Unknown Rx tablet Allergy/AdvReac Type Severity Reaction Status Date / Time codeine Allergy Shortness Verified 12/15/23 16:08 of breath egg Allergy Nausea Verified 12/15/23 16:08 meperidine HCl (From Demerol) Allergy Itching Verified 12/15/23 16:08 midazolam HCl (From Versed) Allergy Itching Verified 12/15/23 16:08 Sulfa (Sulfonamide Allergy Unknown Verified 12/15/23 16:08 Antibiotics) Family History Mother CAD (coronary artery disease) Father CAD (coronary artery disease) Chronic rheumatic arthritis Sister CAD (coronary artery disease) Surgical History Presence of coronary angioplasty implant and graft (~06/13/18) Status post total right knee replacement Social History Smoking Status: Former smoker how long ago did patient quit smokin-40 years ago alcohol intake: never substance use type: does not use caffeine: Yes Type: coffee Number of servings: 1 ROS ROS ED Constitutional Constitutional ED: Denies chills or fever(s) Eyes Eyes: Denies discharge from eye(s) ENT ENT ED: Denies discharge from eye(s), rhinorrhea or sore throat Cardiovascular Cardiovascular: Denies chest pain Respiratory/Chest Respiratory/Chest: Denies cough or dyspnea Gastrointestinal Gastrointestinal: Reports nausea and vomiting; Denies abdominal pain or diarrhea Genitourinary Genitourinary ED: Denies dysuria Musculoskeletal Musculoskeletal: Denies back pain or extremity pain Integumentary Denies Abrasions or rash Neurologic Neurologic: Denies headache(s) or weakness Psychiatric Psychiatric: Denies anxiety or depression Allergic/Immunologic Allergic/Immunologic ED: Denies lip swelling or urticaria EXAM Physical Exam Const Vital Signs: 12/15/23 16:08 12/15/23 18:07 Temperature 96.6 F L Temperature Source Temporal Pulse Rate 92 67 Respiratory Rate 18 20 H Blood Pressure 203/102 H 184/81 H Blood Pressure Mean 135 115 Pulse Ox 96 95 Oxygen Delivery Method Room Air Room Air Positive well nourished and well developed General Appearance ED: well developed HEENT Reports moist mucous membranes Eyes EOMs intact bilaterally Chest Wall inspection of chest normal and palpation of chest normal Resp normal respiratory effort and clear to auscultation bilaterally Cardio regular rate and regular rhythm GI non-tender Auscultation: hypoactive bowel sounds Palpation: soft Extremity normal to inspection Neuro oriented x3 Neuro Narrative: No focal neurologic deficit. Psych mental status grossly normal Skin no rashes or lesions noted MDM MDM MDM Narrative Medical decision making narrative: IV established. Patient given Zofran and IV fluids. Labwork obtained to evaluate for leukocytosis, anemia, and electrolyte derangement. Urinalysis obtained to evaluate for infection/hematuria. History & Record Review Discussion w/independent historian: Patient and Family Lab Data Attestation: I reviewed the patient's lab results. Labs: Laboratory Results - last 24 hr 12/15/23 12/15/23 16:34 17:40 WBC 5.6 RBC 5.19 Hgb 14.8 Hct 45.3 MCV 87.3 MCH 28.5 MCHC 32.7 RDW Std Deviation 41.3 RDW Coeff of Jaleesa 13.0 Plt Count 277 MPV 10.5 Immature Gran % (Auto) 0.200 Neut % (Auto) 65.1 Lymph % (Auto) 25.0 Morris % (Auto) 8.5 Eos % (Auto) 0.7 Baso % (Auto) 0.5 Absolute Neuts (auto) 3.6 Absolute Lymphs (auto) 1.39 Nucleated RBC % 0 Sodium 140 Potassium 3.1 L Chloride 109 H Carbon Dioxide 24.0 Anion Gap 7 BUN 9 Creatinine 0.79 Estim Creat Clear Calc 65.36 Est GFR (MDRD) Af Amer 91 Est GFR (MDRD) Non-Af 75 BUN/Creatinine Ratio 11.4 Glucose 112 H Calcium 9.9 Total Bilirubin 0.70 Direct Bilirubin 0.16 AST 17 ALT 17 Alkaline Phosphatase 67 Total Protein 7.3 Albumin 3.8 Globulin 3.5 Lipase 19 Urine Color Yellow Urine Clarity Clear Urine pH 7.0 Ur Specific [place] 1.005 Urine Protein Negative Urine Glucose (UA) Normal Urine Ketones Negative Urine Occult Blood Negative Urine Nitrite Negative Urine Bilirubin Negative Urine Urobilinogen Normal Ur Leukocyte Esterase 100 H Urine RBC 0 SEEN Urine WBC 0-5 SEEN Ur Squamous Epith Cells 0 SEEN Urine Bacteria 0 SEEN Urine Mucus 0 SEEN EKG Initial EKG: Attestation: I personally reviewed and interpreted this EKG as follows: Interpretation: Sinus Rhythm (Sinus 82 with no evidence of acute ischemia. QTc is 472.) Treatment and Re-Evaluation :: CBC was normal white count 5.6 with a hemoglobin of 14.8. Differential unremarkable. Chemistry studies significant for potassium low at 3.1. This is replaced with 20 mill equivalents IV. BUN and creatinine are 9 and 0.79 respectively. Glucose is 112. LFTs and lipase are normal. Urinalysis reveals no evidence of acute infection. No nitrites noted. EKG is sinus rhythm with no evidence of acute ischemia. On repeat evaluation patient does report some improvement in her symptoms. Her lab work is reviewed with her. I will give her a prescription for Zofran and she has follow-up appointment scheduled in 2 days. Return instructions provided. Discharge Plan Triage Chief Complaint: Nausea/Vomiting ED Provider: Keisha Lu Dx/Rx/DC Orders Clinical Impression: Vomiting Instructions: ED Vomiting (Adult) Prescriptions: New ondansetron 4 mg tablet,disintegrating 4 mg PO Q8H PRN PRN (Reason: Nausea) Qty: 10 0RF No Action potassium chloride 20 mEq tablet,ER particles/crystals 20 meq PO BID Qty: 180 3RF loratadine 10 mg tablet 10 mg PO DAILY PRN90 Days Qty: 90 Patient Comments: TAKE 1 TABLET BY MOUTH ONCE DAILY NEEDED FOR COLD/ALLERGY SYMPTOMS. furosemide 40 mg tablet 40 mg PO DAILY Qty: 90 3RF isosorbide mononitrate 30 mg tablet extended release 24 hr 30 mg PO DAILY Qty: 90 3RF metoprolol tartrate 50 mg tablet 50 mg PO BID Qty: 180 3RF cyclobenzaprine 5 mg tablet 5 mg PO QHS ipratropium-albuterol 0.5 mg-3 mg(2.5 mg base)/3 mL solution for nebulization 3 ml INHALATION Q6H PRN ciclopirox 0.77 % cream 1 applic TOPICAL DAILY PRN fluticasone propionate [Allergy Relief (fluticasone)] 50 mcg/actuation spray,suspension 1 spray INTRANASAL DAILY Rx Instructions: administer into each nostril gabapentin 600 mg tablet 1,500 mg PO QHS levothyroxine 88 mcg tablet 88 mcg PO DAILY Patient Comments: TAKE 1 TABLET BY MOUTH ONCE DAILY. TAKE ON EMPTY STOMACH. FOR THYROID. Breo Ellipta 100-25 mcg/dose blister with device 1 inh inhalation DAILY meclizine 12.5 MG tablet 12.5 mg PO DAILY PRN PRN (Reason: Dizziness) Patient Comments: NEEDED FOR DIZZINESS. montelukast 10 MG tablet 10 mg PO DAILY Patient Comments: BREATHING sertraline 50 MG tablet 50 mg PO DAILY Patient Comments: MOOD kjlnipic-lqs-ghea-FA-vit K-lut 1 EACH tablet 1 tab PO DAILY Patient Comments: MULTIVITAMIN cyanocobalamin (vitamin B-12) 500 MCG tablet, sublingual 500 mcg sublingual DAILY Patient Comments: b12 supplement nortriptyline 10 MG capsule 10 mg PO QHS vitamin E 400 UNIT capsule 400 unit PO DAILY omega-3 fatty acids-fish oil 1 EACH capsule 1 ea PO DAILY etodolac 400 MG tablet 400 mg PO DAILY calcium citrate-vitamin D3 1 EACH tablet 1 tab PO DAILY aspirin 81 MG tablet 81 mg PO DAILYCM albuterol sulfate 1 INHALER inhaler 1 - 2 puff inhalation Q4H PRN PRN (Reason: Shortness Of Breath) Qty: 1 0RF ondansetron 4 mg tablet,disintegrating 4 mg PO Q8H PRN (Reason: nausea and vomiting) Qty: 7 0RF ondansetron 4 mg tablet,disintegrating 4 mg PO Q8H PRN PRN (Reason: Nausea) Qty: 10 0RF cephalexin 500 mg capsule 500 mg PO Q12 Qty: 14 0RF pravastatin 80 mg tablet 80 mg PO QHS Qty: 90 3RF clopidogrel 75 mg tablet 75 mg PO DAILY Qty: 90 3RF losartan 50 mg tablet 50 mg PO BID Qty: 180 3RF Primary Care Provider: Dangelo Beckford Referrals: Dangelo Beckford MD [Primary Care Provider] - Keep Lissette appointment Print Language: Ethiopian Disposition Disposition: Home, Self Care
[2023-12-15] MEDS: 0.9% Normal Saline (1000mL) 1,000 ML 1000 ML IV (16:31)
[2023-12-15] MEDS: Ondansetron 4 MG/2 ML Vial IV (16:31)
[2023-12-15 16:46] LABS: Absolute Lymphocyte Count 1.39 X10^3/uL (0.83-4.51); Absolute Neutrophil Count 3.6 X10^3/uL (2.0-7.7); Basophil# 0.03 X10^3/uL; Basophil% 0.5 % (0-1); Eosinophil# 0.04 X10^3/uL; Eosinophils% 0.7 % (0-5); Hematocrit 45.3 % (37-47); Hemoglobin 14.8 g/dL (12.0-15.0); Lymphocyte # 1.39 X10^3/ul (0.83-4.51); Mean Corp Hgb Conc 32.7 g/dL (32-36); Mean Corpuscular Hgb 28.5 pg (27.0-32.0); Mean Corpuscular Volume 87.3 fL (81-99); Mean Platelet Vol. 10.5 fl (6.2-12.0); Monocyte# 0.47 X10^3/uL; Monocyte% 8.5 % (0-10); NRBC Flagged by Analyzer 0 % (0-5); Neutrophil # 3.61 X10^3/uL (2.7-7.7); Neutrophil % 65.1 % (47-70); Platelet Count 277 K/mm3 (150-450); RBC Distribution Width SD 41.3 fl (35.1-43.9); Red Blood Count 5.19 M/mm3 (4.2-5.4); White Blood Count 5.6 K/mm3 (4.4-11.0)
[2023-12-15 17:03] LABS: AST(SGOT) 17 U/L (15-37); Alanine Aminotransfer ALT/SGPT 17 U/L (13-56); Albumin, Serum 3.8 g/dL (3.2-5.0); Alkaline Phosphatase 67 U/L (45-117); Anion Gap 7 (5-15); BUN 9 mg/dL (7-18); BUN/Creat Ratio 11.4 RATIO (10-20); Bilirubin, Direct 0.16 mg/dL (0.00-0.30); Calcium,Total 9.9 mg/dL (8.5-10.1); Chloride 109 mmol/L (98-107); Creatinine, Serum 0.79 mg/dL (0.55-1.02); EST Glomerular Filtration Rate 75 mL/min (>60); Est Glom Filt Rate - Afr Amer 91 mL/min (>60); Estimated Creatinine Clearance 65.36 ml/min; Globulin 3.5 g/dL (2.2-4.2); Glucose 112 mg/dL (74-106); Lipase 19 U/L (13-75); Potassium 3.1 mmol/L (3.5-5.1); Protein, Total 7.3 g/dL (6.4-8.2); Sodium Level 140 mmol/L (136-145)
[2023-12-15] MEDS: Labetalol (Prefilled) 20 MG/4 ML 10 MG IV (17:27)
[2023-12-15 17:48] LABS: Bacteria 0 SEEN /hpf (None Seen); Mucous, Urine 0 SEEN /hpf (<or=2+); Red Blood Cells-Urine 0 SEEN /hpf (0-5); Squamous Epithelial Cells - UA 0 SEEN /hpf (5-10)
[2023-12-15] MEDS: Potassium Chloride 10mEq/100mL 10 MEQ/100 ML IV.SOLN. 100 MEQ IV BOLUS ×2 (17:50→18:39)
[2023-12-15] MEDS: 0.9% Normal Saline (1000mL) 1,000 ML 150 ML IV (17:55)
[2023-12-15 18:04] LABS: Color, Urine Yellow (Yellow); Glucose, Dipstick Normal (Normal); Ketone-Dipstick Negative (Negative); Leukocyte Esterase-Dipstick 100 /ul (Negative); Nitrite-Dipstick Negative (Negative); Occult Blood-Urine Negative /ul (Negative); Protein-Dipstick Negative (Negative); Specific Gravity, Urine 1.005 (1.002-1.030); Urine Bilirubin Dipstick Negative (Negative); Urine Clarity Clear (Clear); Urine Urobilinogen Normal (Normal)
[2023-12-15 18:07] VITALS: BP 184/81; PULSE 67; RESP 20; O2SAT 95
[2023-12-15 18:16] LABS: White Blood Cells 0-5 SEEN /hpf (0-5)
[2023-12-15 19:57] VITALS: BP 171/110; PULSE 73; RESP 22; TEMP 36.7; O2SAT 95
== END 2023-12-15 20:00 | disposition home or self-care (01) ==
PROVIDERS: Emergency Provider Emergency Medicine; PCP Family Medicine; Visit Provider Emergency Medicine
DX: R11.2 Nausea with vomiting, unspecified (principal); E87.6 Hypokalemia; I10 Essential (primary) hypertension; I25.10 Atherosclerotic heart disease of native coronary artery without angina pectoris; E78.00 Pure hypercholesterolemia, unspecified; I25.2 Old myocardial infarction; Z79.82 Long term (current) use of aspirin; Z79.02 Long term (current) use of antithrombotics/antiplatelets; Z79.899 Other long term (current) drug therapy; Z87.891 Personal history of nicotine dependence
CPT/HCPCS: 80048; 80076; 81001; 83690; 85025; 93005; 96361; 96365; 96366; 96375; 99284; J7030; A4216; J2405

== ENCOUNTER 2024-01-15 10:15 | Emergency (ER) | payer MEDICARE, SELFPAY ==
[2024-01-15 10:16] VITALS: BP 174/78; PULSE 56; RESP 17; TEMP 36.4; O2SAT 97; BMI 31.1
--- NOTE | 2024-01-15 11:01 | CT_ITS ---
STUDY: CT ABDOMEN AND PELVIS WITH CONTRAST REASON FOR EXAM: Female, 78 years old. LLQ pain -- Constipation RADIATION DOSAGE (If Supplied By Facility): CTDIvol = ( 21.86 ) mGy, DLP = ( 1436.51 ) mGycm TECHNIQUE: Transaxial images were obtained from the dome of the diaphragm to the symphysis pubis without oral contrast. IV 100mL Isovue-300 was administered. Sagittal and coronal images were reconstructed. Individualized dose optimization techniques were used for this CT. COMPARISON: None. FINDINGS: Mild increased markings at the right base suggestive of atelectasis. Coronary artery calcification. Mild dilatation of the central intrahepatic biliary ducts. There are multiple gallstones. Normal spleen. There is diffuse atrophy of the pancreas. Normal bilateral adrenal glands. Normal right kidney. Normal left kidney. Normal visualized stomach. Normal small intestine. There are multiple colonic diverticula consistent with diverticulosis. The appendix is visualized and appears normal. Normal abdominal aorta. Normal inferior vena cava. Normal retroperitoneum. Normal urinary bladder. Normal abdominal wall. There are diffuse degenerative changes of the visualized lumbar spine. Prior right hip replacement. CT/Abdomen/Pelvis W IV Cont ONLY IMPRESSION: Multiple gallstones. Atelectasis at the right lung base. Sigmoid diverticulosis. Electronically Signed: René Sanchez MD at 12:17 EDT ,
--- NOTE | 2024-01-15 11:02 | ED.VIS.GI ---
HPI HPI - GI History of Present Illness Chief Complaint: Constipation Informant: patient and family Narrative Narrative: Presents here with son constipation with no bowel movement for the past week. She has had some abdominal discomfort lower abdomen since then. No fevers states has some chills. No urinary symptoms. No change in diet or new medications. Is not on any pain medicines. Typically has bowel movements daily. Follow-up with PCP yesterday. She has been on laxatives mag citrate tried a Fleet enema this morning. No bowel movements. Hysterectomy in the past. Per son has upcoming elective cholecystectomy. Nausea without vomiting. Denies history of kidney disease. [facility] Medical History (Updated 01/15/24 @ 15:[address] Je Gandhi, DO) Presence of stent in coronary artery (~06/13/18) Pure hypercholesterolemia Essential hypertension Old myocardial infarction Chronic lower back pain Former smoker, stopped smoking many years ago Atherosclerotic heart disease of [place] coronary artery without angina pectoris CAD (coronary artery disease) Myocardial infarct Non-STEMI (non-ST elevated myocardial infarction) Asthma Osteoarthritis of right knee Restless leg syndrome Hypothyroidism Home Medications ?Medication ?Instructions ?Recorded ?Last Taken ?Type cyanocobalamin (vitamin B-12) 500 500 mcg sublingual DAILY SUPPLEMENT 06/23/15 10/10/18 History mcg sublingual tablet meclizine 12.5 mg tablet 12.5 mg PO DAILY PRN PRN Dizziness 06/23/15 Unknown History montelukast 10 mg tablet 10 mg PO DAILY ALLERGIES 06/23/15 10/09/18 History rxnvayry-abid-bcmp 8 mg-folic 400 1 tab PO DAILY SUPPLEMENT 06/23/15 10/10/18 History mcg-K 50 mcg-lutein 300 mcg tablet sertraline 50 mg tablet 50 mg PO DAILY DEPRESSION 06/23/15 10/10/18 History nortriptyline 10 mg capsule 10 mg PO QHS DEPRESSION 06/11/18 10/09/18 History omega-3 fatty acids-fish oil 340 1 ea PO DAILY supplement 06/11/18 10/10/18 History mg-1,000 mg capsule vitamin E 268 mg (400 unit) capsule 400 unit PO DAILY supplement 06/11/18 10/10/18 History aspirin 81 mg tablet,[facility] 10/10/18 History release calcium citrate 315 mg 1 tab PO DAILY SUPPLEMENT 10/10/18 10/10/18 History calcium-vitamin D3 6.25 mcg (250 unit) tablet etodolac 400 mg tablet 400 mg PO DAILY MUSCLES 10/10/18 10/10/18 History albuterol sulfate 90 mcg/actuation 1 - 2 puff inhalation Q4H PRN PRN 10/12/18 Unknown Rx aerosol inhaler Shortness Of Breath ##1 potassium chloride 20 mEq 20 meq PO BID POTASSIUM #180 tabs 10/24/18 Unknown Rx tablet,extended release(part/cryst) loratadine 10 mg tablet 10 mg PO DAILY PRN 90 days #90 tabs 05/14/19 Unknown History pravastatin 80 mg tablet 80 mg PO QHS CHOLESTEROL #90 tabs 10/21/19 Unknown Rx furosemide 40 mg tablet 40 mg PO DAILY FLUID #90 tabs 11/17/19 Unknown Rx isosorbide mononitrate 30 mg 30 mg PO DAILY HEART #90 tabs 11/17/19 Unknown Rx tablet,extended release 24 hr metoprolol tartrate 50 mg tablet 50 mg PO BID HEART #180 tabs 11/17/19 Unknown Rx ciclopirox 0.77 % topical cream 1 applic topical DAILY PRN 08/05/20 Unknown History cyclobenzaprine 5 mg tablet 5 mg PO QHS 08/05/20 Unknown History fluticasone propionate 50 1 spray intranasal DAILY 08/05/20 Unknown History mcg/actuation nasal spray,suspension (Allergy Relief (fluticasone)) ipratropium 0.5 mg-albuterol 3 mg 3 ml inhalation Q6H PRN 08/05/20 Unknown History (2.5 mg base)/3 mL nebulization soln clopidogrel 75 mg tablet 75 mg PO DAILY BLOOD THINNER #90 08/17/20 Unknown Rx tabs fluticasone furoate 100 1 inh inhalation DAILY 08/25/21 Unknown History mcg-vilanterol 25 mcg/dose inhalation powder gabapentin 600 mg tablet 1,500 mg PO QHS 08/25/21 Unknown History levothyroxine 88 mcg tablet 88 mcg PO DAILY 08/25/21 Unknown History losartan 50 mg tablet 50 mg PO BID HEART #180 tabs 09/04/23 Unknown Rx ondansetron 4 mg disintegrating 4 mg PO Q8H PRN nausea and 09/18/23 Unknown Rx tablet vomiting #7 tabs cephalexin 500 mg capsule 500 mg PO Q12 #14 CAPSULES 11/16/23 Unknown Rx ondansetron 4 mg disintegrating 4 mg PO Q8H PRN PRN Nausea #10 tabs 11/16/23 Unknown Rx tablet ondansetron 4 mg disintegrating 4 mg PO Q8H PRN PRN Nausea #10 tabs 12/15/23 Unknown Rx tablet Allergy/AdvReac Type Severity Reaction Status Date / Time codeine Allergy Shortness Verified 01/15/24 10:18 of breath egg Allergy Nausea Verified 01/15/24 10:18 meperidine HCl (From Demerol) Allergy Itching Verified 01/15/24 10:18 midazolam HCl (From Versed) Allergy Itching Verified 01/15/24 10:18 Sulfa (Sulfonamide Allergy Unknown Verified 01/15/24 10:18 Antibiotics) Family History Mother CAD (coronary artery disease) Father CAD (coronary artery disease) Chronic rheumatic arthritis Sister CAD (coronary artery disease) Surgical History Presence of coronary angioplasty implant and graft (~06/13/18) Status post total right knee replacement Social History Smoking Status: Former smoker how long ago did patient quit smokin-40 years ago alcohol intake: never substance use type: does not use caffeine: Yes Type: coffee Number of servings: 1 ROS ROS ED Constitutional Constitutional ED: Denies chills, fever(s) or sweats Eyes Eyes: Denies change in vision ENT ENT ED: Denies dysphagia or sore throat Cardiovascular Cardiovascular: Denies chest pain, leg edema, palpitations or racing heartbeat Respiratory/Chest Respiratory/Chest: Denies cough, dyspnea or dyspnea on exertion Gastrointestinal Gastrointestinal: Reports abdominal pain and constipation; Denies diarrhea, nausea or vomiting Genitourinary Genitourinary ED: Denies dysuria, hematuria or urinary frequency Musculoskeletal Musculoskeletal: Denies back pain, extremity pain or neck pain Integumentary Denies rash or wounds Neurologic Neurologic: Denies headache(s), paresthesias or weakness EXAM Physical Exam Const Vital Signs: 01/15/24 10:16 01/15/24 12:16 01/15/24 14:00 Temperature 97.5 F L Temperature Source Temporal Pulse Rate 56 L 86 Respiratory Rate 17 Blood Pressure 174/78 H 184/80 H 183/79 H Blood Pressure Mean 110 114 113 Pulse Ox 97 Oxygen Delivery Method Room Air 01/15/24 14:29 Temperature 97.5 F L Temperature Source Pulse Rate 81 Respiratory Rate 18 Blood Pressure 178/81 H Blood Pressure Mean 113 Pulse Ox 95 Oxygen Delivery Method Positive well nourished and well developed General Appearance ED: well developed and NAD HEENT Reports moist mucous membranes normocephalic and atraumatic Eyes EOMs intact bilaterally and conjunctivae normal General Eye ED: Yes normal appearance of both eyes Neck no lymphadenopathy and supple General: Negative for tenderness Chest Wall Chest: Negative for tenderness Resp normal respiratory effort and normal air movement Effort and Inspection: symmetric chest movement; Negative for respiratory distress Cardio regular rate, regular rhythm and no murmurs Peripheral Pulses: pulses 2+ throughout GI normal to inspection, nondistended, normoactive bowel sounds GI Narrative: Tender deep palpation left lower quadrant. No guarding or rebound. Negative Milan's or McBurney's tenderness. Positive bowel sounds. Palpation: Negative for guarding or rebound tenderness present Back/Spine no CVA tenderness and no thoracic nor lumbar tenderness Extremity normal to inspection General Extremety ED: Negative for edema or tenderness General Extremity: Negative for edema Neuro oriented x3 and no sensory deficits noted Sensorium / Orientation: awake and alert Skin no rashes or lesions noted and no wounds MDM MDM MDM Narrative Medical decision making narrative: Interventions / MDM: Differential diagnosis: Constipation, abdominal pain Diagnosis considered but do not suspect: Diverticulitis however CT negative. My EKG interpretation: N/A Imaging independently reviewed and interpreted by myself: CT abdomen/pelvis: Negative diverticulitis. Stool burden noted. Cholelithiasis noted. External documents reviewed: N/A Test considered but not ordered:N/A ED course: Patient pain deep palpation left lower quadrant. New constipation symptoms past week. Discussed workup to rule out diverticulitis. Labs were ordered, CT scan IV contrast. 1230: White count 10.8. Creatinine 0.71. CT scan negative for diverticulitis has diverticulosis. Cholelithiasis that is known. There was large stool burden in the rectum. Discussed with patient and son for disimpaction from for an enema. 1250: Disimpaction performed large amount of stools. There is still stools up in the rectum. Will perform soapsuds enema. Patient with bowel movement in the ED after enema with improvement of symptoms. She is discharged with outpatient follow-up. Should continue oral fluids for hydration. All questions were answered. Re-evaluation: stable Disposition discussed with patient/family/significant other: Patient and son Case discussed with consulting clinician: N/A This note was generated with [employer] dictation software. It may contain incorrect words, spelling, and punctuation that were not noted in checking the note before signing. Lab Data Attestation: I reviewed the patient's lab results. Labs: Laboratory Results - last 24 hr 01/15/24 11:08 WBC 10.8 RBC 5.03 Hgb 14.5 Hct 43.7 MCV 86.9 MCH 28.8 MCHC 33.2 RDW Std Deviation 42.4 RDW Coeff of Jaleesa 13.4 Plt Count 269 MPV 10.8 Immature Gran % (Auto) 0.400 Neut % (Auto) 82.1 H Lymph % (Auto) 8.9 L [place] % (Auto) 7.5 Eos % (Auto) 0.5 Baso % (Auto) 0.6 Absolute Neuts (auto) 8.9 H Absolute Lymphs (auto) 0.96 Nucleated RBC % 0 Sodium 143 Potassium 2.8 L Chloride 108 H Carbon Dioxide 29.0 Anion Gap 6 BUN 10 Creatinine 0.71 Estim Creat Clear Calc 63.34 Est GFR (MDRD) Af Amer 102 Est GFR (MDRD) Non-Af 84 BUN/Creatinine Ratio 14.0 Glucose 109 H Calcium 9.5 Radiography Diagnostic Testing: Clinical Impression(s) from Imaging Studies Abdomen/Pelvis CT 01/15/24 11:01 IMPRESSION: Multiple gallstones. Atelectasis at the right lung base. Sigmoid diverticulosis. Electronically Signed: René Sanchez MD at 12:17 EDT , Discharge Plan Triage Chief Complaint: Constipation ED Provider: Je Gandhi Dx/Rx/DC Orders Clinical Impression: Constipation, Abdominal pain, LLQ, Cholelithiasis Instructions: ED Constipation (Adult) Prescriptions: No Action potassium chloride 20 mEq tablet,ER particles/crystals 20 meq PO BID Qty: 180 3RF loratadine 10 mg tablet 10 mg PO DAILY PRN90 Days Qty: 90 Patient Comments: TAKE 1 TABLET BY MOUTH ONCE DAILY NEEDED FOR COLD/ALLERGY SYMPTOMS. furosemide 40 mg tablet 40 mg PO DAILY Qty: 90 3RF isosorbide mononitrate 30 mg tablet extended release 24 hr 30 mg PO DAILY Qty: 90 3RF metoprolol tartrate 50 mg tablet 50 mg PO BID Qty: 180 3RF cyclobenzaprine 5 mg tablet 5 mg PO QHS ipratropium-albuterol 0.5 mg-3 mg(2.5 mg base)/3 mL solution for nebulization 3 ml INHALATION Q6H PRN ciclopirox 0.77 % cream 1 applic TOPICAL DAILY PRN fluticasone propionate [Allergy Relief (fluticasone)] 50 mcg/actuation spray,suspension 1 spray INTRANASAL DAILY Rx Instructions: administer into each nostril gabapentin 600 mg tablet 1,500 mg PO QHS levothyroxine 88 mcg tablet 88 mcg PO DAILY Patient Comments: TAKE 1 TABLET BY MOUTH ONCE DAILY. TAKE ON EMPTY STOMACH. FOR THYROID. Breo Ellipta 100-25 mcg/dose blister with device 1 inh inhalation DAILY meclizine 12.5 MG tablet 12.5 mg PO DAILY PRN PRN (Reason: Dizziness) Patient Comments: NEEDED FOR DIZZINESS. montelukast 10 MG tablet 10 mg PO DAILY Patient Comments: BREATHING sertraline 50 MG tablet 50 mg PO DAILY Patient Comments: MOOD ogwofajj-nfi-[id number]-FA-vit K-lut 1 EACH tablet 1 tab PO DAILY Patient Comments: MULTIVITAMIN cyanocobalamin (vitamin B-12) 500 MCG tablet, sublingual 500 mcg sublingual DAILY Patient Comments: b12 supplement nortriptyline 10 MG capsule 10 mg PO QHS vitamin E 400 UNIT capsule 400 unit PO DAILY omega-3 fatty acids-fish oil 1 EACH capsule 1 ea PO DAILY etodolac 400 MG tablet 400 mg PO DAILY calcium citrate-vitamin D3 1 EACH tablet 1 tab PO DAILY aspirin 81 MG tablet 81 mg PO DAILYCM albuterol sulfate 1 INHALER inhaler 1 - 2 puff inhalation Q4H PRN PRN (Reason: Shortness Of Breath) Qty: 1 0RF ondansetron 4 mg tablet,disintegrating 4 mg PO Q8H PRN PRN (Reason: Nausea) Qty: 10 0RF ondansetron 4 mg tablet,disintegrating 4 mg PO Q8H PRN (Reason: nausea and vomiting) Qty: 7 0RF ondansetron 4 mg tablet,disintegrating 4 mg PO Q8H PRN PRN (Reason: Nausea) Qty: 10 0RF cephalexin 500 mg capsule 500 mg PO Q12 Qty: 14 0RF pravastatin 80 mg tablet 80 mg PO QHS Qty: 90 3RF clopidogrel 75 mg tablet 75 mg PO DAILY Qty: 90 3RF losartan 50 mg tablet 50 mg PO BID Qty: 180 3RF Primary Care Provider: Dangelo Beckford Referrals: Dangelo Beckford MD [Primary Care Provider] - 1 Week Activity Restrictions/Additional Instructions: Your CT scan negative for diverticulitis. You were disimpacted with enema in the ED with continue oral fluids for hydration. Follow-up with your doctor. Bowel movement. Print Language: [place] Islander Disposition Disposition: Home, Self Care Discharge Date/Time: 01/15/24 14:30
[2024-01-15] MEDS: 0.9% Normal Saline (1000mL) 1,000 ML 999 ML IV (11:10)
[2024-01-15] MEDS: Ondansetron 4 MG/2 ML Vial IV (11:11)
[2024-01-15 11:13] LABS: Absolute Lymphocyte Count 0.96 X10^3/uL (0.83-4.51); Absolute Neutrophil Count 8.9 X10^3/uL (2.0-7.7); Basophil# 0.07 X10^3/uL; Basophil% 0.6 % (0-1); Eosinophil# 0.05 X10^3/uL; Eosinophils% 0.5 % (0-5); Hematocrit 43.7 % (37-47); Hemoglobin 14.5 g/dL (12.0-15.0); Lymphocyte # 0.96 X10^3/ul (0.83-4.51); Lymphocyte % 8.9 % (19-41); Mean Corp Hgb Conc 33.2 g/dL (32-36); Mean Corpuscular Hgb 28.8 pg (27.0-32.0); Mean Corpuscular Volume 86.9 fL (81-99); Mean Platelet Vol. 10.8 fl (6.2-12.0); Monocyte# 0.81 X10^3/uL; Monocyte% 7.5 % (0-10); NRBC Flagged by Analyzer 0 % (0-5); Neutrophil # 8.89 X10^3/uL (2.7-7.7); Neutrophil % 82.1 % (47-70); Platelet Count 269 K/mm3 (150-450); RBC Distribution Width CV 13.4 % (11.6-14.6); RBC Distribution Width SD 42.4 fl (35.1-43.9); Red Blood Count 5.03 M/mm3 (4.2-5.4); White Blood Count 10.8 K/mm3 (4.4-11.0)
[2024-01-15 11:37] LABS: Anion Gap 6 (5-15); BUN 10 mg/dL (7-18); Calcium,Total 9.5 mg/dL (8.5-10.1); Chloride 108 mmol/L (98-107); Creatinine, Serum 0.71 mg/dL (0.55-1.02); EST Glomerular Filtration Rate 84 mL/min (>60); Est Glom Filt Rate - Afr Amer 102 mL/min (>60); Estimated Creatinine Clearance 63.34 ml/min; Glucose 109 mg/dL (74-106); Potassium 2.8 mmol/L (3.5-5.1); Sodium Level 143 mmol/L (136-145)
[2024-01-15 12:16] VITALS: BP 184/80; PULSE 86
[2024-01-15 14:00] VITALS: BP 183/79
[2024-01-15 14:29] VITALS: BP 178/81; PULSE 81; RESP 18; TEMP 36.4; O2SAT 95
== END 2024-01-15 14:30 | disposition home or self-care (01) ==
PROVIDERS: Emergency Provider Emergency Medicine; PCP Family Medicine; Visit Provider Emergency Medicine
DX: K59.00 Constipation, unspecified (principal); R10.32 Left lower quadrant pain; K80.20 Calculus of gallbladder without cholecystitis without obstruction; I25.10 Atherosclerotic heart disease of native coronary artery without angina pectoris; I25.2 Old myocardial infarction; J45.909 Unspecified asthma, uncomplicated; Z87.891 Personal history of nicotine dependence; Z95.5 Presence of coronary angioplasty implant and graft
CPT/HCPCS: 74177; 80048; 85025; 96361; 96374; 99285; J7030; Q9967; J2405

== ENCOUNTER 2024-01-25 12:45 | Emergency (ER) | payer MEDICARE, SELFPAY ==
[2024-01-25 12:46] VITALS: BP 167/93; PULSE 93; RESP 15; TEMP 36.6; O2SAT 95; BMI 27.9
--- NOTE | 2024-01-25 13:32 | CT_ITS ---
STUDY: CT ABDOMEN AND PELVIS WITH CONTRAST REASON FOR EXAM: Female, 78 years old. Abd pain RADIATION DOSAGE (If Supplied By Facility): CTDIvol = ( 34.70 ) mGy, DLP = ( 1142.88 ) mGycm TECHNIQUE: Transaxial images were obtained from the dome of the diaphragm to the symphysis pubis without oral contrast. IV 100mL Isovue-300 was administered. Sagittal and coronal images were reconstructed. Individualized dose optimization techniques were used for this CT. COMPARISON: Comparison is made with prior study dated January 15, 2024. FINDINGS: Mild increased markings at the lung bases suggestive of scarring and/or atelectasis. Coronary artery calcification. There is a 1.2 cm benign-appearing cyst in the anterior medial portion of the right lobe of the liver. Minimally dilated central intrahepatic biliary ducts. There are multiple gallstones. Normal spleen. Normal pancreas. Normal bilateral adrenal glands. Normal right kidney. Normal left kidney. Normal visualized stomach. Normal small intestine. There are multiple colonic diverticula consistent with diverticulosis. There is non-visualization of the appendix. There is diffuse atherosclerotic calcification of the abdominal aorta, without a demonstrated aneurysm. Normal inferior vena cava. Normal retroperitoneum. Normal urinary bladder. There is absence of the uterus consistent with a prior hysterectomy. Normal abdominal wall. There are degenerative changes of the visualized lumbar spine. Status post right hip replacement. CT/Abdomen/Pelvis W IV Cont ONLY IMPRESSION: Multiple gallstones. Sigmoid diverticulosis. Scarring and/or atelectasis at the lung bases. Electronically Signed: René Sanchez MD at 15:01 EDT ,
--- NOTE | 2024-01-25 13:35 | ED.VIS.GI ---
HPI HPI - GI History of Present Illness Chief Complaint: Nausea/Vomiting Informant: patient and family Abdominal Pain/Flank Pain Onset: Weeks Timing: Intermittent Quality: Cramping Location: Epigastric Current Severity: Mild Maximum Severity: Mild Worsened by: Nothing Relieved by: Nothing Nausea/Vomiting/Emesis GI Symptom: Positive for Nausea and Vomiting Severity: Mild Diarrhea/Melena/Hematochezia GI Symptom: Negative for Diarrhea Associated Symptoms Associated Symptoms: Negative for Dysuria, Frequency, Hematuria or Urgency Narrative Narrative: 78-year-old female history of hypertension, [place] CAD with cardiac stent. Recently diagnosed with gallstones. Has ups coming appointment with Dr. Dallas Welch of the [facility] to possibly have her gallbladder removed. She has been having symptoms for about 2 months. States that over the last week she has had recurrent nausea and some mild abdominal pain. Denies vomiting. No diarrhea or fever. No dysuria. Prior similar symptoms: Yes Recent Illness/Hospitalization: No PFSH PFSH Medical History (Updated 01/25/24 @ 17:[address] Filipe Drummond MD) Presence of stent in coronary artery (~06/13/18) Pure hypercholesterolemia Essential hypertension Old myocardial infarction Chronic lower back pain Former smoker, stopped smoking many years ago Atherosclerotic heart disease of red devil coronary artery without angina pectoris CAD (coronary artery disease) Myocardial infarct Non-STEMI (non-ST elevated myocardial infarction) Asthma Osteoarthritis of right knee Restless leg syndrome Hypothyroidism Home Medications ?Medication ?Instructions ?Recorded ?Last Taken ?Type cyanocobalamin (vitamin B-12) 500 500 mcg sublingual DAILY SUPPLEMENT 06/23/15 10/10/18 History mcg sublingual tablet meclizine 12.5 mg tablet 12.5 mg PO DAILY PRN PRN Dizziness 06/23/15 Unknown History montelukast 10 mg tablet 10 mg PO DAILY ALLERGIES 06/23/15 10/09/18 History pudgqzrt-[id number]-smev 8 mg-folic 400 1 tab PO DAILY SUPPLEMENT 06/23/15 10/10/18 History mcg-K 50 mcg-lutein 300 mcg tablet sertraline 50 mg tablet 50 mg PO DAILY DEPRESSION 06/23/15 10/10/18 History nortriptyline 10 mg capsule 10 mg PO QHS DEPRESSION 06/11/18 10/09/18 History omega-3 fatty acids-fish oil 340 1 ea PO DAILY supplement 06/11/18 10/10/18 History mg-1,000 mg capsule vitamin E 268 mg (400 unit) capsule 400 unit PO DAILY supplement 06/11/18 10/10/18 History aspirin 81 mg tablet,delayed 81 mg PO DAILY HEART HEALTH 10/10/18 10/10/18 History release calcium citrate 315 mg 1 tab PO DAILY SUPPLEMENT 10/10/18 10/10/18 History calcium-vitamin D3 6.25 mcg (250 unit) tablet etodolac 400 mg tablet 400 mg PO DAILY MUSCLES 10/10/18 10/10/18 History albuterol sulfate 90 mcg/actuation 1 - 2 puff inhalation Q4H PRN PRN 10/12/18 Unknown Rx aerosol inhaler Shortness Of Breath ##1 potassium chloride 20 mEq 20 meq PO BID POTASSIUM #180 tabs 10/24/18 Unknown Rx tablet,extended release(part/cryst) loratadine 10 mg tablet 10 mg PO DAILY PRN 90 days #90 tabs 05/14/19 Unknown History pravastatin 80 mg tablet 80 mg PO QHS CHOLESTEROL #90 tabs 10/21/19 Unknown Rx furosemide 40 mg tablet 40 mg PO DAILY FLUID #90 tabs 11/17/19 Unknown Rx isosorbide mononitrate 30 mg 30 mg PO DAILY HEART #90 tabs 11/17/19 Unknown Rx tablet,extended release 24 hr metoprolol tartrate 50 mg tablet 50 mg PO BID HEART #180 tabs 11/17/19 Unknown Rx ciclopirox 0.77 % topical cream 1 applic topical DAILY PRN 08/05/20 Unknown History cyclobenzaprine 5 mg tablet 5 mg PO QHS 08/05/20 Unknown History fluticasone propionate 50 1 spray intranasal DAILY 08/05/20 Unknown History mcg/actuation nasal spray,suspension (Allergy Relief (fluticasone)) ipratropium 0.5 mg-albuterol 3 mg 3 ml inhalation Q6H PRN 08/05/20 Unknown History (2.5 mg base)/3 mL nebulization soln clopidogrel 75 mg tablet 75 mg PO DAILY BLOOD THINNER #90 08/17/20 Unknown Rx tabs fluticasone furoate 100 1 inh inhalation DAILY 08/25/21 Unknown History mcg-vilanterol 25 mcg/dose inhalation powder gabapentin 600 mg tablet 1,500 mg PO QHS 08/25/21 Unknown History levothyroxine 88 mcg tablet 88 mcg PO DAILY 08/25/21 Unknown History losartan 50 mg tablet 50 mg PO BID HEART #180 tabs 09/04/23 Unknown Rx ondansetron 4 mg disintegrating 4 mg PO Q8H PRN nausea and 09/18/23 Unknown Rx tablet vomiting #7 tabs cephalexin 500 mg capsule 500 mg PO Q12 #14 CAPSULES 11/16/23 Unknown Rx ondansetron 4 mg disintegrating 4 mg PO Q8H PRN PRN Nausea #10 tabs 11/16/23 Unknown Rx tablet ondansetron 4 mg disintegrating 4 mg PO Q8H PRN PRN Nausea #10 tabs 12/15/23 Unknown Rx tablet potassium chloride 20 mEq 20 meq PO DAILY 10 days #10 tabs 01/25/24 Unknown Rx tablet,extended release(part/cryst) Allergy/AdvReac Type Severity Reaction Status Date / Time codeine Allergy Shortness Verified 01/25/24 12:47 of breath egg Allergy Nausea Verified 01/25/24 12:47 meperidine HCl (From Demerol) Allergy Itching Verified 01/25/24 12:47 midazolam HCl (From Versed) Allergy Itching Verified 01/25/24 12:47 Sulfa (Sulfonamide Allergy Unknown Verified 01/25/24 12:47 Antibiotics) Family History Mother CAD (coronary artery disease) Father CAD (coronary artery disease) Chronic rheumatic arthritis Sister CAD (coronary artery disease) Surgical History Presence of coronary angioplasty implant and graft (~06/13/18) Status post total right knee replacement Social History Smoking Status: Former smoker how long ago did patient quit smokin-40 years ago alcohol intake: never substance use type: does not use caffeine: Yes Type: coffee Number of servings: 1 ROS ROS ED ROS Narrative Abdominal pain. Nausea. Constitutional Constitutional ED: Denies chills or fever(s) ENT ENT ED: Denies ear pain Cardiovascular Cardiovascular: Denies chest pain Respiratory/Chest Respiratory/Chest: Denies cough Gastrointestinal Gastrointestinal: Reports abdominal pain and nausea; Denies constipation, diarrhea, melena or vomiting Genitourinary Genitourinary ED: Denies dysuria or hematuria Musculoskeletal Musculoskeletal: Denies arthralgias, back pain, myalgias or neck pain Integumentary Denies abscess or Abrasions Neurologic Neurologic: Denies headache(s) Psychiatric Psychiatric: Denies anxiety or depression Endocrine Endocrinology: Denies polydipsia Hematologic/Lymphatic Hematologic/Lymphatic: Denies easy bleeding Allergic/Immunologic Allergic/Immunologic ED: Denies mouth swelling EXAM Physical Exam Narrative Exam Narrative: 78-year-old female vital signs stable afebrile. H EENT exam unremarkable. Neck nontender. Lungs clear to auscultation. Heart regular rhythm rate about 90 no murmur. Chest wall and ribs nontender. Abdomen soft nondistended normal bowel sounds no peritoneal signs. Mild epigastric tenderness. No rebound guarding rigidity. No pulsatile mass. Specifically right upper or right lower quadrant unremarkable. No Milan sign. No McBurney's point tenderness. No obstruction. Moving all 4 extremities. Nontender no edema. Back nontender. Neurologically she is awake and alert no focal motor deficits. Answering questions and following commands. Const Vital Signs: 01/25/24 12:46 01/25/24 14:45 01/25/24 16:00 Temperature 97.8 F Temperature Source Temporal Pulse Rate 93 81 80 Respiratory Rate 15 16 18 Blood Pressure 167/93 H 190/91 H 203/99 H Blood Pressure Mean 117 124 133 Pulse Ox 95 96 96 Oxygen Delivery Method Room Air Room Air Room Air Positive well nourished and well developed; Negative for cachectic, contractures or unkempt General Appearance ED: well developed and NAD; Negative for unkempt, cachectic, contractures or pallor Nutritional Appearance: Negative for cachectic HEENT Reports moist mucous membranes normocephalic and atraumatic; Negative for trauma or tenderness Eyes PERRL and EOMs intact bilaterally General Eye ED: Negative for pale conjunctiva, scleral icterus or other Neck no lymphadenopathy, supple and no JVD General: Negative for tenderness Carotids: Negative for other Lymph Lymphatic: Negative for other Resp normal respiratory effort and clear to auscultation bilaterally Effort and Inspection: Negative for respiratory distress Auscultation: Negative for rales, rhonchi or wheezes Cardio regular rate, regular rhythm, S1 normal heart sound, S2 normal heart sound and no murmurs Rate: Negative for bradycardia or tachycardic Rhythm: Negative for abnormal rhythm GI non-tender, non-distended and no masses Inspection: Negative for abdominal distention Auscultation: normoactive bowel sounds Palpation: soft; Negative for tender, guarding or rebound tenderness present Back/Spine no CVA tenderness General Back: Negative for CVA tenderness Cervical Spine: Negative for cervical spine tenderness Thoracic Spine / Upper Back: Negative for thoracic spinal tenderness Lumbar Spine / Lower Back: Negative for lumbar spinal tenderness Coccyx: Negative for other Extremity full ROM General Extremety ED: Negative for edema, tenderness or other findings General Extremity: Negative for edema or other findings Neuro CN's II-XII intact bilaterally and moves all extremities Sensorium / Orientation: alert, oriented to person, oriented to place and oriented to time; Negative for orientation impaired, confused, lethargic or stuporous Motor Exam: strength 5/5 throughout Psych mental status grossly normal and thought process normal Appearance: Negative for unkempt Attitude: No agitated Mood & Affect: Negative for depressed, anxious or tearful Skin no wounds General Skin Exam: Negative for jaundice or pallor Lesions: no lesions Rashes: no rashes Trauma: Negative for abrasion MDM MDM MDM Narrative Medical decision making narrative: 78-year-old with intermittent abdominal pain with nausea. Reported history of gallstones. Exam is benign she has minimal epigastric tenderness. CAT scan and labs are pending. She be given some Zofran for nausea. Repeat exam patient doing well at 4:00 and 5 PM. Abdomen is benign. I spoke to her general surgeon Dr. Dallas Welch. He is scheduled to do her surgery this week. She is seeing anesthesia on Sunday. I also spoke to our general surgeon on-call given her labs and her exam there is no emergency to this. Okay I discussed all this with her son. He is comfortable taking her home. He will follow-up with Dr. Welch next week. History & Record Review Discussion w/independent historian: Patient Additional record(s) reviewed:: Prior inpatient record, Prior outpatient record, Prior ED visit and Prior labs Lab Data Attestation: I reviewed the patient's lab results. Lab results narrative: CBC unremarkable. White count 6. H&H 15 and 46. Platelets 270. Chemistry panel shows a potassium of 2.6. Should be given IV and oral potassium. Gap 9. Normal BUN of 12 and creatinine 0.8. Liver enzymes normal. Lipase normal. Labs: Laboratory Results - last 24 hr 01/25/24 01/25/24 13:09 15:27 WBC 6.4 RBC 5.38 Hgb 15.5 H Hct 46.1 MCV 85.7 MCH 28.8 MCHC 33.6 RDW Std Deviation 42.1 RDW Coeff of Jaleesa 13.4 Plt Count 270 MPV 11.2 Immature Gran % (Auto) 0.300 Neut % (Auto) 70.8 H Lymph % (Auto) 18.9 L [place] % (Auto) 8.7 Eos % (Auto) 0.5 Baso % (Auto) 0.8 Absolute Neuts (auto) 4.5 Absolute Lymphs (auto) 1.20 Nucleated RBC % 0 Sodium 142 Potassium 2.6 L* Chloride 105 Carbon Dioxide 28.0 Anion Gap 9 BUN 12 Creatinine 0.82 Estim Creat Clear Calc 58.67 Est GFR (MDRD) Af Amer 87 Est GFR (MDRD) Non-Af 72 BUN/Creatinine Ratio 14.7 Glucose 95 Calcium 9.6 Total Bilirubin 0.90 AST 31 ALT 33 Alkaline Phosphatase 62 Total Protein 6.9 Albumin 3.7 Globulin 3.2 Albumin/Globulin Ratio 1.2 Lipase 16 Urine Color Yellow Urine Clarity Clear Urine pH 8.0 Ur Specific [place] 1.015 Urine Protein 15 H Urine Glucose (UA) Normal Urine Ketones 15 H Urine Occult Blood Negative Urine Nitrite Negative Urine Bilirubin Negative Urine Urobilinogen Normal Ur Leukocyte Esterase Negative Urine RBC 0 SEEN Urine WBC 0 SEEN Ur Squamous Epith Cells 0 SEEN Urine Bacteria 1+ Urine Mucus RARE Radiography Diagnostic Testing: Clinical Impression(s) from Imaging Studies Abdomen/Pelvis CT 01/25/24 13:32 IMPRESSION: Multiple gallstones. Sigmoid diverticulosis. Scarring and/or atelectasis at the lung bases. Electronically Signed: René Sanchez MD at 15:01 EDT , Discharge Plan Triage Chief Complaint: Nausea/Vomiting ED Provider: Filipe Drummond Dx/Rx/DC Orders Clinical Impression: Biliary colic, History of gallstones, History of [place] (myocardial infarction), Acute hypokalemia Instructions: ED Gallstones with Biliary Colic Prescriptions: New potassium chloride 20 mEq tablet,ER particles/crystals 20 meq PO DAILY 10 Days Qty: 10 0RF No Action potassium chloride 20 mEq tablet,ER particles/crystals 20 meq PO BID Qty: 180 3RF loratadine 10 mg tablet 10 mg PO DAILY PRN90 Days Qty: 90 Patient Comments: TAKE 1 TABLET BY MOUTH ONCE DAILY NEEDED FOR COLD/ALLERGY SYMPTOMS. furosemide 40 mg tablet 40 mg PO DAILY Qty: 90 3RF isosorbide mononitrate 30 mg tablet extended release 24 hr 30 mg PO DAILY Qty: 90 3RF metoprolol tartrate 50 mg tablet 50 mg PO BID Qty: 180 3RF cyclobenzaprine 5 mg tablet 5 mg PO QHS ipratropium-albuterol 0.5 mg-3 mg(2.5 mg base)/3 mL solution for nebulization 3 ml INHALATION Q6H PRN ciclopirox 0.77 % cream 1 applic TOPICAL DAILY PRN fluticasone propionate [Allergy Relief (fluticasone)] 50 mcg/actuation spray,suspension 1 spray INTRANASAL DAILY Rx Instructions: administer into each nostril gabapentin 600 mg tablet 1,500 mg PO QHS levothyroxine 88 mcg tablet 88 mcg PO DAILY Patient Comments: TAKE 1 TABLET BY MOUTH ONCE DAILY. TAKE ON EMPTY STOMACH. FOR THYROID. Breo Ellipta 100-25 mcg/dose blister with device 1 inh inhalation DAILY meclizine 12.5 MG tablet 12.5 mg PO DAILY PRN PRN (Reason: Dizziness) Patient Comments: NEEDED FOR DIZZINESS. montelukast 10 MG tablet 10 mg PO DAILY Patient Comments: BREATHING sertraline 50 MG tablet 50 mg PO DAILY Patient Comments: MOOD [id number]-vit K-lut 1 EACH tablet 1 tab PO DAILY Patient Comments: MULTIVITAMIN cyanocobalamin (vitamin B-12) 500 MCG tablet, sublingual 500 mcg sublingual DAILY Patient Comments: b12 supplement nortriptyline 10 MG capsule 10 mg PO QHS vitamin E 400 UNIT capsule 400 unit PO DAILY omega-3 fatty acids-fish oil 1 EACH capsule 1 ea PO DAILY etodolac 400 MG tablet 400 mg PO DAILY calcium citrate-vitamin D3 1 EACH tablet 1 tab PO DAILY aspirin 81 MG tablet 81 mg PO DAILYCM albuterol sulfate 1 INHALER inhaler 1 - 2 puff inhalation Q4H PRN PRN (Reason: Shortness Of Breath) Qty: 1 0RF ondansetron 4 mg tablet,disintegrating 4 mg PO Q8H PRN PRN (Reason: Nausea) Qty: 10 0RF ondansetron 4 mg tablet,disintegrating 4 mg PO Q8H PRN (Reason: nausea and vomiting) Qty: 7 0RF ondansetron 4 mg tablet,disintegrating 4 mg PO Q8H PRN PRN (Reason: Nausea) Qty: 10 0RF cephalexin 500 mg capsule 500 mg PO Q12 Qty: 14 0RF pravastatin 80 mg tablet 80 mg PO QHS Qty: 90 3RF clopidogrel 75 mg tablet 75 mg PO DAILY Qty: 90 3RF losartan 50 mg tablet 50 mg PO BID Qty: 180 3RF Primary Care Provider: Dangelo Beckford Referrals: Dangelo Beckford MD [Primary Care Provider] - Activity Restrictions/Additional Instructions: Follow-up with Dr. Welch next week to have the gallbladder removed. Return if intractable vomiting, fever or feeling worse. Her potassium is low I wrote you for potassium to take daily. We also gave you potassium in the emergency department. Print Language: Yoruba Disposition Disposition: Home, Self Care
[2024-01-25] MEDS: Ondansetron 4 MG/2 ML Vial IV ×2 (13:36→15:13)
[2024-01-25 13:45] LABS: Absolute Neutrophil Count 4.5 X10^3/uL (2.0-7.7); Basophil# 0.05 X10^3/uL; Basophil% 0.8 % (0-1); Eosinophil# 0.03 X10^3/uL; Eosinophils% 0.5 % (0-5); Hematocrit 46.1 % (37-47); Hemoglobin 15.5 g/dL (12.0-15.0); Lymphocyte % 18.9 % (19-41); Mean Corp Hgb Conc 33.6 g/dL (32-36); Mean Corpuscular Hgb 28.8 pg (27.0-32.0); Mean Corpuscular Volume 85.7 fL (81-99); Mean Platelet Vol. 11.2 fl (6.2-12.0); Monocyte# 0.55 X10^3/uL; Monocyte% 8.7 % (0-10); NRBC Flagged by Analyzer 0 % (0-5); Neutrophil % 70.8 % (47-70); Platelet Count 270 K/mm3 (150-450); RBC Distribution Width CV 13.4 % (11.6-14.6); RBC Distribution Width SD 42.1 fl (35.1-43.9); Red Blood Count 5.38 M/mm3 (4.2-5.4); White Blood Count 6.4 K/mm3 (4.4-11.0)
[2024-01-25 14:09] LABS: ALB/GLOB Ratio 1.2 RATIO (0.9-2.4); AST(SGOT) 31 U/L (15-37); Alanine Aminotransfer ALT/SGPT 33 U/L (13-56); Albumin, Serum 3.7 g/dL (3.2-5.0); Alkaline Phosphatase 62 U/L (45-117); Anion Gap 9 (5-15); BUN 12 mg/dL (7-18); BUN/Creat Ratio 14.7 RATIO (10-20); Calcium,Total 9.6 mg/dL (8.5-10.1); Chloride 105 mmol/L (98-107); Creatinine, Serum 0.82 mg/dL (0.55-1.02); EST Glomerular Filtration Rate 72 mL/min (>60); Est Glom Filt Rate - Afr Amer 87 mL/min (>60); Estimated Creatinine Clearance 58.67 ml/min; Globulin 3.2 g/dL (2.2-4.2); Glucose 95 mg/dL (74-106); Lipase 16 U/L (13-75); Potassium 2.6 mmol/L (3.5-5.1); Protein, Total 6.9 g/dL (6.4-8.2); Sodium Level 142 mmol/L (136-145)
[2024-01-25 14:45] VITALS: BP 190/91; PULSE 81; RESP 16; O2SAT 96
[2024-01-25] MEDS: Morphine 4 MG/ML Syringe IV (15:13)
[2024-01-25] MEDS: Potassium Chloride Oral Tablet 20 MEQ 40 MEQ PO (15:14)
[2024-01-25] MEDS: Potassium Chloride 10mEq/100mL 10 MEQ/100 ML IV.SOLN. 100 MEQ IV BOLUS ×2 (15:15→16:45)
[2024-01-25 15:34] LABS: Red Blood Cells-Urine 0 SEEN /hpf (0-5); Squamous Epithelial Cells - UA 0 SEEN /hpf (5-10); White Blood Cells 0 SEEN /hpf (0-5)
[2024-01-25 15:40] LABS: Color, Urine Yellow (Yellow); Glucose, Dipstick Normal (Normal); Ketone-Dipstick 15 mg/dl (Negative); Leukocyte Esterase-Dipstick Negative /ul (Negative); Nitrite-Dipstick Negative (Negative); Occult Blood-Urine Negative /ul (Negative); Protein-Dipstick 15 mg/dl (Negative); Specific Gravity, Urine 1.015 (1.002-1.030); Urine Bilirubin Dipstick Negative (Negative); Urine Clarity Clear (Clear); Urine Urobilinogen Normal (Normal)
[2024-01-25 15:51] LABS: Bacteria 1+ /hpf (None Seen); Mucous, Urine RARE /hpf (<or=2+)
[2024-01-25 16:00] VITALS: BP 203/99; PULSE 80; RESP 18; O2SAT 96
--- NOTE | 2024-01-25 16:33 | ED.RN ---
Dr Drummond requested for Dr Welch to call. Dr Welch paged.
[2024-01-25 17:54] VITALS: BP 139/78; PULSE 64; RESP 18; TEMP 36.4; O2SAT 99
== END 2024-01-25 17:55 | disposition home or self-care (01) ==
PROVIDERS: Emergency Provider Emergency Medicine; PCP Family Medicine; Visit Provider Emergency Medicine
DX: K80.50 Calculus of bile duct without cholangitis or cholecystitis without obstruction (principal); E87.6 Hypokalemia; I25.10 Atherosclerotic heart disease of native coronary artery without angina pectoris; I10 Essential (primary) hypertension; E78.00 Pure hypercholesterolemia, unspecified; E03.9 Hypothyroidism, unspecified; J45.909 Unspecified asthma, uncomplicated; I25.2 Old myocardial infarction; Z79.82 Long term (current) use of aspirin; Z79.02 Long term (current) use of antithrombotics/antiplatelets; Z79.890 Hormone replacement therapy; Z79.899 Other long term (current) drug therapy; Z87.891 Personal history of nicotine dependence; Z95.5 Presence of coronary angioplasty implant and graft
CPT/HCPCS: 74177; 80053; 81001; 83690; 85025; 96365; 96375; 96376; 99284; J7030; P9612; A4216; J2405

== ENCOUNTER 2024-09-12 13:10 | Emergency (ER) | payer MEDICARE, SELFPAY ==
[2024-09-12 13:11] VITALS: BP 186/95; PULSE 65; RESP 16; TEMP 36.6; O2SAT 97
[2024-09-12 13:12] VITALS: BMI 27.4
--- NOTE | 2024-09-12 13:24 | EKG12_ITS ---
Test Reason : Blood Pressure : */* mmHG Vent. Rate : 54 BPM Atrial Rate : 54 BPM P-R Int : 158 ms QRS Dur : 110 ms QT Int : 472 ms P-R-T Axes : -1 -44 1 degrees QTcB Int : 447 ms Sinus bradycardia Left axis deviation Minimal voltage criteria for LVH, may be normal variant ( Union product ) Septal infarct , age undetermined Abnormal ECG Confirmed by Chad Taylor ([id number]), marketing editor GORAN ACEVES ([id number]) on 09/15/2024 6:51:53 AM Referred By: Confirmed By: Chad Taylor
--- NOTE | 2024-09-12 13:24 | CT_ITS ---
EXAM: CT Abdomen and Pelvis With Intravenous Contrast CLINICAL INDICATION: LLQ PAIN TECHNIQUE: Axial computed tomography images of the abdomen and pelvis with intravenous contrast. This CT exam was performed using one or more of the following dose reduction techniques: automated exposure control, adjustment of the mA and/or kV according to patient size, and/or use of iterative reconstruction technique. COMPARISON: No relevant prior studies available. FINDINGS: LUNG BASES: Unremarkable. No mass. No consolidation. MEDIASTINUM: Small esophageal hiatal hernia. ABDOMEN: LIVER: Fatty infiltration of the liver. GALLBLADDER AND BILE DUCTS: Unremarkable. No calcified stones. No ductal dilation. PANCREAS: Unremarkable. No mass. No ductal dilation. SPLEEN: Unremarkable. No splenomegaly. ADRENALS: Unremarkable. No mass. KIDNEYS AND URETERS: Unremarkable. No stones within either kidney. No hydronephrosis. STOMACH AND BOWEL: Fecal retention in the colon consistent with constipation. Colonic diverticulosis without acute diverticulitis. No obstruction. PELVIS: APPENDIX: No findings to suggest acute appendicitis. BLADDER: Unremarkable. No mass. REPRODUCTIVE: Unremarkable as visualized. ABDOMEN and PELVIS: INTRAPERITONEAL SPACE: Unremarkable. No free air. No significant fluid collection. BONES/JOINTS: Total right hip replacement resulting in beam hardening artifacts. Degenerative disc disease throughout the lumbar spine. Degenerative facet arthropathy throughout the lumbar spine, most prominent in the lower lumbar spine. No acute fracture. No dislocation. SOFT TISSUES: Unremarkable. VASCULATURE: Scattered calcified atherosclerotic disease of aorta. No abdominal aortic aneurysm. LYMPH NODES: Unremarkable. No enlarged lymph nodes. CT/Abdomen/Pelvis W IV Cont ONLY IMPRESSION: 1. Small esophageal hiatal hernia. 2. Fecal retention in the colon consistent with constipation. 3. No obstructive uropathy. 4. Colonic diverticulosis without acute diverticulitis. 5. Degenerative changes lumbar spine as described. Reading [facility]
--- NOTE | 2024-09-12 13:25 | EX.ED.DYSGE1 ---
HPI History of Present Illness Chief Complaint: Complaint Narrative Narrative: Patient is a 79-year-old female with a past medical history of hypercholesteremia, hypertension, CAD, asthma, hypothyroidism who presented to the emergency department with a chief complaint of nausea, concern for urinary tract infection not feeling well. According the patient's family member at bedside they noted that they went to urgent care and they ultimately sent her here for further evaluation management. She states that for the past week she has had nausea and not been able to eat. She denies any sick contacts. [facility] Medical History (Updated 09/12/24 @ 15:[address] Bandar Shook, DO) Presence of stent in coronary artery (~06/13/18) Pure hypercholesterolemia Essential hypertension Old myocardial infarction Chronic lower back pain Former smoker, stopped smoking many years ago Atherosclerotic heart disease of cahto coronary artery without angina pectoris CAD (coronary artery disease) Myocardial infarct Non-STEMI (non-ST elevated myocardial infarction) Asthma Osteoarthritis of right knee Restless leg syndrome Hypothyroidism Home Medications ?Medication ?Instructions ?Recorded ?Last Taken ?Type cyanocobalamin (vitamin B-12) 500 500 mcg sublingual DAILY SUPPLEMENT 06/23/15 10/10/18 History mcg sublingual tablet meclizine 12.5 mg tablet 12.5 mg PO DAILY PRN PRN Dizziness 06/23/15 Unknown History montelukast 10 mg tablet 10 mg PO DAILY ALLERGIES 06/23/15 10/09/18 History fwzbmuuc-cdwu-hrsn 8 mg-folic 400 1 tab PO DAILY SUPPLEMENT 06/23/15 10/10/18 History mcg-K 50 mcg-lutein 300 mcg tablet sertraline 50 mg tablet 50 mg PO DAILY DEPRESSION 06/23/15 10/10/18 History nortriptyline 10 mg capsule 10 mg PO QHS DEPRESSION 06/11/18 10/09/18 History omega-3 fatty acids-fish oil 340 1 ea PO DAILY supplement 06/11/18 10/10/18 History mg-1,000 mg capsule vitamin E 268 mg (400 unit) capsule 400 unit PO DAILY supplement 06/11/18 10/10/18 History [facility] mg [facility] 10/10/18 History release calcium 315 mg (as 1 tab PO DAILY SUPPLEMENT 10/10/18 10/10/18 History citrate)-vitamin D3 6.25 mcg (250 unit) tablet etodolac 400 mg tablet 400 mg PO DAILY MUSCLES 10/10/18 10/10/18 History albuterol sulfate 90 mcg/actuation 1 - 2 puff inhalation Q4H PRN PRN 10/12/18 Unknown Rx aerosol inhaler Shortness Of Breath ##1 potassium chloride 20 mEq 20 meq PO BID POTASSIUM #180 tabs 10/24/18 Unknown Rx tablet,extended release(part/cryst) loratadine 10 mg tablet 10 mg PO DAILY PRN 90 days #90 tabs 05/14/19 Unknown History pravastatin 80 mg tablet 80 mg PO QHS CHOLESTEROL #90 tabs 10/21/19 Unknown Rx furosemide 40 mg tablet 40 mg PO DAILY FLUID #90 tabs 11/17/19 Unknown Rx isosorbide mononitrate 30 mg 30 mg PO DAILY HEART #90 tabs 11/17/19 Unknown Rx tablet,extended release 24 hr metoprolol tartrate 50 mg tablet 50 mg PO BID HEART #180 tabs 11/17/19 Unknown Rx ciclopirox 0.77 % topical cream 1 applic topical DAILY PRN 08/05/20 Unknown History cyclobenzaprine 5 mg tablet 5 mg PO QHS 08/05/20 Unknown History fluticasone propionate 50 1 spray intranasal DAILY 08/05/20 Unknown History mcg/actuation nasal spray,suspension (Allergy Relief (fluticasone)) ipratropium 0.5 mg-albuterol 3 mg 3 ml inhalation Q6H PRN 08/05/20 Unknown History (2.5 mg base)/3 mL nebulization soln clopidogrel 75 mg tablet 75 mg PO DAILY BLOOD THINNER #90 08/17/20 Unknown Rx tabs fluticasone furoate 100 1 inh inhalation DAILY 08/25/21 Unknown History mcg-vilanterol 25 mcg/dose inhalation powder gabapentin 600 mg tablet 1,500 mg PO QHS 08/25/21 Unknown History levothyroxine 88 mcg tablet 88 mcg PO DAILY 08/25/21 Unknown History losartan 50 mg tablet 50 mg PO BID HEART #180 tabs 09/04/23 Unknown Rx ondansetron 4 mg disintegrating 4 mg PO Q8H PRN nausea and 09/18/23 Unknown Rx tablet vomiting #7 tabs cephalexin 500 mg capsule 500 mg PO Q12 #14 CAPSULES 11/16/23 Unknown Rx ondansetron 4 mg disintegrating 4 mg PO Q8H PRN PRN Nausea #10 tabs 11/16/23 Unknown Rx tablet ondansetron 4 mg disintegrating 4 mg PO Q8H PRN PRN Nausea #10 tabs 12/15/23 Unknown Rx tablet potassium chloride 20 mEq 20 meq PO DAILY 10 days #10 tabs 01/25/24 Unknown Rx tablet,extended release(part/cryst) ondansetron 4 mg disintegrating 4 mg PO Q6H PRN nausea and 09/12/24 Unknown Rx tablet vomiting #20 tabs Allergy/AdvReac Type Severity Reaction Status Date / Time codeine Allergy Shortness Verified 09/12/24 13:12 of breath egg Allergy Nausea Verified 09/12/24 13:12 meperidine HCl (From Demerol) Allergy Itching Verified 09/12/24 13:12 midazolam HCl (From Versed) Allergy Itching Verified 09/12/24 13:12 Sulfa (Sulfonamide Allergy Unknown Verified 09/12/24 13:12 Antibiotics) Family History Mother CAD (coronary artery disease) Father CAD (coronary artery disease) Chronic rheumatic arthritis Sister CAD (coronary artery disease) Surgical History Presence of coronary angioplasty implant and graft (~06/13/18) Status post total right knee replacement Social History Smoking Status: Former smoker how long ago did patient quit smokin-40 years ago alcohol intake: never substance use type: does not use caffeine: Yes Type: coffee Number of servings: 1 ROS ROS ED ROS Narrative Constitutional: Denies fevers, chills, headaches Cardiovascular: Denies chest pain or palpitations Respiratory: Denies cough and shortness of breath Abdomen: Complains of nausea denies vomiting or diarrhea states that she has had a cholecystectomy in the past : Concern for UTI she states Neurological: Denies numbness, weakness, tingling Musculoskeletal: Denies back pain Skin: Denies rashes or lesions EXAM Physical Exam Narrative Exam Narrative: General: Patient lying in bed rest comfortably did not appear to be in acute distress Head: Atraumatic, normocephalic Eyes: PERRL bilaterally, EOMI bilateral, no conjunctival injection noted Neck: Soft and supple, trachea midline Cardiovascular: Regular rate and rhythm Respiratory: Clear to auscultation bilaterally Abdomen: Soft, nondistended, tender to palpation in the left lower quadrant no rebound or guarding on exam Extremities: +4/5 strength noted in the bilateral upper and lower extremities Neurological: Patient follow commands and that she was at [facility] the year is 2024 Skin: Warm, dry, intact no rashes or lesions noted Const Vital Signs: 09/12/24 13:11 09/12/24 14:12 Temperature 97.8 F 97.8 F Temperature Source Oral Oral Pulse Rate 65 57 L Respiratory Rate 16 21 H Blood Pressure 186/95 H 189/70 H Blood Pressure Mean 125 109 Pulse Ox 97 97 Oxygen Delivery Method Room Air MDM MDM MDM Narrative Medical decision making narrative: Patient is a 71-year-old female who presented to the emergency department chief complaint of nausea not tolerating oral intake and generalized not feeling well. On the differential diagnosis includes but not limited to bowel obstruction, viral gastroenteritis, UTI, pneumonia. Once workup is obtained reviewed she will be reevaluated. Patient will be given IV fluids for hydration and Zofran. Patient's CBC was reviewed showed no evidence leukocytosis white blood count normal 4.5, hemoglobin 14.3, platelet count was normal at 224. Patient sodium normal 145, potassium low at 3.3, creatinine normal at 0.85. Patient AST and ALT are 20 and 8 respectively. Patient's lipase was normal at 18. Patient urinalysis pending. Patient chest x-ray reviewed by myself and by radiology showed no acute cardiopulmonary processes she has prominent lung markings at the lung base most likely compressive atelectasis related to marked elevation of the right hemidiaphragm. Patient CT abdomen pelvis with IV contrast showed small esophageal hiatal hernia. Fecal retention in the colon consistent constipation. No obstructive uropathy. Colonic diverticulosis without acute diverticulitis. Degenerative changes of the lumbar spine as described. Patient's EKG was reviewed showed sinus bradycardia with a rate of 54 bpm. This was compared to previous EKG from December 15, 2019 for which at that point in time also shows evidence of septal infarct age undetermined with minimal voltage criteria for LVH as well. This was largely unchanged Did discuss results with patient she is feeling better. I discussed with her that she needs to start using MiraLAX to ensure that she was having good bowel movements as she appears constipated on her CT scan. Apparently according to social work team her son called in and had some concerns. Social work went in and evaluated the patient and states that the patient go home from their standpoint and they will provide further resources. Patient case will be signed out to oncoming provider to follow-up on the urinalysis. See his note for ultimate details and disposition. However will be likely that she will be discharged home as the rest of her blood work and CT scan were largely unremarkable. If she does have a UTI she will be discharged home with antibiotics. Lab Data Labs: Laboratory Results - last 24 hr 09/12/24 13:36 WBC 4.5 RBC 4.88 Hgb 14.3 Hct 42.8 MCV 87.7 MCH 29.3 MCHC 33.4 RDW Std Deviation 40.7 RDW Coeff of Jaleesa 12.7 Plt Count 224 MPV 10.7 Immature Gran % (Auto) 0.200 Neut % (Auto) 63.0 Lymph % (Auto) 23.8 Bracken % (Auto) 11.0 H Eos % (Auto) 1.3 Baso % (Auto) 0.7 Absolute Neuts (auto) 2.8 Absolute Lymphs (auto) 1.06 Nucleated RBC % 0 Sodium 145 Potassium 3.3 Chloride 106 Carbon Dioxide 28.3 Anion Gap 11 BUN 15 Creatinine 0.85 Estim Creat Clear Calc 55.25 Est GFR (MDRD) Non-Af 70 BUN/Creatinine Ratio 17.7 Glucose 128 H Lactic Acid 1.1 Calcium 9.7 Total Bilirubin 0.59 AST 20 ALT 8 Alkaline Phosphatase 62 Total Protein 6.6 Albumin 4.0 Globulin 2.6 Albumin/Globulin Ratio 1.5 Lipase 18 Radiography Diagnostic Testing: Clinical Impression(s) from Imaging Studies Abdomen/Pelvis CT 09/12/24 13:24 IMPRESSION: 1. Small esophageal hiatal hernia. 2. Fecal retention in the colon consistent with constipation. 3. No obstructive uropathy. 4. Colonic diverticulosis without acute diverticulitis. 5. Degenerative changes lumbar spine as described. Reading Location: [facility] Chest X-Ray 09/12/24 14:05 IMPRESSION: No active cardiopulmonary disease. Prominent lung markings at the right lung base most likely compressive atelectasis related to marked elevation of the right hemidiaphragm. Reading Location: [place] [address] Discharge Plan Triage Chief Complaint: Complaint ED Provider: Bandar Shook Dx/Rx/DC Orders Clinical Impression: Nausea, Constipation Prescriptions: New ondansetron 4 mg tablet,disintegrating 4 mg PO Q6H PRN (Reason: nausea and vomiting) Qty: 20 0RF No Action potassium chloride 20 mEq tablet,ER particles/crystals 20 meq PO BID Qty: 180 3RF loratadine 10 mg tablet 10 mg PO DAILY PRN90 Days Qty: 90 Patient Comments: TAKE 1 TABLET BY MOUTH ONCE DAILY NEEDED FOR COLD/ALLERGY SYMPTOMS. furosemide 40 mg tablet 40 mg PO DAILY Qty: 90 3RF isosorbide mononitrate 30 mg tablet extended release 24 hr 30 mg PO DAILY Qty: 90 3RF metoprolol tartrate 50 mg tablet 50 mg PO BID Qty: 180 3RF cyclobenzaprine 5 mg tablet 5 mg PO QHS ipratropium-albuterol 0.5 mg-3 mg(2.5 mg base)/3 mL solution for nebulization 3 ml INHALATION Q6H PRN ciclopirox 0.77 % cream 1 applic TOPICAL DAILY PRN fluticasone propionate [Allergy Relief (fluticasone)] 50 mcg/actuation spray,suspension 1 spray INTRANASAL DAILY Rx Instructions: administer into each nostril gabapentin 600 mg tablet 1,500 mg PO QHS levothyroxine 88 mcg tablet 88 mcg PO DAILY Patient Comments: TAKE 1 TABLET BY MOUTH ONCE DAILY. TAKE ON EMPTY STOMACH. FOR THYROID. Breo Ellipta 100-25 mcg/dose blister with device 1 inh inhalation DAILY meclizine 12.5 MG tablet 12.5 mg PO DAILY PRN PRN (Reason: Dizziness) Patient Comments: NEEDED FOR DIZZINESS. montelukast 10 MG tablet 10 mg PO DAILY Patient Comments: BREATHING sertraline 50 MG tablet 50 mg PO DAILY Patient Comments: MOOD itrtgjum-jru-uzfn-FA-vit K-lut 1 EACH tablet 1 tab PO DAILY Patient Comments: MULTIVITAMIN cyanocobalamin (vitamin B-12) 500 MCG tablet, sublingual 500 mcg sublingual DAILY Patient Comments: b12 supplement nortriptyline 10 MG capsule 10 mg PO QHS vitamin E 400 UNIT capsule 400 unit PO DAILY omega-3 fatty acids-fish oil 1 EACH capsule 1 ea PO DAILY etodolac 400 MG tablet 400 mg PO DAILY calcium citrate-vitamin D3 1 EACH tablet 1 tab PO DAILY aspirin 81 MG tablet 81 mg PO DAILYCM albuterol sulfate 1 INHALER inhaler 1 - 2 puff inhalation Q4H PRN PRN (Reason: Shortness Of Breath) Qty: 1 0RF ondansetron 4 mg tablet,disintegrating 4 mg PO Q8H PRN PRN (Reason: Nausea) Qty: 10 0RF ondansetron 4 mg tablet,disintegrating 4 mg PO Q8H PRN (Reason: nausea and vomiting) Qty: 7 0RF ondansetron 4 mg tablet,disintegrating 4 mg PO Q8H PRN PRN (Reason: Nausea) Qty: 10 0RF cephalexin 500 mg capsule 500 mg PO Q12 Qty: 14 0RF potassium chloride 20 mEq tablet,ER particles/crystals 20 meq PO DAILY 10 Days Qty: 10 0RF pravastatin 80 mg tablet 80 mg PO QHS Qty: 90 3RF clopidogrel 75 mg tablet 75 mg PO DAILY Qty: 90 3RF losartan 50 mg tablet 50 mg PO BID Qty: 180 3RF Primary Care Provider: Dangelo Beckford Referrals: Dangelo Beckford MD [Primary Care Provider] - Activity Restrictions/Additional Instructions: Your CT scan of your abdomen showed that you are constipated start using MiraLAX to ensure adequate bowel movements. The Zofran as needed for nausea. Return with worsening symptoms or concerns otherwise you should follow-up with your doctor in the outpatient setting. Print Language: Tamazight Disposition Disposition: Home, Self Care
--- NOTE | 2024-09-12 13:28 | ED.RN ---
PT WALKED IN WITH FAMILY FRIEND, SENT OVER FROM . PT HAS LOST 11 LBS. IN A COUPLE WEEKS PER FRIEND. WAS CONCERNED WITH POSSIBLE UTI. PT DENIES ANY URINARY SX BUT DOES HAVE C/O LOSS OF APPETITE AND NAUSEA. LAST BM WAS YESTERDAY.
[2024-09-12] MEDS: Ondansetron 4 MG/2 ML Vial IV (13:43)
[2024-09-12] MEDS: 0.9% Normal Saline (1000mL) 1,000 ML 999 ML IV (13:43)
[2024-09-12 13:46] LABS: Absolute Lymphocyte Count 1.06 X10^3/uL (0.83-4.51); Absolute Neutrophil Count 2.8 X10^3/uL (2.0-7.7); Basophil# 0.03 X10^3/uL; Basophil% 0.7 % (0-1); Eosinophil# 0.06 X10^3/uL; Eosinophils% 1.3 % (0-5); Hematocrit 42.8 % (37-47); Hemoglobin 14.3 g/dL (12.0-15.0); Lymphocyte # 1.06 X10^3/ul (0.83-4.51); Lymphocyte % 23.8 % (19-41); Mean Corp Hgb Conc 33.4 g/dL (32-36); Mean Corpuscular Hgb 29.3 pg (27.0-32.0); Mean Corpuscular Volume 87.7 fL (81-99); Mean Platelet Vol. 10.7 fl (6.2-12.0); Monocyte# 0.49 X10^3/uL; NRBC Flagged by Analyzer 0 % (0-5); Neutrophil # 2.81 X10^3/uL (2.7-7.7); Platelet Count 224 K/mm3 (150-450); RBC Distribution Width CV 12.7 % (11.6-14.6); RBC Distribution Width SD 40.7 fl (35.1-43.9); Red Blood Count 4.88 M/mm3 (4.2-5.4); White Blood Count 4.5 K/mm3 (4.4-11.0)
--- NOTE | 2024-09-12 14:05 | RAD_ITS ---
PROCEDURE: CHEST PA AND LATERAL 09/12/2024 REASON FOR EXAM: COUGH TECHNIQUE: Frontal and lateral views of the chest. COMPARISON: No relevant prior. FINDINGS: Lungs: Lungs clear of pneumonia and congestion. Prominent lung markings, right lung base. Elevation of the right hemidiaphragm. Pleura: No pleural effusions, thickening, or pneumothorax. Heart: Mild cardiac enlargement. Mediastinum/Usha: Unremarkable. Great vessels: Atherosclerotic and tortuous aorta Bones/soft tissues: Unremarkable. Cardiac monitoring leads overlie the chest wall. RAD/Chest PA and Lateral IMPRESSION: No active cardiopulmonary disease. Prominent lung markings at the right lung base most likely compressive atelecta sis related to marked elevation of the right hemidiaphragm. Reading Location: [place] [address]
[2024-09-12 14:09] LABS: Lactic Acid 1.1 mmol/L (0.0-2.0)
[2024-09-12 14:12] VITALS: BP 189/70; PULSE 57; RESP 21; TEMP 36.6; O2SAT 97
[2024-09-12 14:13] LABS: ALB/GLOB Ratio 1.5 RATIO (0.9-2.4); AST(SGOT) 20 U/L (<=31); Alanine Aminotransfer ALT/SGPT 8 U/L (<=34); Alkaline Phosphatase 62 U/L (35-104); Anion Gap 11 (5-15); BUN 15 mg/dL (4-19); BUN/Creat Ratio 17.7 RATIO (10-20); Calcium,Total 9.7 mg/dL (7.6-11.0); Carbon Dioxide 28.3 mmol/L (21.0-32.0); Chloride 106 mmol/L (98-108); Creatinine, Serum 0.85 mg/dL (0.70-1.20); EST Glomerular Filtration Rate 70 (>60); Estimated Creatinine Clearance 55.25 ml/min (50-250); Globulin 2.6 g/dL (2.2-4.2); Glucose 128 mg/dL (70-99); Lipase 18 U/L (13-75); Potassium 3.3 mmol/L (3.3-5.1); Protein, Total 6.6 g/dL (5.9-8.4); Sodium Level 145 mmol/L (133-145); Total Bilirubin 0.59 mg/dL (0.00-1.30)
[2024-09-12 15:49] LABS: Mucous, Urine 0 SEEN /hpf (<or=2+)
[2024-09-12 16:00] VITALS: BP 193/72; PULSE 54; RESP 19; TEMP 36.8; O2SAT 96
--- NOTE | 2024-09-12 16:13 | CM.ED ---
Social work Reason for referral: safety at home Referral source: Babs BERNAL This SW received call from Babs BERNAL who is currently working with patient's son, Rodriguez, on an acute floor. Rodriguez reportedly had concerns about patient living at home alone due to patient being in the early stages of dementia. Rodriguez is reportedly patient's caregiver and was unsure if patient could take own medication. SW stated ability to go in and talk with patient regarding Rodriguez's concerns and patient's ability to stay at home safely while Rodriguez is admitted to acute. SW entered patient's room, introducing self and role at [facility]. Patient welcomed SW visit and introduced patient's friend, Rosalee Jenkins (ph: [phone]); Rosalee was approved by patient as able to go on patient's contact list. SW talked with patient and Rosalee about Rodriguez's concerns regarding patient staying alone while Rodriguez is admitted to [facility]. Patient stated feeling comfortable and Rosalee stated being able to stay with patient if Rodriguez would prefer. Rosalee stated willingness and intent to stay with patient this evening until patient received patient's evening medication and Rosalee stated willingness and intention of driving back to patient's home in the morning to ensure patient received morning medication and food. Patient shared that patient's medication comes in individualized packaging per date and time of day; Rosalee confirmed this. Patient asked for resources such as a medical alert button and home health aides. SW provided resources including list of home health aides, medical alert button information, [employer] card, home delivered meals, and [facility]. Patient and Rosalee both declined SW need for making a referral to [facility] and Rosalee stated intent to inform Rodriguez of this in order for Rodriguez to be able to make decisions. Patient shared having a cell phone at home and Rosalee stated writing Rosalee's number down should patient need anything. Patient was also encouraged to call 911 for help if needed. SW called Babs BERNAL to provide an update and patient's intent to go home. No further needs identified at this time. Martine Kruse, BOILERMAKER, DIRECTOR OF CLINICAL APPLICATIONS
[2024-09-12 17:00] VITALS: BP 189/76; PULSE 56; RESP 16; TEMP 36.7; O2SAT 96
[2024-09-12 17:05] LABS: Glucose, Dipstick Normal (Normal); Ketone-Dipstick Negative (Negative); Leukocyte Esterase-Dipstick Negative /ul (Negative); Nitrite-Dipstick Negative (Negative); Occult Blood-Urine Negative /ul (Negative); Protein-Dipstick 15 mg/dl (Negative); Urine Bilirubin Dipstick Negative (Negative); Urine Urobilinogen Normal (Normal)
[2024-09-12 17:12] LABS: Color, Urine Yellow (Yellow)
[2024-09-12 17:13] LABS: Urine Clarity Sl. Cloudy (Clear)
[2024-09-12 17:51] LABS: Red Blood Cells-Urine 0-5 SEEN /hpf (0-5); Squamous Epithelial Cells - UA 0-5 SEEN /hpf (5-10); White Blood Cells 0-5 SEEN /hpf (0-5)
[2024-09-12 17:52] LABS: Amorphous Sediment 2+
[2024-09-12 17:53] LABS: Bacteria RARE /hpf (None Seen)
--- NOTE | 2024-09-12 18:32 | ED.RN ---
THIS PT WAS DR ANDRES'S AND TAKEN OVER BY MATT NOWAK TOOK 2.5 HOURS TO RESULT. MYSELF AND DEYA CALLED LAB AND THEY KEPT SAYING IT WAS ABOUT TO RESULT. 35 MINS BETWEEN CALLS TO LAB.
== END 2024-09-12 18:34 | disposition home or self-care (01) ==
PROVIDERS: Emergency Provider Emergency Medicine; PCP Family Medicine; Visit Provider Emergency Medicine
DX: K59.00 Constipation, unspecified (principal); I25.10 Atherosclerotic heart disease of native coronary artery without angina pectoris; I25.2 Old myocardial infarction; I10 Essential (primary) hypertension; Z95.5 Presence of coronary angioplasty implant and graft; Z79.02 Long term (current) use of antithrombotics/antiplatelets; Z79.899 Other long term (current) drug therapy; Z87.891 Personal history of nicotine dependence
CPT/HCPCS: 71046; 74177; 80053; 81001; 83605; 83690; 85025; 87086; 87088; 87631; 93005; 96361; 96374; 99282; Q9967; J2405